=== PATIENT | male | born 1960 | race Hispanic/Latino ===

== ENCOUNTER 2018-02-04 15:59 | Inpatient (IN) | payer OTHER, MEDICARE ==
[2018-02-04] MEDS ORDERED: Etomidate 20 mg/10ml Inj IV ONE (16:11)
[2018-02-04] MEDS ORDERED: Succinylcholine 200 mg/10 ml Inj IV ONE (16:11)
[2018-02-04] MEDS ORDERED: Etomidate 20 mg/10ml Inj IVP STA (16:35)
--- NOTE | 2018-02-04 16:35 | ED PDOC ---
Arrival/HPI - General Chief Complaint: Cardiac Arrest Time Seen by Provider: 02/04/18 16:33 Historian: Family, EMS EM Caveat: Acuity of Condition - History of Present Illness Narrative History of Present Illness (Text): 02/04/18 16:34 A 57 year old male, whose past medical history includes CAD, hyperlipidemia, status post pancreatic and kidney transplant, presents to the emergency department by EMS for cardiac arrest prior to arrival. Family reports patient was breathing erratically and suddenly lost consciousness to which they subsequently called EMS. EMS reports that upon arrival patient was found unconscious, rhythm of ventricular fibrillation with 5 minutes down time and CPR was initiated. Medication and shock were given with CPR. EMS also reports patient was intubated with a definitive airway and cardiac arrest continued with external CPR device. Upon arrival to the emergency department, initial rhythm was ventricular fibrillation and patient was transferred from the [facility] to emergency department stretcher at which point ET tube was suspected to be dislodged. I removed said ET tube and intubated. During intubation, patient was noted breathing spontaneously and biting on ET tube. HPI and ROS is limited due to patient's condition. Time/Duration: Prior to Arrival Context: Home Past Medical History - Provider Review Nursing Documentation Reviewed: Yes - Cardiac Hx Pacemaker: No - Neurological Hx Paralysis: No - Renal Hx Renal Failure: Yes Other/Comment: KIDNEY TRANSPLANT 2005 - Endocrine/Metabolic Hx Diabetes Mellitus Type 2: Yes - Hematological/Oncological Hx Blood Transfusions: Yes (2005) Hx Blood Transfusion Reaction: No - Musculoskeletal/Rheumatological Hx Musculoskeletal Disorders: No - Psychiatric Hx Emotional Abuse: No Hx Physical Abuse: No Hx Substance Use: No - Surgical History Hx Cardiac Catheterization: Yes (X6) Hx Coronary Stent: Yes Hx Gastric Bypass Surgery: Yes (2005) Hx Open Heart Surgery: Yes (2005) - Anesthesia Hx Anesthesia Reactions: No Hx Malignant Hyperthermia: No - Suicidal Assessment Feels Threatened In Home Enviroment: No Family/Social History - Physician Review Nursing Documentation Reviewed: Yes Family/Social History: Unknown Family HX Smoking Status: Never Smoked Hx Alcohol Use: No Hx Substance Use: No Allergies/Home Meds Allergies/Adverse Reactions: Allergies No Known Allergies Allergy (Verified 12/01/11 12:42) Home Medications: Home Meds Medication Instructions Recorded Confirmed Ciprofloxacin [Cipro] 500 mg PO Q12 02/04/18 02/04/18 Docusate Sodium [Wilson' Stool 100 mg PO DAILY 02/04/18 02/04/18 Softener Laxative] Furosemide [Lasix] 40 mg PO DAILY 02/04/18 02/04/18 Gabapentin [Neurontin] 100 mg PO BID 02/04/18 02/04/18 Mycophenolate Mofetil [Cellcept] 1,000 mg PO BID 02/04/18 02/04/18 Naloxegol Oxalate [Movantik] 12.5 mg PO DAILY 02/04/18 02/04/18 Pravastatin Sodium [Pravachol] 40 mg PO HS 02/04/18 02/04/18 Tacrolimus [Prograf] 3 mg PO HS 02/04/18 02/04/18 predniSONE [predniSONE Tab] 5 mg PO DAILY 02/04/18 02/04/18 Review of Systems - Review of Systems Systems not reviewed;Unavailable: Acuity of Condition Physical Exam - Physical Exam Physical Exam Limitations: Clinical Condition Vital Signs Reviewed: Yes Vital Signs Temp Pulse Resp BP Pulse Ox 02/04/18 17:08 72 26 H 130/56 L 95 02/04/18 17:00 89 19 126/73 96 02/04/18 16:40 96.5 F L 87 16 138/70 96 Temperature: Hypothermic Blood Pressure: Normal Pulse: Regular Respiratory Rate: Normal - Systems Exam Head: Present: Atraumatic, Normocephalic Medical Decision Making ED Course and Treatment: 02/04/18 16:40 Impression: A 57 year old male, whose past medical history includes a pancreatic and kidney transplant, presents to the emergency department by EMS for cardiac arrest prior to arrival. Plan: -- Type and Screen Stat -- Arterial blood gas stat -- EKG -- Labs -- CBC -- COAG -- Chest X-ray -- Calcium Gluconate -- Amidate -- Quelicin -- Midazolam -- Urine Culture -- Urinalysis -- Reassess and disposition Prior Visits: Notes and results from previous visits were reviewed. Progress Notes: 02/04/18 16:17 EKG: Ordered, reviewed, and independently interpreted the EKG. Rate : 88 BPM Rhythm : NSR Interpretation : 1 degree AV block, wide QRS complex, suspected hyperkalemia Comparison : No previous EKG for comparison. 02/04/18 17:[address] Yang, who is aware and agrees with emergency department management plan to admit patient for further observation. 02/04/18 17:19 Chest X-ray: Casting Plug Assembler : Alexis Spencer MD FINDINGS: In situ ETT, the tip of which lies approximately 19 mm above nicholas. In situ NGT , the tip of which has not been included on this film though distal aspect does lie well below EG LUNGS: Diffuse bilateral pulmonary infiltrates possibly secondary to pulmonary edema however pneumonia not completely excluded. PLEURA: No significant pleural effusion identified, no pneumothorax apparent. CARDIOVASCULAR: Sternotomy wires. Cardiomegaly. OSSEOUS STRUCTURES: No significant abnormalities. VISUALIZED UPPER ABDOMEN: Normal. OTHER FINDINGS: None. IMPRESSION: ETT and NGT as above. Diffuse bilateral pulmonary infiltrates possibly secondary to pulmonary edema however pneumonia not completely excluded. 02/04/18 17:21 Discussed case with , who is aware of patient and will see patient for admission. - Critical Care Critical Care Minutes: 60 minutes - Lab Interpretations Lab Results: 02/04/18 16:35 02/04/18 16:34 Lab Results 02/04/18 17:00: pCO2 34 L, pO2 53.0 L, HCO3 13.3 L, ABG pH 7.20 L, ABG Total CO2 14.3 L, ABG O2 Saturation 89.3 L, ABG O2 Content 12.8 L, ABG Base Excess - 13.7 L, ABG Hemoglobin 10.7 L, ABG Carboxyhemoglobin 4.3 H, POC ABG HHb ( Measured) 10.2 H, ABG Methemoglobin 0.4, ABG O2 Capacity 14.3 L, Hgb O2 Saturation 85.2 L, FiO2 50.0 02/04/18 16:35: PT 12.8 H, INR 1.12, APTT 39.3 H 02/04/18 16:35: WBC 26.1 H*, RBC 5.35, Hgb 13.1 L, Hct 43.5, MCV 81.3, MCH 24.5 L, MCHC 30.1 L, RDW 15.8 H, Plt Count 394, MPV 10.3, Gran % 68.6 H, Lymph % ( Auto) 27.6, Clark % (Auto) 2.9, Eos % (Auto) 0.7 L, Baso % (Auto) 0.2, Gran # 17.91 H, Lymph # (Auto) 7.2 H, Clark # (Auto) 0.8 H, Eos # (Auto) 0.2, Baso # ( Auto) 0.06 02/04/18 16:34: TSH 3rd Generation 1.92 02/04/18 16:34: Sodium 142, Potassium 4.1, Chloride 109 H, Carbon Dioxide 15 L, Anion Gap 22 H, BUN 25 H, Creatinine 1.2, Est GFR ( Amer) > 60, Est GFR ( Non-Af Amer) > 60, Random Glucose 291 H, Calcium 11.6 H, Phosphorus 5.1 H, Magnesium 2.0, Total Bilirubin 0.5, AST 203 H, ALT 127 H, Alkaline Phosphatase 120, Troponin I 0.33 H*, Total Protein 6.5, Albumin 3.3, Globulin 3.2, Albumin/ Globulin Ratio 1.0 L, Lipase 54 I have reviewed the lab results: Yes - RAD Interpretation Radiology Orders: 02/04/18 16:34 CHEST PORTABLE [RAD] Stat Director Of Special Education: Radiologist - EKG Interpretation Interpreted by ED Physician: Yes Type: 12 lead EKG - Medication Orders Current Medication Orders: Midazolam 100 mg/100ml in NS (Midazolam 100 Mg/100ml In Ns) 100 mg in 100 mls @ 2 mls/hr IV .Q24H PRN; Protocol; 2 MG/HR PRN Reason: Sedation Last Admin: 02/04/18 16:59 Dose: 2 mls/hr eMAR Start Stop Document 02/04/18 16:59 GMI (Rec: 02/04/18 17:00 GMI [id number]) Intravenous Solution Start Date 02/04/18 Start Time 17:00 Sodium Chloride (Sodium Chloride 0.9%) 1,000 mls @ 999 mls/hr IV .Q1H1M STA Stop: 02/04/18 18:17 Last Admin: 02/04/18 18:01 Dose: 999 mls/hr eMAR Start Stop Document 02/04/18 18:01 GMI (Rec: 02/04/18 18:02 GMI [id number]) Intravenous Solution Start Date 02/04/18 Start Time 18:02 End Date 02/04/18 Discontinued Medications Calcium Gluconate (Calcium Gluconate Iv) 1,000 mg IVP ONCE ONE Stop: 02/04/18 16:37 Last Admin: 02/04/18 16:19 Dose: 1,000 mg IVP Administration Document 02/04/18 16:19 GMI (Rec: 02/04/18 17:03 GMI [id number]) Charges for Administration # of IVP Administrations 1 Etomidate (Amidate) 20 mg IVP STAT STA Stop: 02/04/18 16:36 Last Admin: 02/04/18 17:10 Dose: Cefepime HCl (Maxipime 2gm) 2 gm in 100 mls @ 100 mls/hr IVPB STAT STA PRN Reason: Protocol Stop: 02/04/18 17:54 Last Admin: 02/04/18 17:09 Dose: 100 mls/hr eMAR Start Stop Document 02/04/18 17:09 GMI (Rec: 02/04/18 17:09 GMI [id number]) Intravenous Solution Start Date 02/04/18 Start Time 17:09 End Date 02/04/18 End time 18:10 Total Infusion Time 61 Succinylcholine Chloride (Quelicin) 100 mg IV STAT STA Stop: 02/04/18 16:37 Last Admin: 02/04/18 17:10 Dose: - Scribe Statement The provider has reviewed the documentation as recorded by the Shani Beverly All medical record entries made by the Sandyibjoseph were at my direction and personally dictated by me. I have reviewed the chart and agree that the record accurately reflects my personal performance of the history, physical exam, medical decision making, and the department course for this patient. I have also personally directed, reviewed, and agree with the discharge instructions and disposition. Disposition/Present on Arrival - Present on Arrival Any Indicators Present on Arrival: No History of DVT/PE: No History of Uncontrolled Diabetes: No Urinary Catheter: No History of Decub. Ulcer: No History Surgical Site Infection Following: None - Disposition Have Diagnosis and Disposition been Completed?: Yes Diagnosis: Cardiac arrest, Pneumonia Disposition: HOSPITALIZED Disposition Time: 18:07 Patient Plan: Admission Condition: CRITICAL
[2018-02-04] MEDS ORDERED: Succinylcholine 200 mg/10 ml Inj IV STA (16:36)
[2018-02-04] MEDS ORDERED: Midazolam 100 mg/100ml in NS 100 MG/100 ML SOL IV PRN (16:37)
[2018-02-04 16:46] LABS: BASO # 0.06 K/mm3 (0.0-2.0); BASO % 0.2 % (0.0-3.0); EOS # 0.2 (0.0-0.7); EOS % 0.7 % (1.5-5.0); GRAN # 17.91 (1.4-6.5); GRAN % 68.6 % (50.0-68.0); HEMOGLOBIN 13.1 g/dL (14.0-18.0); LYMPH # 7.2 (1.2-3.4); LYMPH % 27.6 % (22.0-35.0); MEAN CELL VOLUME 81.3 fl (80.0-105.0); MEAN CORPUSCULAR HEMOGLOBIN 24.5 pg (25.0-35.0); MEAN CORPUSCULAR HGB CONC 30.1 g/dl (31.0-37.0); MEAN PLATELET VOLUME 10.3 fl (7.0-11.0); MONO # 0.8 (0.1-0.6); MONO % 2.9 % (1.0-6.0); RBC 5.35 10^6/uL (3.5-6.1); RED CELL DISTRIBUTION WIDTH 15.8 % (11.5-14.5)
[2018-02-04 16:47] LABS: INR 1.12; PARTIAL THROMBOPLASTIN TIME 39.3 Seconds (25.1-36.5); PROTHROMBIN TIME 12.8 SECONDS (9.4-12.5)
[2018-02-04 16:50] LABS: WHITE BLOOD COUNT 26.1 10^3/ul (4.5-11.0)
[2018-02-04] MEDS ORDERED: Cefepime IV 2 gm in NS 2 GM/100 ML BAG IVPB STA (16:55)
--- NOTE | 2018-02-04 16:58 | RAD ---
Date of service: 02/04/2018 HISTORY: Tube placement COMPARISON: No prior study available comparison FINDINGS: In situ ETT, the tip of which lies approximately 19 mm above nicholas. In situ NGT, the tip of which has not been included on this film though distal aspect does lie well below EG LUNGS: Diffuse bilateral pulmonary infiltrates possibly secondary to pulmonary edema however pneumonia not completely excluded. PLEURA: No significant pleural effusion identified, no pneumothorax apparent. CARDIOVASCULAR: Sternotomy wires. Cardiomegaly. OSSEOUS STRUCTURES: No significant abnormalities. VISUALIZED UPPER ABDOMEN: Normal. OTHER FINDINGS: None. IMPRESSION: ETT and NGT as above Diffuse bilateral pulmonary infiltrates possibly secondary to pulmonary edema however pneumonia not completely excluded.
[2018-02-04 17:03] LABS: ARTERIAL BLOOD GAS HCO3 13.3 mmol/L (21-28); ARTERIAL BLOOD GAS HEMOGLOBIN 10.7 g/dL (11.7-17.4); ARTERIAL BLOOD GAS O2 CAPACITY 14.3 mL/dl (16-24); ARTERIAL BLOOD GAS O2 CONTENT 12.8 ML/dl (15-23); ARTERIAL BLOOD GAS O2 SAT 89.3 % (95-98); ARTERIAL BLOOD GAS PCO2 34 mm/Hg (35-45); ARTERIAL BLOOD GAS TCO2 14.3 mmol.L (22-28)
[2018-02-04 17:12] LABS: ALBUMIN 3.3 g/dL (3.0-4.8); ALT/SGPT 127 U/L (7-56); AST/SGOT 203 U/L (17-59); BLOOD UREA NITROGEN 25 mg/dL (7-21); CALCIUM 11.6 mg/dL (8.4-10.5); GFR NON-AFRICAN AMERICAN > 60; LIPASE 54 U/L (23-300)
[2018-02-04] MEDS ORDERED: Sodium Chloride 0.9% 1,000 ML IV STA (17:17)
[2018-02-04 17:26] LABS: TROPONIN I 0.33 ng/mL
[2018-02-04 17:52] LABS: VENOUS BLOOD GAS BASE EXCESS -10.9 mmol/L (0.0-2.0); VENOUS BLOOD GAS PO2 54 mm/Hg (30-55)
[2018-02-04 18:00] LABS: VENOUS BLOOD PH 7.19 (7.32-7.43)
[2018-02-04 18:42] LABS: URINE APPEARANCE SL CLOUDY (CLEAR); URINE BILIRUBIN NEGATIVE (NEGATIVE); URINE BLOOD MODERATE (NEGATIVE); URINE COLOR LIGHT YELLOW (YELLOW); URINE GLUCOSE (UA) NEGATIVE (NEGATIVE); URINE LEUKOCYTE ESTERASE NEGATIVE Leu/uL (NEGATIVE); URINE PROTEIN 100 mg/dL (<30 mg/dL); URINE UROBILINOGEN 0.2 E.U./dL (<1 E.U./dL)
[2018-02-04 18:52] LABS: URINE AMORPHOUS SEDIMENT TRACE; URINE BACTERIA TRACE (NEG); URINE WBC 0 - 2 /hpf (0-6)
[2018-02-04] MEDS ORDERED: Propofol 10 mg/ml 1,000 MG/100 ML VIAL ONE (19:24)
[2018-02-04] MEDS ORDERED: Sodium Bicarbonate (8.4%) 50 Meq Syringe IVP ONE (19:48)
--- NOTE | 2018-02-04 20:31 | CP.PCM.PN ---
Subjective - Date & Time of Evaluation Date of Evaluation: 02/04/18 Time of Evaluation: 20:29 - Subjective Subjective: # 20 angiocaths inserted in left hand. Patient started waking up, withdrawing all 4 extremities. Hypothermia protocol was held. Objective - Vital Signs/Intake and Output Vital Signs (last 24 hours): Temp Pulse Resp BP Pulse Ox 96 F L 79 22 123/72 95 02/04/18 19:06 02/04/18 19:06 02/04/18 19:06 02/04/18 19:06 02/04/18 19:06 Intake and Output: 02/04/18 02/05/18 18:59 06:59 Intake Total 4 Balance 4 - Medications Medications: Current Medications Atorvastatin Calcium (Lipitor) 10 mg PO HS [facility] Docusate Sodium (Colace) 100 mg PO DAILY [facility] Furosemide (Lasix) 40 mg IVP DAILY [facility] Gabapentin (Neurontin) 100 mg PO BID [facility] PRN Reason: Protocol Midazolam 100 mg/100ml in NS (Midazolam 100 Mg/100ml In Ns) 100 mg in 100 mls @ 2 mls/hr IV .Q24H PRN; Protocol; 2 MG/HR PRN Reason: Sedation Last Titration: 02/04/18 19:05 Dose: 4 mg/hr, 4 mls/hr Propofol (Diprivan) 1,000 mg in 100 mls @ 1.633 mls/hr IV .Q24H PRN; Protocol; 5 MCG/KG/MIN PRN Reason: TITRATE PER MD ORDER Mycophenolate Mofetil (Cellcept Cap) 1,000 mg PO BID [facility] Non-Formulary Medication (Naloxegol Oxalate [Movantik]) 12.5 mg PO DAILY [facility] Tacrolimus (Prograf Cap) 3 mg PO HS [facility] - Labs Labs: PT 12.8 SECONDS (9.4-12.5) H 02/04/18 16:35 INR 1.12 02/04/18 16:35 APTT 39.3 Seconds (25.1-36.5) H 02/04/18 16:35
[2018-02-04] MEDS ORDERED: TACROLIMUS 1 MG PO SCH (22:00)
[2018-02-04 22:58] LABS: VENOUS BLOOD GAS BASE EXCESS -1.1 mmol/L (0.0-2.0); VENOUS BLOOD GAS PO2 50 mm/Hg (30-55)
[2018-02-04] MEDS: Propofol 10 mg/ml 1,000 MG/100 ML VIAL IV PRN (22:58)
[2018-02-04] MEDS: Insulin Reg-LOW-Coverage SC SCH (23:40)
[2018-02-05 00:08] LABS: ARTERIAL BLOOD GAS HCO3 23.7 mmol/L (21-28); ARTERIAL BLOOD GAS HEMOGLOBIN 11.2 g/dL (11.7-17.4); ARTERIAL BLOOD GAS O2 CAPACITY 15.8 mL/dl (16-24); ARTERIAL BLOOD GAS O2 CONTENT 15.7 ML/dl (15-23); ARTERIAL BLOOD GAS O2 SAT 99.4 % (95-98); ARTERIAL BLOOD GAS PCO2 40 mm/Hg (35-45); ARTERIAL BLOOD GAS PH 7.38 (7.35-7.45); ARTERIAL BLOOD GAS TCO2 24.9 mmol.L (22-28)
[2018-02-05] MEDS ORDERED: Aspirin 325 mg EC Tablets PO STA (01:54)
[2018-02-05] MEDS ORDERED: Metoprolol 1 mg/ml Inj IVP STA (01:56)
[2018-02-05 01:57] VITALS: BMI 21.2
[2018-02-05] MEDS ORDERED: Enoxaparin 60 mg Syringe SC SCH (02:00)
--- NOTE | 2018-02-05 03:19 | CON ---
Copied To: Mohan Monterroso MD Attending MD: Mohan Monterroso MD DATE: 02/04/2018 MANAGER OF TAX CONSULTATION REQUESTING PHYSICIAN: CHIEF COMPLAINT: The patient presented to the emergency room in cardiac arrest with CPR secondary to ventricular fibrillation. HISTORY OF PRESENT ILLNESS: Mr. Guido is a 57-year-old male who as per family was in the bathroom struggling to urinate and during that time became unresponsive and noted to be in cardiac arrest and the family started CPR. The 911 was called and CPR continued, was noticed that the patient was in V fib and shocked and at that time intubated and transported to the emergency room. The patient had several episodes of losing his pulse during the transport to the hospital and required shocking and cardiac arrest during transport as well. At this time, he is intubated on the ventilator with FiO2 of 40%. The patient has been admitted to the Intensive Care Unit. The patient is hemodynamically stable and is getting Versed for sedation. Since being admitted to the Intensive Care Unit, the patient has been started with code freeze. PAST MEDICAL HISTORY: Significant for kidney and pancreas transplant back in 2005. The patient had UTI at home being treated with Levaquin as per his , has a history of diabetes since childhood with bilateral lower extremity amputations, has a history of coronary artery disease status post CABG. It is noted on this admission, he has sepsis with increased white count and metabolic acidosis, also bilateral infiltrates on chest x-ray with that maybe secondary to pulmonary edema or pneumonia, possibly aspiration. ALLERGIES: THE PATIENT HAS NO KNOWN ALLERGIES. SOCIAL HISTORY: No history of smoking, EtOH abuse or drug abuse. FAMILY HISTORY: Noncontributory. REVIEW OF SYSTEMS: Unable to assess because the patient is sedated on the ventilator. PHYSICAL EXAMINATION: VITAL SIGNS: Note that his temperature is 96.5, pulse is 85, respirations of 16 and BP is 138/70, O2 saturation is 96%. HEENT: Head is atraumatic, normocephalic. Eyes reactive to light. Ear, nose and throat seemed to be within normal limits. NECK: Supple. No JVD. No thyroid enlargement or lymph nodes. HEART: Regular rate and rhythm. Normal S1, S2. LUNGS: Reveal bilateral rhonchi. ABDOMEN: Soft. Decreased bowel sounds. GENITALIA AND RECTAL: Deferred. MUSCULOSKELETAL: No joint deformities. EXTREMITIES: Reveal [id number] amputations on both legs. NEUROLOGIC: The patient is sedated on the ventilator. LABORATORY DATA: His white count is 26.1, hemoglobin is 13.1, hematocrit 43.5 with platelets of 394,000. Sodium is 142, potassium 4.1, chloride 109, CO2 of 15 with a BUN of 25, creatinine of 1.2 and a glucose of 291. Chest x-ray reveals bilateral infiltrates. IMPRESSION: This patient has cardiac arrest secondary to ventricular fibrillation arrest, respiratory failure requiring ventilator support. The patient has pulmonary edema or possible bilateral pneumonia secondary to aspiration. He has sepsis and noted to have been treated for urinary tract infection at home. The patient has history of kidney as well as pancreatic transplant. He has coronary artery disease status post coronary artery bypass grafting, lower extremity below the knee amputations bilaterally, diabetes, peripheral neuropathy and metabolic acidosis. PLAN: We will start code freeze because the patient was a witnessed CPR. The patient is on ventilator support with FiO2 of 40%. We will follow his chest x-ray and arterial blood gas closely. The patient has been given cefepime as antibiotic and is on Versed for sedation. We will continue his usual medications and will get consults with Neuro, ID and Cardiology. We will continue with IV fluids and monitor his electrolytes closely and correct as needed. We will continue to treat aggressively along with the other consultants and the primary care doctor. Mohan Monterroso MD
[2018-02-05] MEDS: Sodium Chloride 0.9% 1,000 ML IV SCH ×2 (04:00→22:24)
[2018-02-05 06:19] LABS: CALCIUM 10.2 mg/dL (8.4-10.5)
[2018-02-05 06:20] LABS: ARTERIAL BLOOD GAS HCO3 22.6 mmol/L (21-28); ARTERIAL BLOOD GAS HEMOGLOBIN 10.8 g/dL (11.7-17.4); ARTERIAL BLOOD GAS O2 CAPACITY 14.9 mL/dl (16-24); ARTERIAL BLOOD GAS O2 CONTENT 14.7 ML/dl (15-23); ARTERIAL BLOOD GAS O2 SAT 98.7 % (95-98); ARTERIAL BLOOD GAS PCO2 34 mm/Hg (35-45); ARTERIAL BLOOD GAS PH 7.43 (7.35-7.45); ARTERIAL BLOOD GAS TCO2 23.6 mmol.L (22-28)
[2018-02-05 06:23] LABS: BASO # 0.01 K/mm3 (0.0-2.0); GRAN # 21.24 (1.4-6.5); GRAN % 94.3 % (50.0-68.0); HEMOGLOBIN 10.8 g/dL (14.0-18.0); LYMPH # 0.7 (1.2-3.4); MEAN CELL VOLUME 78.2 fl (80.0-105.0); MEAN CORPUSCULAR HEMOGLOBIN 23.3 pg (25.0-35.0); MEAN CORPUSCULAR HGB CONC 29.8 g/dl (31.0-37.0); MEAN PLATELET VOLUME 9.3 fl (7.0-11.0); MONO # 0.6 (0.1-0.6); MONO % 2.7 % (1.0-6.0); PLATELET COUNT 337 10^3/uL (120.0-450.0); RBC 4.64 10^6/uL (3.5-6.1); RED CELL DISTRIBUTION WIDTH 15.7 % (11.5-14.5); WHITE BLOOD COUNT 22.5 10^3/ul (4.5-11.0)
[2018-02-05 07:06] LABS: TROPONIN I 18.6 ng/mL
[2018-02-05] MEDS: NALOXEGOL OXALATE 12.5 MG PO SCH ×2 (07:26→07:28)
[2018-02-05] MEDS: Insulin Reg-LOW-Coverage SC SCH ×4 (07:26→18:00)
[2018-02-05 08:08] LABS: BAND 4 % (0-2); HYPOCHROMIA 1+; LYMPHOCYTE 2 % (22.0-35.0); MONOCYTE 2 % (1.0-6.0); NEUTROPHIL 90 % (50.0-70.0); PLATELET ESTIMATE NORMAL (NORMAL)
[2018-02-05 08:09] LABS: ANISOCYTOSIS 1+; MICROCYTOSIS 1+; TOXIC GRANULATION 1+
[2018-02-05] MEDS ORDERED: Vancomycin 1gm in NS 250ml 1 GM/250 ML BAG IVPB STA (08:22)
--- NOTE | 2018-02-05 08:52 | CP.PCM.HP ---
<Shiloh Hood - Last Filed: 02/05/18 12:41> History of Present Illness - History of Present Illness History of Present Illness: PGY-[address] Silva Mr Guido, 57M, active smoker, PMHx insulin dependent diabetes since age 5, CVA @ [facility] (2004), CAD s/p CABG (2005) s/p stents, s/p kidney and pancreasa transplant on prednisone/prograf/cellcept, and chronic anemia, presented to ED after V-fib cardiac arrest. Family reports pt was in the bathroom striffling to urinate. Pt had UTI at home treated with Levaquin & occassional urinary retention requiring home straight cath PRN. Pt was breathing erratically and suddenly lost consciousness. Family noted pt to be in cardiac arrest, started CPR. EMS reports that upon arrival patient was found unconscious, rhythm of ventricular fibrillation with 5 minutes down time and CPR was continued by EMS with defibrillation. Pt was intubated in the field. Upon ED arrival, initial rhythm was ventricular fibrillation. ET tube was suspected to be dislodged, so the ET tube was removed and pt re-intubated. During re-intubation, patient was noted breathing spontaneously and biting on ET tube. Pt was transferred to ICU, intubated in FiO2 40% PRVC ventilator on versed for sedation. Code freeze started. Code freeze was terminated within 1 hour because pt was found responsive and code sepsis. He receive 1L IVF bolus and cefepime. Overnight, Pt u/o was 120cc in past 12 hours. asked that no more IV dye to be used. PMHx Active smoker Diabetes, insulin dependent, since age 5, with diabetic retinopathy and nephropathy CVA @ [facility] (2004) CAD s/p CABG (2005) s/p stents, CHF () urinary retention requiring home straight cath PRN, ESRD s/p kidney and pancreasa transplant, on prednisone/prograf/cellcept Chronic anemia Abdominal hernia Sacral decubitus PSH CABG (2005) Hx ESRD on HD (2005 - 2006) then kidney and pancreas transplant 2006 L BKA (2013) Gastric bypass SH with . 1 daughter. wheelchair bound All NKDA Med Prednisone, Tacrolimus, Cellcept Pravastain Movantik Gabapentin Lasix Docusate Present on Admission - Present on Admission Any Indicators Present on Admission: Yes Decubitus Ulcer Present: Yes Review of Systems - Review of Systems Systems not reviewed;Unavailable: Intubated Past Patient History - Past Social History Smoking Status: Current Some Days Smoker - CARDIAC Hx Circulatory Problems: Yes Hx Congestive Heart Failure: Yes Hx Hypercholesterolemia: Yes Hx Pacemaker: No Other/Comment: cabg 2005 - PULMONARY Other/Comment: active smoker - NEUROLOGICAL Hx Neurological Disorder: Yes HX Cerebrovascular Accident: Yes (2004) - RENAL Hx Dialysis: Yes (2005 TILL 2006---14 MOS..) Hx Renal Failure: Yes Other/Comment: KIDNEY AND PANCREAS TRANSPLANT 2006 - ENDOCRINE/METABOLIC Hx Diabetes Mellitus Type 2: Yes Other/Comment: juvenile diabetic - HEMATOLOGICAL/ONCOLOGICAL Hx Anemia: Yes - MUSCULOSKELETAL/RHEUMATOLOGICAL Hx Musculoskeletal Disorders: Yes Hx Arthritis: Yes Hx Falls: No - GENITOURINARY/GYNECOLOGICAL Other/Comment: difficulty voiding at times--- uses urinary catheters prn at home - PSYCHIATRIC Hx Emotional Abuse: No Hx Physical Abuse: No Hx Substance Use: No - SURGICAL HISTORY Hx Cardiac Catheterization: Yes (X6) Hx Coronary Stent: Yes Hx Gastric Bypass Surgery: Yes (2005) Hx Open Heart Surgery: Yes (2005) Other/Comment: LEFT BKA 2013 - ANESTHESIA Hx Anesthesia Reactions: No Hx Malignant Hyperthermia: No Meds Allergies/Adverse Reactions: Allergies Allergy/AdvReac Type Severity Reaction Status Date / Time No Known Allergies Allergy Verified 12/01/11 12:42 Physical Exam - Constitutional Appears: No Acute Distress - Head Exam Head Exam: ATRAUMATIC, NORMAL INSPECTION, NORMOCEPHALIC - Eye Exam Eye Exam: PERRL. absent: Scleral icterus - ENT Exam ENT Exam: Mucous Membranes Moist - Neck Exam Additional comments: supple - Respiratory Exam Respiratory Exam: Rales, Rhonchi - Cardiovascular Exam Cardiovascular Exam: REGULAR RHYTHM, +S1, +S2 - GI/Abdominal Exam GI & Abdominal Exam: Soft Additional comments: Ventral hernia. Scars fron prior surgery - Extremities Exam Additional comments: L BKA, R transmetatarsal amputation - Neurological Exam Additional comments: intubated, reactive to light touch breathing over vent - Psychiatric Exam Psychiatric exam: Flat Affect - Skin Skin Exam: Dry, Warm Results - Vital Signs Recent Vital Signs: Last Vital Signs Temp 97.2 F L 02/05/18 00:00 Pulse 75 02/05/18 07:40 Resp 18 02/05/18 07:23 BP 112/70 08/19/18 07:30 Pulse Ox 100 02/05/18 07:40 - Labs Result Diagrams: 02/05/18 05:50 02/05/18 05:50 Labs: Laboratory Results - last 24 hr 02/04/18 02/04/18 02/04/18 17:25 18:34 22:50 WBC RBC Hgb Hct MCV MCH MCHC RDW Plt Count MPV Gran % Lymph % (Auto) Collin % (Auto) Eos % (Auto) Baso % (Auto) Gran # Lymph # (Auto) Collin # (Auto) Eos # (Auto) Baso # (Auto) Neutrophils % (Manual) Band Neutrophils % Lymphocytes % (Manual) Monocytes % (Manual) Toxic Granulation Platelet Evaluation Hypochromasia Anisocytosis (manual) Microcytosis (manual) pCO2 pO2 54 HCO3 ABG pH ABG Total CO2 ABG O2 Saturation ABG O2 Content ABG Base Excess ABG Hemoglobin ABG Carboxyhemoglobin POC ABG HHb (Measured) ABG Methemoglobin ABG O2 Capacity VBG pH 7.19 L* VBG pCO2 44.0 VBG HCO3 16.8 L VBG Total CO2 18.2 L VBG O2 Sat (Calc) 90.0 H VBG Base Excess -10.9 L VBG Potassium 3.9 Hgb O2 Saturation Sodium 139.0 Chloride 107.0 Glucose 301 H Lactate 5.2 H* FiO2 21.0 Potassium Carbon Dioxide Anion Gap BUN Creatinine Est GFR ( Amer) Est GFR (Non-Af Amer) Random Glucose Lactic Acid 2.8 H Calcium Phosphorus Magnesium Total Bilirubin AST ALT Alkaline Phosphatase Troponin I Total Protein Albumin Globulin Albumin/Globulin Ratio Venous Blood Potassium 3.9 Urine Color Light yellow Urine Appearance Sl cloudy Urine pH 6.0 Ur Specific [place] >= 1.030 Urine Protein 100 H Urine Glucose (UA) Negative Urine Ketones Negative Urine Blood Moderate H Urine Nitrate Negative Urine Bilirubin Negative Urine Urobilinogen 0.2 Ur Leukocyte Esterase Negative Urine RBC 1 - 3 Urine WBC 0 - 2 Ur Epithelial Cells None Amorphous Sediment Trace Urine Bacteria Trace Alcohol, Quantitative 02/04/18 02/04/18 02/04/18 22:50 22:50 22:50 WBC RBC Hgb Hct MCV MCH MCHC RDW Plt Count MPV Gran % Lymph % (Auto) Collin % (Auto) Eos % (Auto) Baso % (Auto) Gran # Lymph # (Auto) Collin # (Auto) Eos # (Auto) Baso # (Auto) Neutrophils % (Manual) Band Neutrophils % Lymphocytes % (Manual) Monocytes % (Manual) Toxic Granulation Platelet Evaluation Hypochromasia Anisocytosis (manual) Microcytosis (manual) pCO2 pO2 50 HCO3 ABG pH ABG Total CO2 ABG O2 Saturation ABG O2 Content ABG Base Excess ABG Hemoglobin ABG Carboxyhemoglobin POC ABG HHb (Measured) ABG Methemoglobin ABG O2 Capacity VBG pH 7.30 L VBG pCO2 53.0 VBG HCO3 26.1 VBG Total CO2 27.7 VBG O2 Sat (Calc) 85.7 H VBG Base Excess -1.1 L VBG Potassium 4.1 Hgb O2 Saturation Sodium 142.0 Chloride 109.0 H Glucose 151 H Lactate 3.2 H FiO2 21.0 Potassium Carbon Dioxide Anion Gap BUN Creatinine Est GFR ( Amer) Est GFR (Non-Af Amer) Random Glucose Lactic Acid Calcium Phosphorus Magnesium Total Bilirubin AST ALT Alkaline Phosphatase Troponin I 13.30 H* D Total Protein Albumin Globulin Albumin/Globulin Ratio Venous Blood Potassium 4.1 Urine Color Urine Appearance Urine pH Ur Specific [place] Urine Protein Urine Glucose (UA) Urine Ketones Urine Blood Urine Nitrate Urine Bilirubin Urine Urobilinogen Ur Leukocyte Esterase Urine RBC Urine WBC Ur Epithelial Cells Amorphous Sediment Urine Bacteria Alcohol, Quantitative < 10 02/05/18 02/05/18 02/05/18 00:00 05:50 05:50 WBC 22.5 H RBC 4.64 Hgb 10.8 L D Hct 36.3 L MCV 78.2 L D MCH 23.3 L MCHC 29.8 L RDW 15.7 H Plt Count 337 MPV 9.3 Gran % 94.3 H Lymph % (Auto) 3.0 L Collin % (Auto) 2.7 Eos % (Auto) 0.0 L Baso % (Auto) 0.0 Gran # 21.24 H Lymph # (Auto) 0.7 L Collin # (Auto) 0.6 Eos # (Auto) 0.0 Baso # (Auto) 0.01 Neutrophils % (Manual) 90 H Band Neutrophils % 4 H Lymphocytes % (Manual) 2 L Monocytes % (Manual) 2 Toxic Granulation 1+ Platelet Evaluation Normal Hypochromasia 1+ Anisocytosis (manual) 1+ Microcytosis (manual) 1+ pCO2 40 pO2 198.0 H HCO3 23.7 ABG pH 7.38 ABG Total CO2 24.9 ABG O2 Saturation 99.4 H ABG O2 Content 15.7 ABG Base Excess -1.3 ABG Hemoglobin 11.2 L ABG Carboxyhemoglobin 1.7 H POC ABG HHb (Measured) 0.6 ABG Methemoglobin 1.1 ABG O2 Capacity 15.8 L VBG pH VBG pCO2 VBG HCO3 VBG Total CO2 VBG O2 Sat (Calc) VBG Base Excess VBG Potassium Hgb O2 Saturation 96.6 Sodium 145 Chloride 110 H Glucose Lactate FiO2 60.0 Potassium 4.7 Carbon Dioxide 25 Anion Gap 14 BUN 37 H Creatinine 1.6 H Est GFR ( Amer) 54 Est GFR (Non-Af Amer) 45 Random Glucose 112 H Lactic Acid Calcium 10.2 Phosphorus 3.8 Magnesium 1.9 Total Bilirubin 0.5 AST 116 H D ALT 95 H Alkaline Phosphatase 105 Troponin I 18.60 H* D Total Protein 5.9 Albumin 3.0 Globulin 2.9 Albumin/Globulin Ratio 1.0 L Venous Blood Potassium Urine Color Urine Appearance Urine pH Ur Specific [place] Urine Protein Urine Glucose (UA) Urine Ketones Urine Blood Urine Nitrate Urine Bilirubin Urine Urobilinogen Ur Leukocyte Esterase Urine RBC Urine WBC Ur Epithelial Cells Amorphous Sediment Urine Bacteria Alcohol, Quantitative 02/05/18 06:00 WBC RBC Hgb Hct MCV MCH MCHC RDW Plt Count MPV Gran % Lymph % (Auto) Collin % (Auto) Eos % (Auto) Baso % (Auto) Gran # Lymph # (Auto) Collin # (Auto) Eos # (Auto) Baso # (Auto) Neutrophils % (Manual) Band Neutrophils % Lymphocytes % (Manual) Monocytes % (Manual) Toxic Granulation Platelet Evaluation Hypochromasia Anisocytosis (manual) Microcytosis (manual) pCO2 34 L pO2 95.0 HCO3 22.6 ABG pH 7.43 ABG Total CO2 23.6 ABG O2 Saturation 98.7 H ABG O2 Content 14.7 L ABG Base Excess -1.3 ABG Hemoglobin 10.8 L ABG Carboxyhemoglobin 1.8 H POC ABG HHb (Measured) 1.3 ABG Methemoglobin 1.1 ABG O2 Capacity 14.9 L VBG pH VBG pCO2 VBG HCO3 VBG Total CO2 VBG O2 Sat (Calc) VBG Base Excess VBG Potassium Hgb O2 Saturation 95.9 Sodium Chloride Glucose Lactate FiO2 40.0 Potassium Carbon Dioxide Anion Gap BUN Creatinine Est GFR ( Amer) Est GFR (Non-Af Amer) Random Glucose Lactic Acid Calcium Phosphorus Magnesium Total Bilirubin AST ALT Alkaline Phosphatase Troponin I Total Protein Albumin Globulin Albumin/Globulin Ratio Venous Blood Potassium Urine Color Urine Appearance Urine pH Ur Specific [place] Urine Protein Urine Glucose (UA) Urine Ketones Urine Blood Urine Nitrate Urine Bilirubin Urine Urobilinogen Ur Leukocyte Esterase Urine RBC Urine WBC Ur Epithelial Cells Amorphous Sediment Urine Bacteria Alcohol, Quantitative Assessment & Plan - Assessment and Plan (Free Text) Plan: Mr Guido, 57M, active smoker, PMHx insulin dependent diabetes since age 5, CVA @ [facility] (2004), CAD s/p CABG (2005) s/p stents, s/p kidney and pancreasa transplant on prednisone/prograf/cellcept, and chronic anemia, presented to ED after V-fib cardiac arrest in the field with 5 minutes down time. S/p V fib arrest with respiratory failure, ROSC, complicated by oliguria, transaminitis (questionable ischemic liver), questionable encephalopathy - Head CT: mild to moderate chronic ischemic white matter periventricular to deep subcortical. Chronic infarct R centrum semiovale and L basal ganglia. Moderate volume loss, marked thinning corpus callosum - follow UDS - Neg FINA - Hold Lipitor, Movintik. - PRVC on propofol/versed. Daily sedation vacation with breathing trial. Intubation day __2__ - NPO on NS@80 - strict i/o, continue monitor kidney function Cardiogenic shock with pleural effusion Elevated trops r/o ACS - EKG - junctional tachycardia with PVC, RBBB - Switch therapeutic lovenox to heparin gtt due to kidney transplant status - Cardio started ASA, plavix, coreg, nitro-bid 2% oint 0.5in top Q6H Septic shock, source of infection: uti vs pna. Doubt skin complicated by Hypothermic, respiratory failure, leukocytosis 26, lactate 5 on admission UTI at home treated with Levaquin prior to admission Pneumona, CAP vs aspiration - CXR (02/05) diffuse bilateral alveolar infiltrate R > L, pulmonary vascular congestion vs pneumonia, small R effusion - Blood culture x 2, urine culture, sputum culture, MRSA screen, procalc, hepatitis panel, HIV, leginella Ag - give one dose of vancomysin. Merem and doxycycline, day __2__ DM with neuropathy - Follow A1C - ISSS with goal of glucose 140-180 - Continue gabapentin Immunosuppresion S/P kidney, pancreas transplant on immunosuppresant - hold immunosuppressant for now until sepsis resolves Anemia likely from immunosuppresion or prior ESRD W/C bound Sacral decubitus, stage 2 - reposition as needed Prophylaxis: heparin gtt. Protonix IV Dr Silva contact family and [facility] where the transplant took place s/r/d/w Dr Silva <Roddy Silva S - Last Filed: 02/06/18 18:28> Results - Vital Signs Recent Vital Signs: Last Vital Signs Temp 100.2 F H 02/06/18 16:00 Pulse 77 02/06/18 13:59 Resp 19 02/06/18 01:20 BP 117/66 02/06/18 14:04 Pulse Ox 100 02/06/18 06:30 - Labs Result Diagrams: 02/06/18 05:20 02/06/18 05:20 Labs: Laboratory Results - last 24 hr 02/04/18 02/05/18 02/05/18 23:42 10:30 17:58 WBC RBC Hgb Hct MCV MCH MCHC RDW Plt Count MPV Gran % Lymph % (Auto) Collin % (Auto) Eos % (Auto) Baso % (Auto) Gran # Lymph # (Auto) Collin # (Auto) Eos # (Auto) Baso # (Auto) APTT Sodium Potassium Chloride Carbon Dioxide Anion Gap BUN Creatinine Est GFR ( Amer) Est GFR (Non-Af Amer) POC Glucose (mg/dL) 140 H 92 Random Glucose Calcium Phosphorus Magnesium Total Bilirubin AST ALT Alkaline Phosphatase Lactate Dehydrogenase Total Creatine Kinase CK-MB (CK-2) CK-MB (CK-2) % Troponin I Total Protein Albumin Globulin Albumin/Globulin Ratio Triglycerides Cholesterol LDL Cholesterol Direct HDL Cholesterol HIV 1&2 Ag/Ab, 4th Gen Nonreactive 02/05/18 02/06/18 02/06/18 23:30 00:38 05:20 WBC 21.3 H RBC 3.97 Hgb 9.4 L Hct 30.6 L MCV 77.1 L MCH 23.7 L MCHC 30.7 L RDW 15.8 H Plt Count 299 MPV 10.4 Gran % 94.1 H Lymph % (Auto) 2.9 L Collin % (Auto) 2.7 Eos % (Auto) 0.3 L Baso % (Auto) 0.0 Gran # 20.01 H Lymph # (Auto) 0.6 L Collin # (Auto) 0.6 Eos # (Auto) 0.1 Baso # (Auto) 0.01 APTT 44.3 H Sodium Potassium Chloride Carbon Dioxide Anion Gap BUN Creatinine Est GFR ( Amer) Est GFR (Non-Af Amer) POC Glucose (mg/dL) 92 Random Glucose Calcium Phosphorus Magnesium Total Bilirubin AST ALT Alkaline Phosphatase Lactate Dehydrogenase Total Creatine Kinase CK-MB (CK-2) CK-MB (CK-2) % Troponin I Total Protein Albumin Globulin Albumin/Globulin Ratio Triglycerides Cholesterol LDL Cholesterol Direct HDL Cholesterol HIV 1&2 Ag/Ab, 4th Gen 02/06/18 02/06/18 02/06/18 05:20 05:20 06:38 WBC RBC Hgb Hct MCV MCH MCHC RDW Plt Count MPV Gran % Lymph % (Auto) Collin % (Auto) Eos % (Auto) Baso % (Auto) Gran # Lymph # (Auto) Collin # (Auto) Eos # (Auto) Baso # (Auto) APTT 90.4 H Sodium 144 Potassium 4.4 Chloride 111 H Carbon Dioxide 22 Anion Gap 15 BUN 43 H Creatinine 2.1 H Est GFR ( Amer) 40 Est GFR (Non-Af Amer) 33 POC Glucose (mg/dL) 83 Random Glucose 77 Calcium 9.6 Phosphorus 4.0 Magnesium 1.7 Total Bilirubin 0.4 AST 59 D ALT 60 H Alkaline Phosphatase 101 Lactate Dehydrogenase 874 H Total Creatine Kinase 326 H CK-MB (CK-2) 5.9 H CK-MB (CK-2) % 1.8 L Troponin I 8.59 H* D Total Protein 5.6 L Albumin 2.7 L Globulin 2.9 Albumin/Globulin Ratio 0.9 L Triglycerides 91 Cholesterol 117 L LDL Cholesterol Direct 53 HDL Cholesterol 31 HIV 1&2 Ag/Ab, 4th Gen 02/06/18 02/06/18 11:47 14:15 WBC RBC Hgb Hct MCV MCH MCHC RDW Plt Count MPV Gran % Lymph % (Auto) Collin % (Auto) Eos % (Auto) Baso % (Auto) Gran # Lymph # (Auto) Collin # (Auto) Eos # (Auto) Baso # (Auto) APTT 85.1 H Sodium Potassium Chloride Carbon Dioxide Anion Gap BUN Creatinine Est GFR ( Amer) Est GFR (Non-Af Amer) POC Glucose (mg/dL) 76 Random Glucose Calcium Phosphorus Magnesium Total Bilirubin AST ALT Alkaline Phosphatase Lactate Dehydrogenase Total Creatine Kinase CK-MB (CK-2) CK-MB (CK-2) % Troponin I Total Protein Albumin Globulin Albumin/Globulin Ratio Triglycerides Cholesterol LDL Cholesterol Direct HDL Cholesterol HIV 1&2 Ag/Ab, 4th Gen Assessment & Plan - Assessment and Plan (Free Text) Plan: Pt seen and examined. I have reviewed the note of the medical accounting clerk and agree with it. I have discussed the assessment and plan with the resident. I have reviewed the patient's labs and medications. Pt with witnessed cardiac arrest. It is difficult to say what the initial event was. He may have sepsis or a V fib arrest. The WCC is elevated. He is on immunosuppressive medications. Will have to hold for now and wait for procalcitonin level and culture results. He has a kidney pancreas transplant. I did call [facility] and left a message for them to call me back. Spoke to twice to give her an update. Daughter was also listening on the phone. Will get cardio and ID evaluation. He is intubated. His transplant was done 11 years ago. He is in the icu critically ill and his prognosis is guarded. Will need to follow his fs. I am concerned about his kindney function. He was probably hypotensive and with sepsis is at high risk for MARI.
--- NOTE | 2018-02-05 08:56 | CON ---
Copied To: Eric Wilhelm MD Attending MD: Eric Wilhelm MD DATE: 02/05/2018 CHIEF COMPLAINT: Cardiac arrest x1 day. HISTORY OF PRESENT ILLNESS: This is a 57-year-old male with past medical history significant for coronary artery disease, hyperlipidemia, pancreatic kidney transplant, on immunosuppressive medications. The kidney transplant was in 2005. The patient with diabetes, who was admitted with a diagnosis of cardiac arrest. The patient is intubated on a ventilator. Unable to give any history. Review of systems, the patient did not have any fevers or chills. The patient's family stated the patient was struggling to urinate, became unresponsive at cardiac arrest, CPR was started, 911 was called by family. The patient was noted to be in V fib and shocked and intubated. The patient had been at home and being treated with Levaquin for a urinary tract infection. REVIEW OF SYSTEMS: A 12-point review of systems is performed. There are no fevers documented. No chills documented. There has been no cough. No abdominal pain. PAST MEDICAL HISTORY: Significant for diabetes mellitus, renal disease. He had been on hemodialysis in the past. He has a history of coronary artery disease; congestive heart failure; peripheral vascular disease; high cholesterol; kidney, pancreatic transplant. Kidney, pancreatic transplant was in 2005. The patient had cardiac catheterization. The patient also had coronary artery bypass graft. The patient also had lower extremity amputation. The patient also had a gastric bypass. ALLERGIES: THE PATIENT HAS NO KNOWN ALLERGIES. MEDICATIONS AT HOME: Include the patient to be on prednisone at 5 mg, Pravachol, tacrolimus, furosemide, stool softener, mycophenolate, gabapentin, naloxegol. The patient was also on quinolone, Levaquin for urinary tract infection. PHYSICAL EXAMINATION: GENERAL: On exam, the patient is in bed, intubated on a ventilator. VITAL SIGNS: Temperature of 91 with blood pressure is 112/70, it was down to 84/44; respiratory rate of 22 on the vent; the heart rate is noted at 75. HEENT: Examination of HEENT reveals ET tube in place. NECK: Supple. LUNGS: The lungs have decreased breath sounds. HEART: Normal S1, S2. ABDOMEN: Soft, nontender. No rebound. No guarding. No masses. EXTREMITIES: The amputation site of the lower extremity is clean. No evidence of skin infection. LABORATORY DATA: Laboratory examination reveals a white count of 26,000, hemoglobin of 13, platelets of 394, 68% granulocytosis, 4% bandemia. Coagulation is noted. Chemistries reveals the patient's creatinine to be at 1.6, it was 1.2 yesterday. The patient has a troponin level of 13 and 18 and the initial one was elevated at 0.33 and urinalysis is unremarkable. Alcohol level is undetectable. Chest x-ray is read by Dr. Alexis Wilson, shows diffuse bilateral pulmonary infiltrates, possibly secondary to pulmonary edema; however, pneumonia not completely excluded. Dr. Mohan Monterroso's consultation is reviewed. This morning's chest x-ray is not available. The EKG interpretation is not available. ASSESSMENT AND PLAN: A 57-year-old male with a history of diabetes, coronary artery disease, congestive heart failure, peripheral vascular disease, hyperlipidemia, history of pancreatic kidney transplant in 2005, coronary artery bypass graft, lower extremity amputation, gastric bypass. Admitted with cardiac arrest and the patient was hypotensive with left axis deviation, right bundle-branch block, septal infarct, unusual axis P axis and short FL, junctional tachycardia, premature ventricular contractions, cardiac arrest with elevated troponins with [id number] myocardial infarction and acute kidney injury on top of chronic kidney disease with cardiogenic shock versus septic shock, pulmonary edema. Must rule out healthcare-associated pneumonia. We will order blood cultures x2, urine culture, sputum culture, methicillin-resistant Staphylococcus aureus screen, procalcitonin. We will give one dose of vancomycin, start the patient on meropenem, doxycycline. We will order urine for Legionella antigen. We will order an human immunodeficiency virus because of his age and start the patient on one dose of vancomycin, meropenem. We will adjust the dose based on his renal failure. We will make further recommendations based on initial workup results, clinical response, culture results, procalcitonin. We will follow closely with you. Eric Wilhelm MD
--- NOTE | 2018-02-05 09:03 | RAD ---
Date of service: 02/05/2018 HISTORY: S/P intubation COMPARISON: Comparison chest dated 2017 FINDINGS: In situ ETT, tip of which lies approximately 3.9 cm above nicholas. In situ NGT, the tip of which is coiled upon itself along the fundus of the stomach. LUNGS: Diffuse bilateral alveolar-type infiltrates right greater than left again noted. Findings may represent pulmonary vascular congestion and or pneumonia. Suspect small right-sided effusion PLEURA: As above. No pneumothorax apparent. CARDIOVASCULAR: Normal. OSSEOUS STRUCTURES: No significant abnormalities. VISUALIZED UPPER ABDOMEN: Normal. OTHER FINDINGS: None. IMPRESSION: Diffuse bilateral alveolar-type infiltrates right greater than left again noted. Findings may represent pulmonary vascular congestion and or pneumonia. Suspect small right-sided effusion
[2018-02-05] MEDS: Heparin25000 units/250ml 1/2NS 25,000 UNITS/250 ML BAG IV SCH (09:34)
[2018-02-05] MEDS: Propofol 10 mg/ml 1,000 MG/100 ML VIAL IV PRN (09:38)
--- NOTE | 2018-02-05 09:42 | CT ---
Date of service: 02/05/2018 PROCEDURE: CT HEAD WITHOUT CONTRAST. HISTORY: S/P cardiac arrest, AMS COMPARISON: None available. TECHNIQUE: Axial computed tomography images were obtained through the head/brain without intravenous contrast. Radiation dose: Total exam DLP = 973.97 mGy-cm. This CT exam was performed using one or more of the following dose reduction techniques: Automated exposure control, adjustment of the mA and/or kV according to patient size, and/or use of iterative reconstruction technique. FINDINGS: HEMORRHAGE: No intracranial hemorrhage. BRAIN: Mild to moderate diffuse confluent chronic white matter ischemic changes seen extending from the periventricular into the deep and subcortical white matter both cerebral hemispheres. More discrete chronic appearing infarct right centrum semiovale and left basal ganglia. There is moderate to significant central volume loss evidenced by disproportionate enlargement of ventricles compared sulci. . In particular, there is more significant periventricular and deep white matter volume loss in periatrial/perioccipital horn regions right greater than left which appears be associated with marked thinning of the posterior margin of corpus callosum. . VENTRICLES: There is dilatation of lateral and to a lesser degree 3rd ventricles particularly the atria and occipital horns right greater than left which appears be associated with deep white matter volume loss right greater than left. CALVARIUM: No acute calvarial fractures. Scalp changes are present suggesting underlying IDDM however clinic correlation recommended. PARANASAL SINUSES: Unremarkable as visualized. No significant inflammatory changes. MASTOID AIR CELLS: Unremarkable as visualized. No inflammatory changes. OTHER FINDINGS: Changes of bilateral cataract surgery. Apparent in situ NGT and ETT IMPRESSION: Mild to moderate diffuse confluent chronic white matter ischemic changes seen extending from the periventricular into the deep and subcortical white matter both cerebral hemispheres. More discrete chronic appearing infarct right centrum semiovale and left basal ganglia. There is moderate to significant central volume loss evidenced by disproportionate enlargement of ventricles compared sulci. . In particular, there is more significant periventricular and deep white matter volume loss in periatrial/perioccipital horn regions right greater than left which appears be associated with marked thinning of the posterior margin of corpus callosum.
[2018-02-05] MEDS: Meropenem 500 MG in Sodium Chloride 0.9% 50 ML IVPB SCH ×3 (09:48→22:00)
[2018-02-05] MEDS ORDERED: TACROLIMUS 1 MG PO SCH (10:00)
[2018-02-05] MEDS ORDERED: MYCOPHENOLATE PO SCH (10:00)
--- NOTE | 2018-02-05 11:20 | CARD ---
APPROVED REPORT Date of service: 02/05/2018 EKG Measurement Heart [id number] <Conclusion> Unusual P axis and short VA, Ectopic atrial rythm with occasional premature ventricular complexes Left axis deviation Right bundle branch block Septal infarct, age undetermined Abnormal ECG
--- NOTE | 2018-02-05 11:23 | CARD ---
APPROVED REPORT Date of service: 02/04/2018 EKG Measurement Heart [id number] <Conclusion> Sinus rhythm with 1st degree AV block with occasional premature ventricular complexes and fusion complexes Right bundle branch block Abnormal ECG
[2018-02-05] MEDS: Nitroglycerin 2% Ointment Foilpak UD TOP SCH ×3 (11:38→22:22)
[2018-02-05 12:20] LABS: HEPATITIS B SURFACE AG Negative (NEGATIVE)
[2018-02-05 12:26] LABS: HEPATITIS A IGM NEGATIVE (NEGATIVE); HEPATITIS B CORE AB NEGATIVE (NEGATIVE)
[2018-02-05 12:38] LABS: HEPATITIS C ANTIBODY NEGATIVE (NEGATIVE)
--- NOTE | 2018-02-05 16:50 | CON ---
Copied To: Fabio Godinez MD Attending MD: Fabio Godinez MD DATE: 02/05/2018 HISTORY OF PRESENT ILLNESS: This is a 57-year-old male with past medical history of insulin-dependent diabetes, stroke, status post CABG and on hemodialysis, end-stage renal disease, chronic anemia. Brought to the hospital because he was found unconscious. EMS was called. Defibrillator and CPR were given and was intubated in the field. Brought to the hospital. The patient went into ventricular fibrillation and was reintubated and called to evaluate the patient. PAST MEDICAL HISTORY: Diabetes; coronary artery disease; end-stage renal disease; sacral decubitus; bilateral amputation, both the legs, one below the knee, the other above the knee. The patient on ventilatory support. Pupils sluggishly reactive. Not following any commands. The patient moves with noxious stimuli. Not following any commands. CAT scan of the head was done, which shows chronic ischemic changes and around the periventricular into the deep subcortical white matter bilaterally and chronic infarct of centrum semiovale and left basal ganglia. Workup in progression. IMPRESSION: Hypoxic encephalopathy secondary to cardiac arrest. We will follow up. Fabio Godinez MD
[2018-02-06] MEDS: Nitroglycerin 2% Ointment Foilpak UD TOP SCH ×4 (05:20→22:06)
[2018-02-06] MEDS: Insulin Reg-LOW-Coverage SC SCH ×4 (06:10→18:16)
[2018-02-06] MEDS: Meropenem 500 MG in Sodium Chloride 0.9% 50 ML IVPB SCH ×3 (06:19→22:06)
[2018-02-06 06:29] LABS: BASO # 0.01 K/mm3 (0.0-2.0); EOS # 0.1 (0.0-0.7); EOS % 0.3 % (1.5-5.0); GRAN # 20.01 (1.4-6.5); GRAN % 94.1 % (50.0-68.0); HEMOGLOBIN 9.4 g/dL (14.0-18.0); LYMPH # 0.6 (1.2-3.4); LYMPH % 2.9 % (22.0-35.0); MEAN CELL VOLUME 77.1 fl (80.0-105.0); MEAN CORPUSCULAR HEMOGLOBIN 23.7 pg (25.0-35.0); MEAN CORPUSCULAR HGB CONC 30.7 g/dl (31.0-37.0); MEAN PLATELET VOLUME 10.4 fl (7.0-11.0); MONO # 0.6 (0.1-0.6); MONO % 2.7 % (1.0-6.0); RBC 3.97 10^6/uL (3.5-6.1); RED CELL DISTRIBUTION WIDTH 15.8 % (11.5-14.5); WHITE BLOOD COUNT 21.3 10^3/ul (4.5-11.0)
[2018-02-06 06:56] LABS: ALB/GLOB RATIO 0.9 (1.1-1.8); ALBUMIN 2.7 g/dL (3.0-4.8); CALCIUM 9.6 mg/dL (8.4-10.5)
[2018-02-06 07:26] LABS: CK MB% 1.8 % (2.5-3.0); CK-MB 5.9 ng/mL (0.0-3.6); TROPONIN I 8.59 ng/mL
[2018-02-06] MEDS: NALOXEGOL OXALATE 12.5 MG PO SCH (08:37)
--- NOTE | 2018-02-06 08:49 | CON ---
Copied To: Jax Garner MD Attending MD: Jax Garner MD DATE: 02/05/2018 REASON FOR CONSULTATION AND FOLLOWUP: Cardiac evaluation status post CPR. REASON FOR DICTATION: Covering Dr. Chu Hillman. BRIEF CLINICAL HISTORY: This is a 57-year-old male with a past medical history significant for coronary artery disease, status post CABG in the past, history of kidney and pancreatic transplant in 2005, UTI being treated with Levaquin, who was at home, went to bathroom and suddenly collapsed. CPR done on the way here , now the patient is currently being intubated and sedated. Hemodynamically relatively stable. PAST MEDICAL HISTORY: Significant for coronary artery disease, status post CABG; last catheterization done on 10/08/2013, right coronary artery showed 90% stenosis; left main 99% stenosis; LAD has occluded circumflex, multiple lesions, borderline lesions noted; LEVI was visualized, not to be used as a graft. Saphenous graft to the RCA was found to be patent and probably good collaterals. Second bypass graft into LAD could not be cannulated. In summary, procedure revealed calcified left main stenosis with triple-vessel coronary artery disease. There is a patent SVG to RCA, LEVI was to the chest wall. No other bypass grafts noted. Given these findings, the patient evaluated for re-do CABG at that time. SOCIAL HISTORY: Active tobacco abuser. Denies any history of alcohol abuse. OTHER MEDICAL PROBLEMS: Diabetes, hypertension and hyperlipidemia. PAST MEDICAL HISTORY: Significant for CAD, CABG in 2005, status post stent after that; history of anemia; history of abdominal hernia; history of , history of CVA, lacunar infarct in 2001, type 2 diabetes. PAST SURGICAL HISTORY: Significant for coronary artery bypass graft in 2005; history of end-stage renal disease in 2005, history of kidney and pancreatic transplant in 2006, history of left BKA in 2013, history of right metatarsal amputation. CURRENT MEDICATIONS: The patient is taking at home prednisone 5 mg daily, Pravachol, ciprofloxacin, Prograf, Lasix, laxative, Cellcept, Naloxone. REVIEW OF SYSTEMS: As per HPI. PHYSICAL EXAMINATION: GENERAL: Temperature afebrile, heart rate 75, blood pressure 112/70. HEENT: PERRLA. Extraocular muscles intact. NECK: Supple. No carotid bruits or thyromegaly. CHEST: Clear to auscultation. HEART: S1 and S2, regular. ABDOMEN: Soft. EXTREMITIES: Clubbing and cyanosis negative. LABORATORY DATA: Blood workup as follows: WBC 22.5, hemoglobin 10.8, hematocrit 36.3, platelet count 337. Chemistry showed sodium 145, potassium 4.7, chloride 110, carbon dioxide 25, anion gap of 14, BUN 37, creatinine 1.5. Troponin 18.6. EKG showed normal sinus, right bundle-branch block. IMPRESSION: Status post cardiac arrest, status post cardiopulmonary resuscitation, non-STEMI, possibly this is ischemic event; history of coronary artery disease, coronary artery bypass graft in 2005, history of last catheterization in 2013, recent surgery was suggested; history of status post renal transplant, history of pancreatic transplant in 2006, severe peripheral artery disease status post left [id number] amputation as well as right transmetatarsal amputation. RECOMMENDATIONS: Start heparin, nitrate, beta-venkat as well as Plavix. Once the patient is extubated, consider cardiac catheterization. We will get echo to assess LV function. We will transfer care tomorrow to Dr. Hillman. Thank you, Dr. Hollins for providing us the opportunity in taking care of the patient, Bright Guido. Jax Garner MD
--- NOTE | 2018-02-06 08:58 | PN ---
Copied To: Mohan Monterroso MD Attending MD: Mohan Monterroso MD DATE: 02/05/2018 SUBJECTIVE The patient is sedated on the ventilator with propofol and Versed. He is hemodynamically stable at this time, FIO2 is 40%. The patient is with code freeze and Dr. Silva has evaluated the patient this morning. I talked with the family. Medications have been reviewed and decisions have been made as far as his anti graft rejection medications. They will be governed by Dr. Silva. PHYSICAL EXAMINATION: VITAL SIGNS: His temperature is 97.2, pulse is 75, respirations 18, BP is 112/70 and O2 saturation is 100%. HEENT: Head is atraumatic, normocephalic. Eyes reactive to light. Ear, nose and throat seemed to be within normal limits. NECK: Supple. No JVD. No thyroid enlargement or lymph nodes. HEART: Has regular rate and rhythm. Normal S1, S2. LUNGS: Reveal bilateral rhonchi. ABDOMEN: Soft. Decreased bowel sounds. GENITALIA AND RECTAL : Deferred. MUSCULOSKELETAL: No joint deformities. EXTREMITIES: Reveal slight lower extremity edema. Note that the patient does have lower extremity amputation. NEUROLOGIC: The patient is sedated on the ventilator. LABORATORY DATA: Chest x-ray reveals that there is bilateral congestion and infiltrative processes. As far as laboratories, white count is 22.5, hemoglobin is 10.8, hematocrit is 36.3 with platelets of 337,000. Arterial blood gas reveals a pH of 7.43, pCO2 of 34, pO2 of 95. The patient's sodium is 145, potassium 4.7, chloride 110, CO2 of 25 with a BUN of 37, creatinine of 1.6 and glucose of 112. The patient's troponin is 18.6. IMPRESSION: This patient is status post cardiac arrest secondary to ventricular fibrillation. He has respiratory failure requiring ventilator support. The patient has pulmonary edema, possible bilateral pneumonia secondary to aspiration. There is a component of sepsis and was noted to have a urinary tract infection being treated at home. He has a history of kidney as well as pancreatic transplant and coronary artery disease status post coronary artery bypass graft. The patient is noted to have longstanding diabetes with lower extremity [id number] amputation and neuropathy as well as metabolic acidosis. PLAN: We will continue aggressive treatment. The patient is requiring ventilator support and we will follow chest x-ray and arterial blood gases closely. The patient is code freeze and note that we will continue with antibiotics. Consults have been called for ID and Cardiology and CAT scan of the head was done and results are pending. We will continue with the Diprivan and Versed for sedation. Mohan Monterroso MD
--- NOTE | 2018-02-06 09:52 | PN ---
Copied To: Chu Hillman MD Attending MD: Chu Hillman MD DATE: 02/06/2018 CARDIOLOGY FOLLOWUP HISTORY: The patient remains on a ventilator. He is minimally responsive to verbal stimuli as well as tactile stimuli. The patient is status post cardiac arrest with CPR. He remains on a ventilator. PHYSICAL EXAMINATION: VITAL SIGNS: Blood pressure is 119/64, heart rate is in the 80s. NECK: Negative JVD. LUNGS: Decreased breath sounds bilaterally. HEART: Reveal S1, S2. EXTREMITIES: Without edema. LABORATORY DATA: White count is 21,000, hemoglobin is 9.4. Chemistries: Troponin is 8.59 today. Creatinine has gone up to 2.1. IMPRESSION: 1. Status post cardiac arrest. 2. Respiratory failure. 3. History of coronary artery bypass surgery. 4. Status post pancreatic transplant. 5. History of kidney transplant. 6. Acute tubular necrosis. 7. Sepsis and currently on antibiotics. Given these findings, we will continue the patient on his aspirin and heparin. We will follow his creatinine. We will obtain an echocardiogram. At some point, the patient will need to have a catheterization done, which we will consider after sepsis and his renal function have stabilized. We will discuss with the family. Chu Hillman MD
--- NOTE | 2018-02-06 11:14 | CP.PCM.PN ---
<Shiloh Hood - Last Filed: 02/06/18 11:26> Subjective - Date & Time of Evaluation Date of Evaluation: 02/06/18 Time of Evaluation: 07:00 - Subjective Subjective: PGY-[address] Silva T100.4. Urine 1000cc/12 hrs, improving. No acute event reported per RN. No need for restraints. No arrthymia reported overnight Objective - Vital Signs/Intake and Output Vital Signs (last 24 hours): Temp Pulse Resp BP Pulse Ox 100.2 F H 85 19 114/68 100 02/06/18 06:30 02/06/18 10:37 02/06/18 01:20 02/06/18 10:37 02/06/18 06:30 Intake and Output: 02/06/18 02/06/18 06:59 18:59 Intake Total 1270 129.2 Output Total 1000 Balance 270 129.2 - Medications Medications: Current Medications Aspirin (Aspirin Chewable) 81 mg PO DAILY [facility] Last Admin: 02/06/18 10:41 Dose: 81 mg Carvedilol (Coreg) 3.125 mg PO BID [facility] Last Admin: 02/06/18 10:37 Dose: 3.125 mg Clopidogrel Bisulfate (Plavix) 75 mg PO DAILY [facility] Last Admin: 02/06/18 10:38 Dose: 75 mg Docusate Sodium (Colace Liquid) 100 mg PO TID [facility] Last Admin: 02/06/18 10:37 Dose: 100 mg Gabapentin (Neurontin) 100 mg PO BID [facility] PRN Reason: Protocol Last Admin: 02/06/18 10:38 Dose: 100 mg Midazolam 100 mg/100ml in NS (Midazolam 100 Mg/100ml In Ns) 100 mg in 100 mls @ 2 mls/hr IV .Q24H PRN; Protocol; 2 MG/HR PRN Reason: Sedation Last Titration: 02/06/18 07:50 Dose: 0 mg/hr, 0 mls/hr Propofol (Diprivan) 1,000 mg in 100 mls @ 1.633 mls/hr IV .Q24H PRN; Protocol; 5 MCG/KG/MIN PRN Reason: TITRATE PER MD ORDER Last Titration: 02/06/18 07:50 Dose: 0 mcg/kg/min, 0 mls/hr Sodium Chloride (Sodium Chloride 0.9%) 1,000 mls @ 80 mls/hr IV .[id number] [facility] Last Admin: 02/05/18 22:24 Dose: 80 mls/hr Doxycycline Hyclate 100 mg/ (Sodium Chloride) 100 mls @ 100 mls/hr IVPB Q12 [facility] PRN Reason: Protocol Stop: 02/12/18 10:01 Last Admin: 02/06/18 10:36 Dose: 100 mls/hr Heparin Sodium/Sodium Chloride (Heparin 22246 Units/250ml 1/2 Normal Saline) 25 ,000 units in 250 mls @ 6.532 mls/hr IV .Q24H [facility]; 12 UNITS/KG/HR PRN Reason: Protocol Last Titration: 02/06/18 07:50 Dose: 15 units/kg/hr, 8.165 mls/hr Meropenem 500 mg/ Sodium (Chloride) 50 mls @ 100 mls/hr IVPB Q12 [facility] PRN Reason: Protocol Stop: 02/13/18 10:01 Insulin Human Regular (Humulin R Low) 0 units SC Q6 [facility] PRN Reason: Protocol Last Admin: 02/06/18 06:10 Dose: Not Given Nitroglycerin (Nitro-Bid 2% Oint) 0.5 ea TOP Q6H [facility] Last Admin: 02/06/18 10:42 Dose: 0.5 ea Nystatin (Nystop Topical Powder) 0 gm TOP BID [facility] Pantoprazole Sodium (Protonix Inj) 40 mg IVP DAILY [facility] Last Admin: 02/06/18 10:37 Dose: 40 mg - Labs Labs: 02/06/18 05:20 02/06/18 05:20 PT 12.8 SECONDS (9.4-12.5) H 02/04/18 16:35 INR 1.12 02/04/18 16:35 APTT 90.4 Seconds (25.1-36.5) H 02/06/18 05:20 - Constitutional Appears: Other (intubated) - Head Exam Head Exam: ATRAUMATIC, NORMAL INSPECTION, NORMOCEPHALIC - Eye Exam Eye Exam: PERRL. absent: Scleral icterus - ENT Exam ENT Exam: Mucous Membranes Moist - Neck Exam Additional comments: supple - Respiratory Exam Respiratory Exam: Rales, Rhonchi Additional comments: intubated. BS improved as compared to yesterday - Cardiovascular Exam Cardiovascular Exam: REGULAR RHYTHM, +S1, +S2 - GI/Abdominal Exam GI & Abdominal Exam: Soft, Normal Bowel Sounds. absent: Firm, Guarding, Rigid, Tenderness Additional comments: scar healed well. Ventral hernia - Extremities Exam Additional comments: L BKA; R trasmetatarsal amputation - Neurological Exam Additional comments: intubated - Psychiatric Exam Psychiatric exam: Flat Affect - Skin Skin Exam: Dry, Warm Assessment and Plan - Assessment and Plan (Free Text) Plan: Mr Guido, 57M, active smoker, PMHx insulin dependent diabetes since age 5, CVA @ [facility] (2004), CAD s/p CABG (2005) s/p stents, s/p kidney and pancreas transplant on prednisone/prograf/cellcept, and chronic anemia, presented to ED after V-fib cardiac arrest in the field with 5 minutes down time on 02/04/18. He was on Cipro for UTI prior to hospitalization. Does the V fib arrest due to cardiac more or due to sepsis more? Culture result can shed more lights. S/p V fib arrest, ROSC, complicated by respiratory failure, anoxic encephalopathy, MARI on CKD, oliguria, questionable ischemic liver - Oliguria resolved; Transaminitis improving - Head CT: mild to moderate chronic ischemic white matter periventricular to deep subcortical. Chronic infarct R centrum semiovale and L basal ganglia. Moderate volume loss, marked thinning corpus callosum - follow UDS - Neg FINA - Hold Lipitor, Movintik. - PRVC on propofol/versed. Daily sedation vacation with breathing trial. Intubation day __3__ - NPO on NS@80 - strict i/o, continue monitor kidney function Cardiogenic shock with pleural effusion Elevated trops r/o ACS - EKG - junctional tachycardia with PVC, RBBB - Switch therapeutic lovenox to heparin gtt due to kidney transplant status - Cardio started ASA, plavix, coreg, nitro-bid 2% oint 0.5in top Q6H - If the V fib arrest is due to cardiac origin more, then may do cardiac cath sooner Persistent fever, infectious vs reactive Septic shock, source of infection: uti vs pna. Doubt skin complicated by Hypothermic, respiratory failure, leukocytosis 26, lactate 5 on admission UTI at home treated with Levaquin prior to admission Pneumona, CAP vs aspiration - CXR (02/05) diffuse bilateral alveolar infiltrate R > L, pulmonary vascular congestion vs pneumonia, small R effusion - Blood culture x 2, urine culture, sputum culture, MRSA screen, procalc, hepatitis panel, HIV, leginella Ag - give one dose of vancomysin. Merem and doxycycline, day __3__ DM with neuropathy Hx pancreas transplant - A1C 6.6 - ISSS only if blood glucose > 200. Do not suppress transplant pancreas functioning - Continue gabapentin MARI on CKD Immunosuppresion S/P kidney, pancreas transplant on immunosuppresant - hold immunosuppressant for now until sepsis resolves Anemia likely from immunosuppresion and prior ESRD W/C bound Sacral decubitus, stage 2 - reposition as needed Prophylaxis: heparin gtt. Protonix IV Care planning: Family wants to initiate transfer to transplant center at [facility]. If extubated, possible floor to floor. If intubated, ICU to ICU transfer Transplant Dr. Guevara. [phone] Dr Silva had called [facility] at left message,where the transplant took place s/r/d/w Dr Silva <Roddy Silva S - Last Filed: 02/06/18 18:57> Objective - Vital Signs/Intake and Output Vital Signs (last 24 hours): Temp Pulse Resp BP Pulse Ox 100.2 F H 79 19 117/65 100 02/06/18 16:00 02/06/18 18:08 02/06/18 01:20 02/06/18 18:08 02/06/18 06:30 Intake and Output: 02/06/18 02/06/18 06:59 18:59 Intake Total 1270 1437.0 Output Total 1000 1200 Balance 270 237.0 - Medications Medications: Current Medications Aspirin (Aspirin Chewable) 81 mg PO DAILY [facility] Last Admin: 02/06/18 10:41 Dose: 81 mg Carvedilol (Coreg) 3.125 mg PO BID [facility] Last Admin: 02/06/18 18:08 Dose: Not Given Clopidogrel Bisulfate (Plavix) 75 mg PO DAILY [facility] Last Admin: 02/06/18 10:38 Dose: 75 mg Docusate Sodium (Colace Liquid) 100 mg PO TID [facility] Last Admin: 02/06/18 18:08 Dose: Not Given Gabapentin (Neurontin) 100 mg PO BID [facility] PRN Reason: Protocol Last Admin: 02/06/18 18:09 Dose: Not Given Midazolam 100 mg/100ml in NS (Midazolam 100 Mg/100ml In Ns) 100 mg in 100 mls @ 2 mls/hr IV .Q24H PRN; Protocol; 2 MG/HR PRN Reason: Sedation Last Titration: 02/06/18 07:50 Dose: 0 mg/hr, 0 mls/hr Propofol (Diprivan) 1,000 mg in 100 mls @ 1.633 mls/hr IV .Q24H PRN; Protocol; 5 MCG/KG/MIN PRN Reason: TITRATE PER MD ORDER Last Titration: 02/06/18 07:50 Dose: 0 mcg/kg/min, 0 mls/hr Sodium Chloride (Sodium Chloride 0.9%) 1,000 mls @ 80 mls/hr IV .[id number] [facility] Last Admin: 02/05/18 22:24 Dose: 80 mls/hr Doxycycline Hyclate 100 mg/ (Sodium Chloride) 100 mls @ 100 mls/hr IVPB Q12 [facility] PRN Reason: Protocol Stop: 02/12/18 10:01 Last Admin: 02/06/18 10:36 Dose: 100 mls/hr Heparin Sodium/Sodium Chloride (Heparin 03953 Units/250ml 1/2 Normal Saline) 25 ,000 units in 250 mls @ 6.532 mls/hr IV .Q24H [facility]; 12 UNITS/KG/HR PRN Reason: Protocol Last Titration: 02/06/18 14:39 Dose: 13 units/kg/hr, 7.076 mls/hr Meropenem 500 mg/ Sodium (Chloride) 50 mls @ 100 mls/hr IVPB Q12 [facility] PRN Reason: Protocol Stop: 02/13/18 10:01 Last Admin: 02/06/18 10:00 Dose: 100 mls/hr Insulin Human Regular (Humulin R Low) 0 units SC Q6 [facility] PRN Reason: Protocol Last Admin: 02/06/18 18:16 Dose: Not Given Methylprednisolone (Solu-Medrol) 40 mg IVP DAILY [facility] Last Admin: 02/06/18 15:21 Dose: 40 mg Nitroglycerin (Nitro-Bid 2% Oint) 0.5 ea TOP Q6H [facility] Last Admin: 02/06/18 18:10 Dose: 0.5 ea Nystatin (Nystop Topical Powder) 0 gm TOP BID [facility] Last Admin: 02/06/18 17:17 Dose: 1 appl Pantoprazole Sodium (Protonix Inj) 40 mg IVP DAILY [facility] Last Admin: 02/06/18 10:37 Dose: 40 mg - Labs Labs: 02/06/18 05:20 02/06/18 05:20 PT 12.8 SECONDS (9.4-12.5) H 02/04/18 16:35 INR 1.12 02/04/18 16:35 APTT 85.1 Seconds (25.1-36.5) H 02/06/18 14:15 Assessment and Plan - Assessment and Plan (Free Text) Plan: Pt seen and examined. I have reviewed the note of the medical claims examiner and agree with it. I have discussed the assessment and plan with the resident. I have reviewed the patient's labs and medications. Pt remains critically ill on ventilator. BCx and UCx are negative. Pt with MARI and elevated cr. Spoke to to Dr Guevara -[phone] cell, at [facility] for possible transfer. He advised me to have the ICU team contact the [facility] ICU team. If pt is extubated then he can go to the floor. Spoke to [facility]plant center to update. Spoke to to keep updated. Pt is on SBx. Will start IV steriods for the KPTx ( kindey-pancreas transplant) and as stress dose stressors. Transplant fur buyer agrees with steriods at [place]. Spoke to Dr Hillman. Pt may need cath to evaluate the heart for CAD. Kidney Tx in danger of failing. Overall prognosis guarded.
--- NOTE | 2018-02-06 11:27 | CP.CCUPN ---
<VipinAngella - Last Filed: 02/06/18 12:26> CCU Subjective - Physician Review Events Since Last Encounter (Free Text): Angella Lew, PGY-1 ICU Progress Note Patient seen and examined at bedside this morning. No acute events overnight. Patient is currently on CPAP. Versed and profol titrated down this morning with trial of extubation planned for today. Discussion in progress for possible transfer to [facility] due to history of kidney and pancreas transplant. 12 point ROS limited due to patient respiratory status. CCU Objective - Vital Signs / Intake & Output Vital Signs (Last 4 hours): Vital Signs Pulse BP 02/06/18 10:37 85 114/68 Intake and Output (Last 8hrs): Intake & Output 02/05/18 02/06/18 02/06/18 22:59 06:59 14:59 Intake Total 1552 1270 129.2 Output Total 475 1000 Balance 1077 270 129.2 Weight 123 lb 11.2 oz Intake: IV 1552 1270 129.2 Left External Jugular 86 250 Left Forearm 1170 Left Hand 46 Right Forearm 150 960 Oral 0 Output: Urine 475 1000 Urethral (Brown) 475 1000 Other: # Bowel Movements 0 0 - Physical Exam Head: Positive for: Atraumatic, Normocephalic Pupils: Positive for: PERRL Extroacular Muscles: Positive for: EOMI Mouth: Positive for: Moist Mucous Membranes Nose (Internal): Positive for: Normal Inspection Respiratory/Chest: Positive for: Clear to Auscultation. Negative for: Respiratory Distress Cardiovascular: Positive for: Regular Rate and Rhythm, Normal S1, S2 Abdomen: Positive for: Normal Bowel Sounds. Negative for: Distention, Rebound Upper Extremity: Positive for: Normal Inspection, NORMAL PULSES Lower Extremity: Positive for: Other (below knee amputation B/L) Neurological: Positive for: Other (weaned off sedation this morning, patient arousable but non verbal) Skin: Positive for: Dry Psychiatric: Positive for: Other (arousable but drowsy) - Medications Active Medications: Active Medications Generic Name Dose Route Start Last Admin Trade Name Freq PRN Reason Stop Dose Admin Aspirin 81 mg 02/06/18 10:45 02/06/18 10:41 Aspirin Chewable PO 81 mg DAILY XAVIER Administration Carvedilol 3.125 mg 02/05/18 18:00 02/06/18 10:37 Coreg PO 3.125 mg BID XAVIER Administration Clopidogrel Bisulfate 75 mg 02/05/18 11:00 02/06/18 10:38 Plavix PO 75 mg DAILY XAVIER Administration Docusate Sodium 100 mg 02/05/18 10:00 02/06/18 10:37 Colace Liquid PO 100 mg TID XAVIER Administration Gabapentin 100 mg 02/05/18 10:00 02/06/18 10:38 Neurontin PO 100 mg BID XAVIER Administration Protocol Midazolam 100 mg/100ml in NS 100 mg in 100 mls @ 2 mls/hr 02/04/18 16:37 07:50 Midazolam 100 Mg/100ml In Ns IV 0 mg/hr .Q24H PRN 0 mls/hr Sedation Titration Protocol 2 MG/HR Propofol 1,000 mg in 100 mls @ 1.633 mls/hr 02/04/18 19:31 02/06/18 07:50 Diprivan IV 0 mcg/kg/min .Q24H PRN 0 mls/hr TITRATE PER MD ORDER Titration Protocol 5 MCG/KG/MIN Sodium Chloride 1,000 mls @ 80 mls/hr 02/05/18 04:00 02/05/18 22:24 Sodium Chloride 0.9% IV 80 mls/hr .[id number] XAVIER Administration Doxycycline Hyclate 100 mg/ 100 mls @ 100 mls/hr 02/05/18 10:00 02/06/18 10: 36 Sodium Chloride IVPB 02/12/18 10:01 100 mls/hr Q12 XAVIER Administration Protocol Heparin Sodium/Sodium Chloride 25,000 units in 250 mls @ 6.532 mls/hr 08:45 02/06/18 07:50 Heparin 59168 Units/250ml 1/2 Normal Saline IV 15 units/kg/hr .Q24H XAVIER 8.165 mls/hr Protocol Titration 12 UNITS/KG/HR Meropenem 500 mg/ Sodium 50 mls @ 100 mls/hr 02/06/18 10:00 Chloride IVPB 02/13/18 10:01 Q12 XAVIER Protocol Insulin Human Regular 0 units 02/05/18 15:06 02/06/18 06:10 Humulin R Low SC Not Given Q6 XAVIER Protocol Nitroglycerin 0.5 ea 02/05/18 11:00 02/06/18 10:42 Nitro-Bid 2% Oint TOP 0.5 ea Q6H XAVIER Administration Nystatin 0 gm 02/06/18 10:00 Nystop Topical Powder TOP BID XAVIER Pantoprazole Sodium 40 mg 02/05/18 10:00 02/06/18 10:37 Protonix Inj IVP 40 mg DAILY XAVIER Administration - Patient Studies Lab Studies: Microbiology Studies 02/05/18 03:30 Gram Stain - Final Trachasp Lab Studies 02/06/18 02/06/18 02/06/18 Range/Units 05:20 05:20 05:20 WBC 21.3 H (4.5-11.0) 10^3/ul RBC 3.97 (3.5-6.1) 10^6/uL Hgb 9.4 L (14.0-18.0) g/dL Hct 30.6 L (42.0-52.0) % MCV 77.1 L (80.0-105.0) fl MCH 23.7 L (25.0-35.0) pg MCHC 30.7 L (31.0-37.0) g/dl RDW 15.8 H (11.5-14.5) % Plt Count 299 (120.0-450.0) 10^3/uL MPV 10.4 (7.0-11.0) fl Gran % 94.1 H (50.0-68.0) % Lymph % (Auto) 2.9 L (22.0-35.0) % [place] % (Auto) 2.7 (1.0-6.0) % Eos % (Auto) 0.3 L (1.5-5.0) % Baso % (Auto) 0.0 (0.0-3.0) % Gran # 20.01 H (1.4-6.5) Lymph # (Auto) 0.6 L (1.2-3.4) [place] # (Auto) 0.6 (0.1-0.6) Eos # (Auto) 0.1 (0.0-0.7) Baso # (Auto) 0.01 (0.0-2.0) K/mm3 APTT 90.4 H (25.1-36.5) Seconds Sodium 144 (132-148) mmol/L Potassium 4.4 (3.6-5.0) mmol/L Chloride 111 H (98-107) mmol/L Carbon Dioxide 22 (21-33) mmol/L Anion Gap 15 (10-20) BUN 43 H (7-21) mg/dL Creatinine 2.1 H (0.8-1.5) mg/dl Est GFR ( Amer) 40 Est GFR (Non-Af Amer) 33 POC Glucose (mg/dL) (65-110) mg/dL Random Glucose 77 (70-110) mg/dL Hemoglobin A1c (4.2-6.5) % Calcium 9.6 (8.4-10.5) mg/dL Phosphorus 4.0 (2.5-4.5) mg/dL Magnesium 1.7 (1.7-2.2) mg/dL Total Bilirubin 0.4 (0.2-1.3) mg/dL AST 59 D (17-59) U/L ALT 60 H (7-56) U/L Alkaline Phosphatase 101 (38-126) U/L Lactate Dehydrogenase 874 H (333-699) U/L Total Creatine Kinase 326 H (35-230) U/L CK-MB (CK-2) 5.9 H (0.0-3.6) ng/mL CK-MB (CK-2) % 1.8 L (2.5-3.0) % Troponin I 8.59 H* D ng/mL Total Protein 5.6 L (5.8-8.3) g/dL Albumin 2.7 L (3.0-4.8) g/dL Globulin 2.9 gm/dL Albumin/Globulin Ratio 0.9 L (1.1-1.8) Triglycerides 91 (35-160) mg/dL Cholesterol 117 L (130-200) mg/dL LDL Cholesterol Direct 53 (0-129) mg/dL HDL Cholesterol 31 (29-60) mg/dL Procalcitonin (0.19-0.49) NG/ML Hepatitis A IgM Ab (NEGATIVE) Hep Bs Antigen (NEGATIVE) Hep B Core IgM Ab (NEGATIVE) Hepatitis C Antibody (NEGATIVE) Ur L.pneumophila Ag (NEGATIVE) Blood Type Antibody Screen 02/05/18 02/05/18 02/05/18 Range/Units 23:30 17:58 12:30 WBC (4.5-11.0) 10^3/ul RBC (3.5-6.1) 10^6/uL Hgb (14.0-18.0) g/dL Hct (42.0-52.0) % MCV (80.0-105.0) fl MCH (25.0-35.0) pg MCHC (31.0-37.0) g/dl RDW (11.5-14.5) % Plt Count (120.0-450.0) 10^3/uL MPV (7.0-11.0) fl Gran % (50.0-68.0) % Lymph % (Auto) (22.0-35.0) % [place] % (Auto) (1.0-6.0) % Eos % (Auto) (1.5-5.0) % Baso % (Auto) (0.0-3.0) % Gran # (1.4-6.5) Lymph # (Auto) (1.2-3.4) [place] # (Auto) (0.1-0.6) Eos # (Auto) (0.0-0.7) Baso # (Auto) (0.0-2.0) K/mm3 APTT 44.3 H (25.1-36.5) Seconds Sodium (132-148) mmol/L Potassium (3.6-5.0) mmol/L Chloride (98-107) mmol/L Carbon Dioxide (21-33) mmol/L Anion Gap (10-20) BUN (7-21) mg/dL Creatinine (0.8-1.5) mg/dl Est GFR ( Amer) Est GFR (Non-Af Amer) POC Glucose (mg/dL) 92 (65-110) mg/dL Random Glucose (70-110) mg/dL Hemoglobin A1c (4.2-6.5) % Calcium (8.4-10.5) mg/dL Phosphorus (2.5-4.5) mg/dL Magnesium (1.7-2.2) mg/dL Total Bilirubin (0.2-1.3) mg/dL AST (17-59) U/L ALT (7-56) U/L Alkaline Phosphatase (38-126) U/L Lactate Dehydrogenase (333-699) U/L Total Creatine Kinase (35-230) U/L CK-MB (CK-2) (0.0-3.6) ng/mL CK-MB (CK-2) % (2.5-3.0) % Troponin I ng/mL Total Protein (5.8-8.3) g/dL Albumin (3.0-4.8) g/dL Globulin gm/dL Albumin/Globulin Ratio (1.1-1.8) Triglycerides (35-160) mg/dL Cholesterol (130-200) mg/dL LDL Cholesterol Direct (0-129) mg/dL HDL Cholesterol (29-60) mg/dL Procalcitonin (0.19-0.49) NG/ML Hepatitis A IgM Ab (NEGATIVE) Hep Bs Antigen (NEGATIVE) Hep B Core IgM Ab (NEGATIVE) Hepatitis C Antibody (NEGATIVE) Ur L.pneumophila Ag Negative (NEGATIVE) Blood Type Antibody Screen 02/05/18 02/05/18 02/05/18 Range/Units 10:30 06:00 06:00 WBC (4.5-11.0) 10^3/ul RBC (3.5-6.1) 10^6/uL Hgb (14.0-18.0) g/dL Hct (42.0-52.0) % MCV (80.0-105.0) fl MCH (25.0-35.0) pg MCHC (31.0-37.0) g/dl RDW (11.5-14.5) % Plt Count (120.0-450.0) 10^3/uL MPV (7.0-11.0) fl Gran % (50.0-68.0) % Lymph % (Auto) (22.0-35.0) % [place] % (Auto) (1.0-6.0) % Eos % (Auto) (1.5-5.0) % Baso % (Auto) (0.0-3.0) % Gran # (1.4-6.5) Lymph # (Auto) (1.2-3.4) [place] # (Auto) (0.1-0.6) Eos # (Auto) (0.0-0.7) Baso # (Auto) (0.0-2.0) K/mm3 APTT (25.1-36.5) Seconds Sodium (132-148) mmol/L Potassium (3.6-5.0) mmol/L Chloride (98-107) mmol/L Carbon Dioxide (21-33) mmol/L Anion Gap (10-20) BUN (7-21) mg/dL Creatinine (0.8-1.5) mg/dl Est GFR ( Amer) Est GFR (Non-Af Amer) POC Glucose (mg/dL) (65-110) mg/dL Random Glucose (70-110) mg/dL Hemoglobin A1c (4.2-6.5) % Calcium (8.4-10.5) mg/dL Phosphorus (2.5-4.5) mg/dL Magnesium (1.7-2.2) mg/dL Total Bilirubin (0.2-1.3) mg/dL AST (17-59) U/L ALT (7-56) U/L Alkaline Phosphatase (38-126) U/L Lactate Dehydrogenase (333-699) U/L Total Creatine Kinase (35-230) U/L CK-MB (CK-2) (0.0-3.6) ng/mL CK-MB (CK-2) % (2.5-3.0) % Troponin I ng/mL Total Protein (5.8-8.3) g/dL Albumin (3.0-4.8) g/dL Globulin gm/dL Albumin/Globulin Ratio (1.1-1.8) Triglycerides (35-160) mg/dL Cholesterol (130-200) mg/dL LDL Cholesterol Direct (0-129) mg/dL HDL Cholesterol (29-60) mg/dL Procalcitonin 7.39 H (0.19-0.49) NG/ML Hepatitis A IgM Ab Negative (NEGATIVE) Hep Bs Antigen Negative (NEGATIVE) Hep B Core IgM Ab Negative (NEGATIVE) Hepatitis C Antibody Negative (NEGATIVE) Ur L.pneumophila Ag (NEGATIVE) Blood Type O POSITIVE Antibody Screen Negative 02/05/18 02/04/18 Range/Units 05:50 23:42 WBC (4.5-11.0) 10^3/ul RBC (3.5-6.1) 10^6/uL Hgb (14.0-18.0) g/dL Hct (42.0-52.0) % MCV (80.0-105.0) fl MCH (25.0-35.0) pg MCHC (31.0-37.0) g/dl RDW (11.5-14.5) % Plt Count (120.0-450.0) 10^3/uL MPV (7.0-11.0) fl Gran % (50.0-68.0) % Lymph % (Auto) (22.0-35.0) % [place] % (Auto) (1.0-6.0) % Eos % (Auto) (1.5-5.0) % Baso % (Auto) (0.0-3.0) % Gran # (1.4-6.5) Lymph # (Auto) (1.2-3.4) [place] # (Auto) (0.1-0.6) Eos # (Auto) (0.0-0.7) Baso # (Auto) (0.0-2.0) K/mm3 APTT (25.1-36.5) Seconds Sodium (132-148) mmol/L Potassium (3.6-5.0) mmol/L Chloride (98-107) mmol/L Carbon Dioxide (21-33) mmol/L Anion Gap (10-20) BUN (7-21) mg/dL Creatinine (0.8-1.5) mg/dl Est GFR ( Amer) Est GFR (Non-Af Amer) POC Glucose (mg/dL) 140 H (65-110) mg/dL Random Glucose (70-110) mg/dL Hemoglobin A1c 6.6 H (4.2-6.5) % Calcium (8.4-10.5) mg/dL Phosphorus (2.5-4.5) mg/dL Magnesium (1.7-2.2) mg/dL Total Bilirubin (0.2-1.3) mg/dL AST (17-59) U/L ALT (7-56) U/L Alkaline Phosphatase (38-126) U/L Lactate Dehydrogenase (333-699) U/L Total Creatine Kinase (35-230) U/L CK-MB (CK-2) (0.0-3.6) ng/mL CK-MB (CK-2) % (2.5-3.0) % Troponin I ng/mL Total Protein (5.8-8.3) g/dL Albumin (3.0-4.8) g/dL Globulin gm/dL Albumin/Globulin Ratio (1.1-1.8) Triglycerides (35-160) mg/dL Cholesterol (130-200) mg/dL LDL Cholesterol Direct (0-129) mg/dL HDL Cholesterol (29-60) mg/dL Procalcitonin (0.19-0.49) NG/ML Hepatitis A IgM Ab (NEGATIVE) Hep Bs Antigen (NEGATIVE) Hep B Core IgM Ab (NEGATIVE) Hepatitis C Antibody (NEGATIVE) Ur L.pneumophila Ag (NEGATIVE) Blood Type Antibody Screen Laboratory Results - last 24 hr 02/04/18 02/05/18 02/05/18 23:42 05:50 06:00 WBC RBC Hgb Hct MCV MCH MCHC RDW Plt Count MPV Gran % Lymph % (Auto) [place] % (Auto) Eos % (Auto) Baso % (Auto) Gran # Lymph # (Auto) [place] # (Auto) Eos # (Auto) Baso # (Auto) APTT Sodium Potassium Chloride Carbon Dioxide Anion Gap BUN Creatinine Est GFR ( Amer) Est GFR (Non-Af Amer) POC Glucose (mg/dL) 140 H Random Glucose Hemoglobin A1c 6.6 H Calcium Phosphorus Magnesium Total Bilirubin AST ALT Alkaline Phosphatase Lactate Dehydrogenase Total Creatine Kinase CK-MB (CK-2) CK-MB (CK-2) % Troponin I Total Protein Albumin Globulin Albumin/Globulin Ratio Triglycerides Cholesterol LDL Cholesterol Direct HDL Cholesterol Procalcitonin 7.39 H Hepatitis A IgM Ab Hep Bs Antigen Hep B Core IgM Ab Hepatitis C Antibody Ur L.pneumophila Ag Blood Type Antibody Screen 02/05/18 02/05/18 02/05/18 06:00 10:30 12:30 WBC RBC Hgb Hct MCV MCH MCHC RDW Plt Count MPV Gran % Lymph % (Auto) [place] % (Auto) Eos % (Auto) Baso % (Auto) Gran # Lymph # (Auto) [place] # (Auto) Eos # (Auto) Baso # (Auto) APTT Sodium Potassium Chloride Carbon Dioxide Anion Gap BUN Creatinine Est GFR ( Amer) Est GFR (Non-Af Amer) POC Glucose (mg/dL) Random Glucose Hemoglobin A1c Calcium Phosphorus Magnesium Total Bilirubin AST ALT Alkaline Phosphatase Lactate Dehydrogenase Total Creatine Kinase CK-MB (CK-2) CK-MB (CK-2) % Troponin I Total Protein Albumin Globulin Albumin/Globulin Ratio Triglycerides Cholesterol LDL Cholesterol Direct HDL Cholesterol Procalcitonin Hepatitis A IgM Ab Negative Hep Bs Antigen Negative Hep B Core IgM Ab Negative Hepatitis C Antibody Negative Ur L.pneumophila Ag Negative Blood Type O POSITIVE Antibody Screen Negative 02/05/18 02/05/18 02/06/18 17:58 23:30 05:20 WBC 21.3 H RBC 3.97 Hgb 9.4 L Hct 30.6 L MCV 77.1 L MCH 23.7 L MCHC 30.7 L RDW 15.8 H Plt Count 299 MPV 10.4 Gran % 94.1 H Lymph % (Auto) 2.9 L [place] % (Auto) 2.7 Eos % (Auto) 0.3 L Baso % (Auto) 0.0 Gran # 20.01 H Lymph # (Auto) 0.6 L [place] # (Auto) 0.6 Eos # (Auto) 0.1 Baso # (Auto) 0.01 APTT 44.3 H Sodium Potassium Chloride Carbon Dioxide Anion Gap BUN Creatinine Est GFR ( Amer) Est GFR (Non-Af Amer) POC Glucose (mg/dL) 92 Random Glucose Hemoglobin A1c Calcium Phosphorus Magnesium Total Bilirubin AST ALT Alkaline Phosphatase Lactate Dehydrogenase Total Creatine Kinase CK-MB (CK-2) CK-MB (CK-2) % Troponin I Total Protein Albumin Globulin Albumin/Globulin Ratio Triglycerides Cholesterol LDL Cholesterol Direct HDL Cholesterol Procalcitonin Hepatitis A IgM Ab Hep Bs Antigen Hep B Core IgM Ab Hepatitis C Antibody Ur L.pneumophila Ag Blood Type Antibody Screen 02/06/18 02/06/18 05:20 05:20 WBC RBC Hgb Hct MCV MCH MCHC RDW Plt Count MPV Gran % Lymph % (Auto) [place] % (Auto) Eos % (Auto) Baso % (Auto) Gran # Lymph # (Auto) [place] # (Auto) Eos # (Auto) Baso # (Auto) APTT 90.4 H Sodium 144 Potassium 4.4 Chloride 111 H Carbon Dioxide 22 Anion Gap 15 BUN 43 H Creatinine 2.1 H Est GFR ( Amer) 40 Est GFR (Non-Af Amer) 33 POC Glucose (mg/dL) Random Glucose 77 Hemoglobin A1c Calcium 9.6 Phosphorus 4.0 Magnesium 1.7 Total Bilirubin 0.4 AST 59 D ALT 60 H Alkaline Phosphatase 101 Lactate Dehydrogenase 874 H Total Creatine Kinase 326 H CK-MB (CK-2) 5.9 H CK-MB (CK-2) % 1.8 L Troponin I 8.59 H* D Total Protein 5.6 L Albumin 2.7 L Globulin 2.9 Albumin/Globulin Ratio 0.9 L Triglycerides 91 Cholesterol 117 L LDL Cholesterol Direct 53 HDL Cholesterol 31 Procalcitonin Hepatitis A IgM Ab Hep Bs Antigen Hep B Core IgM Ab Hepatitis C Antibody Ur L.pneumophila Ag Blood Type Antibody Screen EKG/Cardiology Studies: Cardiology / EKG Studies 02/06/18 07:00 ELECTROCARDIOGRAM Routine Comment: s/p cardiac arrest Reason For Exam: CAD PRE OP:: N Does Patient Have a Pacemaker?: No Fingerstick Blood Sugar Results: 83 Assessment/Plan - Assessment and Plan (Free Text) Assessment: This is a 57 year old male with PMH of stroke, DM, ESRD on HD, CAD and kidney/ pancrease transplant in 2005 presenting to the ICU s/p cardiopulmonary arrest and severe sepsis with multi organ failure including MARI, transaminitis and elevated troponins secondary to pneumonia vs UTI. Discussion in progress for possible transfer to [facility] due to history of kidney and pancreas transplant. Plan: Neuro: -maintain normothermia -AAO x3, moving extremities spontaneously past midline -Head CT: Head CT: mild to moderate chronic ischemic white matter periventricular to deep subcortical, chronic infarct R centrum semiovale and L basal ganglia, moderate volume loss, marked thinning corpus callosum -Versed and profol titrated down this morning with trial of extubation planned for today. -Neurology on consult, Dr. Godinez Cardio: -s/p cardiopulmonary arrest with ROSC -maintain MAP>65 -will monitor vitals including HR and BP closely -echo pending -Cardio on consult, Dr. Hillman Lungs: -SaO2 >90% -supplementary O2 PRN -duonebs PRN -CXR: diffuse bilateral alveolar infiltrate R > L, pulmonary vascular congestion vs pneumonia and small R effusion -Pulm on consult, Dr. Morrison Renal: -maintain euvolemia -avoid nephrotoxic agents, hypochloremia -replace electrolytes as needed -BUN/Cr 43/2.1. History of ESRD and renal transplant. Will monitor -ABG today reads pH/pO2/pCO2/bicarb of 7.43/95/34/22.6 on FiO2 40. Metabolic acidosis improved -kidney/pancreas transplant in 2005 on immunosuppressants. -Will hold immunosuppressants at this time due to MARI -strict I/O protocol Heme: -Hg today is 9.4, will monitor -DVT ppx with heparin 25k Endo: -maintain euglycemia -insulin regular q6 ID: -WBC is 21.3 today from 22.5, low grade fevers overnight -blood culture, urine culture, sputum culture, MRSA screen pending -On doxycycline and merrum day 2 -ID on consult, Dr. Wilhelm GI: -transaminitis, will monitor. Improving <Prince Pugh - Last Filed: 02/06/18 13:05> CCU Objective - Vital Signs / Intake & Output Vital Signs (Last 4 hours): Vital Signs Pulse BP 02/06/18 10:37 85 114/68 Intake and Output (Last 8hrs): Intake & Output 02/05/18 02/06/18 02/06/18 22:59 06:59 14:59 Intake Total 1552 1270 202.0 Output Total 475 1000 Balance 1077 270 202.0 Weight 123 lb 11.2 oz Intake: IV 1552 1270 202.0 Left External Jugular 86 250 Left Forearm 1170 Left Hand 46 Right Forearm 150 960 Oral 0 Output: Urine 475 1000 Urethral (Brown) 475 1000 Other: # Bowel Movements 0 0 - Medications Active Medications: Active Medications Generic Name Dose Route Start Last Admin Trade Name Freq PRN Reason Stop Dose Admin Aspirin 81 mg 02/06/18 10:45 02/06/18 10:41 Aspirin Chewable PO 81 mg DAILY XAVIER Administration Carvedilol 3.125 mg 02/05/18 18:00 02/06/18 10:37 Coreg PO 3.125 mg BID XAVIER Administration Clopidogrel Bisulfate 75 mg 02/05/18 11:00 02/06/18 10:38 Plavix PO 75 mg DAILY XAVIER Administration Docusate Sodium 100 mg 02/05/18 10:00 02/06/18 10:37 Colace Liquid PO 100 mg TID XAVIER Administration Gabapentin 100 mg 02/05/18 10:00 02/06/18 10:38 Neurontin PO 100 mg BID XAVIER Administration Protocol Midazolam 100 mg/100ml in NS 100 mg in 100 mls @ 2 mls/hr 02/04/18 16:37 07:50 Midazolam 100 Mg/100ml In Ns IV 0 mg/hr .Q24H PRN 0 mls/hr Sedation Titration Protocol 2 MG/HR Propofol 1,000 mg in 100 mls @ 1.633 mls/hr 02/04/18 19:31 02/06/18 07:50 Diprivan IV 0 mcg/kg/min .Q24H PRN 0 mls/hr TITRATE PER MD ORDER Titration Protocol 5 MCG/KG/MIN Sodium Chloride 1,000 mls @ 80 mls/hr 02/05/18 04:00 02/05/18 22:24 Sodium Chloride 0.9% IV 80 mls/hr .[id number] XAVIER Administration Doxycycline Hyclate 100 mg/ 100 mls @ 100 mls/hr 02/05/18 10:00 02/06/18 10: 36 Sodium Chloride IVPB 02/12/18 10:01 100 mls/hr Q12 XAVIER Administration Protocol Heparin Sodium/Sodium Chloride 25,000 units in 250 mls @ 6.532 mls/hr 08:45 02/06/18 12:49 Heparin 46824 Units/250ml 1/2 Normal Saline IV 15 units/kg/hr .Q24H XAVIER 8.165 mls/hr Protocol Administration 12 UNITS/KG/HR Meropenem 500 mg/ Sodium 50 mls @ 100 mls/hr 02/06/18 10:00 02/06/18 10:00 Chloride IVPB 02/13/18 10:01 100 mls/hr Q12 XAVIER Administration Protocol Insulin Human Regular 0 units 02/05/18 15:06 02/06/18 06:10 Humulin R Low SC Not Given Q6 XAVIER Protocol Nitroglycerin 0.5 ea 02/05/18 11:00 02/06/18 10:42 Nitro-Bid 2% Oint TOP 0.5 ea Q6H XAVIER Administration Nystatin 0 gm 02/06/18 10:00 02/06/18 11:50 Nystop Topical Powder TOP 1 appl BID XAVIER Administration Pantoprazole Sodium 40 mg 02/05/18 10:00 02/06/18 10:37 Protonix Inj IVP 40 mg DAILY XAVIER Administration - Patient Studies Lab Studies: Microbiology Studies 02/05/18 03:30 Gram Stain - Final Trachasp Lab Studies 0802/06/18 02/06/18 Range/Units 11:47 06:38 05:20 WBC (4.5-11.0) 10^3/ul RBC (3.5-6.1) 10^6/uL Hgb (14.0-18.0) g/dL Hct (42.0-52.0) % MCV (80.0-105.0) fl MCH (25.0-35.0) pg MCHC (31.0-37.0) g/dl RDW (11.5-14.5) % Plt Count (120.0-450.0) 10^3/uL MPV (7.0-11.0) fl Gran % (50.0-68.0) % Lymph % (Auto) (22.0-35.0) % [place] % (Auto) (1.0-6.0) % Eos % (Auto) (1.5-5.0) % Baso % (Auto) (0.0-3.0) % Gran # (1.4-6.5) Lymph # (Auto) (1.2-3.4) [place] # (Auto) (0.1-0.6) Eos # (Auto) (0.0-0.7) Baso # (Auto) (0.0-2.0) K/mm3 APTT 90.4 H (25.1-36.5) Seconds Sodium (132-148) mmol/L Potassium (3.6-5.0) mmol/L Chloride (98-107) mmol/L Carbon Dioxide (21-33) mmol/L Anion Gap (10-20) BUN (7-21) mg/dL Creatinine (0.8-1.5) mg/dl Est GFR ( Amer) Est GFR (Non-Af Amer) POC Glucose (mg/dL) 76 83 (65-110) mg/dL Random Glucose (70-110) mg/dL Calcium (8.4-10.5) mg/dL Phosphorus (2.5-4.5) mg/dL Magnesium (1.7-2.2) mg/dL Total Bilirubin (0.2-1.3) mg/dL AST (17-59) U/L ALT (7-56) U/L Alkaline Phosphatase (38-126) U/L Lactate Dehydrogenase (333-699) U/L Total Creatine Kinase (35-230) U/L CK-MB (CK-2) (0.0-3.6) ng/mL CK-MB (CK-2) % (2.5-3.0) % Troponin I ng/mL Total Protein (5.8-8.3) g/dL Albumin (3.0-4.8) g/dL Globulin gm/dL Albumin/Globulin Ratio (1.1-1.8) Triglycerides (35-160) mg/dL Cholesterol (130-200) mg/dL LDL Cholesterol Direct (0-129) mg/dL HDL Cholesterol (29-60) mg/dL Procalcitonin (0.19-0.49) NG/ML Ur L.pneumophila Ag (NEGATIVE) 02/06/18 02/06/18 02/06/18 Range/Units 05:20 05:20 00:38 WBC 21.3 H (4.5-11.0) 10^3/ul RBC 3.97 (3.5-6.1) 10^6/uL Hgb 9.4 L (14.0-18.0) g/dL Hct 30.6 L (42.0-52.0) % MCV 77.1 L (80.0-105.0) fl MCH 23.7 L (25.0-35.0) pg MCHC 30.7 L (31.0-37.0) g/dl RDW 15.8 H (11.5-14.5) % Plt Count 299 (120.0-450.0) 10^3/uL MPV 10.4 (7.0-11.0) fl Gran % 94.1 H (50.0-68.0) % Lymph % (Auto) 2.9 L (22.0-35.0) % [place] % (Auto) 2.7 (1.0-6.0) % Eos % (Auto) 0.3 L (1.5-5.0) % Baso % (Auto) 0.0 (0.0-3.0) % Gran # 20.01 H (1.4-6.5) Lymph # (Auto) 0.6 L (1.2-3.4) [place] # (Auto) 0.6 (0.1-0.6) Eos # (Auto) 0.1 (0.0-0.7) Baso # (Auto) 0.01 (0.0-2.0) K/mm3 APTT (25.1-36.5) Seconds Sodium 144 (132-148) mmol/L Potassium 4.4 (3.6-5.0) mmol/L Chloride 111 H (98-107) mmol/L Carbon Dioxide 22 (21-33) mmol/L Anion Gap 15 (10-20) BUN 43 H (7-21) mg/dL Creatinine 2.1 H (0.8-1.5) mg/dl Est GFR ( Amer) 40 Est GFR (Non-Af Amer) 33 POC Glucose (mg/dL) 92 (65-110) mg/dL Random Glucose 77 (70-110) mg/dL Calcium 9.6 (8.4-10.5) mg/dL Phosphorus 4.0 (2.5-4.5) mg/dL Magnesium 1.7 (1.7-2.2) mg/dL Total Bilirubin 0.4 (0.2-1.3) mg/dL AST 59 D (17-59) U/L ALT 60 H (7-56) U/L Alkaline Phosphatase 101 (38-126) U/L Lactate Dehydrogenase 874 H (333-699) U/L Total Creatine Kinase 326 H (35-230) U/L CK-MB (CK-2) 5.9 H (0.0-3.6) ng/mL CK-MB (CK-2) % 1.8 L (2.5-3.0) % Troponin I 8.59 H* D ng/mL Total Protein 5.6 L (5.8-8.3) g/dL Albumin 2.7 L (3.0-4.8) g/dL Globulin 2.9 gm/dL Albumin/Globulin Ratio 0.9 L (1.1-1.8) Triglycerides 91 (35-160) mg/dL Cholesterol 117 L (130-200) mg/dL LDL Cholesterol Direct 53 (0-129) mg/dL HDL Cholesterol 31 (29-60) mg/dL Procalcitonin (0.19-0.49) NG/ML Ur L.pneumophila Ag (NEGATIVE) 02/05/18 02/05/18 02/05/18 Range/Units 23:30 17:58 12:30 WBC (4.5-11.0) 10^3/ul RBC (3.5-6.1) 10^6/uL Hgb (14.0-18.0) g/dL Hct (42.0-52.0) % MCV (80.0-105.0) fl MCH (25.0-35.0) pg MCHC (31.0-37.0) g/dl RDW (11.5-14.5) % Plt Count (120.0-450.0) 10^3/uL MPV (7.0-11.0) fl Gran % (50.0-68.0) % Lymph % (Auto) (22.0-35.0) % [place] % (Auto) (1.0-6.0) % Eos % (Auto) (1.5-5.0) % Baso % (Auto) (0.0-3.0) % Gran # (1.4-6.5) Lymph # (Auto) (1.2-3.4) [place] # (Auto) (0.1-0.6) Eos # (Auto) (0.0-0.7) Baso # (Auto) (0.0-2.0) K/mm3 APTT 44.3 H (25.1-36.5) Seconds Sodium (132-148) mmol/L Potassium (3.6-5.0) mmol/L Chloride (98-107) mmol/L Carbon Dioxide (21-33) mmol/L Anion Gap (10-20) BUN (7-21) mg/dL Creatinine (0.8-1.5) mg/dl Est GFR ( Amer) Est GFR (Non-Af Amer) POC Glucose (mg/dL) 92 (65-110) mg/dL Random Glucose (70-110) mg/dL Calcium (8.4-10.5) mg/dL Phosphorus (2.5-4.5) mg/dL Magnesium (1.7-2.2) mg/dL Total Bilirubin (0.2-1.3) mg/dL AST (17-59) U/L ALT (7-56) U/L Alkaline Phosphatase (38-126) U/L Lactate Dehydrogenase (333-699) U/L Total Creatine Kinase (35-230) U/L CK-MB (CK-2) (0.0-3.6) ng/mL CK-MB (CK-2) % (2.5-3.0) % Troponin I ng/mL Total Protein (5.8-8.3) g/dL Albumin (3.0-4.8) g/dL Globulin gm/dL Albumin/Globulin Ratio (1.1-1.8) Triglycerides (35-160) mg/dL Cholesterol (130-200) mg/dL LDL Cholesterol Direct (0-129) mg/dL HDL Cholesterol (29-60) mg/dL Procalcitonin (0.19-0.49) NG/ML Ur L.pneumophila Ag Negative (NEGATIVE) 02/05/18 02/04/18 Range/Units 06:00 23:42 WBC (4.5-11.0) 10^3/ul RBC (3.5-6.1) 10^6/uL Hgb (14.0-18.0) g/dL Hct (42.0-52.0) % MCV (80.0-105.0) fl MCH (25.0-35.0) pg MCHC (31.0-37.0) g/dl RDW (11.5-14.5) % Plt Count (120.0-450.0) 10^3/uL MPV (7.0-11.0) fl Gran % (50.0-68.0) % Lymph % (Auto) (22.0-35.0) % [place] % (Auto) (1.0-6.0) % Eos % (Auto) (1.5-5.0) % Baso % (Auto) (0.0-3.0) % Gran # (1.4-6.5) Lymph # (Auto) (1.2-3.4) [place] # (Auto) (0.1-0.6) Eos # (Auto) (0.0-0.7) Baso # (Auto) (0.0-2.0) K/mm3 APTT (25.1-36.5) Seconds Sodium (132-148) mmol/L Potassium (3.6-5.0) mmol/L Chloride (98-107) mmol/L Carbon Dioxide (21-33) mmol/L Anion Gap (10-20) BUN (7-21) mg/dL Creatinine (0.8-1.5) mg/dl Est GFR ( Amer) Est GFR (Non-Af Amer) POC Glucose (mg/dL) 140 H (65-110) mg/dL Random Glucose (70-110) mg/dL Calcium (8.4-10.5) mg/dL Phosphorus (2.5-4.5) mg/dL Magnesium (1.7-2.2) mg/dL Total Bilirubin (0.2-1.3) mg/dL AST (17-59) U/L ALT (7-56) U/L Alkaline Phosphatase (38-126) U/L Lactate Dehydrogenase (333-699) U/L Total Creatine Kinase (35-230) U/L CK-MB (CK-2) (0.0-3.6) ng/mL CK-MB (CK-2) % (2.5-3.0) % Troponin I ng/mL Total Protein (5.8-8.3) g/dL Albumin (3.0-4.8) g/dL Globulin gm/dL Albumin/Globulin Ratio (1.1-1.8) Triglycerides (35-160) mg/dL Cholesterol (130-200) mg/dL LDL Cholesterol Direct (0-129) mg/dL HDL Cholesterol (29-60) mg/dL Procalcitonin 7.39 H (0.19-0.49) NG/ML Ur L.pneumophila Ag (NEGATIVE) Laboratory Results - last 24 hr 02/04/18 02/05/18 02/05/18 23:42 06:00 12:30 WBC RBC Hgb Hct MCV MCH MCHC RDW Plt Count MPV Gran % Lymph % (Auto) [place] % (Auto) Eos % (Auto) Baso % (Auto) Gran # Lymph # (Auto) [place] # (Auto) Eos # (Auto) Baso # (Auto) APTT Sodium Potassium Chloride Carbon Dioxide Anion Gap BUN Creatinine Est GFR ( Amer) Est GFR (Non-Af Amer) POC Glucose (mg/dL) 140 H Random Glucose Calcium Phosphorus Magnesium Total Bilirubin AST ALT Alkaline Phosphatase Lactate Dehydrogenase Total Creatine Kinase CK-MB (CK-2) CK-MB (CK-2) % Troponin I Total Protein Albumin Globulin Albumin/Globulin Ratio Triglycerides Cholesterol LDL Cholesterol Direct HDL Cholesterol Procalcitonin 7.39 H Ur L.pneumophila Ag Negative 02/05/18 02/05/18 02/06/18 17:58 23:30 00:38 WBC RBC Hgb Hct MCV MCH MCHC RDW Plt Count MPV Gran % Lymph % (Auto) [place] % (Auto) Eos % (Auto) Baso % (Auto) Gran # Lymph # (Auto) [place] # (Auto) Eos # (Auto) Baso # (Auto) APTT 44.3 H Sodium Potassium Chloride Carbon Dioxide Anion Gap BUN Creatinine Est GFR ( Amer) Est GFR (Non-Af Amer) POC Glucose (mg/dL) 92 92 Random Glucose Calcium Phosphorus Magnesium Total Bilirubin AST ALT Alkaline Phosphatase Lactate Dehydrogenase Total Creatine Kinase CK-MB (CK-2) CK-MB (CK-2) % Troponin I Total Protein Albumin Globulin Albumin/Globulin Ratio Triglycerides Cholesterol LDL Cholesterol Direct HDL Cholesterol Procalcitonin Ur L.pneumophila Ag 02/06/18 02/06/18 02/06/18 05:20 05:20 05:20 WBC 21.3 H RBC 3.97 Hgb 9.4 L Hct 30.6 L MCV 77.1 L MCH 23.7 L MCHC 30.7 L RDW 15.8 H Plt Count 299 MPV 10.4 Gran % 94.1 H Lymph % (Auto) 2.9 L [place] % (Auto) 2.7 Eos % (Auto) 0.3 L Baso % (Auto) 0.0 Gran # 20.01 H Lymph # (Auto) 0.6 L [place] # (Auto) 0.6 Eos # (Auto) 0.1 Baso # (Auto) 0.01 APTT 90.4 H Sodium 144 Potassium 4.4 Chloride 111 H Carbon Dioxide 22 Anion Gap 15 BUN 43 H Creatinine 2.1 H Est GFR ( Amer) 40 Est GFR (Non-Af Amer) 33 POC Glucose (mg/dL) Random Glucose 77 Calcium 9.6 Phosphorus 4.0 Magnesium 1.7 Total Bilirubin 0.4 AST 59 D ALT 60 H Alkaline Phosphatase 101 Lactate Dehydrogenase 874 H Total Creatine Kinase 326 H CK-MB (CK-2) 5.9 H CK-MB (CK-2) % 1.8 L Troponin I 8.59 H* D Total Protein 5.6 L Albumin 2.7 L Globulin 2.9 Albumin/Globulin Ratio 0.9 L Triglycerides 91 Cholesterol 117 L LDL Cholesterol Direct 53 HDL Cholesterol 31 Procalcitonin Ur L.pneumophila Ag 02/06/18 02/06/18 06:38 11:47 WBC RBC Hgb Hct MCV MCH MCHC RDW Plt Count MPV Gran % Lymph % (Auto) [place] % (Auto) Eos % (Auto) Baso % (Auto) Gran # Lymph # (Auto) [place] # (Auto) Eos # (Auto) Baso # (Auto) APTT Sodium Potassium Chloride Carbon Dioxide Anion Gap BUN Creatinine Est GFR ( Amer) Est GFR (Non-Af Amer) POC Glucose (mg/dL) 83 76 Random Glucose Calcium Phosphorus Magnesium Total Bilirubin AST ALT Alkaline Phosphatase Lactate Dehydrogenase Total Creatine Kinase CK-MB (CK-2) CK-MB (CK-2) % Troponin I Total Protein Albumin Globulin Albumin/Globulin Ratio Triglycerides Cholesterol LDL Cholesterol Direct HDL Cholesterol Procalcitonin Ur L.pneumophila Ag EKG/Cardiology Studies: Cardiology / EKG Studies 02/06/18 07:00 ELECTROCARDIOGRAM Routine Comment: s/p cardiac arrest Reason For Exam: CAD PRE OP:: N Does Patient Have a Pacemaker?: No Assessment/Plan - Assessment and Plan (Free Text) Assessment: Patient seen and examined on rounds with resident, agree with note with following additions/exceptions: Patient is 57yo male with PMHx PMH of CVA, DM, ESRD not on HD, CAD and kidney/ pancrease transplant in 2005 admitted to the ICU s/p cardiopulmonary arrest and severe sepsis with multi organ failure, VFIB arrest, s/p hypothermic protocol Currently afebrile, HD stable, OFF sedation, slowly wakening up, placed on CPAP trial Labs, imaging, chart reviewed Renal following, ID following Neurology following VFIB arrest Hx renal, pancreatic transplant ESRD DM Hx CVA Recommend: - cont with vent support, low tidal vol ventilaiton, daily sedation vacation, CPAP trials as tolerated, possible extubation today if mental status improves - cont with broad spectrum abx as per ID, Merrem, Doxy - monitor hemodynamics - FS control - follow up neurology - ECHO, follow up cardiology - follow up cultures - monitor HH - GI ppx - DVT ppx - Family requesting transfer to transplant center, [facility], will accommodate Critical care time 40 minutes
[2018-02-06] MEDS: Nystatin 100,000 Units/gm Topical Pow(15 gm) TOP SCH ×2 (11:50→17:17)
--- NOTE | 2018-02-06 12:19 | CP.PCM.PN ---
Subjective - Date & Time of Evaluation Date of Evaluation: 02/06/18 Time of Evaluation: 09:50 - Subjective Subjective: Continues to be intubated and sedated, having low grade fevers overnight. Objective - Vital Signs/Intake and Output Vital Signs (last 24 hours): Temp Pulse Resp BP Pulse Ox 100.2 F H 81 19 119/64 100 02/06/18 06:30 02/06/18 06:30 02/06/18 01:20 02/06/18 06:00 02/06/18 06:30 Intake and Output: 02/06/18 02/06/18 06:59 18:59 Intake Total 1270 129.2 Output Total 1000 Balance 270 129.2 - Medications Medications: Current Medications Aspirin (Ecotrin) 81 mg PO DAILY [facility] Last Admin: 02/05/18 11:36 Dose: 81 mg Carvedilol (Coreg) 3.125 mg PO BID [facility] Last Admin: 02/05/18 17:11 Dose: Not Given Clopidogrel Bisulfate (Plavix) 75 mg PO DAILY [facility] Last Admin: 02/05/18 11:36 Dose: 75 mg Docusate Sodium (Colace Liquid) 100 mg PO TID [facility] Last Admin: 02/05/18 17:12 Dose: 100 mg Gabapentin (Neurontin) 100 mg PO BID [facility] PRN Reason: Protocol Last Admin: 02/05/18 17:12 Dose: 100 mg Midazolam 100 mg/100ml in NS (Midazolam 100 Mg/100ml In Ns) 100 mg in 100 mls @ 2 mls/hr IV .Q24H PRN; Protocol; 2 MG/HR PRN Reason: Sedation Last Titration: 02/06/18 07:50 Dose: 0 mg/hr, 0 mls/hr Propofol (Diprivan) 1,000 mg in 100 mls @ 1.633 mls/hr IV .Q24H PRN; Protocol; 5 MCG/KG/MIN PRN Reason: TITRATE PER MD ORDER Last Titration: 02/06/18 07:50 Dose: 0 mcg/kg/min, 0 mls/hr Sodium Chloride (Sodium Chloride 0.9%) 1,000 mls @ 80 mls/hr IV .[id number] [facility] Last Admin: 02/05/18 22:24 Dose: 80 mls/hr Doxycycline Hyclate 100 mg/ (Sodium Chloride) 100 mls @ 100 mls/hr IVPB Q12 [facility] PRN Reason: Protocol Stop: 02/12/18 10:01 Last Admin: 02/05/18 22:26 Dose: 100 mls/hr Meropenem 500 mg/ Sodium (Chloride) 50 mls @ 100 mls/hr IVPB Q8 [facility] PRN Reason: Protocol Stop: 02/12/18 08:31 Last Admin: 02/06/18 06:19 Dose: 100 mls/hr Heparin Sodium/Sodium Chloride (Heparin 65223 Units/250ml 1/2 Normal Saline) 25 ,000 units in 250 mls @ 6.532 mls/hr IV .Q24H [facility]; 12 UNITS/KG/HR PRN Reason: Protocol Last Titration: 02/06/18 07:50 Dose: 15 units/kg/hr, 8.165 mls/hr Insulin Human Regular (Humulin R Low) 0 units SC Q6 [facility] PRN Reason: Protocol Last Admin: 02/06/18 06:10 Dose: Not Given Nitroglycerin (Nitro-Bid 2% Oint) 0.5 ea TOP Q6H [facility] Last Admin: 02/06/18 05:20 Dose: 0.5 ea Nystatin (Nystop Topical Powder) 0 gm TOP BID [facility] Pantoprazole Sodium (Protonix Inj) 40 mg IVP DAILY [facility] Last Admin: 02/05/18 09:47 Dose: 40 mg - Labs Labs: 02/06/18 05:20 02/06/18 05:20 PT 12.8 SECONDS (9.4-12.5) H 02/04/18 16:35 INR 1.12 02/04/18 16:35 APTT 90.4 Seconds (25.1-36.5) H 02/06/18 05:20 - Constitutional Appears: Chronically Ill, Other (intubated, sedated) - Head Exam Head Exam: NORMAL INSPECTION - ENT Exam Additional comments: ET tube in place - Respiratory Exam Respiratory Exam: Decreased Breath Sounds - Cardiovascular Exam Cardiovascular Exam: +S1, +S2 - GI/Abdominal Exam GI & Abdominal Exam: Soft. absent: Tenderness Assessment and Plan - Assessment and Plan (Free Text) Plan: Assessment Shock, cardiogenic or septic shock from bilateral healthcare-associated pneumonia with possible gram positive cocci and/or gram negative bacilli, and/ or atypical organisms in this patient with possible NSTEMI S/P ventricullar fibrillation significant smoking history insulin dependent diabetes mellitus CVA CAD s/p CABG S/P PCI s/p kidney and pancreas transplant on immunosuppresive therapy chronic anemia Plan Has been given a dose of IV Vancomycin and will continue Doxycycline and Merrem day 2 pending blood, urine cx, urine Legionella Ag; PCT is elevated but patient has renal failure; reviewed CXR which shows pulmonary venous congestion but cannot rule out pneumonia will continue to monitor clinically
[2018-02-06] MEDS: Heparin25000 units/250ml 1/2NS 25,000 UNITS/250 ML BAG IV SCH (12:49)
[2018-02-06] MEDS: MethylPREDNISolone 40 mg Vial IVP SCH (15:21)
--- NOTE | 2018-02-06 21:20 | CARD ---
APPROVED REPORT Date of service: 02/06/2018 EKG Measurement Heart [id number] <Conclusion> Normal sinus rhythm Left axis deviation Right bundle branch block Septal infarct, age undetermined Consider asnterior ischemia Abnormal ECG
--- NOTE | 2018-02-07 03:32 | CON ---
Copied To: Jax Morrison MD Attending MD: Jax Morrison MD DATE: 02/06/2018 PULMONARY CRITICAL CARE CONSULTATION REFERRING PHYSICIAN: Roddy Silva MD REASON FOR CONSULTATION: Status post respiratory failure, history of renal and pancreatic transplant, status post cardiopulmonary arrest. HISTORY OF PRESENT ILLNESS: This is a 57-year-old gentleman with known history of coronary artery disease, hyperlipidemia, history of pancreas and renal transplant, had a cardiopulmonary arrest at home which was witnessed; at the EMS arrival, the patient was in V-fib. He was intubated and resuscitation was started. At arrival in the emergency room, he was in V-fib, subsequently requiring reintubation and successfully resuscitated; subsequently admitted to Intensive Care Unit. Cardiology consult was called. The patient was started on antibiotics, diuretics, found to be in pulmonary edema, presently ET tube is removed and ventilator liberated but requiring noninvasive ventilation, still lethargic but arousable, wants to drink but failed bedside dysphagia evaluation. Does have a cough, unable to clear pulmonary secretion. No hemoptysis or emesis, no hematuria, no diarrhea reported. PAST MEDICAL HISTORY: History of renal failure requiring renal transplant, also pancreatic transplant, diabetes, has coronary artery disease with coronary stents. ALLERGIES: NONE KNOWN. SOCIAL HISTORY: Never smoked. Denies any alcohol use. FAMILY HISTORY: No significant cardiopulmonary disease reported. MEDICATIONS: He is on aspirin 81 mg daily, Colace 100 mg three times a day, Coreg 3.125 mg twice a day; he was on IV Diprivan, we will discontinue; doxycycline 100 mg twice a day; on IV heparin; insulin coverage, meropenem 500 mg every 12 hours, Neurontin 100 mg twice a day, Nystatin to affected area, Plavix 75 mg daily, Protonix 40 mg IV daily, IV fluid normal saline 80 mL per hours, Solu-Medrol 40 mg IV daily. REVIEW OF SYSTEMS: Presently extubated. No headache, no rhinitis, dry mouth, thirsty, wants to drink. Has a cough, unable to clear pulmonary secretion. No chest pain. No nausea, no vomiting, no diarrhea. No leg pain or leg swelling. PHYSICAL EXAMINATION: GENERAL: Noninvasive ventilation. VITAL SIGNS: Temperature is 100, heart rate is 79, respiratory rate is 20, blood pressure 117/65, pulse ox 100% on noninvasive ventilation. HEENT: Moist mucous membrane. Crowded airway. Mallampati score is 4. NECK: Supple. No JVD. LUNGS: Have scattered rhonchi and few crackles. HEART: S1 and S2. ABDOMEN: Soft, nontender. No organomegaly. May have ventral hernia. EXTREMITIES: There is no edema. NEUROLOGICAL: Awake and alert. Does follow simple command, but lethargic. LABORATORY DATA: Shows hemoglobin 9.4, hematocrit 30.6, WBC 21,000, platelet count is 299. PTT is 85. Has ABG done, which shows pH 7.43, pCO2 of 34, O2 is 95, that is on 40% oxygen when he was on ventilator. Sodium 144, potassium 4.4, chloride 111, bicarbonate 22, BUN 43, creatinine 2.1, glucose 76, phosphorus 4, magnesium 1.7, AST , ALT 60, alk phos is 101. Troponin 8.59. Albumin 2.7, globulin 2.9. Cholesterol is 117, triglycerides 91. Alcohol level is less than 10. Hepatitis profile is unremarkable. HIV 1 and 2 nonreactive. Urine for Legionella is negative. Laboratory data shows blood culture; there is no growth. Trach secretion; so far there is no growth. Urine culture is negative. CAT scan of the head done yesterday showing [id number] diffuse confluent chronic white matter ischemic changes seen extended from the periventricle into the deep and subcortical white matter, both cerebral hemispheres. There is some central volume loss. Chest x-ray done yesterday, shows diffuse bilateral alveolar-type infiltrate, right greater than the left, consistent with pulmonary edema. IMPRESSION AND PLAN: Status post cardiopulmonary arrest, successfully resuscitated, presently extubated, still requiring noninvasive ventilation, history of coronary artery disease and bypass surgery, history of pancreatic and kidney transplant, presently with renal insufficiency. Case discussed with him at bedside. All the questions answered. Agree with the present treatment. Continue noninvasive ventilation. Keep head at 45 degrees. Did echocardiogram to assess LV and RV function, does have a non-Q wave ND, being followed by Dr. Hillman. Continue steroids for rejection prevention. Follow up ABG, chest x-ray, CBC, CMP in the morning. Clinically suspect sleep apnea syndrome. Thank you and we will follow with you. Jax Morrison MD [facility] # [id number]
[2018-02-07] MEDS: Sodium Chloride 0.9% 1,000 ML IV SCH ×2 (05:35→06:30)
[2018-02-07] MEDS: Nitroglycerin 2% Ointment Foilpak UD TOP SCH ×4 (05:36→23:22)
[2018-02-07 06:12] LABS: ARTERIAL BLOOD GAS HEMOGLOBIN 8.2 g/dL (11.7-17.4); ARTERIAL BLOOD GAS O2 CAPACITY 11.5 mL/dl (16-24); ARTERIAL BLOOD GAS O2 CONTENT 11.4 ML/dl (15-23); ARTERIAL BLOOD GAS O2 SAT 99.4 % (95-98); ARTERIAL BLOOD GAS PCO2 38 mm/Hg (35-45); ARTERIAL BLOOD GAS PH 7.35 (7.35-7.45); ARTERIAL BLOOD GAS TCO2 22.2 mmol.L (22-28)
[2018-02-07] MEDS: Insulin Reg-LOW-Coverage SC SCH ×3 (06:24→17:37)
[2018-02-07 07:14] LABS: BASO # 0.01 K/mm3 (0.0-2.0); BASO % 0.1 % (0.0-3.0); EOS # 0.1 (0.0-0.7); EOS % 0.4 % (1.5-5.0); GRAN # 18.1 (1.4-6.5); GRAN % 93.3 % (50.0-68.0); HEMOGLOBIN 8.2 g/dL (14.0-18.0); LYMPH # 0.6 (1.2-3.4); LYMPH % 3.3 % (22.0-35.0); MEAN CORPUSCULAR HEMOGLOBIN 23.6 pg (25.0-35.0); MEAN CORPUSCULAR HGB CONC 29.8 g/dl (31.0-37.0); MEAN PLATELET VOLUME 9.8 fl (7.0-11.0); MONO # 0.6 (0.1-0.6); MONO % 2.9 % (1.0-6.0); RBC 3.48 10^6/uL (3.5-6.1); WHITE BLOOD COUNT 19.4 10^3/ul (4.5-11.0)
[2018-02-07 07:28] LABS: CALCIUM 9.6 mg/dL (8.4-10.5)
[2018-02-07] MEDS ORDERED: Magnesium 2 gm/50 ml NS 2 GM/50 ML BAG IVPB ONE (07:46)
[2018-02-07 07:55] LABS: CK-MB 2.5 ng/mL (0.0-3.6); TROPONIN I 3.78 ng/mL
--- NOTE | 2018-02-07 08:35 | RAD ---
Date of service: 02/07/2018 HISTORY: post extubation COMPARISON: 02/05/2018 FINDINGS: LUNGS: There has been interval extubation. There is improved aeration in both lungs with residual moderate pulmonary venous congestion, worse in the right lung. There is also improving right-sided pulmonary edema. PLEURA: No significant pleural effusion identified, no pneumothorax apparent. CARDIOVASCULAR: Mild cardiomegaly. Status post CABG. OSSEOUS STRUCTURES: No significant abnormalities. VISUALIZED UPPER ABDOMEN: Normal. OTHER FINDINGS: None. IMPRESSION: Improving pulmonary venous congestion and pulmonary edema in the right lung.
--- NOTE | 2018-02-07 08:50 | CP.PCM.PN ---
<Shiloh Hood - Last Filed: 02/07/18 14:17> Subjective - Date & Time of Evaluation Date of Evaluation: 02/07/18 Time of Evaluation: 08:45 - Subjective Subjective: PGY-[address] Silva T100.9 U/O 1250 over night Extubated but failed swallow eval Pt able to make needs known, mouth dry Surgar 69 this am, given juice chest pain constant, worse w palpation, likely from CPR Objective - Vital Signs/Intake and Output Vital Signs (last 24 hours): Temp Pulse Resp BP Pulse Ox 98.8 F 74 14 112/55 L 97 02/07/18 05:45 02/07/18 05:45 02/07/18 05:40 02/07/18 05:08 02/07/18 05:45 Intake and Output: 02/07/18 02/07/18 06:59 18:59 Intake Total 1345 Output Total 1250 Balance 95 - Medications Medications: Current Medications Aspirin (Aspirin Chewable) 81 mg PO DAILY [facility] Last Admin: 02/06/18 10:41 Dose: 81 mg Carvedilol (Coreg) 3.125 mg PO BID [facility] Last Admin: 02/06/18 18:08 Dose: Not Given Clopidogrel Bisulfate (Plavix) 75 mg PO DAILY [facility] Last Admin: 02/06/18 10:38 Dose: 75 mg Docusate Sodium (Colace Liquid) 100 mg PO TID [facility] Last Admin: 02/06/18 18:08 Dose: Not Given Gabapentin (Neurontin) 100 mg PO BID [facility] PRN Reason: Protocol Last Admin: 02/06/18 18:09 Dose: Not Given Midazolam 100 mg/100ml in NS (Midazolam 100 Mg/100ml In Ns) 100 mg in 100 mls @ 2 mls/hr IV .Q24H PRN; Protocol; 2 MG/HR PRN Reason: Sedation Last Titration: 02/06/18 07:50 Dose: 0 mg/hr, 0 mls/hr Propofol (Diprivan) 1,000 mg in 100 mls @ 1.633 mls/hr IV .Q24H PRN; Protocol; 5 MCG/KG/MIN PRN Reason: TITRATE PER MD ORDER Last Titration: 02/06/18 07:50 Dose: 0 mcg/kg/min, 0 mls/hr Sodium Chloride (Sodium Chloride 0.9%) 1,000 mls @ 80 mls/hr IV .[id number] [facility] Last Admin: 02/07/18 06:30 Dose: 80 mls/hr Doxycycline Hyclate 100 mg/ (Sodium Chloride) 100 mls @ 100 mls/hr IVPB Q12 [facility] PRN Reason: Protocol Stop: 02/12/18 10:01 Last Admin: 02/06/18 22:07 Dose: 100 mls/hr Heparin Sodium/Sodium Chloride (Heparin 16842 Units/250ml 1/2 Normal Saline) 25 ,000 units in 250 mls @ 6.532 mls/hr IV .Q24H [facility]; 12 UNITS/KG/HR PRN Reason: Protocol Last Titration: 02/06/18 14:39 Dose: 13 units/kg/hr, 7.076 mls/hr Meropenem 500 mg/ Sodium (Chloride) 50 mls @ 100 mls/hr IVPB Q12 [facility] PRN Reason: Protocol Stop: 02/13/18 10:01 Last Admin: 02/06/18 22:06 Dose: 100 mls/hr Acetaminophen (Ofirmev) 1,000 mg in 100 mls @ 400 mls/hr IVPB Q6H PRN PRN Reason: Fever > 100.4 Stop: 02/08/18 23:12 Last Admin: 02/06/18 23:22 Dose: 400 mls/hr Insulin Human Regular (Humulin R Low) 0 units SC Q6 [facility] PRN Reason: Protocol Last Admin: 02/07/18 06:24 Dose: Not Given Methylprednisolone (Solu-Medrol) 40 mg IVP DAILY [facility] Last Admin: 02/06/18 15:21 Dose: 40 mg Nitroglycerin (Nitro-Bid 2% Oint) 0.5 ea TOP Q6H [facility] Last Admin: 02/07/18 05:36 Dose: 0.5 ea Nystatin (Nystop Topical Powder) 0 gm TOP BID [facility] Last Admin: 02/06/18 17:17 Dose: 1 appl Pantoprazole Sodium (Protonix Inj) 40 mg IVP DAILY [facility] Last Admin: 02/06/18 10:37 Dose: 40 mg - Labs Labs: 02/07/18 06:00 02/07/18 06:00 PT 12.8 SECONDS (9.4-12.5) H 02/04/18 16:35 INR 1.12 02/04/18 16:35 APTT 52.6 Seconds (25.1-36.5) H 02/07/18 06:00 - Constitutional Appears: No Acute Distress - Head Exam Head Exam: ATRAUMATIC, NORMAL INSPECTION, NORMOCEPHALIC - Eye Exam Eye Exam: EOMI, Normal appearance, PERRL. absent: Scleral icterus - ENT Exam ENT Exam: Mucous Membranes Dry - Neck Exam Additional comments: supple - Respiratory Exam Respiratory Exam: Decreased Breath Sounds, Clear to Ausculation Bilateral, Rales , Rhonchi. absent: Wheezes - Cardiovascular Exam Cardiovascular Exam: REGULAR RHYTHM, +S1, +S2 - GI/Abdominal Exam GI & Abdominal Exam: Soft, Hypoactive Bowel Sounds - Extremities Exam Extremities Exam: absent: Pedal Edema - Back Exam Back Exam: absent: CVA tenderness (L), CVA tenderness (R) - Neurological Exam Neurological Exam: Alert, Awake, Oriented x3 - Psychiatric Exam Psychiatric exam: Normal Affect, Normal Mood - Skin Skin Exam: Dry, Warm Assessment and Plan - Assessment and Plan (Free Text) Plan: Mr Guido, 57M, active smoker, PMHx insulin dependent diabetes since age 5, CVA @ [facility] (2004), CAD s/p CABG (2005) s/p stents, s/p kidney and pancreas transplant on prednisone/prograf/cellcept, and chronic anemia, presented to ED after V-fib cardiac arrest in the field with 5 minutes down time on 02/04/18. He was on Cipro for UTI prior to hospitalization. Does the V fib arrest due to cardiac more or due to sepsis more? Culture negative so far. S/p V fib arrest, ROSC, complicated by respiratory failure, anoxic encephalopathy, MARI on CKD, oliguria, questionable ischemic liver - Oliguria resolved; Transaminitis improving - Head CT: mild to moderate chronic ischemic white matter periventricular to deep subcortical. Chronic infarct R centrum semiovale and L basal ganglia. Moderate volume loss, marked thinning corpus callosum - Neg FINA - Hold Lipitor, Movintik. - Extubated s/p Intubation x 3 days - strict i/o, continue monitor kidney function Cardiogenic shock with pleural effusion, pulmonary edema, NSTEMI - EKG - junctional tachycardia with PVC, RBBB - Switch therapeutic lovenox to heparin gtt due to kidney transplant status - Cardio started ASA, plavix, coreg, nitro-bid 2% oint 0.5in top Q6H - when to cardiac cath? kidney function worsenin.2 --> 2.3 Persistent fever, infectious vs reactive Septic shock, source of infection: uti vs pna. Doubt skin complicated by Hypothermic, respiratory failure, leukocytosis 26, lactate 5 on admission -- improving UTI at home treated with Levaquin prior to admission Pneumona, CAP vs aspiration - CXR (02/05) diffuse bilateral alveolar infiltrate R > L, pulmonary vascular congestion vs pneumonia, small R effusion - Blood culture x 2, urine culture, sputum culture, MRSA screen, procalc, hepatitis panel, HIV, leginella Ag - give one dose of vancomysin. Merem and doxycycline, day __3__ DM with neuropathy Hx pancreas transplant - A1C 6.6 - ISSS only if blood glucose > 200. Do not suppress transplant pancreas functioning - Continue gabapentin MARI on CKD Immunosuppresion S/P kidney, pancreas transplant on immunosuppresant - hold immunosuppressant for now until sepsis resolves - Continue solumedrol IV Anemia likely from immunosuppresion and prior ESRD W/C bound Sacral decubitus, stage 2 - reposition as needed Prophylaxis: heparin gtt. Protonix IV Care planning: Family wants to initiate transfer to transplant center at [facility] or [facility]. Pt needs to think about the transfer option. Talked to daughter Sofia, , and pt Transplant Dr. Sparksconnor. [phone] Dr Silva had called [facility] at left message,where the transplant took place s/r/d/w Dr Silva <Roddy Silva S - Last Filed: 02/08/18 20:51> Objective - Vital Signs/Intake and Output Vital Signs (last 24 hours): Temp Pulse Resp BP Pulse Ox 98.3 F 70 21 118/75 97 02/08/18 17:58 02/08/18 17:58 02/08/18 17:58 02/08/18 17:58 02/08/18 17:58 Intake and Output: 02/08/18 02/09/18 18:59 06:59 Intake Total 50 300 Output Total 475 Balance 50 -175 - Medications Medications: Current Medications Albuterol/Ipratropium (Duoneb 3 Mg/0.5 Mg (3 Ml) Ud) 3 ml IH [id number] PRN PRN Reason: Wheezing Last Admin: 02/08/18 18:44 Dose: 3 ml Aspirin (Aspirin Chewable) 81 mg PO DAILY [facility] Last Admin: 02/08/18 09:34 Dose: 81 mg Atorvastatin Calcium (Lipitor) 20 mg PO DIN [facility] Last Admin: 02/08/18 17:21 Dose: 20 mg Carvedilol (Coreg) 3.125 mg PO BID [facility] Last Admin: 02/08/18 17:27 Dose: 3.125 mg Clopidogrel Bisulfate (Plavix) 75 mg PO DAILY [facility] Last Admin: 02/08/18 09:33 Dose: 75 mg Docusate Sodium (Colace Liquid) 100 mg PO TID [facility] Last Admin: 02/08/18 17:21 Dose: Not Given Gabapentin (Neurontin) 100 mg PO BID [facility] PRN Reason: Protocol Last Admin: 02/08/18 17:30 Dose: 100 mg Home Med (Home Med) 1 unit PO 0730 [facility] Home Med (Home Med) 1 unit PO 1930 [facility] Sodium Chloride (Sodium Chloride 0.9%) 1,000 mls @ 80 mls/hr IV .[id number] [facility] Last Admin: 02/08/18 09:37 Dose: 80 mls/hr Heparin Sodium/Sodium Chloride (Heparin 50368 Units/250ml 1/2 Normal Saline) 25 ,000 units in 250 mls @ 6.532 mls/hr IV .Q24H [facility]; 12 UNITS/KG/HR PRN Reason: Protocol Last Titration: 02/08/18 09:12 Dose: 15 units/kg/hr, 8.165 mls/hr Insulin Human Regular (Humulin R Low) 0 units SC ACBD [facility] PRN Reason: Protocol Last Admin: 02/08/18 16:38 Dose: Not Given Methylprednisolone (Solu-Medrol) 40 mg IVP DAILY [facility] Last Admin: 02/08/18 09:35 Dose: 40 mg Nitroglycerin (Nitro-Bid 2% Oint) 0.5 ea TOP Q6H [facility] Last Admin: 02/08/18 17:22 Dose: 0.5 ea Non-Formulary Medication (Oxymorphone Hcl [Opana Er]) 10 mg PO BID [facility] Last Admin: 02/08/18 17:22 Dose: Not Given Nystatin (Nystop Topical Powder) 0 gm TOP BID [facility] Last Admin: 02/08/18 17:22 Dose: 1 appl Oxycodone HCl (Oxycodone Immediate Release Tab) 15 mg PO TID PRN PRN Reason: Pain, severe (8-10) Pantoprazole Sodium (Protonix Ec Tab) 40 mg PO ACB [facility] Tacrolimus (Prograf Cap) 2.5 mg PO Q12 [facility] Last Admin: 02/08/18 17:23 Dose: Not Given - Labs Labs: 02/08/18 06:30 02/08/18 06:30 PT 12.8 SECONDS (9.4-12.5) H 02/04/18 16:35 INR 1.12 02/04/18 16:35 APTT 83.4 Seconds (25.1-36.5) H 02/08/18 19:07 Assessment and Plan - Assessment and Plan (Free Text) Plan: Pt seen and examined. I have reviewed the note of the medical receptionist and agree with it. I have discussed the assessment and plan with the resident. I have reviewed the patient's labs and medications. The pt is improving. Cr is stable with good urine output. He has improving WCC. BCx and UCx has been negative. He was started on Steriods, will need to re-evaluate starting Prograf and MMF. Waiting to be transferred to [facility] for transplant care. Spoke to family to update.
[2018-02-07] MEDS: MethylPREDNISolone 40 mg Vial IVP SCH (09:54)
[2018-02-07] MEDS: Meropenem 500 MG in Sodium Chloride 0.9% 50 ML IVPB SCH (09:56)
--- NOTE | 2018-02-07 10:58 | CP.CCUPN ---
<Angella Lew - Last Filed: 02/07/18 10:41> CCU Subjective - Physician Review Events Since Last Encounter (Free Text): Angella Lew, PGY-1 ICU Progress Note Patient seen and examined at bedside this morning. Patient is AOx3 today and reports good appetite. Plan to transfer to [facility] today with eventual transfer to [facility]. Patient reports chest pain and SOB. Denies headaches, abdominal pain, urinary complaints, back pain and fevers. ROS noted here, otherwise unremarkable. CCU Objective - Vital Signs / Intake & Output Vital Signs (Last 4 hours): Vital Signs Pulse BP 02/07/18 09:52 75 100/42 L Intake and Output (Last 8hrs): Intake & Output 02/06/18 02/07/18 02/07/18 22:59 06:59 14:59 Intake Total 1279 1345 Output Total 1200 1250 Balance 79 95 Weight 123 lb Intake: IV 1219 1345 Left Hand 960 Propofol 5 Right Forearm 1060 Versed 2 antibiotics 150 200 heparin 102 85 Oral 0 Other 60 Output: Urine 1200 1250 Urethral (Brown) 1200 1250 Stool 0 Emesis 0 Other: # Bowel Movements 0 - Physical Exam Head: Positive for: Atraumatic, Normocephalic Pupils: Positive for: PERRL Extroacular Muscles: Positive for: EOMI Mouth: Positive for: Moist Mucous Membranes Nose (Internal): Positive for: Normal Inspection Respiratory/Chest: Positive for: Clear to Auscultation. Negative for: Respiratory Distress, Accessory Muscle Use, Wheezes Cardiovascular: Positive for: Regular Rate and Rhythm, Normal S1, S2 Abdomen: Positive for: Normal Bowel Sounds. Negative for: Distention, Rebound Upper Extremity: Positive for: Normal Inspection, NORMAL PULSES Lower Extremity: Positive for: Other (below knee amputation B/L) Neurological: Positive for: GCS=15 Skin: Positive for: Dry Psychiatric: Positive for: Alert, Oriented x 3 - Medications Active Medications: Active Medications Generic Name Dose Route Start Last Admin Trade Name Freq PRN Reason Stop Dose Admin Aspirin 81 mg 02/06/18 10:45 02/07/18 09:52 Aspirin Chewable PO 81 mg DAILY XAVIER Administration Carvedilol 3.125 mg 02/05/18 18:00 02/07/18 09:52 Coreg PO 3.125 mg BID XAVIER Administration Clopidogrel Bisulfate 75 mg 02/05/18 11:00 02/07/18 09:52 Plavix PO 75 mg DAILY XAVIER Administration Docusate Sodium 100 mg 02/05/18 10:00 02/07/18 09:52 Colace Liquid PO 100 mg TID XAVIER Administration Gabapentin 100 mg 02/05/18 10:00 02/07/18 09:52 Neurontin PO 100 mg BID XAVIER Administration Protocol Midazolam 100 mg/100ml in NS 100 mg in 100 mls @ 2 mls/hr 02/04/18 16:37 07:50 Midazolam 100 Mg/100ml In Ns IV 0 mg/hr .Q24H PRN 0 mls/hr Sedation Titration Protocol 2 MG/HR Propofol 1,000 mg in 100 mls @ 1.633 mls/hr 02/04/18 19:31 02/06/18 07:50 Diprivan IV 0 mcg/kg/min .Q24H PRN 0 mls/hr TITRATE PER MD ORDER Titration Protocol 5 MCG/KG/MIN Sodium Chloride 1,000 mls @ 80 mls/hr 02/05/18 04:00 02/07/18 06:30 Sodium Chloride 0.9% IV 80 mls/hr .[id number] XAVIER Administration Doxycycline Hyclate 100 mg/ 100 mls @ 100 mls/hr 02/05/18 10:00 02/07/18 09: 55 Sodium Chloride IVPB 02/12/18 10:01 100 mls/hr Q12 XAVIER Administration Protocol Heparin Sodium/Sodium Chloride 25,000 units in 250 mls @ 6.532 mls/hr 08:45 02/06/18 14:39 Heparin 38172 Units/250ml 1/2 Normal Saline IV 13 units/kg/hr .Q24H XAVIER 7.076 mls/hr Protocol Titration 12 UNITS/KG/HR Meropenem 500 mg/ Sodium 50 mls @ 100 mls/hr 02/06/18 10:00 02/07/18 09:56 Chloride IVPB 02/13/18 10:01 100 mls/hr Q12 XAVIER Administration Protocol Acetaminophen 1,000 mg in 100 mls @ 400 mls/hr 02/06/18 23:10 02/06/18 23:22 Ofirmev IVPB 02/08/18 23:12 400 mls/hr Q6H PRN Administration Fever > 100.4 Insulin Human Regular 0 units 02/05/18 15:06 02/07/18 06:24 Humulin R Low SC Not Given Q6 [facility] Protocol Methylprednisolone 40 mg 02/06/18 14:30 02/07/18 09:54 Solu-Medrol IVP 40 mg DAILY XAVIER Administration Nitroglycerin 0.5 ea 02/05/18 11:00 02/07/18 05:36 Nitro-Bid 2% Oint TOP 0.5 ea Q6H XAVIER Administration Nystatin 0 gm 02/06/18 10:00 02/06/18 17:17 Nystop Topical Powder TOP 1 appl BID XAVIER Administration Pantoprazole Sodium 40 mg 02/05/18 10:00 02/07/18 09:53 Protonix Inj IVP 40 mg DAILY XAVIER Administration - Patient Studies Lab Studies: Microbiology Studies 02/04/18 20:01 MRSA Culture (Admit) - Final Nose MRSA NOT DETECTED 02/04/18 18:34 Urine Culture - Final Urine,Brown No Growth (<1,000 CFU/ML) 02/05/18 14:20 Blood Culture - Preliminary Blood NO GROWTH AFTER 24 HOURS 02/05/18 14:05 Blood Culture - Preliminary Blood NO GROWTH AFTER 24 HOURS Lab Studies 02/07/18 02/07/18 02/07/18 Range/Units 07:42 06:01 06:00 WBC (4.5-11.0) 10^3/ul RBC (3.5-6.1) 10^6/uL Hgb (14.0-18.0) g/dL Hct (42.0-52.0) % MCV (80.0-105.0) fl MCH (25.0-35.0) pg MCHC (31.0-37.0) g/dl RDW (11.5-14.5) % Plt Count (120.0-450.0) 10^3/uL MPV (7.0-11.0) fl Gran % (50.0-68.0) % Lymph % (Auto) (22.0-35.0) % [place] % (Auto) (1.0-6.0) % Eos % (Auto) (1.5-5.0) % Baso % (Auto) (0.0-3.0) % Gran # (1.4-6.5) Lymph # (Auto) (1.2-3.4) [place] # (Auto) (0.1-0.6) Eos # (Auto) (0.0-0.7) Baso # (Auto) (0.0-2.0) K/mm3 APTT 52.6 H (25.1-36.5) Seconds pCO2 (35-45) mm/Hg pO2 (80-100) mm/Hg HCO3 (21-28) mmol/L ABG pH (7.35-7.45) ABG Total CO2 (22-28) mmol.L ABG O2 Saturation (95-98) % ABG O2 Content (15-23) ML/dl ABG Base Excess (-2.0-3.0) mmol/L ABG Hemoglobin (11.7-17.4) g/dL ABG Carboxyhemoglobin (0.5-1.5) % POC ABG HHb (Measured) (0-5) % ABG Methemoglobin (0.0-3.0) % ABG O2 Capacity (16-24) mL/dl Hgb O2 Saturation (95.0-98.0) % FiO2 % Sodium (132-148) mmol/L Potassium (3.6-5.0) mmol/L Chloride (98-107) mmol/L Carbon Dioxide (21-33) mmol/L Anion Gap (10-20) BUN (7-21) mg/dL Creatinine (0.8-1.5) mg/dl Est GFR ( Amer) Est GFR (Non-Af Amer) POC Glucose (mg/dL) 86 69 (65-110) mg/dL Random Glucose (70-110) mg/dL Calcium (8.4-10.5) mg/dL Magnesium (1.7-2.2) mg/dL Lactate Dehydrogenase (333-699) U/L Total Creatine Kinase (35-230) U/L CK-MB (CK-2) (0.0-3.6) ng/mL CK-MB (CK-2) % Troponin I ng/mL HIV 1&2 Ag/Ab, 4th Gen (Nonreactive) 02/07/18 02/07/18 02/07/18 Range/Units 06:00 06:00 06:00 WBC 19.4 H (4.5-11.0) 10^3/ul RBC 3.48 L (3.5-6.1) 10^6/uL Hgb 8.2 L (14.0-18.0) g/dL Hct 27.5 L (42.0-52.0) % MCV 79.0 L (80.0-105.0) fl MCH 23.6 L (25.0-35.0) pg MCHC 29.8 L (31.0-37.0) g/dl RDW 16.0 H (11.5-14.5) % Plt Count 284 (120.0-450.0) 10^3/uL MPV 9.8 (7.0-11.0) fl Gran % 93.3 H (50.0-68.0) % Lymph % (Auto) 3.3 L (22.0-35.0) % [place] % (Auto) 2.9 (1.0-6.0) % Eos % (Auto) 0.4 L (1.5-5.0) % Baso % (Auto) 0.1 (0.0-3.0) % Gran # 18.10 H (1.4-6.5) Lymph # (Auto) 0.6 L (1.2-3.4) [place] # (Auto) 0.6 (0.1-0.6) Eos # (Auto) 0.1 (0.0-0.7) Baso # (Auto) 0.01 (0.0-2.0) K/mm3 APTT (25.1-36.5) Seconds pCO2 38 (35-45) mm/Hg pO2 103.0 H (80-100) mm/Hg HCO3 21.0 (21-28) mmol/L ABG pH 7.35 (7.35-7.45) ABG Total CO2 22.2 (22-28) mmol.L ABG O2 Saturation 99.4 H (95-98) % ABG O2 Content 11.4 L (15-23) ML/dl ABG Base Excess -4.2 L (-2.0-3.0) mmol/L ABG Hemoglobin 8.2 L (11.7-17.4) g/dL ABG Carboxyhemoglobin 1.8 H (0.5-1.5) % POC ABG HHb (Measured) 0.6 (0-5) % ABG Methemoglobin 0.3 (0.0-3.0) % ABG O2 Capacity 11.5 L (16-24) mL/dl Hgb O2 Saturation 97.3 (95.0-98.0) % FiO2 40.0 % Sodium 144 (132-148) mmol/L Potassium 4.2 (3.6-5.0) mmol/L Chloride 110 H (98-107) mmol/L Carbon Dioxide 23 (21-33) mmol/L Anion Gap 15 (10-20) BUN 51 H (7-21) mg/dL Creatinine 2.3 H (0.8-1.5) mg/dl Est GFR ( Amer) 36 Est GFR (Non-Af Amer) 29 POC Glucose (mg/dL) (65-110) mg/dL Random Glucose 55 L (70-110) mg/dL Calcium 9.6 (8.4-10.5) mg/dL Magnesium 1.6 L (1.7-2.2) mg/dL Lactate Dehydrogenase 805 H (333-699) U/L Total Creatine Kinase 280 H (35-230) U/L CK-MB (CK-2) 2.5 (0.0-3.6) ng/mL CK-MB (CK-2) % Cancelled Troponin I 3.78 H* D ng/mL HIV 1&2 Ag/Ab, 4th Gen (Nonreactive) 02/06/18 02/06/18 02/06/18 Range/Units 23:55 21:08 21:08 WBC (4.5-11.0) 10^3/ul RBC (3.5-6.1) 10^6/uL Hgb (14.0-18.0) g/dL Hct (42.0-52.0) % MCV (80.0-105.0) fl MCH (25.0-35.0) pg MCHC (31.0-37.0) g/dl RDW (11.5-14.5) % Plt Count (120.0-450.0) 10^3/uL MPV (7.0-11.0) fl Gran % (50.0-68.0) % Lymph % (Auto) (22.0-35.0) % [place] % (Auto) (1.0-6.0) % Eos % (Auto) (1.5-5.0) % Baso % (Auto) (0.0-3.0) % Gran # (1.4-6.5) Lymph # (Auto) (1.2-3.4) [place] # (Auto) (0.1-0.6) Eos # (Auto) (0.0-0.7) Baso # (Auto) (0.0-2.0) K/mm3 APTT 54.4 H (25.1-36.5) Seconds pCO2 (35-45) mm/Hg pO2 (80-100) mm/Hg HCO3 (21-28) mmol/L ABG pH (7.35-7.45) ABG Total CO2 (22-28) mmol.L ABG O2 Saturation (95-98) % ABG O2 Content (15-23) ML/dl ABG Base Excess (-2.0-3.0) mmol/L ABG Hemoglobin (11.7-17.4) g/dL ABG Carboxyhemoglobin (0.5-1.5) % POC ABG HHb (Measured) (0-5) % ABG Methemoglobin (0.0-3.0) % ABG O2 Capacity (16-24) mL/dl Hgb O2 Saturation (95.0-98.0) % FiO2 % Sodium (132-148) mmol/L Potassium (3.6-5.0) mmol/L Chloride (98-107) mmol/L Carbon Dioxide (21-33) mmol/L Anion Gap (10-20) BUN (7-21) mg/dL Creatinine (0.8-1.5) mg/dl Est GFR ( Amer) Est GFR (Non-Af Amer) POC Glucose (mg/dL) 80 (65-110) mg/dL Random Glucose (70-110) mg/dL Calcium (8.4-10.5) mg/dL Magnesium 1.7 (1.7-2.2) mg/dL Lactate Dehydrogenase (333-699) U/L Total Creatine Kinase (35-230) U/L CK-MB (CK-2) (0.0-3.6) ng/mL CK-MB (CK-2) % Troponin I ng/mL HIV 1&2 Ag/Ab, 4th Gen (Nonreactive) 02/06/18 02/06/18 02/06/18 Range/Units 18:11 14:15 11:47 WBC (4.5-11.0) 10^3/ul RBC (3.5-6.1) 10^6/uL Hgb (14.0-18.0) g/dL Hct (42.0-52.0) % MCV (80.0-105.0) fl MCH (25.0-35.0) pg MCHC (31.0-37.0) g/dl RDW (11.5-14.5) % Plt Count (120.0-450.0) 10^3/uL MPV (7.0-11.0) fl Gran % (50.0-68.0) % Lymph % (Auto) (22.0-35.0) % [place] % (Auto) (1.0-6.0) % Eos % (Auto) (1.5-5.0) % Baso % (Auto) (0.0-3.0) % Gran # (1.4-6.5) Lymph # (Auto) (1.2-3.4) [place] # (Auto) (0.1-0.6) Eos # (Auto) (0.0-0.7) Baso # (Auto) (0.0-2.0) K/mm3 APTT 85.1 H (25.1-36.5) Seconds pCO2 (35-45) mm/Hg pO2 (80-100) mm/Hg HCO3 (21-28) mmol/L ABG pH (7.35-7.45) ABG Total CO2 (22-28) mmol.L ABG O2 Saturation (95-98) % ABG O2 Content (15-23) ML/dl ABG Base Excess (-2.0-3.0) mmol/L ABG Hemoglobin (11.7-17.4) g/dL ABG Carboxyhemoglobin (0.5-1.5) % POC ABG HHb (Measured) (0-5) % ABG Methemoglobin (0.0-3.0) % ABG O2 Capacity (16-24) mL/dl Hgb O2 Saturation (95.0-98.0) % FiO2 % Sodium (132-148) mmol/L Potassium (3.6-5.0) mmol/L Chloride (98-107) mmol/L Carbon Dioxide (21-33) mmol/L Anion Gap (10-20) BUN (7-21) mg/dL Creatinine (0.8-1.5) mg/dl Est GFR ( Amer) Est GFR (Non-Af Amer) POC Glucose (mg/dL) 83 76 (65-110) mg/dL Random Glucose (70-110) mg/dL Calcium (8.4-10.5) mg/dL Magnesium (1.7-2.2) mg/dL Lactate Dehydrogenase (333-699) U/L Total Creatine Kinase (35-230) U/L CK-MB (CK-2) (0.0-3.6) ng/mL CK-MB (CK-2) % Troponin I ng/mL HIV 1&2 Ag/Ab, 4th Gen (Nonreactive) 02/06/18 02/06/18 02/05/18 Range/Units 06:38 00:38 17:58 WBC (4.5-11.0) 10^3/ul RBC (3.5-6.1) 10^6/uL Hgb (14.0-18.0) g/dL Hct (42.0-52.0) % MCV (80.0-105.0) fl MCH (25.0-35.0) pg MCHC (31.0-37.0) g/dl RDW (11.5-14.5) % Plt Count (120.0-450.0) 10^3/uL MPV (7.0-11.0) fl Gran % (50.0-68.0) % Lymph % (Auto) (22.0-35.0) % [place] % (Auto) (1.0-6.0) % Eos % (Auto) (1.5-5.0) % Baso % (Auto) (0.0-3.0) % Gran # (1.4-6.5) Lymph # (Auto) (1.2-3.4) [place] # (Auto) (0.1-0.6) Eos # (Auto) (0.0-0.7) Baso # (Auto) (0.0-2.0) K/mm3 APTT (25.1-36.5) Seconds pCO2 (35-45) mm/Hg pO2 (80-100) mm/Hg HCO3 (21-28) mmol/L ABG pH (7.35-7.45) ABG Total CO2 (22-28) mmol.L ABG O2 Saturation (95-98) % ABG O2 Content (15-23) ML/dl ABG Base Excess (-2.0-3.0) mmol/L ABG Hemoglobin (11.7-17.4) g/dL ABG Carboxyhemoglobin (0.5-1.5) % POC ABG HHb (Measured) (0-5) % ABG Methemoglobin (0.0-3.0) % ABG O2 Capacity (16-24) mL/dl Hgb O2 Saturation (95.0-98.0) % FiO2 % Sodium (132-148) mmol/L Potassium (3.6-5.0) mmol/L Chloride (98-107) mmol/L Carbon Dioxide (21-33) mmol/L Anion Gap (10-20) BUN (7-21) mg/dL Creatinine (0.8-1.5) mg/dl Est GFR ( Amer) Est GFR (Non-Af Amer) POC Glucose (mg/dL) 83 92 92 (65-110) mg/dL Random Glucose (70-110) mg/dL Calcium (8.4-10.5) mg/dL Magnesium (1.7-2.2) mg/dL Lactate Dehydrogenase (333-699) U/L Total Creatine Kinase (35-230) U/L CK-MB (CK-2) (0.0-3.6) ng/mL CK-MB (CK-2) % Troponin I ng/mL HIV 1&2 Ag/Ab, 4th Gen (Nonreactive) 02/05/18 Range/Units 10:30 WBC (4.5-11.0) 10^3/ul RBC (3.5-6.1) 10^6/uL Hgb (14.0-18.0) g/dL Hct (42.0-52.0) % MCV (80.0-105.0) fl MCH (25.0-35.0) pg MCHC (31.0-37.0) g/dl RDW (11.5-14.5) % Plt Count (120.0-450.0) 10^3/uL MPV (7.0-11.0) fl Gran % (50.0-68.0) % Lymph % (Auto) (22.0-35.0) % [place] % (Auto) (1.0-6.0) % Eos % (Auto) (1.5-5.0) % Baso % (Auto) (0.0-3.0) % Gran # (1.4-6.5) Lymph # (Auto) (1.2-3.4) [place] # (Auto) (0.1-0.6) Eos # (Auto) (0.0-0.7) Baso # (Auto) (0.0-2.0) K/mm3 APTT (25.1-36.5) Seconds pCO2 (35-45) mm/Hg pO2 (80-100) mm/Hg HCO3 (21-28) mmol/L ABG pH (7.35-7.45) ABG Total CO2 (22-28) mmol.L ABG O2 Saturation (95-98) % ABG O2 Content (15-23) ML/dl ABG Base Excess (-2.0-3.0) mmol/L ABG Hemoglobin (11.7-17.4) g/dL ABG Carboxyhemoglobin (0.5-1.5) % POC ABG HHb (Measured) (0-5) % ABG Methemoglobin (0.0-3.0) % ABG O2 Capacity (16-24) mL/dl Hgb O2 Saturation (95.0-98.0) % FiO2 % Sodium (132-148) mmol/L Potassium (3.6-5.0) mmol/L Chloride (98-107) mmol/L Carbon Dioxide (21-33) mmol/L Anion Gap (10-20) BUN (7-21) mg/dL Creatinine (0.8-1.5) mg/dl Est GFR ( Amer) Est GFR (Non-Af Amer) POC Glucose (mg/dL) (65-110) mg/dL Random Glucose (70-110) mg/dL Calcium (8.4-10.5) mg/dL Magnesium (1.7-2.2) mg/dL Lactate Dehydrogenase (333-699) U/L Total Creatine Kinase (35-230) U/L CK-MB (CK-2) (0.0-3.6) ng/mL CK-MB (CK-2) % Troponin I ng/mL HIV 1&2 Ag/Ab, 4th Gen Nonreactive (Nonreactive) Laboratory Results - last 24 hr 02/05/18 02/05/18 02/06/18 10:30 17:58 00:38 WBC RBC Hgb Hct MCV MCH MCHC RDW Plt Count MPV Gran % Lymph % (Auto) [place] % (Auto) Eos % (Auto) Baso % (Auto) Gran # Lymph # (Auto) [place] # (Auto) Eos # (Auto) Baso # (Auto) APTT pCO2 pO2 HCO3 ABG pH ABG Total CO2 ABG O2 Saturation ABG O2 Content ABG Base Excess ABG Hemoglobin ABG Carboxyhemoglobin POC ABG HHb (Measured) ABG Methemoglobin ABG O2 Capacity Hgb O2 Saturation FiO2 Sodium Potassium Chloride Carbon Dioxide Anion Gap BUN Creatinine Est GFR ( Amer) Est GFR (Non-Af Amer) POC Glucose (mg/dL) 92 92 Random Glucose Calcium Magnesium Lactate Dehydrogenase Total Creatine Kinase CK-MB (CK-2) CK-MB (CK-2) % Troponin I HIV 1&2 Ag/Ab, 4th Gen Nonreactive 02/06/18 02/06/18 02/06/18 06:38 11:47 14:15 WBC RBC Hgb Hct MCV MCH MCHC RDW Plt Count MPV Gran % Lymph % (Auto) [place] % (Auto) Eos % (Auto) Baso % (Auto) Gran # Lymph # (Auto) [place] # (Auto) Eos # (Auto) Baso # (Auto) APTT 85.1 H pCO2 pO2 HCO3 ABG pH ABG Total CO2 ABG O2 Saturation ABG O2 Content ABG Base Excess ABG Hemoglobin ABG Carboxyhemoglobin POC ABG HHb (Measured) ABG Methemoglobin ABG O2 Capacity Hgb O2 Saturation FiO2 Sodium Potassium Chloride Carbon Dioxide Anion Gap BUN Creatinine Est GFR ( Amer) Est GFR (Non-Af Amer) POC Glucose (mg/dL) 83 76 Random Glucose Calcium Magnesium Lactate Dehydrogenase Total Creatine Kinase CK-MB (CK-2) CK-MB (CK-2) % Troponin I HIV 1&2 Ag/Ab, 4th Gen 02/06/18 02/06/18 02/06/18 18:11 21:08 21:08 WBC RBC Hgb Hct MCV MCH MCHC RDW Plt Count MPV Gran % Lymph % (Auto) [place] % (Auto) Eos % (Auto) Baso % (Auto) Gran # Lymph # (Auto) [place] # (Auto) Eos # (Auto) Baso # (Auto) APTT 54.4 H pCO2 pO2 HCO3 ABG pH ABG Total CO2 ABG O2 Saturation ABG O2 Content ABG Base Excess ABG Hemoglobin ABG Carboxyhemoglobin POC ABG HHb (Measured) ABG Methemoglobin ABG O2 Capacity Hgb O2 Saturation FiO2 Sodium Potassium Chloride Carbon Dioxide Anion Gap BUN Creatinine Est GFR ( Amer) Est GFR (Non-Af Amer) POC Glucose (mg/dL) 83 Random Glucose Calcium Magnesium 1.7 Lactate Dehydrogenase Total Creatine Kinase CK-MB (CK-2) CK-MB (CK-2) % Troponin I HIV 1&2 Ag/Ab, 4th Gen 02/06/18 02/07/18 02/07/18 23:55 06:00 06:00 WBC RBC Hgb Hct MCV MCH MCHC RDW Plt Count MPV Gran % Lymph % (Auto) [place] % (Auto) Eos % (Auto) Baso % (Auto) Gran # Lymph # (Auto) [place] # (Auto) Eos # (Auto) Baso # (Auto) APTT pCO2 38 pO2 103.0 H HCO3 21.0 ABG pH 7.35 ABG Total CO2 22.2 ABG O2 Saturation 99.4 H ABG O2 Content 11.4 L ABG Base Excess -4.2 L ABG Hemoglobin 8.2 L ABG Carboxyhemoglobin 1.8 H POC ABG HHb (Measured) 0.6 ABG Methemoglobin 0.3 ABG O2 Capacity 11.5 L Hgb O2 Saturation 97.3 FiO2 40.0 Sodium 144 Potassium 4.2 Chloride 110 H Carbon Dioxide 23 Anion Gap 15 BUN 51 H Creatinine 2.3 H Est GFR ( Amer) 36 Est GFR (Non-Af Amer) 29 POC Glucose (mg/dL) 80 Random Glucose 55 L Calcium 9.6 Magnesium 1.6 L Lactate Dehydrogenase 805 H Total Creatine Kinase 280 H CK-MB (CK-2) 2.5 CK-MB (CK-2) % Cancelled Troponin I 3.78 H* D HIV 1&2 Ag/Ab, 4th Gen 02/07/18 02/07/18 02/07/18 06:00 06:00 06:01 WBC 19.4 H RBC 3.48 L Hgb 8.2 L Hct 27.5 L MCV 79.0 L MCH 23.6 L MCHC 29.8 L RDW 16.0 H Plt Count 284 MPV 9.8 Gran % 93.3 H Lymph % (Auto) 3.3 L [place] % (Auto) 2.9 Eos % (Auto) 0.4 L Baso % (Auto) 0.1 Gran # 18.10 H Lymph # (Auto) 0.6 L [place] # (Auto) 0.6 Eos # (Auto) 0.1 Baso # (Auto) 0.01 APTT 52.6 H pCO2 pO2 HCO3 ABG pH ABG Total CO2 ABG O2 Saturation ABG O2 Content ABG Base Excess ABG Hemoglobin ABG Carboxyhemoglobin POC ABG HHb (Measured) ABG Methemoglobin ABG O2 Capacity Hgb O2 Saturation FiO2 Sodium Potassium Chloride Carbon Dioxide Anion Gap BUN Creatinine Est GFR ( Amer) Est GFR (Non-Af Amer) POC Glucose (mg/dL) 69 Random Glucose Calcium Magnesium Lactate Dehydrogenase Total Creatine Kinase CK-MB (CK-2) CK-MB (CK-2) % Troponin I HIV 1&2 Ag/Ab, 4th Gen 02/07/18 07:42 WBC RBC Hgb Hct MCV MCH MCHC RDW Plt Count MPV Gran % Lymph % (Auto) [place] % (Auto) Eos % (Auto) Baso % (Auto) Gran # Lymph # (Auto) [place] # (Auto) Eos # (Auto) Baso # (Auto) APTT pCO2 pO2 HCO3 ABG pH ABG Total CO2 ABG O2 Saturation ABG O2 Content ABG Base Excess ABG Hemoglobin ABG Carboxyhemoglobin POC ABG HHb (Measured) ABG Methemoglobin ABG O2 Capacity Hgb O2 Saturation FiO2 Sodium Potassium Chloride Carbon Dioxide Anion Gap BUN Creatinine Est GFR ( Amer) Est GFR (Non-Af Amer) POC Glucose (mg/dL) 86 Random Glucose Calcium Magnesium Lactate Dehydrogenase Total Creatine Kinase CK-MB (CK-2) CK-MB (CK-2) % Troponin I HIV 1&2 Ag/Ab, 4th Gen Fingerstick Blood Sugar Results: 69 Assessment/Plan - Assessment and Plan (Free Text) Assessment: This is a 57 year old male with PMH of stroke, DM, ESRD on HD, CAD and kidney/ pancrease transplant in 2005 presenting to the ICU s/p cardiopulmonary arrest with vfib and severe sepsis with multi organ failure including MARI, transaminitis and elevated troponins secondary to pneumonia vs UTI. Plan for transfer to [facility] today. Plan: Neuro: -maintain normothermia -moving extremities spontaneously past midline -Head CT: Head CT: mild to moderate chronic ischemic changes -extubated yesterday, AOx3 today -Neurology on consult, Dr. Godinez Cardio: -maintain MAP>65 -echo final read pending -coreg 2.125mg BID -Cardio on consult, Dr. Hillman Lungs: -SaO2 >90% -supplementary O2 PRN -duonebs PRN -continue non invasive ventilation -Pulm on consult, Dr. Morrison Renal: -maintain euvolemia -avoid nephrotoxic agents, hypochloremia -replace electrolytes as needed -BUN/Cr 51/2.3. History of ESRD and renal transplant. Will monitor -ABG today reads pH/pO2/pCO2/bicarb of 7.35/103/38/21 on FiO2 40 showing metabolic acidosis, improved from ABG yesterday of 7.43/95/34/22.6. -kidney/pancreas transplant in 2005 on immunosuppressants. -Will hold immunosuppressants at this time due to MARI -Mg low today, given replacement -strict I/O protocol Heme: -Hg today is 8.2 today from previous 9.4, will monitor -On heparin 25k, plavix 75. History of CAD with stents Endo: -maintain euglycemia -insulin regular q6 ID: -WBC is 19.4 today from previous 21.3, concern for pneumonia -blood culture is negative after 24 hours -On doxycycline and merrum day 3 -ID on consult, Dr. Wilhelm GI: -GI ppx with protonix <Prince Pugh - Last Filed: 02/07/18 12:24> CCU Objective - Vital Signs / Intake & Output Vital Signs (Last 4 hours): Vital Signs Temp Pulse Resp BP Pulse Ox 02/07/18 11:30 99.3 F 77 27 H 95 02/07/18 11:20 99.3 F 78 30 H 94 L 02/07/18 11:10 99.3 F 77 29 H 95 02/07/18 11:03 99.1 F 74 94 L 02/07/18 11:00 99.1 F 74 25 H 96/58 L 94 L 02/07/18 10:50 99.1 F 76 27 H 95 02/07/18 10:40 99.1 F 77 23 97 02/07/18 10:30 99.1 F 76 20 97 02/07/18 10:20 99.0 F 74 26 H 98 02/07/18 10:10 99.0 F 76 26 H 97 02/07/18 10:00 99.0 F 78 26 H 113/62 98 02/07/18 09:52 75 100/42 L 02/07/18 09:50 99.0 F 76 28 H 97 02/07/18 09:40 99.0 F 76 26 H 99 02/07/18 09:30 99.0 F 72 29 H 94 L 02/07/18 09:20 99.0 F 75 27 H 99 02/07/18 09:11 99.0 F 78 99 02/07/18 09:10 99.0 F 78 22 99 02/07/18 09:00 99.0 F 75 23 100/42 L 100 02/07/18 08:58 99.0 F 76 99 02/07/18 08:57 99.0 F 76 98 02/07/18 08:55 99.0 F 75 98 02/07/18 08:50 99.0 F 74 27 H 99 02/07/18 08:43 99.0 F 73 100 02/07/18 08:40 99.0 F 74 26 H 100 02/07/18 08:30 99.0 F 74 26 H 99 Intake and Output (Last 8hrs): Intake & Output 02/06/18 02/07/18 02/07/18 22:59 06:59 14:59 Intake Total 1279 1345 Output Total 1200 1250 Balance 79 95 Weight 123 lb Intake: IV 1219 1345 Left Hand 960 Propofol 5 Right Forearm 1060 Versed 2 antibiotics 150 200 heparin 102 85 Oral 0 Other 60 Output: Urine 1200 1250 Urethral (Brown) 1200 1250 Stool 0 Emesis 0 Other: # Bowel Movements 0 - Medications Active Medications: Active Medications Generic Name Dose Route Start Last Admin Trade Name Freq PRN Reason Stop Dose Admin Aspirin 81 mg 02/06/18 10:45 02/07/18 09:52 Aspirin Chewable PO 81 mg DAILY XAVIER Administration Carvedilol 3.125 mg 02/05/18 18:00 02/07/18 09:52 Coreg PO 3.125 mg BID XAVIER Administration Clopidogrel Bisulfate 75 mg 02/05/18 11:00 02/07/18 09:52 Plavix PO 75 mg DAILY XAVIER Administration Docusate Sodium 100 mg 02/05/18 10:00 02/07/18 09:52 Colace Liquid PO 100 mg TID XAVIER Administration Gabapentin 100 mg 02/05/18 10:00 02/07/18 09:52 Neurontin PO 100 mg BID XAVIER Administration Protocol Midazolam 100 mg/100ml in NS 100 mg in 100 mls @ 2 mls/hr 02/04/18 16:37 07:50 Midazolam 100 Mg/100ml In Ns IV 0 mg/hr .Q24H PRN 0 mls/hr Sedation Titration Protocol 2 MG/HR Propofol 1,000 mg in 100 mls @ 1.633 mls/hr 02/04/18 19:31 02/06/18 07:50 Diprivan IV 0 mcg/kg/min .Q24H PRN 0 mls/hr TITRATE PER MD ORDER Titration Protocol 5 MCG/KG/MIN Sodium Chloride 1,000 mls @ 80 mls/hr 02/05/18 04:00 02/07/18 06:30 Sodium Chloride 0.9% IV 80 mls/hr .[id number] XAVIER Administration Heparin Sodium/Sodium Chloride 25,000 units in 250 mls @ 6.532 mls/hr 08:45 02/06/18 14:39 Heparin 76718 Units/250ml 1/2 Normal Saline IV 13 units/kg/hr .Q24H XAVIER 7.076 mls/hr Protocol Titration 12 UNITS/KG/HR Acetaminophen 1,000 mg in 100 mls @ 400 mls/hr 02/06/18 23:10 02/06/18 23:22 Ofirmev IVPB 02/08/18 23:12 400 mls/hr Q6H PRN Administration Fever > 100.4 Insulin Human Regular 0 units 02/05/18 15:06 02/07/18 06:24 Humulin R Low SC Not Given Q6 XAVIER Protocol Methylprednisolone 40 mg 02/06/18 14:30 02/07/18 09:54 Solu-Medrol IVP 40 mg DAILY XAVIER Administration Nitroglycerin 0.5 ea 02/05/18 11:00 02/07/18 05:36 Nitro-Bid 2% Oint TOP 0.5 ea Q6H XAVIER Administration Nystatin 0 gm 02/06/18 10:00 02/06/18 17:17 Nystop Topical Powder TOP 1 appl BID XAVIER Administration Pantoprazole Sodium 40 mg 02/05/18 10:00 02/07/18 09:53 Protonix Inj IVP 40 mg DAILY XAVIER Administration - Patient Studies Lab Studies: Microbiology Studies 02/05/18 03:30 Gram Stain - Final Trachasp Sputum Culture - Final Yeast Species 02/04/18 20:01 MRSA Culture (Admit) - Final Nose MRSA NOT DETECTED 02/04/18 18:34 Urine Culture - Final Urine,Brown No Growth (<1,000 CFU/ML) 02/05/18 14:20 Blood Culture - Preliminary Blood NO GROWTH AFTER 24 HOURS 02/05/18 14:05 Blood Culture - Preliminary Blood NO GROWTH AFTER 24 HOURS Lab Studies 02/07/18 02/07/18 02/07/18 Range/Units 11:16 07:42 06:01 WBC (4.5-11.0) 10^3/ul RBC (3.5-6.1) 10^6/uL Hgb (14.0-18.0) g/dL Hct (42.0-52.0) % MCV (80.0-105.0) fl MCH (25.0-35.0) pg MCHC (31.0-37.0) g/dl RDW (11.5-14.5) % Plt Count (120.0-450.0) 10^3/uL MPV (7.0-11.0) fl Gran % (50.0-68.0) % Lymph % (Auto) (22.0-35.0) % [place] % (Auto) (1.0-6.0) % Eos % (Auto) (1.5-5.0) % Baso % (Auto) (0.0-3.0) % Gran # (1.4-6.5) Lymph # (Auto) (1.2-3.4) [place] # (Auto) (0.1-0.6) Eos # (Auto) (0.0-0.7) Baso # (Auto) (0.0-2.0) K/mm3 APTT (25.1-36.5) Seconds pCO2 (35-45) mm/Hg pO2 (80-100) mm/Hg HCO3 (21-28) mmol/L ABG pH (7.35-7.45) ABG Total CO2 (22-28) mmol.L ABG O2 Saturation (95-98) % ABG O2 Content (15-23) ML/dl ABG Base Excess (-2.0-3.0) mmol/L ABG Hemoglobin (11.7-17.4) g/dL ABG Carboxyhemoglobin (0.5-1.5) % POC ABG HHb (Measured) (0-5) % ABG Methemoglobin (0.0-3.0) % ABG O2 Capacity (16-24) mL/dl Hgb O2 Saturation (95.0-98.0) % FiO2 % Sodium (132-148) mmol/L Potassium (3.6-5.0) mmol/L Chloride (98-107) mmol/L Carbon Dioxide (21-33) mmol/L Anion Gap (10-20) BUN (7-21) mg/dL Creatinine (0.8-1.5) mg/dl Est GFR ( Amer) Est GFR (Non-Af Amer) POC Glucose (mg/dL) 88 86 69 (65-110) mg/dL Random Glucose (70-110) mg/dL Calcium (8.4-10.5) mg/dL Magnesium (1.7-2.2) mg/dL Lactate Dehydrogenase (333-699) U/L Total Creatine Kinase (35-230) U/L CK-MB (CK-2) (0.0-3.6) ng/mL CK-MB (CK-2) % Troponin I ng/mL HIV 1&2 Ag/Ab, 4th Gen (Nonreactive) 02/07/18 02/07/18 02/07/18 Range/Units 06:00 06:00 06:00 WBC 19.4 H (4.5-11.0) 10^3/ul RBC 3.48 L (3.5-6.1) 10^6/uL Hgb 8.2 L (14.0-18.0) g/dL Hct 27.5 L (42.0-52.0) % MCV 79.0 L (80.0-105.0) fl MCH 23.6 L (25.0-35.0) pg MCHC 29.8 L (31.0-37.0) g/dl RDW 16.0 H (11.5-14.5) % Plt Count 284 (120.0-450.0) 10^3/uL MPV 9.8 (7.0-11.0) fl Gran % 93.3 H (50.0-68.0) % Lymph % (Auto) 3.3 L (22.0-35.0) % [place] % (Auto) 2.9 (1.0-6.0) % Eos % (Auto) 0.4 L (1.5-5.0) % Baso % (Auto) 0.1 (0.0-3.0) % Gran # 18.10 H (1.4-6.5) Lymph # (Auto) 0.6 L (1.2-3.4) [place] # (Auto) 0.6 (0.1-0.6) Eos # (Auto) 0.1 (0.0-0.7) Baso # (Auto) 0.01 (0.0-2.0) K/mm3 APTT 52.6 H (25.1-36.5) Seconds pCO2 38 (35-45) mm/Hg pO2 103.0 H (80-100) mm/Hg HCO3 21.0 (21-28) mmol/L ABG pH 7.35 (7.35-7.45) ABG Total CO2 22.2 (22-28) mmol.L ABG O2 Saturation 99.4 H (95-98) % ABG O2 Content 11.4 L (15-23) ML/dl ABG Base Excess -4.2 L (-2.0-3.0) mmol/L ABG Hemoglobin 8.2 L (11.7-17.4) g/dL ABG Carboxyhemoglobin 1.8 H (0.5-1.5) % POC ABG HHb (Measured) 0.6 (0-5) % ABG Methemoglobin 0.3 (0.0-3.0) % ABG O2 Capacity 11.5 L (16-24) mL/dl Hgb O2 Saturation 97.3 (95.0-98.0) % FiO2 40.0 % Sodium (132-148) mmol/L Potassium (3.6-5.0) mmol/L Chloride (98-107) mmol/L Carbon Dioxide (21-33) mmol/L Anion Gap (10-20) BUN (7-21) mg/dL Creatinine (0.8-1.5) mg/dl Est GFR ( Amer) Est GFR (Non-Af Amer) POC Glucose (mg/dL) (65-110) mg/dL Random Glucose (70-110) mg/dL Calcium (8.4-10.5) mg/dL Magnesium (1.7-2.2) mg/dL Lactate Dehydrogenase (333-699) U/L Total Creatine Kinase (35-230) U/L CK-MB (CK-2) (0.0-3.6) ng/mL CK-MB (CK-2) % Troponin I ng/mL HIV 1&2 Ag/Ab, 4th Gen (Nonreactive) 02/07/18 02/06/18 02/06/18 Range/Units 06:00 23:55 21:08 WBC (4.5-11.0) 10^3/ul RBC (3.5-6.1) 10^6/uL Hgb (14.0-18.0) g/dL Hct (42.0-52.0) % MCV (80.0-105.0) fl MCH (25.0-35.0) pg MCHC (31.0-37.0) g/dl RDW (11.5-14.5) % Plt Count (120.0-450.0) 10^3/uL MPV (7.0-11.0) fl Gran % (50.0-68.0) % Lymph % (Auto) (22.0-35.0) % [place] % (Auto) (1.0-6.0) % Eos % (Auto) (1.5-5.0) % Baso % (Auto) (0.0-3.0) % Gran # (1.4-6.5) Lymph # (Auto) (1.2-3.4) [place] # (Auto) (0.1-0.6) Eos # (Auto) (0.0-0.7) Baso # (Auto) (0.0-2.0) K/mm3 APTT (25.1-36.5) Seconds pCO2 (35-45) mm/Hg pO2 (80-100) mm/Hg HCO3 (21-28) mmol/L ABG pH (7.35-7.45) ABG Total CO2 (22-28) mmol.L ABG O2 Saturation (95-98) % ABG O2 Content (15-23) ML/dl ABG Base Excess (-2.0-3.0) mmol/L ABG Hemoglobin (11.7-17.4) g/dL ABG Carboxyhemoglobin (0.5-1.5) % POC ABG HHb (Measured) (0-5) % ABG Methemoglobin (0.0-3.0) % ABG O2 Capacity (16-24) mL/dl Hgb O2 Saturation (95.0-98.0) % FiO2 % Sodium 144 (132-148) mmol/L Potassium 4.2 (3.6-5.0) mmol/L Chloride 110 H (98-107) mmol/L Carbon Dioxide 23 (21-33) mmol/L Anion Gap 15 (10-20) BUN 51 H (7-21) mg/dL Creatinine 2.3 H (0.8-1.5) mg/dl Est GFR ( Amer) 36 Est GFR (Non-Af Amer) 29 POC Glucose (mg/dL) 80 (65-110) mg/dL Random Glucose 55 L (70-110) mg/dL Calcium 9.6 (8.4-10.5) mg/dL Magnesium 1.6 L 1.7 (1.7-2.2) mg/dL Lactate Dehydrogenase 805 H (333-699) U/L Total Creatine Kinase 280 H (35-230) U/L CK-MB (CK-2) 2.5 (0.0-3.6) ng/mL CK-MB (CK-2) % Cancelled Troponin I 3.78 H* D ng/mL HIV 1&2 Ag/Ab, 4th Gen (Nonreactive) 02/06/18 02/06/18 02/06/18 Range/Units 21:08 18:11 14:15 WBC (4.5-11.0) 10^3/ul RBC (3.5-6.1) 10^6/uL Hgb (14.0-18.0) g/dL Hct (42.0-52.0) % MCV (80.0-105.0) fl MCH (25.0-35.0) pg MCHC (31.0-37.0) g/dl RDW (11.5-14.5) % Plt Count (120.0-450.0) 10^3/uL MPV (7.0-11.0) fl Gran % (50.0-68.0) % Lymph % (Auto) (22.0-35.0) % [place] % (Auto) (1.0-6.0) % Eos % (Auto) (1.5-5.0) % Baso % (Auto) (0.0-3.0) % Gran # (1.4-6.5) Lymph # (Auto) (1.2-3.4) [place] # (Auto) (0.1-0.6) Eos # (Auto) (0.0-0.7) Baso # (Auto) (0.0-2.0) K/mm3 APTT 54.4 H 85.1 H (25.1-36.5) Seconds pCO2 (35-45) mm/Hg pO2 (80-100) mm/Hg HCO3 (21-28) mmol/L ABG pH (7.35-7.45) ABG Total CO2 (22-28) mmol.L ABG O2 Saturation (95-98) % ABG O2 Content (15-23) ML/dl ABG Base Excess (-2.0-3.0) mmol/L ABG Hemoglobin (11.7-17.4) g/dL ABG Carboxyhemoglobin (0.5-1.5) % POC ABG HHb (Measured) (0-5) % ABG Methemoglobin (0.0-3.0) % ABG O2 Capacity (16-24) mL/dl Hgb O2 Saturation (95.0-98.0) % FiO2 % Sodium (132-148) mmol/L Potassium (3.6-5.0) mmol/L Chloride (98-107) mmol/L Carbon Dioxide (21-33) mmol/L Anion Gap (10-20) BUN (7-21) mg/dL Creatinine (0.8-1.5) mg/dl Est GFR ( Amer) Est GFR (Non-Af Amer) POC Glucose (mg/dL) 83 (65-110) mg/dL Random Glucose (70-110) mg/dL Calcium (8.4-10.5) mg/dL Magnesium (1.7-2.2) mg/dL Lactate Dehydrogenase (333-699) U/L Total Creatine Kinase (35-230) U/L CK-MB (CK-2) (0.0-3.6) ng/mL CK-MB (CK-2) % Troponin I ng/mL HIV 1&2 Ag/Ab, 4th Gen (Nonreactive) 02/05/18 Range/Units 10:30 WBC (4.5-11.0) 10^3/ul RBC (3.5-6.1) 10^6/uL Hgb (14.0-18.0) g/dL Hct (42.0-52.0) % MCV (80.0-105.0) fl MCH (25.0-35.0) pg MCHC (31.0-37.0) g/dl RDW (11.5-14.5) % Plt Count (120.0-450.0) 10^3/uL MPV (7.0-11.0) fl Gran % (50.0-68.0) % Lymph % (Auto) (22.0-35.0) % [place] % (Auto) (1.0-6.0) % Eos % (Auto) (1.5-5.0) % Baso % (Auto) (0.0-3.0) % Gran # (1.4-6.5) Lymph # (Auto) (1.2-3.4) [place] # (Auto) (0.1-0.6) Eos # (Auto) (0.0-0.7) Baso # (Auto) (0.0-2.0) K/mm3 APTT (25.1-36.5) Seconds pCO2 (35-45) mm/Hg pO2 (80-100) mm/Hg HCO3 (21-28) mmol/L ABG pH (7.35-7.45) ABG Total CO2 (22-28) mmol.L ABG O2 Saturation (95-98) % ABG O2 Content (15-23) ML/dl ABG Base Excess (-2.0-3.0) mmol/L ABG Hemoglobin (11.7-17.4) g/dL ABG Carboxyhemoglobin (0.5-1.5) % POC ABG HHb (Measured) (0-5) % ABG Methemoglobin (0.0-3.0) % ABG O2 Capacity (16-24) mL/dl Hgb O2 Saturation (95.0-98.0) % FiO2 % Sodium (132-148) mmol/L Potassium (3.6-5.0) mmol/L Chloride (98-107) mmol/L Carbon Dioxide (21-33) mmol/L Anion Gap (10-20) BUN (7-21) mg/dL Creatinine (0.8-1.5) mg/dl Est GFR ( Amer) Est GFR (Non-Af Amer) POC Glucose (mg/dL) (65-110) mg/dL Random Glucose (70-110) mg/dL Calcium (8.4-10.5) mg/dL Magnesium (1.7-2.2) mg/dL Lactate Dehydrogenase (333-699) U/L Total Creatine Kinase (35-230) U/L CK-MB (CK-2) (0.0-3.6) ng/mL CK-MB (CK-2) % Troponin I ng/mL HIV 1&2 Ag/Ab, 4th Gen Nonreactive (Nonreactive) Laboratory Results - last 24 hr 02/05/18 02/06/1802/06/18 10:30 14:15 18:11 WBC RBC Hgb Hct MCV MCH MCHC RDW Plt Count MPV Gran % Lymph % (Auto) [place] % (Auto) Eos % (Auto) Baso % (Auto) Gran # Lymph # (Auto) [place] # (Auto) Eos # (Auto) Baso # (Auto) APTT 85.1 H pCO2 pO2 HCO3 ABG pH ABG Total CO2 ABG O2 Saturation ABG O2 Content ABG Base Excess ABG Hemoglobin ABG Carboxyhemoglobin POC ABG HHb (Measured) ABG Methemoglobin ABG O2 Capacity Hgb O2 Saturation FiO2 Sodium Potassium Chloride Carbon Dioxide Anion Gap BUN Creatinine Est GFR ( Amer) Est GFR (Non-Af Amer) POC Glucose (mg/dL) 83 Random Glucose Calcium Magnesium Lactate Dehydrogenase Total Creatine Kinase CK-MB (CK-2) CK-MB (CK-2) % Troponin I HIV 1&2 Ag/Ab, 4th Gen Nonreactive 02/06/18 02/06/18 02/06/18 21:08 21:08 23:55 WBC RBC Hgb Hct MCV MCH MCHC RDW Plt Count MPV Gran % Lymph % (Auto) [place] % (Auto) Eos % (Auto) Baso % (Auto) Gran # Lymph # (Auto) [place] # (Auto) Eos # (Auto) Baso # (Auto) APTT 54.4 H pCO2 pO2 HCO3 ABG pH ABG Total CO2 ABG O2 Saturation ABG O2 Content ABG Base Excess ABG Hemoglobin ABG Carboxyhemoglobin POC ABG HHb (Measured) ABG Methemoglobin ABG O2 Capacity Hgb O2 Saturation FiO2 Sodium Potassium Chloride Carbon Dioxide Anion Gap BUN Creatinine Est GFR ( Amer) Est GFR (Non-Af Amer) POC Glucose (mg/dL) 80 Random Glucose Calcium Magnesium 1.7 Lactate Dehydrogenase Total Creatine Kinase CK-MB (CK-2) CK-MB (CK-2) % Troponin I HIV 1&2 Ag/Ab, 4th Gen 02/07/18 02/07/18 02/07/18 06:00 06:00 06:00 WBC 19.4 H RBC 3.48 L Hgb 8.2 L Hct 27.5 L MCV 79.0 L MCH 23.6 L MCHC 29.8 L RDW 16.0 H Plt Count 284 MPV 9.8 Gran % 93.3 H Lymph % (Auto) 3.3 L [place] % (Auto) 2.9 Eos % (Auto) 0.4 L Baso % (Auto) 0.1 Gran # 18.10 H Lymph # (Auto) 0.6 L [place] # (Auto) 0.6 Eos # (Auto) 0.1 Baso # (Auto) 0.01 APTT pCO2 38 pO2 103.0 H HCO3 21.0 ABG pH 7.35 ABG Total CO2 22.2 ABG O2 Saturation 99.4 H ABG O2 Content 11.4 L ABG Base Excess -4.2 L ABG Hemoglobin 8.2 L ABG Carboxyhemoglobin 1.8 H POC ABG HHb (Measured) 0.6 ABG Methemoglobin 0.3 ABG O2 Capacity 11.5 L Hgb O2 Saturation 97.3 FiO2 40.0 Sodium 144 Potassium 4.2 Chloride 110 H Carbon Dioxide 23 Anion Gap 15 BUN 51 H Creatinine 2.3 H Est GFR ( Amer) 36 Est GFR (Non-Af Amer) 29 POC Glucose (mg/dL) Random Glucose 55 L Calcium 9.6 Magnesium 1.6 L Lactate Dehydrogenase 805 H Total Creatine Kinase 280 H CK-MB (CK-2) 2.5 CK-MB (CK-2) % Cancelled Troponin I 3.78 H* D HIV 1&2 Ag/Ab, 4th Gen 02/07/18 02/07/18 02/07/18 06:00 06:01 07:42 WBC RBC Hgb Hct MCV MCH MCHC RDW Plt Count MPV Gran % Lymph % (Auto) [place] % (Auto) Eos % (Auto) Baso % (Auto) Gran # Lymph # (Auto) [place] # (Auto) Eos # (Auto) Baso # (Auto) APTT 52.6 H pCO2 pO2 HCO3 ABG pH ABG Total CO2 ABG O2 Saturation ABG O2 Content ABG Base Excess ABG Hemoglobin ABG Carboxyhemoglobin POC ABG HHb (Measured) ABG Methemoglobin ABG O2 Capacity Hgb O2 Saturation FiO2 Sodium Potassium Chloride Carbon Dioxide Anion Gap BUN Creatinine Est GFR ( Amer) Est GFR (Non-Af Amer) POC Glucose (mg/dL) 69 86 Random Glucose Calcium Magnesium Lactate Dehydrogenase Total Creatine Kinase CK-MB (CK-2) CK-MB (CK-2) % Troponin I HIV 1&2 Ag/Ab, 4th Gen 02/07/18 11:16 WBC RBC Hgb Hct MCV MCH MCHC RDW Plt Count MPV Gran % Lymph % (Auto) [place] % (Auto) Eos % (Auto) Baso % (Auto) Gran # Lymph # (Auto) [place] # (Auto) Eos # (Auto) Baso # (Auto) APTT pCO2 pO2 HCO3 ABG pH ABG Total CO2 ABG O2 Saturation ABG O2 Content ABG Base Excess ABG Hemoglobin ABG Carboxyhemoglobin POC ABG HHb (Measured) ABG Methemoglobin ABG O2 Capacity Hgb O2 Saturation FiO2 Sodium Potassium Chloride Carbon Dioxide Anion Gap BUN Creatinine Est GFR ( Amer) Est GFR (Non-Af Amer) POC Glucose (mg/dL) 88 Random Glucose Calcium Magnesium Lactate Dehydrogenase Total Creatine Kinase CK-MB (CK-2) CK-MB (CK-2) % Troponin I HIV 1&2 Ag/Ab, 4th Gen Assessment/Plan - Assessment and Plan (Free Text) Assessment: Patient seen and examined on rounds with resident, agree with note with following additions/exceptions: Patient is 57yo male with PMHx PMH of CVA, DM, ESRD not on HD, CAD and kidney/ pancreatic transplant in 2005 admitted to the ICU s/p cardiopulmonary arrest and severe sepsis with multi organ failure, VFIB arrest, s/p hypothermic protocol Currently afebrile, HD stable, extubated yesterday afternoon to BIPAP, currently OFF BIPAP on 2LNC, AAOx3, sat 95% Labs, imaging, chart reviewed Renal following, ID following Neurology following EHCO done, with severely reduced EF VFIB arrest Hx renal, pancreatic transplant ESRD DM Hx CVA Recommend: - cont with supp o2, BIPAP as needed, duonebs PRN - cont with broad spectrum abx as per ID, Merrem, Doxy - monitor hemodynamics - FS control - follow up neurology - follow up cardiology, may need PCI - follow up cultures - monitor HH - GI ppx - DVT ppx - transfer to telemetry
--- NOTE | 2018-02-07 11:47 | CP.PCM.PN ---
Subjective - Date & Time of Evaluation Date of Evaluation: 02/07/18 Time of Evaluation: 10:05 - Subjective Subjective: Patient is now extubated, no fevers, not in distress in bed, no nausea or diarrhea. Concerned about his transplanted kidney and pancreas. Objective - Vital Signs/Intake and Output Vital Signs (last 24 hours): Temp Pulse Resp BP Pulse Ox 98.8 F 74 14 112/55 L 97 02/07/18 05:45 02/07/18 05:45 02/07/18 05:40 02/07/18 05:08 02/07/18 05:45 Intake and Output: 02/06/18 02/07/18 18:59 06:59 Intake Total 1497.0 Output Total 1200 Balance 297.0 - Medications Medications: Current Medications Aspirin (Aspirin Chewable) 81 mg PO DAILY [facility] Last Admin: 02/06/18 10:41 Dose: 81 mg Carvedilol (Coreg) 3.125 mg PO BID [facility] Last Admin: 02/06/18 18:08 Dose: Not Given Clopidogrel Bisulfate (Plavix) 75 mg PO DAILY [facility] Last Admin: 02/06/18 10:38 Dose: 75 mg Docusate Sodium (Colace Liquid) 100 mg PO TID [facility] Last Admin: 02/06/18 18:08 Dose: Not Given Gabapentin (Neurontin) 100 mg PO BID [facility] PRN Reason: Protocol Last Admin: 02/06/18 18:09 Dose: Not Given Midazolam 100 mg/100ml in NS (Midazolam 100 Mg/100ml In Ns) 100 mg in 100 mls @ 2 mls/hr IV .Q24H PRN; Protocol; 2 MG/HR PRN Reason: Sedation Last Titration: 02/06/18 07:50 Dose: 0 mg/hr, 0 mls/hr Propofol (Diprivan) 1,000 mg in 100 mls @ 1.633 mls/hr IV .Q24H PRN; Protocol; 5 MCG/KG/MIN PRN Reason: TITRATE PER MD ORDER Last Titration: 02/06/18 07:50 Dose: 0 mcg/kg/min, 0 mls/hr Sodium Chloride (Sodium Chloride 0.9%) 1,000 mls @ 80 mls/hr IV .[id number] [facility] Last Admin: 02/07/18 06:30 Dose: 80 mls/hr Doxycycline Hyclate 100 mg/ (Sodium Chloride) 100 mls @ 100 mls/hr IVPB Q12 [facility] PRN Reason: Protocol Stop: 02/12/18 10:01 Last Admin: 02/06/18 22:07 Dose: 100 mls/hr Heparin Sodium/Sodium Chloride (Heparin 79459 Units/250ml 1/2 Normal Saline) 25 ,000 units in 250 mls @ 6.532 mls/hr IV .Q24H [facility]; 12 UNITS/KG/HR PRN Reason: Protocol Last Titration: 02/06/18 14:39 Dose: 13 units/kg/hr, 7.076 mls/hr Meropenem 500 mg/ Sodium (Chloride) 50 mls @ 100 mls/hr IVPB Q12 [facility] PRN Reason: Protocol Stop: 02/13/18 10:01 Last Admin: 02/06/18 22:06 Dose: 100 mls/hr Acetaminophen (Ofirmev) 1,000 mg in 100 mls @ 400 mls/hr IVPB Q6H PRN PRN Reason: Fever > 100.4 Stop: 02/08/18 23:12 Last Admin: 02/06/18 23:22 Dose: 400 mls/hr Insulin Human Regular (Humulin R Low) 0 units SC Q6 [facility] PRN Reason: Protocol Last Admin: 02/07/18 06:24 Dose: Not Given Methylprednisolone (Solu-Medrol) 40 mg IVP DAILY [facility] Last Admin: 02/06/18 15:21 Dose: 40 mg Nitroglycerin (Nitro-Bid 2% Oint) 0.5 ea TOP Q6H [facility] Last Admin: 02/07/18 05:36 Dose: 0.5 ea Nystatin (Nystop Topical Powder) 0 gm TOP BID [facility] Last Admin: 02/06/18 17:17 Dose: 1 appl Pantoprazole Sodium (Protonix Inj) 40 mg IVP DAILY [facility] Last Admin: 02/06/18 10:37 Dose: 40 mg - Labs Labs: 02/06/18 05:20 02/06/18 05:20 PT 12.8 SECONDS (9.4-12.5) H 02/04/18 16:35 INR 1.12 02/04/18 16:35 APTT 54.4 Seconds (25.1-36.5) H 02/06/18 21:08 - Constitutional Appears: No Acute Distress, Chronically Ill - Head Exam Head Exam: NORMAL INSPECTION - ENT Exam ENT Exam: Mucous Membranes Moist - Neck Exam Neck Exam: absent: Meningismus - Respiratory Exam Respiratory Exam: Decreased Breath Sounds - Cardiovascular Exam Cardiovascular Exam: +S1, +S2 - GI/Abdominal Exam GI & Abdominal Exam: Soft. absent: Tenderness Assessment and Plan - Assessment and Plan (Free Text) Plan: Assessment S/P Shock, probably cardiogenic, less likely from sepsis from HCAP in this patient with possible NSTEMI S/P ventricular fibrillation significant smoking history insulin dependent diabetes mellitus CVA CAD s/p CABG S/P PCI s/p kidney and pancreas transplant on immunosuppresive therapy chronic anemia Plan has been on 2 days of Doxycycline and Merrem; blood, urine cx are negative; PCT is elevated but patient has acute renal failure; reviewed CXR which shows pulmonary venous congestion - will d/c antibiotics and observe follow up further plans of Cardiology, Renal will continue to monitor clinically
[2018-02-07] MEDS: Nystatin 100,000 Units/gm Topical Pow(15 gm) TOP SCH ×2 (13:05→17:32)
[2018-02-07] MEDS ORDERED: HYDROmorphone 0.5 mg/0.5 ml ISec IVP STA (14:10)
--- NOTE | 2018-02-07 16:05 | PN ---
Copied To: Chu Hillman MD Attending MD: Chu Hillman MD DATE: 02/07/2018 CARDIOLOGY FOLLOWUP SUBJECTIVE: The patient is extubated, awake and alert, sitting in bed, taking p.o. PHYSICAL EXAMINATION: VITAL SIGNS: Blood pressure is 102/50, the heart rate is in the 70s. NECK: Negative JVD. LUNGS: Decreased breath sounds bilaterally. HEART: Reveals S1, S2. EXTREMITIES: Without edema. LABORATORY DATA: Hemoglobin is 8.2, white count is down to 19.4. Troponin remains at 3.78. BUN and creatinine ARE 51 and 2.3 from a baseline of 1.21 when he presented. IMPRESSION: 1. Status post cardiac arrest. 2. Acute tubular necrosis with renal insufficiency. 3. History of coronary artery bypass surgery. 4. History of pancreatic and kidney transplant. 5. Sepsis. PLAN: Given these findings, the patient hemodynamically is doing much improved. I have discussed with the family when his kidneys are stabilized about the need for cardiac catheterization. The risk of catheterization for continued damage to his kidneys will be too high at this time. I have discussed with the ICU team about restarting his antirejection medications. The patient is scheduled for transfer to [facility] (Former[facility] for continued care. Chu Hillman MD
[2018-02-07] MEDS: Heparin25000 units/250ml 1/2NS 25,000 UNITS/250 ML BAG IV SCH (21:20)
[2018-02-08] MEDS: Albuterol-Ipratrop 3 mg / 0.5 (3 ml) UD IH PRN ×3 (01:49→18:44)
[2018-02-08] MEDS: Morphine 2 mg/ml ISec IVP PRN ×2 (01:55→09:36)
--- NOTE | 2018-02-08 04:25 | PN ---
Copied To: Jax Morrison MD Attending MD: Jax Morrison MD DATE: 02/07/2018 PULMONARY PROGRESS NOTE REFERRING PHYSICIAN: Roddy Silva MD SUBJECTIVE: He is lying in the bed, head at 45 degrees, off noninvasive ventilation, on nasal cannula oxygen. Feels much better. On modified p.o. diet. Mild cough. No shortness breath or chest pain. No nausea, no vomiting, no diarrhea. No leg swelling. OBJECTIVE: GENERAL: In no acute distress. VITAL SIGNS: Temperature is 98, heart rate 76, respiratory rate is 20, blood pressure 94/47. HEENT: Moist mucous membrane. Crowded airway. Mallampati score is 4. NECK: Supple. No JVD. LUNGS: Have a few scattered rhonchi and crackles. HEART: S1 and S2. ABDOMEN: Soft, nontender, no organomegaly; has a ventral hernia. EXTREMITIES: Has a left BKA, has a right foot amputation. NEUROLOGICAL: Awake and alert; follows simple command. MEDICATIONS: He is on aspirin 81 mg daily, Colace 100 mg three times a day, Coreg 3.25 mg twice a day. He is on weight-based heparin protocol, gabapentin 100 mg twice a day, Plavix 75 mg daily, Protonix 40 mg daily, IV fluid normal saline 80 mL per hour, Solu-Medrol 40 mg daily. LABORATORY DATA: Shows hemoglobin 8.2, hematocrit 27.5, WBC 19.4, platelet is 284. PTT is 53. ABG show pH 7.35, PCO2 of 38, O2 of 103; this is on supplemental oxygen. Sodium 144, potassium 4.2, chloride 110, bicarbonate 23, BUN 51, creatinine 2.3, glucose 119, calcium is 9.6, magnesium 1.6. LDH is 805. Total creatinine is 280. Troponin 3.78. HIV 1 and 2 antibodies are nonreactive. Blood culture, there is no growth. Trach secretion has some yeast. Chest x-ray done today shows improvement in pulmonary venous congestion and pulmonary edema in the right lung. IMPRESSION AND PLAN: Status post cardiopulmonary arrest, successfully resuscitated, presently extubated, on nasal cannula, coronary artery disease, history of coronary bypass surgery, history of pancreatic and kidney transplant, has renal insufficiency. There may be component of sleep apnea syndrome. Case discussed with the patient and family at bedside. All the questions answered. Continue bronchodilator. Keep head at 45 degrees. Continue immunosuppressives as per Nephrology. Echocardiogram is still pending. We will recommend attended sleep study upon discharge as outpatient and pulmonary function tests as outpatient. Thank you and we will follow with you. Jax Morrison MD
[2018-02-08] MEDS: Nitroglycerin 2% Ointment Foilpak UD TOP SCH ×4 (05:38→22:20)
[2018-02-08 07:12] LABS: GRAN # 13.71 (1.4-6.5); GRAN % 94.4 % (50.0-68.0); HEMOGLOBIN 7.9 g/dL (14.0-18.0); LYMPH # 0.4 (1.2-3.4); LYMPH % 2.8 % (22.0-35.0); MEAN CELL VOLUME 77.6 fl (80.0-105.0); MEAN CORPUSCULAR HEMOGLOBIN 23.3 pg (25.0-35.0); MEAN PLATELET VOLUME 9.9 fl (7.0-11.0); MONO # 0.4 (0.1-0.6); MONO % 2.8 % (1.0-6.0); PLATELET COUNT 258 10^3/uL (120.0-450.0); RBC 3.39 10^6/uL (3.5-6.1); RED CELL DISTRIBUTION WIDTH 15.9 % (11.5-14.5); WHITE BLOOD COUNT 14.5 10^3/ul (4.5-11.0)
[2018-02-08 07:44] LABS: ALB/GLOB RATIO 0.9 (1.1-1.8); ALBUMIN 2.8 g/dL (3.0-4.8); CALCIUM 9.9 mg/dL (8.4-10.5)
--- NOTE | 2018-02-08 07:48 | RAD ---
Date of service: 02/08/2018 PROCEDURE: CHEST RADIOGRAPH, 1 VIEW HISTORY: shortness of breath COMPARISON: Portal chest 02/07/2018. FINDINGS: LUNGS: Patient rotated toward the left. History hilar vascular markings are appreciated suggestive of likely improved pulmonary vascular congestion. Left basilar obliterates left hemidiaphragm silhouette may reflect atelectasis, which is favored over infiltrate. Left pleural effusion is evident mildly. No definite right pleural effusion or pneumothorax bilaterally. Patchy right infrahilar airspace disease identified. PLEURA: As above. CARDIOVASCULAR: No megaly post CABG changes reiterated. Diminishing pulmonary vascular congestion. OSSEOUS STRUCTURES: No significant abnormalities. VISUALIZED UPPER ABDOMEN: Normal. OTHER FINDINGS: None. IMPRESSION: Diminishing pulmonary vascular congestion though increased left basilar opacity suggests likely combination of atelectasis and mild left pleural effusion. Nonspecific patchy right infrahilar airspace disease apparent.
[2018-02-08] MEDS: Insulin Reg-LOW-Coverage SC SCH ×2 (07:59→16:38)
[2018-02-08 08:09] LABS: EOSINOPHIL 1 % (0.0-3.0); LYMPHOCYTE 6 % (22.0-35.0); MICROCYTOSIS 2+; NEUTROPHIL 93 % (50.0-70.0)
[2018-02-08 08:10] LABS: HYPOCHROMIA SLIGHT; PLATELET ESTIMATE NORMAL (NORMAL)
[2018-02-08] MEDS: MethylPREDNISolone 40 mg Vial IVP SCH (09:35)
[2018-02-08] MEDS: Nystatin 100,000 Units/gm Topical Pow(15 gm) TOP SCH ×2 (09:37→17:22)
[2018-02-08] MEDS: Sodium Chloride 0.9% 1,000 ML IV SCH (09:37)
[2018-02-08] MEDS ORDERED: oxyCODONE 15 mg Immediate Release Tab PO PRN (11:00)
[2018-02-08] MEDS ORDERED: oxyCODONE 10 mg ER Tab (oxyCONTIN) PO PRN (11:03)
--- NOTE | 2018-02-08 11:12 | CP.PCM.PN ---
Subjective - Date & Time of Evaluation Date of Evaluation: 02/08/18 Time of Evaluation: 07:00 - Subjective Subjective: PGY-[address] Kahn Pt complained of back pain. Chest pain sharp around chest worse by movement. Denies SOB, N/V/D/C, dysuria Objective - Vital Signs/Intake and Output Vital Signs (last 24 hours): Temp Pulse Resp BP Pulse Ox 98.2 F 68 20 110/68 98 02/08/18 06:00 02/08/18 09:33 02/08/18 06:00 02/08/18 09:33 02/08/18 06:00 Intake and Output: 02/08/18 02/08/18 06:59 18:59 Intake Total 1968 50 Output Total 1400 Balance 568 50 - Medications Medications: Current Medications Acetaminophen (Tylenol 325mg Tab) 650 mg PO Q6H PRN PRN Reason: Pain, Mild (1-3) Stop: 02/08/18 12:00 Albuterol/Ipratropium (Duoneb 3 Mg/0.5 Mg (3 Ml) Ud) 3 ml IH Q2H PRN PRN Reason: Shortness of Breath Stop: 02/08/18 12:00 Last Admin: 02/08/18 05:39 Dose: 3 ml Aspirin (Aspirin Chewable) 81 mg PO DAILY [facility] Last Admin: 02/08/18 09:34 Dose: 81 mg Carvedilol (Coreg) 3.125 mg PO BID [facility] Last Admin: 02/08/18 09:33 Dose: 3.125 mg Clopidogrel Bisulfate (Plavix) 75 mg PO DAILY [facility] Last Admin: 02/08/18 09:33 Dose: 75 mg Docusate Sodium (Colace Liquid) 100 mg PO TID [facility] Last Admin: 02/08/18 09:35 Dose: 100 mg Gabapentin (Neurontin) 100 mg PO BID [facility] PRN Reason: Protocol Last Admin: 02/08/18 09:33 Dose: 100 mg Sodium Chloride (Sodium Chloride 0.9%) 1,000 mls @ 80 mls/hr IV .[id number] [facility] Last Admin: 02/08/18 09:37 Dose: 80 mls/hr Heparin Sodium/Sodium Chloride (Heparin 19522 Units/250ml 1/2 Normal Saline) 25 ,000 units in 250 mls @ 6.532 mls/hr IV .Q24H [facility]; 12 UNITS/KG/HR PRN Reason: Protocol Last Titration: 02/08/18 09:12 Dose: 15 units/kg/hr, 8.165 mls/hr Insulin Human Regular (Humulin R Low) 0 units SC ACBD [facility] PRN Reason: Protocol Last Admin: 02/08/18 07:59 Dose: Not Given Methylprednisolone (Solu-Medrol) 40 mg IVP DAILY [facility] Last Admin: 02/08/18 09:35 Dose: 40 mg Morphine Sulfate (Morphine) 1 mg IVP Q6 PRN PRN Reason: Pain, severe (8-10) Stop: 02/08/18 12:00 Last Admin: 02/08/18 09:36 Dose: 1 mg Nitroglycerin (Nitro-Bid 2% Oint) 0.5 ea TOP Q6H [facility] Last Admin: 02/08/18 05:38 Dose: 0.5 ea Nystatin (Nystop Topical Powder) 0 gm TOP BID [facility] Last Admin: 02/08/18 09:37 Dose: 1 appl Oxycodone HCl (Oxycontin Extended Release Tab) 15 mg PO Q12 PRN PRN Reason: Pain, severe (8-10) Stop: 02/11/18 11:16 Oxycodone HCl (Oxycontin Extended Release Tab) 15 mg PO ONCE ONE Stop: 02/08/18 11:21 Pantoprazole Sodium (Protonix Ec Tab) 40 mg PO ACB [facility] Tramadol HCl (Ultram) 50 mg PO TID PRN PRN Reason: Pain, moderate (4-7) Stop: 02/08/18 12:00 - Labs Labs: 02/08/18 06:30 02/08/18 06:30 PT 12.8 SECONDS (9.4-12.5) H 02/04/18 16:35 INR 1.12 02/04/18 16:35 APTT 43.5 Seconds (25.1-36.5) H 02/08/18 06:30 - Constitutional Appears: No Acute Distress - Head Exam Head Exam: ATRAUMATIC, NORMAL INSPECTION, NORMOCEPHALIC - Eye Exam Eye Exam: EOMI, Normal appearance, PERRL. absent: Scleral icterus - ENT Exam ENT Exam: Mucous Membranes Dry - Neck Exam Additional comments: supple - Respiratory Exam Respiratory Exam: Clear to Ausculation Bilateral, Rales, Rhonchi - Cardiovascular Exam Cardiovascular Exam: REGULAR RHYTHM, +S1, +S2, Murmur - GI/Abdominal Exam GI & Abdominal Exam: Soft, Normal Bowel Sounds. absent: Guarding, Rigid, Tenderness - Extremities Exam Extremities Exam: absent: Calf Tenderness, Pedal Edema Additional comments: L BKA, R transmetatarsal amputation - Back Exam Back Exam: absent: CVA tenderness (L), CVA tenderness (R) - Neurological Exam Neurological Exam: Alert, Awake, Oriented x3 - Psychiatric Exam Psychiatric exam: Normal Affect, Normal Mood - Skin Skin Exam: Dry, Warm Assessment and Plan - Assessment and Plan (Free Text) Plan: Mr Guido, 57M, active smoker, PMHx insulin dependent diabetes since age 5, CVA @ [facility] (2004), CAD s/p CABG (2005) s/p stents, s/p kidney and pancreas transplant on prednisone/prograf/cellcept, and chronic anemia, presented to ED after V-fib cardiac arrest in the field with 5 minutes down time on 02/04/18. He was on Cipro for UTI prior to hospitalization. Does the V fib arrest due to cardiac more or due to sepsis more? Culture negative so far. S/p V fib arrest, ROSC, complicated by respiratory failure, anoxic encephalopathy, MARI on CKD, oliguria , questionable ischemic liver - all resolved except renal - Head CT: mild to moderate chronic ischemic white matter periventricular to deep subcortical. Chronic infarct R centrum semiovale and L basal ganglia. Moderate volume loss - Neg FINA - Extubated s/p Intubation x 3 days - strict i/o, continue monitor kidney function Cardiogenic shock with pleural effusion, pulmonary edema, NSTEMI - EKG - junctional tachycardia with PVC, RBBB - Switch therapeutic lovenox to heparin gtt due to kidney transplant status - Cardio started ASA, plavix, coreg, lipitor nitro-bid 2% oint 0.5in top Q6H - when to cardiac cath? kidney function worsenin.2 --> 2.3 - Add lasix for fluid overload in lung Persistent mild fever, infectious vs reactive Severe sepsis with MODS, source of infection: uti vs pna. Doubt skin complicated by Hypothermic, respiratory failure, leukocytosis 26, lactate 5 on admission -- improving UTI at home treated with Levaquin prior to admission Pneumona, CAP vs aspiration pneumonitis - CXR (02/05) diffuse bilateral alveolar infiltrate R > L, pulmonary vascular congestion vs pneumonia, small R effusion - Blood culture neg x 2d - urine culture neg - sputum culture - yeast, likely colonization - MRSA screen - neg - procalc 7.39 in the setting of CKD - hepatitis panel, HIV, leginella Ag - negative - give one dose of vancomysin. Merem and doxycycline, day __4__ MARI on CKD Immunosuppresion S/P kidney, pancreas transplant on immunosuppresant - Continue solumedrol IV - Per pulm, restart Tacrolimus DM with neuropathy Hx pancreas transplant - A1C 6.6 - ISSS only if blood glucose > 200. Do not suppress transplant pancreas functioning - Continue gabapentin Anemia likely from immunosuppresion and prior ESRD - Hb 7.9 today - Anticipate may need blood transfusion W/C bound Chronic back pain - oxycontin PRN Sacral decubitus, stage 2 - reposition as needed Prophylaxis: heparin gtt. Protonix IV Care planning: Patient initiated transfer to transplant center at [facility]. real estate leasing manager signed [facility] transfer form EMTALA form is done Transplant Dr. Guevara. [phone] Now pending primary care doctor acceptance and bed available Dr Silva had called [facility] at left message,where the transplant took place s/r/d/w Dr Kahn
[2018-02-08] MEDS ORDERED: oxyCODONE 10 mg ER Tab (oxyCONTIN) PO ONE (11:20)
--- NOTE | 2018-02-08 11:42 | CP.PCM.PN ---
Subjective - Date & Time of Evaluation Date of Evaluation: 02/08/18 Time of Evaluation: 10:20 - Subjective Subjective: No fevers, not in distress, no nausea, no diarrhea. Objective - Vital Signs/Intake and Output Vital Signs (last 24 hours): Temp Pulse Resp BP Pulse Ox 98.2 F 70 20 107/61 98 02/08/18 06:00 02/08/18 06:00 02/08/18 06:00 02/08/18 06:00 02/08/18 06:00 Intake and Output: 02/07/18 02/08/18 18:59 06:59 Intake Total 1968 Output Total 1400 Balance 568 - Medications Medications: Current Medications Acetaminophen (Tylenol 325mg Tab) 650 mg PO Q6H PRN PRN Reason: Pain, Mild (1-3) Stop: 02/08/18 12:00 Albuterol/Ipratropium (Duoneb 3 Mg/0.5 Mg (3 Ml) Ud) 3 ml IH Q2H PRN PRN Reason: Shortness of Breath Stop: 02/08/18 12:00 Last Admin: 02/08/18 05:39 Dose: 3 ml Aspirin (Aspirin Chewable) 81 mg PO DAILY [facility] Last Admin: 02/07/18 09:52 Dose: 81 mg Carvedilol (Coreg) 3.125 mg PO BID [facility] Last Admin: 02/07/18 17:20 Dose: 3.125 mg Clopidogrel Bisulfate (Plavix) 75 mg PO DAILY [facility] Last Admin: 02/07/18 09:52 Dose: 75 mg Docusate Sodium (Colace Liquid) 100 mg PO TID [facility] Last Admin: 02/07/18 18:01 Dose: Not Given Gabapentin (Neurontin) 100 mg PO BID [facility] PRN Reason: Protocol Last Admin: 02/07/18 17:57 Dose: 100 mg Sodium Chloride (Sodium Chloride 0.9%) 1,000 mls @ 80 mls/hr IV .[id number] [facility] Last Admin: 02/07/18 06:30 Dose: 80 mls/hr Heparin Sodium/Sodium Chloride (Heparin 46012 Units/250ml 1/2 Normal Saline) 25 ,000 units in 250 mls @ 6.532 mls/hr IV .Q24H [facility]; 12 UNITS/KG/HR PRN Reason: Protocol Last Admin: 02/07/18 21:20 Dose: 13 units/kg/hr, 7.076 mls/hr Insulin Human Regular (Humulin R Low) 0 units SC ACBD [facility] PRN Reason: Protocol Methylprednisolone (Solu-Medrol) 40 mg IVP DAILY [facility] Last Admin: 02/07/18 09:54 Dose: 40 mg Morphine Sulfate (Morphine) 1 mg IVP Q6 PRN PRN Reason: Pain, severe (8-10) Stop: 02/08/18 12:00 Last Admin: 02/08/18 01:55 Dose: 1 mg Nitroglycerin (Nitro-Bid 2% Oint) 0.5 ea TOP Q6H [facility] Last Admin: 02/08/18 05:38 Dose: 0.5 ea Nystatin (Nystop Topical Powder) 0 gm TOP BID [facility] Last Admin: 02/07/18 17:32 Dose: Not Given Pantoprazole Sodium (Protonix Inj) 40 mg IVP DAILY [facility] Last Admin: 02/07/18 09:53 Dose: 40 mg Tramadol HCl (Ultram) 50 mg PO TID PRN PRN Reason: Pain, moderate (4-7) Stop: 02/08/18 12:00 - Labs Labs: 02/07/18 06:00 02/07/18 06:00 PT 12.8 SECONDS (9.4-12.5) H 02/04/18 16:35 INR 1.12 02/04/18 16:35 APTT 52.6 Seconds (25.1-36.5) H 02/07/18 06:00 - Constitutional Appears: No Acute Distress, Chronically Ill - Head Exam Head Exam: NORMAL INSPECTION - ENT Exam ENT Exam: Mucous Membranes Moist - Neck Exam Neck Exam: absent: Meningismus - Respiratory Exam Respiratory Exam: Decreased Breath Sounds - Cardiovascular Exam Cardiovascular Exam: +S1, +S2 - GI/Abdominal Exam GI & Abdominal Exam: Soft. absent: Tenderness Assessment and Plan - Assessment and Plan (Free Text) Plan: Assessment S/P Shock, probably cardiogenic, unlikely from sepsis from HCAP in this patient with possible NSTEMI S/P ventricular fibrillation significant smoking history insulin dependent diabetes mellitus CVA CAD s/p CABG S/P PCI s/p kidney and pancreas transplant on immunosuppresive therapy chronic anemia Plan had been on 2 days of Doxycycline and Merrem; blood, urine cx are negative; PCT was elevated but patient has acute renal failure; reviewed CXR which shows pulmonary venous congestion - will continue to monitor off antibiotics since he is at risk for nosocomial infections follow up further plans of Cardiology, Renal will continue to monitor clinically
--- NOTE | 2018-02-08 12:27 | PN ---
Copied To: Chu Hillman MD Attending MD: Chu Hillman MD DATE: 02/08/2018 CARDIOLOGY FOLLOWUP SUBJECTIVE: The patient is comfortable in bed without shortness of breath, without chest pain. PHYSICAL EXAMINATION: VITAL SIGNS: Blood pressure 110/68, heart rate in the 60s. NECK: Negative JVD. LUNGS: With no rales noted. HEART: Reveal S1, S2. EXTREMITIES: Unchanged from his previous amputations. LABORATORY DATA: His hemoglobin is 8.9. Chemistries, BUN and creatinine are 57 and 2.3. IMPRESSION: 1. Status post cardiopulmonary arrest. 2. Acute tubular necrosis with renal insufficiency. 3. History of coronary artery bypass surgery. 4. History of pancreatic and kidney transplants. PLAN: Given these findings, the patient is awaiting transfer to [facility]. Chu Hillman MD
--- NOTE | 2018-02-08 13:33 | PN ---
Copied To: Mathieu Kahn MD Attending MD: Mathieu Kahn MD DATE: 02/08/2018 SUBJECTIVE: Patient is a 57-year-old white male with a history of kidney and liver transplant that was done at [facility] several years ago. Patient has not had any history of rejection in the past. He was admitted to the hospital with sepsis and cardiac arrest. He has a history of CAD, insulin-dependent diabetes mellitus, peripheral vascular disease status post left BKA, also history of right arterial stent in the right leg and associated paralysis of the right leg. Patient does have a history of congestive heart failure and CAD, status post open heart surgery with CABG. Patient was admitted after a cardiac arrest and congestive heart failure and increase in his BUN and creatinine, different from previous. Patient was septic and has an elevated white count of 26,000 and down to 14,000 today. Patient has been afebrile for the last 24 to 48 hours. His temperature today is 98.2. His blood pressure is 110/68, his pulse is 68. LABORATORY DATA: Hemoglobin 7.9, white count 14,500 with left shift. His last BUN and creatinine are 57 and 2.3. He initially had a BUN and creatinine of 51 and 2.3. His phosphorus is 4.9, his blood sugar is 119. He did have elevated troponins when he was admitted with sepsis and cardiac arrest, possibly secondary to resuscitation. The last two blood cultures were negative. MRSA was not detected. Patient is being evaluated for possible transfer to [facility] for evaluation of his renal transplant due to the increase in BUN and creatinine. Patient has been off CellCept and Prograf since he was septic, these will be restarted and as long as patient remains afebrile and his white count is definitely improving and that the cultures are negative. Patient does have some audible congestion on examination. He is awake and alert. His speech is somewhat dysarthric. His heart examination has regular sinus rhythm with ectopy. His chest shows some rhonchi and rales at all lung hernández. His abdomen is slightly distended and there is a fluid wave. There is a left BKA. Right lower extremity has had some transmetatarsal amputation. There is no swelling. There is no erythema. There is no evidence of cellulitis today. IMPRESSION: Multiple medical problems including coronary artery disease, congestive heart failure, recent sepsis, recent cardiac arrest, sepsis syndrome, renal insufficiency, poorly controlled diabetes mellitus and history of renal and pancreatic transplant. Mathieu Kahn MD
--- NOTE | 2018-02-08 16:17 | PN ---
Copied To: Jax Morrison MD Attending MD: Jax Morrison MD DATE: 02/08/2018 PULMONARY PROGRESS NOTE REFERRING PHYSICIAN: Roddy Silva MD SUBJECTIVE: He is sitting up in a bed. Night was unremarkable. Could not sleep well because of the hip and phantom limb pain, had some cough and shortness of breath. No nausea, no vomiting, no diarrhea. OBJECTIVE: GENERAL: In no acute distress. VITAL SIGNS: Temperature is 99, heart rate 70, respiratory rate is 20, blood pressure 109/66, pulse ox is 99% on nasal cannula. HEENT: Moist mucous membrane. Crowded airway. NECK: Supple. No JVD. LUNGS: A few scattered rhonchi. HEART: S1 and S2. ABDOMEN: Soft, nontender. No organomegaly. EXTREMITIES: Amputation of the right foot, left BKA. NEUROLOGICAL: Awake, alert, and follows simple command. MEDICATIONS: He is on aspirin 81 mg daily, Colace 100 mg three times a day, Coreg 3.125 mg twice a day, heparin IV drip, insulin coverage, Neurontin 100 mg twice a day, also on OxyContin extended release 50 mg every 12 hours p.r.n., Plavix 75 mg daily, Protonix 40 mg daily, sodium chloride IV fluid 80 mL per hour, Solu-Medrol 40 mg daily. LABORATORY DATA: Shows hemoglobin 7.9, hematocrit 26.3, WBC 14.5, and platelet count is 258. PTT is 80. Sodium 142, potassium 4.6, chloride 112, bicarbonate 20. BUN 57, creatinine 2.3. Glucose 99. Calcium is 9.9, phosphorus 4.9, magnesium 2.1. AST 27, ALT 34, and alkaline phosphatase is 86. Albumin is 2.8. Tracheal secretion has some yeast. Blood culture, there is no growth. Chest x-ray done today, shows diminishing pulmonary vascular congestion, though increased left basilar opacity suggestive of likely combination of atelectasis and pleural effusion, no specific patchy right infrahilar infiltrate. IMPRESSION AND PLAN: Status post cardiopulmonary arrest, successfully resuscitated, presently liberated from the ventilator, on nasal cannula oxygen. There may be a component of sleep apnea syndrome. History of coronary artery disease, coronary artery bypass surgery, history of pancreatic and kidney transplant, renal failure, and sleep apnea syndrome. Case discussed with the patient in detail. We will need to go back on his anti-rejection medication. He is encouraged CPAP use. Keep head at 45 degrees. Bronchodilator. Antibiotics as per Infectious Disease. We will follow up labs in the morning. Thank you and we will follow with you. Jax Morrison MD
[2018-02-08] MEDS ORDERED: oxyCODONE 5 mg Immediate Release Tab PO ONE (16:40)
[2018-02-08] MEDS: OXYMORPHONE HCL 10 MG PO SCH (17:22)
[2018-02-08] MEDS: PROGRAF 2 MG PO SCH (20:50)
[2018-02-08] MEDS: oxyCODONE 15 mg Immediate Release Tab PO PRN (22:20)
[2018-02-09] MEDS: oxyCODONE 15 mg Immediate Release Tab PO PRN ×2 (02:07→16:50)
[2018-02-09] MEDS: Sodium Chloride 0.9% 1,000 ML IV SCH (04:14)
[2018-02-09] MEDS: Nitroglycerin 2% Ointment Foilpak UD TOP SCH ×4 (05:02→23:32)
[2018-02-09 06:28] LABS: GRAN # 13.23 (1.4-6.5); GRAN % 93.1 % (50.0-68.0); HEMOGLOBIN 8.8 g/dL (14.0-18.0); LYMPH # 0.5 (1.2-3.4); LYMPH % 3.5 % (22.0-35.0); MEAN CELL VOLUME 78.9 fl (80.0-105.0); MEAN CORPUSCULAR HEMOGLOBIN 23.8 pg (25.0-35.0); MEAN CORPUSCULAR HGB CONC 30.2 g/dl (31.0-37.0); MEAN PLATELET VOLUME 9.9 fl (7.0-11.0); MONO # 0.5 (0.1-0.6); MONO % 3.4 % (1.0-6.0); RBC 3.69 10^6/uL (3.5-6.1); RED CELL DISTRIBUTION WIDTH 15.9 % (11.5-14.5); WHITE BLOOD COUNT 14.2 10^3/ul (4.5-11.0)
[2018-02-09 06:44] LABS: INR 1.12; PARTIAL THROMBOPLASTIN TIME 51.5 Seconds (25.1-36.5); PROTHROMBIN TIME 12.9 SECONDS (9.4-12.5)
[2018-02-09 07:05] LABS: ALBUMIN 2.9 g/dL (3.0-4.8); CALCIUM 9.7 mg/dL (8.4-10.5)
--- NOTE | 2018-02-09 08:11 | CP.PCM.PN ---
Subjective - Date & Time of Evaluation Date of Evaluation: 02/09/18 Time of Evaluation: 08:08 - Subjective Subjective: PGY-[address] Silva Pt complained of dry mouth but worsening of baseline SOB, LE edema. Denies BAHENA, CP, N/V/D/C, dysuria Objective - Vital Signs/Intake and Output Vital Signs (last 24 hours): Temp Pulse Resp BP Pulse Ox 97.8 F 53 L 20 111/73 96 02/09/18 06:07 02/09/18 06:07 02/09/18 06:07 02/09/18 06:07 02/09/18 06:07 Intake and Output: 02/09/18 02/09/18 06:59 18:59 Intake Total 1597 Output Total 975 Balance 622 - Medications Medications: Current Medications Albuterol/Ipratropium (Duoneb 3 Mg/0.5 Mg (3 Ml) Ud) 3 ml IH [id number] PRN PRN Reason: Wheezing Last Admin: 02/08/18 18:44 Dose: 3 ml Albuterol/Ipratropium (Duoneb 3 Mg/0.5 Mg (3 Ml) Ud) 3 ml IH ONCE ONE Stop: 02/09/18 08:16 Aspirin (Aspirin Chewable) 81 mg PO DAILY [facility] Last Admin: 02/08/18 09:34 Dose: 81 mg Atorvastatin Calcium (Lipitor) 20 mg PO DIN [facility] Last Admin: 02/08/18 17:21 Dose: 20 mg Carvedilol (Coreg) 3.125 mg PO BID [facility] Last Admin: 02/08/18 17:27 Dose: 3.125 mg Clopidogrel Bisulfate (Plavix) 75 mg PO DAILY [facility] Last Admin: 02/08/18 09:33 Dose: 75 mg Docusate Sodium (Colace Liquid) 100 mg PO TID [facility] Last Admin: 02/08/18 17:21 Dose: Not Given Furosemide (Lasix) 40 mg IVP ONCE ONE Stop: 02/09/18 08:08 Gabapentin (Neurontin) 100 mg PO BID [facility] PRN Reason: Protocol Last Admin: 02/08/18 17:30 Dose: 100 mg Home Med (Home Med) 1 unit PO 0730 [facility] Home Med (Home Med) 1 unit PO 1930 [facility] Last Admin: 02/08/18 20:50 Dose: 1 unit Heparin Sodium/Sodium Chloride (Heparin 28242 Units/250ml 1/2 Normal Saline) 25 ,000 units in 250 mls @ 6.532 mls/hr IV .Q24H [facility]; 12 UNITS/KG/HR PRN Reason: Protocol Last Titration: 02/08/18 09:12 Dose: 15 units/kg/hr, 8.165 mls/hr Insulin Human Regular (Humulin R Low) 0 units SC ACBD [facility] PRN Reason: Protocol Last Admin: 02/08/18 16:38 Dose: Not Given Methylprednisolone (Solu-Medrol) 40 mg IVP DAILY [facility] Last Admin: 02/08/18 09:35 Dose: 40 mg Mycophenolate Mofetil (Cellcept Cap) 1,000 mg PO BID [facility] Nitroglycerin (Nitro-Bid 2% Oint) 0.5 ea TOP Q6H [facility] Last Admin: 02/09/18 05:02 Dose: Not Given Non-Formulary Medication (Oxymorphone Hcl [Opana Er]) 10 mg PO BID [facility] Last Admin: 02/08/18 17:22 Dose: Not Given Nystatin (Nystop Topical Powder) 0 gm TOP BID [facility] Last Admin: 02/08/18 17:22 Dose: 1 appl Oxycodone HCl (Oxycodone Immediate Release Tab) 15 mg PO TID PRN PRN Reason: Pain, severe (8-10) Last Admin: 02/09/18 02:07 Dose: 15 mg Pantoprazole Sodium (Protonix Ec Tab) 40 mg PO ACB [facility] - Labs Labs: 02/09/18 05:40 02/09/18 05:40 PT 12.9 SECONDS (9.4-12.5) H 02/09/18 05:40 INR 1.12 02/09/18 05:40 APTT 51.5 Seconds (25.1-36.5) H 02/09/18 05:40 - Constitutional Appears: No Acute Distress - Head Exam Head Exam: ATRAUMATIC, NORMAL INSPECTION, NORMOCEPHALIC - Eye Exam Eye Exam: EOMI, Normal appearance, PERRL. absent: Scleral icterus Pupil Exam: NORMAL ACCOMODATION - ENT Exam ENT Exam: Mucous Membranes Dry - Neck Exam Additional comments: supple - Respiratory Exam Respiratory Exam: Clear to Ausculation Bilateral, Rales, Rhonchi, Wheezes, NORMAL BREATHING PATTERN. absent: Stridor - Cardiovascular Exam Cardiovascular Exam: REGULAR RHYTHM, +S1, +S2, Murmur - GI/Abdominal Exam GI & Abdominal Exam: Soft, Normal Bowel Sounds. absent: Rigid, Tenderness Additional comments: ventral hernia. scar healed well - Extremities Exam Extremities Exam: absent: Pedal Edema Additional comments: L BKA, R transmetatarsal - Back Exam Back Exam: absent: CVA tenderness (L), CVA tenderness (R) - Neurological Exam Neurological Exam: Alert, Awake, Oriented x3 - Psychiatric Exam Psychiatric exam: Normal Affect, Normal Mood - Skin Skin Exam: Dry, Warm Assessment and Plan - Assessment and Plan (Free Text) Plan: Mr Guido, 57M, active smoker, PMHx insulin dependent diabetes since age 5, CVA @ [facility] (2004), CAD s/p CABG (2005) s/p stents, s/p kidney and pancreas transplant on prednisone/prograf/cellcept, and chronic anemia, presented to ED after V-fib cardiac arrest in the field with 5 minutes down time on 02/04/18. He was on Cipro for UTI prior to hospitalization. V fib arrest due to cardiac, is not due to sepsis. He had an NSTEMI and pending renal function for cath, but pt requested transfer. We will accomodate S/p V fib arrest, ROSC, complicated by respiratory failure, anoxic encephalopathy, MARI on CKD, oliguria , questionable ischemic liver - all resolved except renal - Head CT: mild to moderate chronic ischemic white matter periventricular to deep subcortical. Chronic infarct R centrum semiovale and L basal ganglia. Moderate volume loss - Neg FINA - Extubated s/p Intubation x 3 days - strict i/o, continue monitor kidney function Cardiogenic shock with pleural effusion, pulmonary edema, NSTEMI Vascular congestion in lung - EKG - junctional tachycardia with PVC, RBBB - Switch therapeutic lovenox to heparin gtt due to kidney transplant status - Cardio started ASA, plavix, coreg, lipitor nitro-bid 2% oint 0.5in top Q6H - when to cardiac cath? kidney function worsenin.2 --> 2.4. Pt wants to transfer - lasix 40x1 IV. Stop IVF - Duroneb PRN - 3L NC Persistent mild fever, infectious vs reactive - resolved Had ruled out Severe sepsis with MODS, uti vs pna. Doubt skin complicated by Hypothermic, respiratory failure, leukocytosis 26, lactate 5 on admission -- improving, due to cardiac arrest UTI at home treated with cipro prior to admission - CXR (02/05) diffuse bilateral alveolar infiltrate R > L, pulmonary vascular congestion vs pneumonia, small R effusion - Blood culture neg x 2d - urine culture neg - sputum culture - yeast, likely colonization - MRSA screen - neg - procalc 7.39 in the setting of CKD - hepatitis panel, HIV, leginella Ag - negative - give one dose of vancomysin. Merem and doxycycline x 2 days. No observe off antibiotics MARI on CKD Immunosuppresion S/P kidney, pancreas transplant on immunosuppresant - Continue solumedrol IV - Restart Tacrolimus and cellcept DM with neuropathy Hx pancreas transplant - A1C 6.6 - ISSS only if blood glucose > 200. Do not suppress transplant pancreas functioning - Continue gabapentin - Continue home opioids Anemia likely from immunosuppresion and prior ESRD - Continue to trend - blood transfusion consent in chart W/C bound Chronic back pain - oxycontin PRN Sacral decubitus, stage 2 - reposition as needed Prophylaxis: heparin gtt. Protonix IV Care planning: Patient initiated transfer to transplant center at [facility]. global commodity manager signed [facility] transfer form EMTALA form is done Transplant Dr. Guevara. [phone] Now pending primary care doctor acceptance and bed available Dr Silva had called [facility] at left message,where the transplant took place Qiana Khan, Coordinator kidney transplant, [facility], s/r/d/w Dr Silva
[2018-02-09] MEDS ORDERED: Albuterol-Ipratrop 3 mg / 0.5 (3 ml) UD IH ONE (08:15)
[2018-02-09] MEDS: Pantoprazole 40 mg EC Tab PO SCH (09:21)
[2018-02-09] MEDS: Nystatin 100,000 Units/gm Topical Pow(15 gm) TOP SCH ×2 (09:25→17:05)
[2018-02-09] MEDS: MethylPREDNISolone 40 mg Vial IVP SCH (09:25)
[2018-02-09] MEDS: PROGRAF PO SCH (09:26)
--- NOTE | 2018-02-09 09:26 | CARD ---
APPROVED REPORT Date of service: 02/06/2018 EXAM: Two-dimensional and M-mode echocardiogram with Doppler and color Doppler. INDICATION S/P CARDIAC ARREST/LVFX 2D DIMENSIONS Left Atrium (2D)5.6 (1.6-4.0cm)IVSd0.9 (0.7-1.1cm) LVDd6.7 (3.9-5.9cm)PWd1.0 (0.7-1.1cm) LVDs6.0 (2.5-4.0cm)FS (%) 10.9 % LVEF (%)22.9 (>50%) M-Mode DIMENSIONS Aortic Root3.40 (2.2-3.7cm)Aortic Cusp Exc.1.40 (1.5-2.0cm) Aortic Valve AoV Peak Mqgiykdt348.0cm/Jesi Peak GR.9mmHg Mitral Valve MV E Bzzjgpwo21.9cm/sMV A Kkiyuimy97.8cm/sE/A ratio1.8 TDI E/Lateral E'0.0E/Medial E'0.0 Pulmonary Valve PV Peak Guvbndkd807.0cm/sPV Peak Grad.5mmHg Tricuspid Valve TR Peak Gjzntfpb447go/sRAP [id number] Peak Gr.15mmHg [id number] LEFT VENTRICLE The Left Ventricle is mildly dilated. The systolic function is severely impaired. Regional wall motion abnormalities noted. RIGHT VENTRICLE The right ventricle is normal size. ATRIA The left atrium is mildly dilated. The right atrium size is normal. AORTIC VALVE The aortic valve is calcified but opens well. MITRAL VALVE The mitral valve is thickened but opens well. Mitral regurgitation is moderate. TRICUSPID VALVE The tricuspid valve leaflets are thickened , but open well. There is mild tricuspid regurgitation. There is no pulmonary hypertension. PERICARDIAL EFFUSION There is no pericardial effusion. <Conclusion> Dilated and severely depressed LV function Segmental wall motion abnormality noted Dilated LA AoV sclerosis without stenosis Moderate MR Mild TR No pulmonary hypertension
--- NOTE | 2018-02-09 10:23 | PN ---
Copied To: Chu Hillman MD Attending MD: Chu Hillman MD DATE: 02/09/2018 CARDIOLOGY FOLLOWUP SUBJECTIVE: The patient is in bed. Mildly short of breath. No distress. OBJECTIVE: Blood pressure is 111/73, the heart rate in the 70s. NECK: Negative JVD. LUNGS: Decreased breath sounds bilaterally. HEART: Reveal S1, S2. EXTREMITIES: Status post amputation. DATA: BUN and creatinine is up to 65 and 2.4. Echocardiogram reveals an ejection fraction of 22%. IMPRESSION: 1. Status post cardiopulmonary arrest. 2. History of non-ST elevation myocardial infarction. 3. History of coronary artery bypass surgery. 4. Severe ischemic dilated cardiomyopathy. 5. History of renal insufficiency. 6. Status post kidney transplant. Given these findings, I have discussed cardiac catheterization with the patient and family. They are not willing to have it done given his renal insufficiency and the risk of contrast nephrotoxicity. The patient is scheduled for transfer to [facility]. At the patient and family's request, we will accommodate their request. We will transfer once the bed is available. Chu Hillman MD
--- NOTE | 2018-02-09 12:12 | US ---
Date of service: 02/09/2018 PROCEDURE: Ultrasound of the Kidneys HISTORY: MARI COMPARISON: None available. TECHNIQUE: Sonogram of the kidneys. FINDINGS: RIGHT KIDNEY: Measures: 11.4 x 5.3 x 6.1 cm. The right kidney is markedly echogenic diffusely but is normal in size with no hydronephrosis or defined cyst or solid parenchymal mass. No perinephric fluid collection is evident or obstructive uropathy. No urolithiasis identified. The echogenic pattern suggests intrinsic medical renal disease. LEFT KIDNEY: Measures: 7.2 x 4.7 x 5.5 cm. The left kidney is atrophic but also appears markedly echogenic diffusely throughout the parenchyma suggest intrinsic medical renal disease. No obstructive uropathy, urolithiasis or definitive cystic or solid parenchymal mass identified. OTHER FINDINGS: In the left lower quadrant/ upper left hemipelvis is a 30 kidney, transplant kidney measuring 11.4 x 4.8 x 7.8 cm with poor corticomedullary differentiation but no hydronephrosis, cyst or solid renal parenchymal mass. Intrinsic medical renal disease is suggested. No perinephric fluid collection identified. IMPRESSION: 1. Echogenic renal parenchyma seen in all 3 kidneys including the transplant kidney at the left lower quadrant abdomen/upper left hemipelvis though no hydronephrosis is identified. No perinephric fluid collection appreciated associate with any kidney. 2. Atrophic [place] left kidney.
--- NOTE | 2018-02-09 12:13 | CP.PCM.PN ---
Subjective - Date & Time of Evaluation Date of Evaluation: 02/09/18 Time of Evaluation: 10:25 - Subjective Subjective: No fevers, not in distress. Objective - Vital Signs/Intake and Output Vital Signs (last 24 hours): Temp Pulse Resp BP Pulse Ox 97.8 F 53 L 20 111/73 96 02/09/18 06:07 02/09/18 06:07 02/09/18 06:07 02/09/18 06:07 02/09/18 06:07 Intake and Output: 02/09/18 02/09/18 06:59 18:59 Intake Total 1597 Output Total 975 Balance 622 - Medications Medications: Current Medications Albuterol/Ipratropium (Duoneb 3 Mg/0.5 Mg (3 Ml) Ud) 3 ml IH [id number] PRN PRN Reason: Wheezing Last Admin: 02/08/18 18:44 Dose: 3 ml Aspirin (Aspirin Chewable) 81 mg PO DAILY [facility] Last Admin: 02/08/18 09:34 Dose: 81 mg Atorvastatin Calcium (Lipitor) 20 mg PO DIN [facility] Last Admin: 02/08/18 17:21 Dose: 20 mg Carvedilol (Coreg) 3.125 mg PO BID [facility] Last Admin: 02/08/18 17:27 Dose: 3.125 mg Clopidogrel Bisulfate (Plavix) 75 mg PO DAILY [facility] Last Admin: 02/08/18 09:33 Dose: 75 mg Docusate Sodium (Colace Liquid) 100 mg PO TID [facility] Last Admin: 02/08/18 17:21 Dose: Not Given Gabapentin (Neurontin) 100 mg PO BID [facility] PRN Reason: Protocol Last Admin: 02/08/18 17:30 Dose: 100 mg Heparin Sodium (Porcine) (Heparin) 5,000 units SC Q12 [facility] PRN Reason: Protocol Home Med (Home Med) 1 unit PO 0730 [facility] Home Med (Home Med) 1 unit PO 1930 [facility] Last Admin: 02/08/18 20:50 Dose: 1 unit Insulin Human Regular (Humulin R Low) 0 units SC ACBD [facility] PRN Reason: Protocol Last Admin: 02/08/18 16:38 Dose: Not Given Methylprednisolone (Solu-Medrol) 40 mg IVP DAILY [facility] Last Admin: 02/08/18 09:35 Dose: 40 mg Mycophenolate Mofetil (Cellcept Cap) 1,000 mg PO BID [facility] Nitroglycerin (Nitro-Bid 2% Oint) 0.5 ea TOP Q6H [facility] Last Admin: 02/09/18 05:02 Dose: Not Given Non-Formulary Medication (Oxymorphone Hcl [Opana Er]) 10 mg PO BID [facility] Last Admin: 02/08/18 17:22 Dose: Not Given Nystatin (Nystop Topical Powder) 0 gm TOP BID [facility] Last Admin: 02/08/18 17:22 Dose: 1 appl Oxycodone HCl (Oxycodone Immediate Release Tab) 15 mg PO TID PRN PRN Reason: Pain, severe (8-10) Last Admin: 02/09/18 02:07 Dose: 15 mg Pantoprazole Sodium (Protonix Ec Tab) 40 mg PO ACB [facility] - Labs Labs: 02/09/18 05:40 02/09/18 05:40 PT 12.9 SECONDS (9.4-12.5) H 02/09/18 05:40 INR 1.12 02/09/18 05:40 APTT 51.5 Seconds (25.1-36.5) H 02/09/18 05:40 - Constitutional Appears: Chronically Ill - Head Exam Head Exam: NORMAL INSPECTION - Respiratory Exam Respiratory Exam: Decreased Breath Sounds - Cardiovascular Exam Cardiovascular Exam: +S1, +S2 - GI/Abdominal Exam GI & Abdominal Exam: Soft. absent: Tenderness Assessment and Plan - Assessment and Plan (Free Text) Plan: Assessment S/P Shock, probably cardiogenic, unlikely from sepsis from HCAP in this patient with possible NSTEMI S/P ventricular fibrillation significant smoking history insulin dependent diabetes mellitus CVA CAD s/p CABG S/P PCI s/p kidney and pancreas transplant on immunosuppresive therapy chronic anemia Plan had been on 2 days of Doxycycline and Merrem; blood, urine cx are negative; PCT was elevated but patient has acute renal failure; reviewed CXR which shows pulmonary venous congestion - will continue to monitor off antibiotics since he is at risk for hospital-acquired infections follow up further plans of Cardiology, Renal will continue to monitor clinically
[2018-02-09] MEDS: Insulin Reg-LOW-Coverage SC SCH ×2 (13:23→17:17)
[2018-02-09] MEDS: OXYMORPHONE HCL 10 MG PO SCH ×2 (13:24→17:33)
[2018-02-09] MEDS: PROGRAF 2 MG PO SCH (20:03)
[2018-02-09] MEDS: MYCOPHENOLATE 500 MG PO SCH (21:42)
--- NOTE | 2018-02-09 22:45 | PN ---
Copied To: Jax Morrison MD Attending MD: Jax Morrison MD DATE: 02/09/2018 PULMONARY PROGRESS NOTE REFERRING PHYSICIAN: Dr. Roddy Silva SUBJECTIVE: He is lying in the bed having dinner. Daughter and are bedside. Night was unremarkable. Still has some cough and shortness of breath, not very compliant with the CPAP. No nausea, no vomiting, no diarrhea. No leg pain or leg swelling. OBJECTIVE: GENERAL: In no acute distress. VITAL SIGNS: Temp is 98, heart rate 66, respiratory rate is 18, blood pressure 120/70, pulse ox 98% on nasal cannula. HEENT: Moist mucous membrane. Crowded airway. Mallampati score is 4. NECK: Supple. No JVD. LUNGS: Have a fair airflow with rhonchi. HEART: S1 and S2. ABDOMEN: Soft, nontender, no organomegaly. EXTREMITIES: Has a BKA on the left and right foot amputation. NEUROLOGIC: Awake and alert, follows simple command. MEDICATIONS: He is on aspirin 81 mg daily, Colace 100 mg three times a day, Coreg 3.125 mg twice a day, DuoNeb every 6 hours p.r.n., heparin 5000 Units subcu every 12 hours, Lipitor 20 mg daily, gabapentin 100 mg twice a day, Nitro-Bid 2% ointment to affected area every 6 hours, OxyContin immediate release 50 mg three times a day p.r.n. and also on oxymorphone 10 mg twice a day, Plavix 75 mg daily, Protonix 40 mg daily, Solu-Medrol 40 mg IV daily. LABORATORY DATA: Shows hemoglobin 8.8, hematocrit 29.1, WBC 14.2, platelet count is 281. INR is 1.15. PTT is 52. Sodium 143, potassium 4.9, chloride 112, bicarbonate 18, BUN 65, creatinine 2.4, glucose 171, calcium is 9.7, phosphorus 5, AST 20, ALT 32, alk phos is 83. Albumin is 2.9. Microbiology, blood culture has been negative. IMPRESSION AND PLAN: Status post cardiopulmonary arrest, successfully resuscitated, liberated from the ventilator, on nasal cannula, may have sleep apnea syndrome, coronary artery disease, history of coronary artery bypass surgery, history of pancreatic and kidney transplant, renal failure status post transplant. Has a renal insufficiency. May have sleep apnea syndrome. Spoke to the patient's daughter, and patient himself. We will restart him on Prograf 3 mg in the morning and 2 mg at night. Also CellCept 1200 mg twice a day started which is home medication. We will discontinue Solu-Medrol, start prednisone 20 mg daily and taper off. Pulmonary toilet, bronchodilator, sleep apnea precaution. Antibiotics as per Infectious Diseases. Thank you and we will follow with you. Jax Morrison MD
[2018-02-10] MEDS: Albuterol-Ipratrop 3 mg / 0.5 (3 ml) UD IH PRN ×3 (02:34→20:27)
[2018-02-10] MEDS: Nitroglycerin 2% Ointment Foilpak UD TOP SCH ×3 (06:27→17:29)
[2018-02-10 06:46] LABS: GRAN # 10.74 (1.4-6.5); GRAN % 90.1 % (50.0-68.0); HEMOGLOBIN 8.3 g/dL (14.0-18.0); LYMPH # 0.5 (1.2-3.4); LYMPH % 4.5 % (22.0-35.0); MEAN CELL VOLUME 77.4 fl (80.0-105.0); MEAN CORPUSCULAR HEMOGLOBIN 23.8 pg (25.0-35.0); MEAN CORPUSCULAR HGB CONC 30.7 g/dl (31.0-37.0); MONO # 0.6 (0.1-0.6); MONO % 5.4 % (1.0-6.0); RBC 3.49 10^6/uL (3.5-6.1); RED CELL DISTRIBUTION WIDTH 15.8 % (11.5-14.5); WHITE BLOOD COUNT 11.9 10^3/ul (4.5-11.0)
[2018-02-10] MEDS: oxyCODONE 15 mg Immediate Release Tab PO PRN (06:57)
[2018-02-10 07:19] LABS: ALB/GLOB RATIO 0.9 (1.1-1.8); ALBUMIN 2.5 g/dL (3.0-4.8); CALCIUM 9.6 mg/dL (8.4-10.5)
[2018-02-10] MEDS: Pantoprazole 40 mg EC Tab PO SCH (08:13)
[2018-02-10] MEDS: PROGRAF PO SCH (08:15)
[2018-02-10] MEDS: Insulin Reg-LOW-Coverage SC SCH ×2 (08:21→17:00)
[2018-02-10] MEDS: MYCOPHENOLATE 500 MG PO SCH ×2 (09:13→17:30)
--- NOTE | 2018-02-10 09:56 | PN ---
Copied To: Chu Hillman MD Attending MD: Chu Hillman MD DATE: 02/10/2018 CARDIOLOGY FOLLOWUP SUBJECTIVE: The patient is unchanged and remains in bed. PHYSICAL EXAMINATION: VITAL SIGNS: Blood pressure 121/69, heart rate is in the 60s. NECK: Negative JVD. LUNGS: Decreased breath wounds. HEART: Reveals S1, S2. EXTREMITIES: Status post amputations. LABORATORY DATA: BUN and creatinine 76 and 2.4, hemoglobin is 8.3. IMPRESSION: 1. Status post cardiopulmonary arrest. 2. Status post [id number] myocardial infarction. 3. Status post kidney transplant with renal insufficiency. 4. Severe dilated cardiomyopathy. 5. History of coronary artery bypass surgery. PLAN: Given these findings, the patient's family has refused any procedures to be done here. They are making arrangements for transfer to [facility]. Awaiting the patient for transfer to [facility]. We will continue his heparin at this time. Chu Hillman MD
[2018-02-10] MEDS: Nystatin 100,000 Units/gm Topical Pow(15 gm) TOP SCH ×2 (10:00→19:02)
--- NOTE | 2018-02-10 11:07 | PN ---
Copied To: Roddy Silva MD Attending MD: Roddy Silva MD DATE: 02/10/2018 SUBJECTIVE: The patient has no complaints of any chest pain. No shortness of breath. No headache. No dizziness. PHYSICAL EXAMINATION VITAL SIGNS: Temperature is 98.1, pulse is 71, blood pressure is 111/69, respirations 19. GENERAL: The patient is lying in bed, flat, comfortable. HEENT: No oral lesion. Anicteric sclerae. Moist mucosa. NECK: No JVD, adenopathy, or thyromegaly. CARDIOVASCULAR: S1 and S2, regular. No murmurs, rubs, or gallops. LUNGS: Clear to auscultation bilaterally. No wheeze, rales, or rhonchi. ABDOMEN: Bowel sounds are positive, soft, nontender and nondistended. EXTREMITIES: No cyanosis, clubbing or edema. LABORATORY DATA: Labs have been reviewed. Renal ultrasound shows echogenic renal parenchyma seen in all three kidneys including the transplanted kidney at the left lower quadrant. No perinephric fluid collection appreciated. Atrophy of the [place] kidneys. ASSESSMENT: 1. Status post cardiac arrest, improved. 2. Coronary artery disease status post coronary artery bypass graft. 3. Kidney and pancreas transplant. 4. Non-ST elevation myocardial infarction. 5. Peripheral arterial disease. 6. Acute kidney injury. 7. Chronic back pain. 8. Diabetic neuropathy. PLAN: The patient is currently comfortable. He has blood cultures that have been negative. The patient is not on any antibiotics. He is on his immunosuppressive medications with prednisone, Solu-Medrol and Prograf. His Solu-Medrol is being tapered. The patient is on Colace for constipation. He is on heparin for deep venous thrombosis prophylaxis. He is going to continue his mycophenolate, Prograf and prednisone. He is on Plavix. The patient is waiting for transfer to [facility]. The patient requested, I did speak to Dr. Joey Romeo at [facility] who is the hospitalist that is going to be accepting the patient. The patient has been done. The patient has bene on a heart-healthy diet. Roddy Silva MD
--- NOTE | 2018-02-10 13:40 | PN ---
Copied To: Jax Morrison MD Attending MD: Jax Morrison MD DATE: 02/10/2018 PULMONARY PROGRESS NOTE REFERRING PHYSICIAN: Roddy Silva MD SUBJECTIVE: He is sitting up in bed. Night was unremarkable. Refused to use CPAP/BiPAP. Has some cough, rhinitis. No hemoptysis or emesis. No hematuria. No diarrhea reported. OBJECTIVE: GENERAL: In no acute distress. VITAL SIGNS: Temperature is 98, heart rate 61, respiratory rate is 20, blood pressure 121/69, pulse ox 96% on nasal cannula. HEENT: Moist mucous membrane. Crowded airway. Mallampati score is 4. NECK: Supple. No JVD. Nasal mucosa mildly erythematous. LUNGS: Have a scattered rhonchi. HEART: S1 and S2. ABDOMEN: Soft, nontender. No organomegaly. Has a ventral hernia. EXTREMITIES: Has a right foot amputation. Also has BKA on the left side. NEUROLOGICAL: Awake and alert. Follows simple command. MEDICATIONS: He is on aspirin 81 mg daily, Colace 100 mg three times a day, Coreg 3.125 mg twice a day, DuoNeb every 6 hours p.r.n., heparin 5000 units subcu every 12 hours, also on insulin coverage, Lasix 40 mg twice a day, Lipitor 20 mg daily, Neurontin 100 mg twice a day, also on nystatin at affected area twice a day, oxycodone immediate release 15 mg three times a day p.r.n., also on Tylenol p.r.n., Plavix 75 mg daily, prednisone 20 mg daily, Protonix 40 mg daily. He is on CellCept as well as Prograf from home. LABORATORY DATA: Shows hemoglobin 8.3, hematocrit 27, WBC 11.9, platelet is 266. Sodium 141, potassium 4.9, chloride 111, bicarbonate 20, BUN 876, creatinine 2.4, glucose 112, magnesium 1.9, AST 12, ALT is 28, alkaline phosphatase is 76. Albumin is 2.5. ET tube secretion has some yeast. Blood culture has been negative. Has a renal ultrasound done yesterday, which shows echogenic renal parenchymal seen in all three kidneys including the transplanted kidney. IMPRESSION AND PLAN: Status post cardiopulmonary arrest, respiratory failure, extubated on nasal cannula. May have sleep apnea syndrome, but refusing to use CPAP/BiPAP. History of coronary artery disease, history of coronary bypass surgery, status post renal and pancreas transplant, status post myocardial infarction, peripheral artery disease, history of right foot amputation and left below-knee amputation, diabetic neuropathy and nephropathy. We will add Flonase once to each nostril twice a day. May add Singulair 10 mg at bedtime, Zyrtec 10 mg at bedtime. Continue bronchodilators. Follow kidney function closely. Out of bed to chair, if possible. Incentive spirometer. Thank you and we will follow with you. Jax Morrison MD
[2018-02-10 13:46] VITALS: PULSE 72
--- NOTE | 2018-02-10 16:37 | PN ---
Copied To: Felipe Godinez MD Attending MD: Felipe Godinez MD DATE: 02/10/2018 NEUROLOGY FOLLOWUP CHIEF COMPLAINT: Followup for status post altered mental status, status post cardiac arrest. SUBJECTIVE: The patient is seen and examined at bedside. No complaints of headaches. His mentation is much better. He had a transient hypoxic encephalopathy and acute kidney injury on chronic kidney disease. He is doing much better, following commands, moving all extremities. He has diabetic neuropathy as well as nephropathy. PAST MEDICAL HISTORY: History of insulin-dependent diabetes mellitus; coronary artery disease, status post CABG; end-stage renal disease, on hemolysis; bilateral leg amputations; chronic kidney disease. REVIEW OF SYSTEMS: Fourteen-point review of systems Is negative except as per the HPI. FAMILY HISTORY: Noncontributory. ALLERGIES: NO KNOWN DRUG ALLERGIES. MEDICATIONS: Reviewed by nurses' reconciliation sheet. PHYSICAL EXAMINATION: VITAL SIGNS: Temperature of 98, pulse rate of 72, blood pressure , oxygen saturation 96% by nasal cannula. GENERAL: The patient is lying in bed, in no acute distress. HEENT: Atraumatic, normocephalic. PERRLA. Extraocular muscles intact. NECK: Supple. No JVD, no adenopathy noted. LUNGS: Clear to auscultation. No adventitious sounds. HEART: S1, S2. Normal rate and rhythm. No murmurs, rubs or gallops. ABDOMEN: Soft, nontender and nondistended. Bowel sounds are present. EXTREMITIES: No clubbing. No cyanosis. He has nccin-rcq-isrr amputations. NEUROLOGIC: The patient is alert and oriented to person and place. Speech is fluent without any errors. Recall after 5 minutes is 0/3. Poor attention span. Slow thought process. Cranial nerves II through XII intact. Motor exam: Moves all the extremities equally. There are below-knee amputations. Sensory exam: Decreased vibration of upper extremities. DTRs are 1+ throughout in the upper extremities. Coordination: [id number] intact. No dysmetria noted. Gait is deferred for now. ASSESSMENT AND PLAN: This is a 57-year-old man with past medical history of insulin-dependent diabetes mellitus; coronary artery disease, status post coronary artery bypass graft; end-stage disease, on hemodialysis; bilateral leg amputations; chronic kidney disease. I was called initially for altered mental status secondary to cardiac arrest and transient hepatic encephalopathy superimposed on chronic kidney injuries and metabolic derangements. Currently, he is stable. He has history of pancreatic transplant. He is currently comfortable. His blood cultures have been negative. He is on immunosuppressive medication with prednisone, Solu-Medrol and Prograf given his history of transplant. The patient is waiting for transfer to [facility]. His altered mental status is secondary to hypoxic encephalopathy, which is currently resolved. At this time, to monitor electrolytes for any metabolic derangements and correct. 1. Frequent orientation throughout the day. 2. Keep systolic blood pressure between 120s-130s and diastolics 70-80s and continue current present medical management. Thank you for this followup. Felipe Godinez MD
[2018-02-10 17:43] VITALS: BP 115/67
[2018-02-10] MEDS ORDERED: OXYMORPHONE HCL 10 MG PO SCH (18:00)
[2018-02-10 19:24] VITALS: RESP 20; TEMP 97.6; O2SAT 95
--- NOTE | 2018-02-10 20:10 | CP.PCM.PN ---
Subjective - Date & Time of Evaluation Date of Evaluation: 02/10/18 Time of Evaluation: 10:40 - Subjective Subjective: No fevers, not in distress, no nausea, no abdominal pain. Objective - Vital Signs/Intake and Output Vital Signs (last 24 hours): Temp Pulse Resp BP Pulse Ox 97.8 F 69 20 111/73 96 02/09/18 06:07 02/09/18 09:22 02/09/18 06:07 02/09/18 09:22 02/09/18 06:07 Intake and Output: 02/09/18 02/09/18 06:59 18:59 Intake Total 1597 Output Total 975 Balance 622 - Medications Medications: Current Medications Albuterol/Ipratropium (Duoneb 3 Mg/0.5 Mg (3 Ml) Ud) 3 ml IH [id number] PRN PRN Reason: Wheezing Last Admin: 02/08/18 18:44 Dose: 3 ml Aspirin (Aspirin Chewable) 81 mg PO DAILY [facility] Last Admin: 02/09/18 09:24 Dose: 81 mg Atorvastatin Calcium (Lipitor) 20 mg PO DIN [facility] Last Admin: 02/08/18 17:21 Dose: 20 mg Carvedilol (Coreg) 3.125 mg PO BID [facility] Last Admin: 02/09/18 09:22 Dose: 3.125 mg Clopidogrel Bisulfate (Plavix) 75 mg PO DAILY [facility] Last Admin: 02/09/18 09:24 Dose: 75 mg Docusate Sodium (Colace Liquid) 100 mg PO TID [facility] Last Admin: 02/09/18 09:24 Dose: 100 mg Gabapentin (Neurontin) 100 mg PO BID [facility] PRN Reason: Protocol Last Admin: 02/09/18 09:24 Dose: 100 mg Heparin Sodium (Porcine) (Heparin) 5,000 units SC Q12 [facility] PRN Reason: Protocol Last Admin: 02/09/18 09:21 Dose: 5,000 units Home Med (Home Med) 1 unit PO 0730 [facility] Last Admin: 02/09/18 09:26 Dose: 1 unit Home Med (Home Med) 1 unit PO 1930 [facility] Last Admin: 02/08/18 20:50 Dose: 1 unit Insulin Human Regular (Humulin R Low) 0 units SC ACBD [facility] PRN Reason: Protocol Last Admin: 02/08/18 16:38 Dose: Not Given Methylprednisolone (Solu-Medrol) 40 mg IVP DAILY [facility] Last Admin: 02/09/18 09:25 Dose: 40 mg Mycophenolate Mofetil (Cellcept Cap) 1,000 mg PO BID [facility] Last Admin: 02/09/18 09:24 Dose: 1,000 mg Nitroglycerin (Nitro-Bid 2% Oint) 0.5 ea TOP Q6H [facility] Last Admin: 02/09/18 05:02 Dose: Not Given Non-Formulary Medication (Oxymorphone Hcl [Opana Er]) 10 mg PO BID [facility] Last Admin: 02/08/18 17:22 Dose: Not Given Nystatin (Nystop Topical Powder) 0 gm TOP BID [facility] Last Admin: 02/09/18 09:25 Dose: 1 appl Oxycodone HCl (Oxycodone Immediate Release Tab) 15 mg PO TID PRN PRN Reason: Pain, severe (8-10) Last Admin: 02/09/18 02:07 Dose: 15 mg Pantoprazole Sodium (Protonix Ec Tab) 40 mg PO ACB [facility] Last Admin: 02/09/18 09:21 Dose: 40 mg - Labs Labs: 02/09/18 05:40 02/09/18 05:40 PT 12.9 SECONDS (9.4-12.5) H 02/09/18 05:40 INR 1.12 02/09/18 05:40 APTT 51.5 Seconds (25.1-36.5) H 02/09/18 05:40 - Constitutional Appears: Chronically Ill - Head Exam Head Exam: NORMAL INSPECTION - ENT Exam ENT Exam: Mucous Membranes Moist - Neck Exam Neck Exam: absent: Meningismus - Respiratory Exam Respiratory Exam: Decreased Breath Sounds - Cardiovascular Exam Cardiovascular Exam: +S1, +S2 - GI/Abdominal Exam GI & Abdominal Exam: Soft. absent: Tenderness Assessment and Plan - Assessment and Plan (Free Text) Plan: Assessment S/P Shock, probably cardiogenic, unlikely from sepsis from HCAP in this patient with possible NSTEMI S/P ventricular fibrillation significant smoking history insulin dependent diabetes mellitus CVA CAD s/p CABG S/P PCI s/p kidney and pancreas transplant on immunosuppresive therapy chronic anemia Plan had been on 2 days of Doxycycline and Merrem; blood, urine cx are negative; PCT was elevated but patient has acute renal failure; reviewed CXR which showed pulmonary venous congestion - will continue to monitor off antibiotics since he is at risk for healthcare-associated infections follow up further plans of Cardiology, Renal will continue to monitor clinically
[2018-02-10] MEDS: PROGRAF 2 MG PO SCH (20:15)
[2018-02-11] MEDS: Nitroglycerin 2% Ointment Foilpak UD TOP SCH (00:36)
== END 2018-02-10 23:40 | disposition short-term general hospital (02) | DRG 280 ==
LOC: ED 15:59 → ERH 17:15 → INTOOBSV 17:15 → OBSVTOIN 17:15 → ICU 18:57 → 2RNO 02-07 18:31
PROVIDERS: ADMIT Internal Medicine Nephrology; ATTEND Internal Medicine Nephrology
PROC: 5A1945Z Respiratory Ventilation, 24-96 Consecutive Hours (ICD-10-PCS; principal; 2018-02-04)
PROC: 5A09357 Assistance with Respiratory Ventilation, Less than 24 Consecutive Hours, Continuous Positive Airway Pressure (ICD-10-PCS; 2018-02-06)
DX: I21.4 Non-ST elevation (NSTEMI) myocardial infarction (principal); I49.01 Ventricular fibrillation; A41.9 Sepsis, unspecified organism; J18.9 Pneumonia, unspecified organism; R57.0 Cardiogenic shock; J96.90 Respiratory failure, unspecified, unspecified whether with hypoxia or hypercapnia; N17.0 Acute kidney failure with tubular necrosis; R65.20 Severe sepsis without septic shock; G93.1 Anoxic brain damage, not elsewhere classified; I13.2 Hypertensive heart and chronic kidney disease with heart failure and with stage 5 chronic kidney disease, or end stage renal disease; N39.0 Urinary tract infection, site not specified; E87.2 Acidosis; Z94.0 Kidney transplant status; Z94.83 Pancreas transplant status; I42.0 Dilated cardiomyopathy; I50.9 Heart failure, unspecified; G54.6 Phantom limb syndrome with pain; I25.5 Ischemic cardiomyopathy; L89.152 Pressure ulcer of sacral region, stage 2; E78.5 Hyperlipidemia, unspecified; I25.10 Atherosclerotic heart disease of native coronary artery without angina pectoris; E11.42 Type 2 diabetes mellitus with diabetic polyneuropathy; E78.00 Pure hypercholesterolemia, unspecified; E11.22 Type 2 diabetes mellitus with diabetic chronic kidney disease; F17.200 Nicotine dependence, unspecified, uncomplicated; I45.10 Unspecified right bundle-branch block; E11.51 Type 2 diabetes mellitus with diabetic peripheral angiopathy without gangrene; G47.30 Sleep apnea, unspecified; K72.90 Hepatic failure, unspecified without coma; I49.3 Ventricular premature depolarization; E11.65 Type 2 diabetes mellitus with hyperglycemia; E11.21 Type 2 diabetes mellitus with diabetic nephropathy; D63.1 Anemia in chronic kidney disease; G89.29 Other chronic pain; M54.9 Dorsalgia, unspecified; K59.00 Constipation, unspecified; Z79.4 Long term (current) use of insulin; Z89.431 Acquired absence of right foot; Z98.84 Bariatric surgery status; Z95.1 Presence of aortocoronary bypass graft; Z95.5 Presence of coronary angioplasty implant and graft; Z86.73 Personal history of transient ischemic attack (TIA), and cerebral infarction without residual deficits; Z89.512 Acquired absence of left leg below knee; Z79.899 Other long term (current) drug therapy

== ENCOUNTER 2018-08-04 18:13 | Inpatient (IN) | payer OTHER, MEDICARE ==
[2018-08-04 19:08] VITALS: BMI 22.6
--- NOTE | 2018-08-04 19:46 | ED PDOC ---
Arrival/HPI - General Chief Complaint: Back Pain Time Seen by Provider: 08/04/18 19:02 Historian: Patient - History of Present Illness Narrative History of Present Illness (Text): 08/04/18 19:41 A 57 year old male, whose past medical history includes paraplegic, left sided BKA, s/p cardiac arrest in January, diabetes, and chronic back pain, presents to the emergency department complaining of chronic back pain. Patient is a poor historian. Review of previous records show long hospital course in January when patient had cardiac arrest. Patient reports s/p pancreas transplant and states he is on immunosuppressants. Patient states his cannot take care of him at home and is requesting to speak with a social psychologist. Patient denies any fever, shortness of breath, or any other complaints. No PMD 08/04/18 21:31 Time/Duration: Other (earlier today) Symptom Onset: Gradual Symptom Course: Unchanged Activities at Onset: Light Context: Home Past Medical History - Provider Review Nursing Documentation Reviewed: Yes - Cardiac Hx Circulatory Problems: Yes Hx Congestive Heart Failure: Yes Other/Comment: cabg 2005 - Pulmonary Hx Respiratory Disorders: No Other/Comment: active smoker - Neurological Hx Neurological Disorder: Yes HX Cerebrovascular Accident: Yes (2004) - HEENT Hx HEENT Disorder: No - Renal Hx Dialysis: Yes (2005 TILL 2006---14 MOS..) Hx Renal Failure: Yes Other/Comment: KIDNEY AND PANCREAS TRANSPLANT 2006 - Endocrine/Metabolic Hx Diabetes Mellitus Type 2: Yes Other/Comment: juvenile diabetic - Hematological/Oncological Hx Anemia: Yes - Integumentary Hx Dermatological Disorder: No - Musculoskeletal/Rheumatological Hx Musculoskeletal Disorders: Yes Hx Arthritis: Yes - Gastrointestinal Hx Gastrointestinal Disorders: No - Genitourinary/Gynecological Hx Genitourinary Disorders: Yes Other/Comment: difficulty voiding at times--- uses urinary catheters prn at home - Psychiatric Hx Psychophysiologic Disorder: No Hx Substance Use: No - Surgical History Hx Cardiac Catheterization: Yes (X6) Hx Coronary Stent: Yes Hx Gastric Bypass Surgery: Yes (2005) Hx Open Heart Surgery: Yes (2005) Other/Comment: LEFT BKA 2013 - Anesthesia Hx Anesthesia: Yes Hx Anesthesia Reactions: No Hx Malignant Hyperthermia: No - Suicidal Assessment Feels Threatened In Home Enviroment: No Family/Social History - Physician Review Nursing Documentation Reviewed: Yes Family/Social History: No Known Family HX Smoking Status: Current Some Days Smoker Hx Alcohol Use: No Hx Substance Use: No Allergies/Home Meds Allergies/Adverse Reactions: Allergies No Known Allergies Allergy (Verified 12/01/11 12:42) Home Medications: Home Meds Medication Instructions Recorded Confirmed RX: Oxymorphone HCl [Opana ER] 10 mg PO BID PRN 02/08/18 08/04/18 RX: oxyCODONE [oxyCODONE Immediate 15 mg PO TID PRN 02/08/18 08/04/18 Release Tab] Mycophenolate Mofetil [Cellcept] 2 tab PO BID 08/04/18 08/04/18 RX: Furosemide [Lasix] 20 mg PO DAILY 08/04/18 08/04/18 Tacrolimus [Prograf] 1 mg PO BID 08/04/18 08/04/18 predniSONE [predniSONE Tab] 5 mg PO DAILY 08/04/18 08/04/18 Review of Systems - Physician Review All systems were reviewed & negative as marked: Yes - Review of Systems Constitutional: absent: Fevers Respiratory: absent: SOB Musculoskeletal: Back Pain Physical Exam Vital Signs Reviewed: Yes Vital Signs Pulse Resp BP Pulse Ox 08/04/18 18:47 73 18 108/59 L 95 Temperature: Afebrile Blood Pressure: Hypotensive Pulse: Regular Respiratory Rate: Normal Appearance: Positive for: Well-Appearing, Non-Toxic, Comfortable Pain Distress: None Mental Status: Positive for: Alert and Oriented X 3 - Systems Exam Head: Present: Atraumatic, Normocephalic Pupils: Present: PERRL Extroacular Muscles: Present: EOMI Conjunctiva: Present: Normal Respiratory/Chest: Present: Clear to Auscultation, Good Air Exchange. No: Respiratory Distress, Accessory Muscle Use Cardiovascular: Present: Regular Rate and Rhythm, Normal S1, S2. No: Murmurs Abdomen: Present: Other (stage one ulcer to sacral region) Back: Present: Normal Inspection Upper Extremity: Present: Normal Inspection. No: Cyanosis, Edema Lower Extremity: Present: Other (left leg DKA) Neurological: Present: GCS=15, CN II-XII Intact, Speech Normal Skin: Present: Warm, Dry, Normal Color. No: Rashes Psychiatric: Present: Alert, Oriented x 3, Normal Insight, Normal Concentration Medical Decision Making ED Course and Treatment: 08/04/18 19:48 Impression:A 57 year old male presents to the emergency department complaining of chronic back pain. pt requested social psychologist brian as poor care at home. Plan: -- CMP -- CBC -- COAGs -- Reassess and disposition Prior Visits: Notes and results from previous visits were reviewed. Progress Notes: 08/04/18 20:00 Case discussed with medial resident and Dr. Eva Goddard who is aware and agrees with the plan. Accepts patient into hospitalist service. 08/04/18 23:55 - Scribe Statement The provider has reviewed the documentation as recorded by the Shani Beverly All medical record entries made by the Scribe were at my direction and personally dictated by me. I have reviewed the chart and agree that the record accurately reflects my personal performance of the history, physical exam, medical decision making, and the department course for this patient. I have also personally directed, reviewed, and agree with the discharge instructions and disposition. Disposition/Present on Arrival - Present on Arrival Any Indicators Present on Arrival: No History of DVT/PE: No History of Uncontrolled Diabetes: Yes Urinary Catheter: Yes History of Decub. Ulcer: No History Surgical Site Infection Following: None - Disposition Have Diagnosis and Disposition been Completed?: Yes Diagnosis: Failure to thrive, Sacral ulcer Disposition: HOSPITALIZED Disposition Time: 22:50 Condition: STABLE
[2018-08-04 20:01] LABS: BASO # 0.02 K/mm3 (0.0-2.0); BASO % 0.2 % (0.0-3.0); EOS # 0.2 (0.0-0.7); EOS % 1.6 % (1.5-5.0); HEMOGLOBIN 9.8 g/dL (14.0-18.0); LYMPH # 0.7 (1.2-3.4); LYMPH % 6.8 % (22.0-35.0); MEAN CELL VOLUME 77.2 fl (80.0-105.0); MEAN CORPUSCULAR HGB CONC 29.8 g/dl (31.0-37.0); MEAN PLATELET VOLUME 10.2 fl (7.0-11.0); MONO # 0.4 (0.1-0.6); MONO % 4.2 % (1.0-6.0); RBC 4.26 10^6/uL (3.5-6.1); RED CELL DISTRIBUTION WIDTH 16.3 % (11.5-14.5); WHITE BLOOD COUNT 10.1 10^3/uL (4.5-11.0)
[2018-08-04 20:04] LABS: INR 1.27; PARTIAL THROMBOPLASTIN TIME 45.1 Seconds (26.9-38.3); PROTHROMBIN TIME 14.1 SECONDS (9.4-12.5)
[2018-08-04 20:05] LABS: ALBUMIN 3.6 g/dL (3.0-4.8); AST/SGOT 10 U/L (17-59); BLOOD UREA NITROGEN 33 mg/dL (7-21); CALCIUM 10.3 mg/dL (8.4-10.5); GFR NON-AFRICAN AMERICAN 57
[2018-08-04 20:08] LABS: ALT/SGPT < 6 U/L (7-56)
--- NOTE | 2018-08-04 21:35 | CP.PCM.HP ---
History of Present Illness - History of Present Illness History of Present Illness: Resident History & Physical for Hospitalist Service Patient is a 57 year old male with past medical history of T1DM, CVA, CAD s/p CABG, ESRD s/p kidney and pancreas transplant, CHF presenting with chief compla int of pain in his sacral region. Patient is bedridden at home due to left BKA and paraplegia. Of note, patient was recently admitted to [facility] ICU s/p cardiopulmonary arrest and was treated for severe sepsis with multi organ failure. Patient also admits to chronic urinary retention for which he straight catheterizes himself as needed and inability to perform his ADLs as his cannot take care of him at home. Denies headache, dizziness, fevers, chills, nausea, vomiting, chest pain, shortness of breath, abdominal pain. PMH: T1DM, CVA, CAD, ESRD s/p kidney and pancreas transplant, CHF PSH: CABG (2005), kidney and pancreas transplant (2006), BKA (2013), gastric bypass SHx: former smoker, denies alcohol or illicit drug use, wheelchair bound Allergies: NKDA Present on Admission - Present on Admission Any Indicators Present on Admission: Yes Urinary Catheter: Yes Review of Systems - Review of Systems All systems: reviewed and no additional remarkable complaints except (as stated in HPI) Past Patient History - Past Social History Smoking Status: Current Some Days Smoker - CARDIAC Hx Circulatory Problems: Yes Hx Congestive Heart Failure: Yes Other/Comment: cabg 2005 - PULMONARY Hx Respiratory Disorders: No Other/Comment: active smoker - NEUROLOGICAL Hx Neurological Disorder: Yes HX Cerebrovascular Accident: Yes (2004) - HEENT Hx HEENT Problems: No - RENAL Hx Dialysis: Yes (2005 TILL 2006---14 MOS..) Hx Renal Failure: Yes Other/Comment: KIDNEY AND PANCREAS TRANSPLANT 2006 - ENDOCRINE/METABOLIC Hx Diabetes Mellitus Type 2: Yes Other/Comment: juvenile diabetic - HEMATOLOGICAL/ONCOLOGICAL Hx Anemia: Yes - INTEGUMENTARY Hx Dermatological Problems: No - MUSCULOSKELETAL/RHEUMATOLOGICAL Hx Musculoskeletal Disorders: Yes Hx Arthritis: Yes - GASTROINTESTINAL Hx Gastrointestinal Disorders: No - GENITOURINARY/GYNECOLOGICAL Hx Genitourinary Disorders: Yes Other/Comment: difficulty voiding at times--- uses urinary catheters prn at home - PSYCHIATRIC Hx Psychophysiologic Disorder: No Hx Substance Use: No - SURGICAL HISTORY Hx Cardiac Catheterization: Yes (X6) Hx Coronary Stent: Yes Hx Gastric Bypass Surgery: Yes (2005) Hx Open Heart Surgery: Yes (2005) Other/Comment: LEFT KLAUS 2013 - ANESTHESIA Hx Anesthesia: Yes Hx Anesthesia Reactions: No Hx Malignant Hyperthermia: No Meds Allergies/Adverse Reactions: Allergies Allergy/AdvReac Type Severity Reaction Status Date / Time No Known Allergies Allergy Verified 12/01/11 12:42 Physical Exam - Constitutional Appears: Non-toxic, No Acute Distress, Chronically Ill - Head Exam Head Exam: ATRAUMATIC, NORMOCEPHALIC - Eye Exam Eye Exam: EOMI, Normal appearance, PERRL - ENT Exam ENT Exam: Mucous Membranes Moist - Neck Exam Neck exam: Positive for: Normal Inspection - Respiratory Exam Respiratory Exam: Rales, NORMAL BREATHING PATTERN. absent: Accessory Muscle Use, Rhonchi, Wheezes, Respiratory Distress - Cardiovascular Exam Cardiovascular Exam: REGULAR RHYTHM, +S1, +S2. absent: Systolic Murmur - GI/Abdominal Exam GI & Abdominal Exam: Soft. absent: Firm, Guarding, Rebound, Rigid, Tenderness Additional comments: surgical scar - Extremities Exam Additional comments: LLE BKA Right transmetatarsal amputation - Back Exam Additional comments: stage 2 sacral decubitus ulcer - Neurological Exam Neurological exam: Alert, CN II-XII Intact, Oriented x3 - Psychiatric Exam Psychiatric exam: Normal Affect, Normal Mood - Skin Skin Exam: Dry, Normal Color, Warm Results - Vital Signs Recent Vital Signs: Last Vital Signs Temp Pulse 74 08/04/18 21:23 Resp 18 08/04/18 21:23 BP 113/72 08/04/18 21:23 Pulse Ox 93 L 08/04/18 21:23 - Labs Result Diagrams: 08/04/18 19:47 08/04/18 19:47 Labs: Laboratory Results - last 24 hr 08/04/18 08/04/18 08/04/18 19:47 19:47 19:47 WBC 10.1 RBC 4.26 Hgb 9.8 L Hct 32.9 L MCV 77.2 L MCH 23.0 L MCHC 29.8 L RDW 16.3 H Plt Count 413 MPV 10.2 Neut % (Auto) 87.2 H Lymph % (Auto) 6.8 L Owsley % (Auto) 4.2 Eos % (Auto) 1.6 Baso % (Auto) 0.2 Lymph # (Auto) 0.7 L Owsley # (Auto) 0.4 Eos # (Auto) 0.2 Baso # (Auto) 0.02 Absolute Neuts (auto) 8.81 H PT 14.1 H INR 1.27 APTT 45.1 H Sodium 141 Potassium 4.8 Chloride 110 H Carbon Dioxide 23 Anion Gap 13 BUN 33 H Creatinine 1.3 Est GFR ( Amer) > 60 Est GFR (Non-Af Amer) 57 Random Glucose 103 Calcium 10.3 Total Bilirubin 0.4 AST 10 L ALT < 6 L Alkaline Phosphatase 89 Total Protein 7.2 Albumin 3.6 Globulin 3.6 Albumin/Globulin Ratio 1.0 L Assessment & Plan - Assessment and Plan (Free Text) Assessment: Patient is a 57 year old male with past medical history of T1DM, CVA, CAD s/p CABG, ESRD s/p kidney and pancreas transplant, CHF presenting with sacral decu bitus ulcer. Plan: Sacral decubitus ulcer - local wound care - frequent repositioning CHF - ECHO from 01/2018 shows EF of 22% - continue home Lasix T1DM - Hgba1c 6.6 - Accuchecks, ISS s/p kidney and and pancreas transplant - continue home Tacrolimus, Cellcept DVT - Lovenox Case discussed with Dr. Rupesh Cárdenas PGY-1 - Date & Time Date: 08/04/18 Time: 21:34
[2018-08-04] MEDS ORDERED: oxyCODONE 5 mg Immediate Release Tab PO ONE (22:06)
[2018-08-04] MEDS ORDERED: OXYMORPHONE HCL 10 MG PO PRN (22:24)
[2018-08-05] MEDS ORDERED: Pneumococcal 23-Valent Vaccine IM ONE (01:10)
[2018-08-05] MEDS ORDERED: Influenza Vaccine 60 mcg/0.5 mL SYR (4YR UP) IM ONE (01:10)
[2018-08-05 07:46] LABS: BASO # 0.02 K/mm3 (0.0-2.0); BASO % 0.2 % (0.0-3.0); EOS # 0.3 (0.0-0.7); HEMOGLOBIN 9.3 g/dL (14.0-18.0); LYMPH # 0.7 (1.2-3.4); LYMPH % 6.3 % (22.0-35.0); MEAN CELL VOLUME 78.3 fl (80.0-105.0); MEAN CORPUSCULAR HEMOGLOBIN 22.6 pg (25.0-35.0); MEAN CORPUSCULAR HGB CONC 28.9 g/dl (31.0-37.0); MEAN PLATELET VOLUME 9.5 fl (7.0-11.0); MONO # 0.5 (0.1-0.6); MONO % 5.1 % (1.0-6.0); RBC 4.11 10^6/uL (3.5-6.1); RED CELL DISTRIBUTION WIDTH 16.2 % (11.5-14.5); WHITE BLOOD COUNT 10.4 10^3/uL (4.5-11.0)
[2018-08-05 08:14] LABS: BLOOD UREA NITROGEN 33 mg/dL (7-21); CALCIUM 10.1 mg/dL (8.4-10.5); GFR NON-AFRICAN AMERICAN 52
[2018-08-05] MEDS: CELLCEPT 500 MG PO SCH ×2 (09:56→17:41)
[2018-08-05] MEDS: Enoxaparin 40 mg Syringe SC SCH (09:56)
[2018-08-05] MEDS ORDERED: PROGRAF 1 MG PO SCH ×2 (10:00→18:00)
[2018-08-05] MEDS ORDERED: Home Med 1 UNIT PO SCH (10:00)
[2018-08-05] MEDS ORDERED: OXYMORPHONE HCL 10 MG PO PRN (10:04)
[2018-08-05] MEDS: oxyCODONE 15 mg Immediate Release Tab PO PRN ×2 (10:09→17:47)
[2018-08-05] MEDS: PROGRAF 1 MG PO SCH ×2 (10:15→17:41)
--- NOTE | 2018-08-05 11:55 | CP.PCM.PN ---
<Gloria Gill - Last Filed: 08/05/18 15:53> Subjective - Date & Time of Evaluation Date of Evaluation: 08/05/18 Time of Evaluation: 09:00 - Subjective Subjective: Progress note for Hospitalist service Patient seen and examined at bedside. No acute distress. Nurse reports no events overnight. Patient complains of back pain at ulcer locations. He also reports difficulty transferring from his wheelchair. 12 point ROS is negative except as stated Objective - Vital Signs/Intake and Output Vital Signs (last 24 hours): Temp Pulse Resp BP Pulse Ox 98.1 F 71 20 118/72 94 L 08/05/18 06:00 08/05/18 06:00 08/05/18 06:00 08/05/18 09:55 08/05/18 06:00 Intake and Output: 08/05/18 08/05/18 06:59 18:59 Intake Total 120 Output Total 200 Balance -80 - Medications Medications: Current Medications Aspirin (Aspirin Chewable) 81 mg PO DAILY [facility] Last Admin: 08/05/18 09:55 Dose: 81 mg Enoxaparin Sodium (Lovenox) 40 mg SC DAILY [facility]; Protocol Last Admin: 08/05/18 09:56 Dose: 40 mg Furosemide (Lasix) 20 mg PO DAILY [facility] Last Admin: 08/05/18 09:55 Dose: 20 mg Home Med (Home Med) 2 unit PO BID [facility] Last Admin: 08/05/18 09:56 Dose: 2 unit Home Med (Home Med) 2 unit PO BID [facility] Last Admin: 08/05/18 10:15 Dose: 2 unit Non-Formulary Medication (Oxymorphone Hcl [Opana Er]) 10 mg PO BID PRN PRN Reason: Pain, severe (8-10) Oxycodone HCl (Oxycodone Immediate Release Tab) 15 mg PO TID PRN PRN Reason: Pain, severe (8-10) Last Admin: 08/05/18 10:09 Dose: 15 mg Prednisone (Prednisone Tab) 5 mg PO DAILY [facility] Last Admin: 08/05/18 09:55 Dose: 5 mg - Labs Labs: 08/05/18 06:35 08/05/18 06:35 PT 14.1 SECONDS (9.4-12.5) H 08/04/18 19:47 INR 1.27 08/04/18 19:47 APTT 45.1 Seconds (26.9-38.3) H 08/04/18 19:47 - Additional Findings Additional findings: - Constitutional Appears: Non-toxic, No Acute Distress, Chronically Ill - Head Exam Head Exam: ATRAUMATIC, NORMOCEPHALIC - Eye Exam Eye Exam: EOMI, Normal appearance, PERRL - ENT Exam ENT Exam: Mucous Membranes Moist - Neck Exam Neck exam: Positive for: Normal Inspection - Respiratory Exam Respiratory Exam: Rales, NORMAL BREATHING PATTERN. absent: Accessory Muscle Use, Rhonchi, Wheezes, Respiratory Distress - Cardiovascular Exam Cardiovascular Exam: REGULAR RHYTHM, +S1, +S2. absent: Systolic Murmur - GI/Abdominal Exam GI & Abdominal Exam: Soft. absent: Firm, Guarding, Rebound, Rigid, Tenderness Additional comments: surgical scar - Extremities Exam Additional comments: LLAlexandra BKA Right transmetatarsal amputation - Neurological Exam Neurological exam: Alert, CN II-XII Intact, Oriented x3 - Psychiatric Exam Psychiatric exam: Normal Affect, Normal Mood - Skin Skin Exam: Dry, Normal Color, Warm Assessment and Plan - Assessment and Plan (Free Text) Assessment: 57 yo male with past medical history of Type 1 diabetes, CVA, CAD s/p CABG, ESRD s/p kidney and pancreas transplant, CHF presenting with sacral decubitus ulcer and difficulty transferring from wheel chair. Plan: Sacral decubitus ulcer - local wound care - wound care nurse consulted - frequent repositioning every 2 hours - OOB to chair as tolerated with assistance - continue home pain medication oxycodone 15mg TID as needed h/o CHF - ECHO from 01/2018 shows EF of 22% - continue home Lasix - continue asa Type 1 diabetes - Hgba1c 6.6 - Accuchecks achs - insulin sliding scale - avoid hypoglycemia H/O kidney and and pancreas transplant - continue home medication Tacrolimus, Cellcept - continue home prednisone dose 5mg DVT - Lovenox dispo: PT evaluation for possible CAMELIA placement, case management associate consulted Case discussed with Dr. Reis <Emily Reis - Last Filed: 08/06/18 07:39> Objective - Vital Signs/Intake and Output Vital Signs (last 24 hours): Temp Pulse Resp BP Pulse Ox 97.4 F L 70 20 111/61 100 08/05/18 18:00 08/05/18 18:00 08/05/18 18:00 08/05/18 18:00 08/05/18 18:00 Intake and Output: 08/06/18 08/06/18 06:59 18:59 Intake Total 720 Output Total 1100 Balance -380 - Medications Medications: Current Medications Aspirin (Aspirin Chewable) 81 mg PO DAILY [facility] Last Admin: 08/05/18 09:55 Dose: 81 mg Enoxaparin Sodium (Lovenox) 40 mg SC DAILY [facility]; Protocol Last Admin: 08/05/18 09:56 Dose: 40 mg Furosemide (Lasix) 20 mg PO DAILY [facility] Last Admin: 08/05/18 09:55 Dose: 20 mg Home Med (Home Med) 2 unit PO BID [facility] Last Admin: 08/05/18 17:41 Dose: 2 unit Home Med (Home Med) 2 unit PO BID [facility] Last Admin: 08/05/18 17:41 Dose: 2 unit Non-Formulary Medication (Oxymorphone Hcl [Opana Er]) 10 mg PO BID PRN PRN Reason: Pain, severe (8-10) Oxycodone HCl (Oxycodone Immediate Release Tab) 15 mg PO TID PRN PRN Reason: Pain, severe (8-10) Last Admin: 08/06/18 01:36 Dose: 15 mg Prednisone (Prednisone Tab) 5 mg PO DAILY [facility] Last Admin: 08/05/18 09:55 Dose: 5 mg - Labs Labs: 08/05/18 06:35 08/05/18 06:35 PT 14.1 SECONDS (9.4-12.5) H 08/04/18 19:47 INR 1.27 08/04/18 19:47 APTT 45.1 Seconds (26.9-38.3) H 08/04/18 19:47 Attending/Attestation - Attestation I have personally seen and examined this patient.: Yes I have fully participated in the care of the patient.: Yes I have reviewed all pertinent clinical information, including history, physical exam and plan: Yes Notes (Text): Patient seen and examined by me with resident at 9:20 AM on 08/05/18. Case including HPI, physical exam, and assessment and plan discussed with resident. Agree with above with following additions/corrections. Patient is a 57-year-old male with past medical history significant for type 1 diabetes, CVA, coronary artery disease status post CABG, end-stage renal disease status post renal transplant, pancreas transplant, CHF, bedridden, and peripheral vascular disease status post left BKA that presented to the emergency room with pain in the sacral region. Patient states that he isnt feeling too great. Complains of pain in his sacral region. States its a burning, sharp pain. It is worsened with pressure on it. Patient states he uses a wheelchair at home to get around. Patient denies any chest pain or shortness of breath. No fevers or chills. No nausea, vomiting, abdominal pain. No headaches or dizziness. No dysuria. Physical exam: General: Awake and alert sitting up in bed in no acute distress. HEENT: Normocephalic, atraumatic. Extraocular muscles intact, pupils equal and reactive, no scleral icterus. Oropharynx is pink and moist. No pharyngeal erythema or exudate appreciated. Neck is supple. Cardiovascular: Regular rhythm. Normal S1 and S2. No murmurs, rubs, or gallops appreciated Pulmonary: Normal respiratory effort. No rhonchi, rales, or wheezing appreciated. Gastrointestinal: Soft, nondistended. Nontender. Positive bowel sounds all 4 quadrants. No guarding. Musculoskeletal: S/P left BKA. Right lower extremity with edema and mild erythema (chronic per patient) Central nervous system: AAOx3. Dermatologic: Skin warm and dry. positive stage 2 sacral decubitus ulcer Assessment and plan: Patient is a 57-year-old male with past medical history significant for type 1 diabetes, CVA, coronary artery disease status post CABG, end-stage renal disease status post renal transplant, pancreas transplant, CHF, bedridden, and peripheral vascular disease status post left BKA that presented to the emergency room with pain in the sacral region. 1. Sacral pain, likely secondary to stage 2 sacral decubitus ulcer present on admission. Continue with local wound care. Wound care nurse consulted. Turn patient q2hrs. OOB to chair. Continue chronic home pain medications. [employer] reviewed. 2. Chronic systolic CHF. Not in acute exacerbation. Continue home lasix 3. CAD s/p CABG. Continue home ASA. 4. History of CVA. Continue home ASA 5. DM type 1. Continue insulin sliding scale. Monitor accuchecks. 6. S/P renal and pancreas transplant. Continue home cellcept and prograf. Continue home prednisone. 7. PVD s/p left BKA. Continue ASA. Continue home pain medications. Pending PT eval and treat. 8. DVT prophylaxis. Lovenox 9. Patient is a full code. Patient is high risk for falls. Unable to perform daily ADLS. Unsafe discharge. PT eval pending. Case discussed in detail with patient regarding current diagnosis and treatment plan. All questions answered.
[2018-08-06] MEDS: oxyCODONE 15 mg Immediate Release Tab PO PRN ×3 (01:36→17:31)
[2018-08-06] MEDS: Enoxaparin 40 mg Syringe SC SCH (11:57)
[2018-08-06] MEDS: CELLCEPT 500 MG PO SCH ×2 (11:58→17:31)
[2018-08-06] MEDS: PROGRAF 1 MG PO SCH ×2 (11:58→17:31)
[2018-08-06] MEDS: Lidocaine 5% Patch TD SCH (12:09)
--- NOTE | 2018-08-06 15:35 | CP.PCM.PN ---
<Eriberto Dunham - Last Filed: 08/06/18 15:39> Subjective - Date & Time of Evaluation Date of Evaluation: 08/06/18 Time of Evaluation: 08:00 - Subjective Subjective: Eriberto Dunham PGY1 Medicine Progress Note for Dr. Reis Patient was seen and examined at bedside this morning. No overnight events. Continues to complain of back pain. He requests to speak to his PMD, Dr. Silva. Otherwise, denies cp, sob, abdominal pain, n/v/d. A full 12 point ROS was conducted and unremarkable except as stated above. Objective - Vital Signs/Intake and Output Vital Signs (last 24 hours): Temp Pulse Resp BP Pulse Ox 97.4 F L 70 20 111/61 100 08/05/18 18:00 08/05/18 18:00 08/05/18 18:00 08/05/18 18:00 08/05/18 18:00 Intake and Output: 08/06/18 08/06/18 06:59 18:59 Intake Total 720 Output Total 1100 Balance -380 - Medications Medications: Current Medications Aspirin (Aspirin Chewable) 81 mg PO DAILY [facility] Last Admin: 08/06/18 11:58 Dose: 81 mg Enoxaparin Sodium (Lovenox) 40 mg SC DAILY [facility]; Protocol Last Admin: 08/06/18 11:57 Dose: 40 mg Home Med (Home Med) 2 unit PO BID [facility] Last Admin: 08/06/18 11:58 Dose: 2 unit Home Med (Home Med) 2 unit PO BID [facility] Last Admin: 08/06/18 11:58 Dose: 2 unit Lidocaine (Lidoderm) 1 ea TD DAILY [facility] Last Admin: 08/06/18 12:09 Dose: 1 ea Non-Formulary Medication (Oxymorphone Hcl [Opana Er]) 10 mg PO BID PRN PRN Reason: Pain, severe (8-10) Oxycodone HCl (Oxycodone Immediate Release Tab) 15 mg PO TID PRN PRN Reason: Pain, severe (8-10) Last Admin: 08/06/18 11:58 Dose: 15 mg Prednisone (Prednisone Tab) 5 mg PO DAILY [facility] Last Admin: 08/06/18 11:58 Dose: 5 mg - Labs Labs: 08/05/18 06:35 08/05/18 06:35 PT 14.1 SECONDS (9.4-12.5) H 08/04/18 19:47 INR 1.27 08/04/18 19:47 APTT 45.1 Seconds (26.9-38.3) H 08/04/18 19:47 - Constitutional Appears: Non-toxic, No Acute Distress, Chronically Ill - Head Exam Head Exam: ATRAUMATIC, NORMOCEPHALIC - Eye Exam Eye Exam: EOMI, Normal appearance, PERRL - ENT Exam ENT Exam: Mucous Membranes Moist - Neck Exam Neck exam: Positive for: Normal Inspection - Respiratory Exam Respiratory Exam: Rales, NORMAL BREATHING PATTERN. absent: Accessory Muscle Use, Rhonchi, Wheezes, Respiratory Distress - Cardiovascular Exam Cardiovascular Exam: REGULAR RHYTHM, +S1, +S2. absent: Systolic Murmur - GI/Abdominal Exam GI & Abdominal Exam: Soft. absent: Firm, Guarding, Rebound, Rigid, Tenderness Additional comments: surgical scar - Extremities Exam Additional comments: LLE BKA Right transmetatarsal amputation, increased swelling - Neurological Exam Neurological exam: Alert, CN II-XII Intact, Oriented x3 - Psychiatric Exam Psychiatric exam: Normal Affect, Normal Mood - Skin Skin Exam: Dry, Normal Color, Warm Assessment and Plan - Assessment and Plan (Free Text) Assessment: 57 yo male with past medical history of Type 1 diabetes, CVA, CAD s/p CABG, ESRD s/p kidney and pancreas transplant, CHF presenting with sacral decubitus ulcer and difficulty transferring from wheel chair. Plan: Sacral decubitus ulcer - PT recommends CAMELIA - Lidoderm patch for low back pain near sacral decubitus ulcer - c/w local wound care - c/w frequent repositioning every 2 hours - OOB to chair as tolerated with assistance - c/w home pain medication oxycodone and oxymorphone as needed Increased swelling of the right lower extremity - will obtain venous doppler to r/o DVT - Hx of LLE BKA and Right Transmetatarsal Amputation CHF-rEF - ECHO from 01/2018 shows EF of 22% - continue home Lasix - continue asa DM Type I - Accuchecks achs - insulin sliding scale - avoid hypoglycemia Kidney and and pancreas transplant - continue home medication Tacrolimus, Cellcept - continue home prednisone dose 5mg DVT ppx - Lovenox Diet: HHD Dispo: Continue with PT. Pending placement. Case was discussed and reviewed with Attending Physician, Dr. Reis <Emily Reis R - Last Filed: 08/06/18 17:57> Objective - Vital Signs/Intake and Output Vital Signs (last 24 hours): Temp Pulse Resp BP Pulse Ox 97.4 F L 70 20 111/61 100 08/05/18 18:00 08/05/18 18:00 08/05/18 18:00 08/05/18 18:00 08/05/18 18:00 Intake and Output: 08/06/18 08/06/18 06:59 18:59 Intake Total 720 Output Total 1100 Balance -380 - Medications Medications: Current Medications Aspirin (Aspirin Chewable) 81 mg PO DAILY [facility] Last Admin: 08/06/18 11:58 Dose: 81 mg Enoxaparin Sodium (Lovenox) 40 mg SC DAILY [facility]; Protocol Last Admin: 08/06/18 11:57 Dose: 40 mg Home Med (Home Med) 2 unit PO BID [facility] Last Admin: 08/06/18 17:31 Dose: 2 unit Home Med (Home Med) 2 unit PO BID [facility] Last Admin: 08/06/18 17:31 Dose: 2 unit Lidocaine (Lidoderm) 1 ea TD DAILY [facility] Last Admin: 08/06/18 12:09 Dose: 1 ea Non-Formulary Medication (Oxymorphone Hcl [Opana Er]) 10 mg PO BID PRN PRN Reason: Pain, severe (8-10) Oxycodone HCl (Oxycodone Immediate Release Tab) 15 mg PO TID PRN PRN Reason: Pain, severe (8-10) Last Admin: 08/06/18 17:31 Dose: 15 mg Prednisone (Prednisone Tab) 5 mg PO DAILY [facility] Last Admin: 08/06/18 11:58 Dose: 5 mg - Labs Labs: 08/05/18 06:35 08/05/18 06:35 PT 14.1 SECONDS (9.4-12.5) H 08/04/18 19:47 INR 1.27 08/04/18 19:47 APTT 45.1 Seconds (26.9-38.3) H 08/04/18 19:47 Attending/Attestation - Attestation I have personally seen and examined this patient.: Yes I have fully participated in the care of the patient.: Yes I have reviewed all pertinent clinical information, including history, physical exam and plan: Yes Notes (Text): Patient seen and examined by me with resident at approximately 9:30 AM on 08/06/18. Case including HPI, physical exam, and assessment and plan discussed with resident. Agree with above with following additions/corrections. Patient is a 57-year-old male with past medical history significant for type 1 diabetes, CVA, coronary artery disease status post CABG, end-stage renal disease status post renal transplant, pancreas transplant, CHF, bedridden, and peripheral vascular disease status post left BKA that presented to the emergency room with pain in the sacral region. Patient states that he is feeling ok. Still with pain in his sacral region. He states its a burning and sharp pain. Laying on the area makes it worse. Patient denies any chest pain or shortness of breath. No fevers or chills. No nausea, vomiting, abdominal pain. No headaches or dizziness. No dysuria. Physical exam: General: Awake and alert sitting up in bed in no acute distress. HEENT: Normocephalic, atraumatic. Extraocular muscles intact, pupils equal and reactive, no scleral icterus. Oropharynx is pink and moist. No pharyngeal erythema or exudate appreciated. Neck is supple. Cardiovascular: Regular rhythm. Normal S1 and S2. No murmurs, rubs, or gallops appreciated Pulmonary: Normal respiratory effort. No rhonchi, rales, or wheezing appreciated. Gastrointestinal: Soft, nondistended. Nontender. Positive bowel sounds all 4 quadrants. No guarding. Musculoskeletal: S/P left BKA. Right lower extremity with edema and mild erythema (chronic per patient) Central nervous system: AAOx3. Dermatologic: Skin warm and dry. positive stage 2 sacral decubitus ulcer Assessment and plan: Patient is a 57-year-old male with past medical history significant for type 1 diabetes, CVA, coronary artery disease status post CABG, end-stage renal disease status post renal transplant, pancreas transplant, CHF, bedridden, and peripheral vascular disease status post left BKA that presented to the emergency room with pain in the sacral region. 1. Sacral pain, likely secondary to stage 2 sacral decubitus ulcer present on admission. Continue with local wound care. Wound care nurse consulted. Continue to turn patient q2hrs. OOB to chair. Continue chronic home pain medications. [employer]LE[employer] W[employer] reviewed. 2. Chronic systolic CHF. Not in acute exacerbation. Continue home lasix 3. CAD s/p CABG. Continue home ASA. No current issues. 4. History of CVA. Continue home ASA. No current issues. 5. DM type 1. Continue insulin sliding scale. Monitor accuchecks. 6. S/P renal and pancreas transplant. Continue home cellcept and prograf. Continue home prednisone. 7. PVD s/p left BKA. Continue ASA. Continue home pain medications. Pending PT eval and treat. Will get venous doppler of lower right extremity. 8. DVT prophylaxis. Lovenox 9. Patient is a full code. Case discussed in detail with patient regarding current diagnosis and treatment plan. All questions answered.
[2018-08-07] MEDS: oxyCODONE 15 mg Immediate Release Tab PO PRN ×3 (00:07→15:50)
[2018-08-07 07:06] LABS: HEMOGLOBIN 9.1 g/dL (14.0-18.0); MEAN CELL VOLUME 77.9 fl (80.0-105.0); MEAN CORPUSCULAR HEMOGLOBIN 22.6 pg (25.0-35.0); MEAN PLATELET VOLUME 9.8 fl (7.0-11.0); RBC 4.03 10^6/uL (3.5-6.1); RED CELL DISTRIBUTION WIDTH 16.5 % (11.5-14.5); WHITE BLOOD COUNT 6.2 10^3/uL (4.5-11.0)
[2018-08-07 08:31] LABS: ALBUMIN 3.4 g/dL (3.0-4.8); ALT/SGPT 9 U/L (7-56); AST/SGOT 14 U/L (17-59); BLOOD UREA NITROGEN 39 mg/dL (7-21); CALCIUM 10.2 mg/dL (8.4-10.5); GFR NON-AFRICAN AMERICAN 52
--- NOTE | 2018-08-07 08:33 | US ---
PROCEDURE: Right lower extremity venous US HISTORY: Leg pain and swelling. Evaluate for DVT. PHYSICIAN(S): Chu Rivera M.D. TECHNIQUE: Duplex sonography and color-flow Doppler with graded compression were used to evaluate the deep venous system of the right lower extremity. The exam is somewhat limited by edema FINDINGS: The visualized deep venous system of the right lower extremity is sonographically normal and compressible. Normal waveforms and augmentation are seen. There is no sonographic evidence for deep venous thrombosis in the visualized segments of the right lower extremity. IMPRESSION: 1. No sonographic evidence for deep venous thrombosis in the visualized segments of the right lower extremity.
[2018-08-07] MEDS: PROGRAF 1 MG PO SCH ×2 (09:13→17:00)
[2018-08-07] MEDS: CELLCEPT 500 MG PO SCH ×2 (09:13→16:59)
[2018-08-07] MEDS: Lidocaine 5% Patch TD SCH (09:14)
[2018-08-07] MEDS: Enoxaparin 40 mg Syringe SC SCH (09:17)
[2018-08-07 17:10] VITALS: TEMP 98.2
--- NOTE | 2018-08-07 17:53 | CP.PCM.PN ---
<Eriberto Dunham - Last Filed: 08/07/18 17:49> Subjective - Date & Time of Evaluation Date of Evaluation: 08/07/18 Time of Evaluation: 08:00 - Subjective Subjective: Eriberto Dunham PGY1 Medicine Progress Note for Dr. Lei Patient was seen and examined at bedside this morning. No overnight events. Back pain improving. Denies cp, sob, abdominal pain, n/v/d. A full 12 point ROS was conducted and unremarkable except as stated above. Objective - Vital Signs/Intake and Output Vital Signs (last 24 hours): Temp Pulse Resp BP Pulse Ox 98.2 F 65 18 120/69 98 08/07/18 17:10 08/07/18 17:10 08/07/18 17:10 08/07/18 17:10 08/07/18 17:10 Intake and Output: 08/07/18 08/07/18 06:59 18:59 Intake Total 840 Output Total 800 Balance 40 - Medications Medications: Current Medications Aspirin (Aspirin Chewable) 81 mg PO DAILY [facility] Last Admin: 08/07/18 09:12 Dose: 81 mg Enoxaparin Sodium (Lovenox) 40 mg SC DAILY [facility]; Protocol Last Admin: 08/07/18 09:17 Dose: 40 mg Home Med (Home Med) 2 unit PO BID [facility] Last Admin: 08/07/18 16:59 Dose: 2 unit Home Med (Home Med) 2 unit PO BID [facility] Last Admin: 08/07/18 17:00 Dose: 2 unit Lidocaine (Lidoderm) 1 ea TD DAILY [facility] Last Admin: 08/07/18 09:14 Dose: 1 ea Non-Formulary Medication (Oxymorphone Hcl [Opana Er]) 10 mg PO BID PRN PRN Reason: Pain, severe (8-10) Oxycodone HCl (Oxycodone Immediate Release Tab) 15 mg PO TID PRN PRN Reason: Pain, severe (8-10) Last Admin: 08/07/18 15:50 Dose: 15 mg Prednisone (Prednisone Tab) 5 mg PO DAILY [facility] Last Admin: 08/07/18 09:19 Dose: 5 mg - Labs Labs: 08/07/18 06:45 08/07/18 06:45 PT 14.1 SECONDS (9.4-12.5) H 08/04/18 19:47 INR 1.27 08/04/18 19:47 APTT 45.1 Seconds (26.9-38.3) H 08/04/18 19:47 - Constitutional Appears: Non-toxic, No Acute Distress, Chronically Ill - Head Exam Head Exam: ATRAUMATIC, NORMOCEPHALIC - Eye Exam Eye Exam: EOMI, Normal appearance, PERRL - ENT Exam ENT Exam: Mucous Membranes Moist - Neck Exam Neck exam: Positive for: Normal Inspection - Respiratory Exam Respiratory Exam: Rales, NORMAL BREATHING PATTERN. absent: Accessory Muscle Use, Rhonchi, Wheezes, Respiratory Distress - Cardiovascular Exam Cardiovascular Exam: REGULAR RHYTHM, +S1, +S2. absent: Systolic Murmur - GI/Abdominal Exam GI & Abdominal Exam: Soft. absent: Firm, Guarding, Rebound, Rigid, Tenderness Additional comments: surgical scar - Extremities Exam Additional comments: LLE BKA Right transmetatarsal amputation, increased swelling - Neurological Exam Neurological exam: Alert, CN II-XII Intact, Oriented x3 - Psychiatric Exam Psychiatric exam: Normal Affect, Normal Mood - Skin Skin Exam: Dry, Normal Color, Warm Assessment and Plan - Assessment and Plan (Free Text) Assessment: 57 yo male with past medical history of Type 1 diabetes, CVA, CAD s/p CABG, ESRD s/p kidney and pancreas transplant, CHF presenting with stage II sacral decubitu s ulcer and difficulty transferring from wheel chair. Plan: Stage II Sacral decubitus ulcer - PT recommends [facility]. Pending insurance authorization. - c/w Lidoderm patch for low back pain near sacral decubitus ulcer - c/w local wound care - c/w frequent repositioning every 2 hours - OOB to chair as tolerated with assistance - c/w home pain medication oxycodone and oxymorphone as needed Increased swelling of the right lower extremity - improved - R-LE venous doppler: no DVT - Hx of LLE BKA and Right Transmetatarsal Amputation CHF-rEF - ECHO from 01/2018 shows EF of 22% - continue home Lasix - continue asa DM Type I - Accuchecks achs - insulin sliding scale - avoid hypoglycemia Kidney and and pancreas transplant - continue home medication Tacrolimus, Cellcept - continue home prednisone dose 5mg DVT ppx - Lovenox Diet: HHD Dispo: PT recommends [facility]. Pending authorization from insurance. Case was discussed and reviewed with Attending Physician, Dr. Lei <Mima Lei - Last Filed: 08/07/18 18:52> Objective - Vital Signs/Intake and Output Vital Signs (last 24 hours): Temp Pulse Resp BP Pulse Ox 98.2 F 65 18 120/69 98 08/07/18 17:10 08/07/18 17:10 08/07/18 17:10 08/07/18 17:10 08/07/18 17:10 Intake and Output: 08/07/18 08/07/18 06:59 18:59 Intake Total 840 Output Total 800 Balance 40 - Medications Medications: Current Medications Aspirin (Aspirin Chewable) 81 mg PO DAILY [facility] Last Admin: 08/07/18 09:12 Dose: 81 mg Enoxaparin Sodium (Lovenox) 40 mg SC DAILY [facility]; Protocol Last Admin: 08/07/18 09:17 Dose: 40 mg Home Med (Home Med) 2 unit PO BID [facility] Last Admin: 08/07/18 16:59 Dose: 2 unit Home Med (Home Med) 2 unit PO BID [facility] Last Admin: 08/07/18 17:00 Dose: 2 unit Lidocaine (Lidoderm) 1 ea TD DAILY [facility] Last Admin: 08/07/18 09:14 Dose: 1 ea Non-Formulary Medication (Oxymorphone Hcl [Opana Er]) 10 mg PO BID PRN PRN Reason: Pain, severe (8-10) Oxycodone HCl (Oxycodone Immediate Release Tab) 15 mg PO TID PRN PRN Reason: Pain, severe (8-10) Last Admin: 08/07/18 15:50 Dose: 15 mg Prednisone (Prednisone Tab) 5 mg PO DAILY [facility] Last Admin: 08/07/18 09:19 Dose: 5 mg - Labs Labs: 08/07/18 06:45 08/07/18 06:45 PT 14.1 SECONDS (9.4-12.5) H 08/04/18 19:47 INR 1.27 08/04/18 19:47 APTT 45.1 Seconds (26.9-38.3) H 08/04/18 19:47 Attending/Attestation - Attestation I have personally seen and examined this patient.: Yes I have fully participated in the care of the patient.: Yes I have reviewed all pertinent clinical information, including history, physical exam and plan: Yes Notes (Text): 08/07/18 18:48 Attending note; patient seen and examined with resident. complaining of back discomfort. denies any fevers and chills. Patient is a 57-year-old male with past medical history significant for type 1 diabetes, CVA, coronary artery disease status post CABG, end-stage renal disease status post renal transplant, pancreas transplant, CHF, bedridden, and peripheral vascular disease status post left BKA that presented to the emergency room with pain in the sacral region. 1. Sacral pain/stage 2 sacral decubitus ulcer. Continue with local wound care. Wound care nurse evaluation appreciated. Continue to turn patient q2hrs. OOB to chair. Continue chronic home pain medications. 2. Chronic systolic CHF. Not in acute exacerbation. Continue home lasix 3. CAD s/p CABG. Continue ASA. 4. History of CVA. Continue ASA. 5. DM type 1. Continue insulin sliding scale. Monitor accuchecks. 6. S/P renal and pancreas transplant. Continue home cellcept and prograf. Continue prednisone. 7. PVD s/p left BKA. Continue ASA. Continue home pain medications. DVT is negative. 8. DVT prophylaxis. Lovenox PT evaluation appreciated. CAMELIA recommended. Follow up with manager of case management for CAMELIA placement. upon discharge the patient will follow up with PMD Dr. Silva.
[2018-08-08 07:16] LABS: HEMOGLOBIN 8.8 g/dL (14.0-18.0); MEAN CELL VOLUME 77.7 fl (80.0-105.0); MEAN CORPUSCULAR HEMOGLOBIN 22.5 pg (25.0-35.0); MEAN CORPUSCULAR HGB CONC 28.9 g/dl (31.0-37.0); MEAN PLATELET VOLUME 9.7 fl (7.0-11.0); RBC 3.91 10^6/uL (3.5-6.1); RED CELL DISTRIBUTION WIDTH 16.3 % (11.5-14.5); WHITE BLOOD COUNT 6.2 10^3/uL (4.5-11.0)
[2018-08-08 07:46] LABS: ALBUMIN 3.2 g/dL (3.0-4.8); ALT/SGPT 8 U/L (7-56); AST/SGOT 9 U/L (17-59); BLOOD UREA NITROGEN 38 mg/dL (7-21); GFR NON-AFRICAN AMERICAN 57
[2018-08-08 08:36] VITALS: BP 114/66; PULSE 62; RESP 20; O2SAT 93
[2018-08-08] MEDS: CELLCEPT 500 MG PO SCH (09:28)
[2018-08-08] MEDS: PROGRAF 1 MG PO SCH (09:28)
[2018-08-08] MEDS: Lidocaine 5% Patch TD SCH (09:29)
[2018-08-08] MEDS: Enoxaparin 40 mg Syringe SC SCH (09:29)
[2018-08-08] MEDS: oxyCODONE 15 mg Immediate Release Tab PO PRN (09:29)
--- NOTE | 2018-08-08 13:38 | CP.PCM.CON ---
History of Present Illness - History of Present Illness History of Present Illness: Palliative consult requested by Dr Casimiro Orozco Reason: Advance care planning 57 year old male with history of DM, CVA CAD who presented to ED with sacral pain, sacral decubiti and deconditioning. He denied fever,chills, nausea, vomiting,chest/abdominal pain, shortness of breath, headache, dizziness. 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 Lives with spouse. Wheelchair bound Family History:Non contributory Advance Care Planning: The patient does not have an Advanced Directive Review of Systems: As per HPI, 12 point review negative Past Patient History - Past Social History Smoking Status: Current Some Days Smoker - CARDIAC Hx Cardiac Disorders: Yes (s/p CABG) - PULMONARY Hx Respiratory Disorders: No Other/Comment: active smoker - NEUROLOGICAL HX Cerebrovascular Accident: Yes - HEENT Hx HEENT Problems: No - RENAL Hx Renal Failure: Yes (ESRD s/p kidney and pacreas transplant) - ENDOCRINE/METABOLIC Hx Diabetes Mellitus Type 1: Yes - HEMATOLOGICAL/ONCOLOGICAL Hx Anemia: Yes - INTEGUMENTARY Hx Dermatological Problems: No - MUSCULOSKELETAL/RHEUMATOLOGICAL Hx Musculoskeletal Disorders: Yes Hx Arthritis: Yes - GASTROINTESTINAL Hx Gastrointestinal Disorders: No - GENITOURINARY/GYNECOLOGICAL Hx Genitourinary Disorders: Yes Other/Comment: difficulty voiding at times--- uses urinary catheters prn at home - PSYCHIATRIC Hx Psychophysiologic Disorder: No Hx Substance Use: No - SURGICAL HISTORY Hx Cardiac Catheterization: Yes (X6) Hx Coronary Stent: Yes Hx Gastric Bypass Surgery: Yes (2005) Hx Open Heart Surgery: Yes (2005) Other/Comment: LEFT BKA 2013 - ANESTHESIA Hx Anesthesia: Yes Hx Anesthesia Reactions: No Hx Malignant Hyperthermia: No Meds Allergies/Adverse Reactions: Allergies Allergy/AdvReac Type Severity Reaction Status Date / Time No Known Allergies Allergy Verified 12/01/11 12:42 - Medications Medications: Current Medications Aspirin (Aspirin Chewable) 81 mg PO DAILY [facility] Last Admin: 08/08/18 09:29 Dose: 81 mg Enoxaparin Sodium (Lovenox) 40 mg SC DAILY [facility]; Protocol Last Admin: 08/08/18 09:29 Dose: 40 mg Home Med (Home Med) 2 unit PO BID [facility] Last Admin: 08/08/18 09:28 Dose: 2 unit Home Med (Home Med) 2 unit PO BID [facility] Last Admin: 08/08/18 09:28 Dose: 2 unit Lidocaine (Lidoderm) 1 ea TD DAILY [facility] Last Admin: 08/08/18 09:29 Dose: 1 ea Non-Formulary Medication (Oxymorphone Hcl [Opana Er]) 10 mg PO BID PRN PRN Reason: Pain, severe (8-10) Oxycodone HCl (Oxycodone Immediate Release Tab) 15 mg PO TID PRN PRN Reason: Pain, severe (8-10) Last Admin: 08/08/18 09:29 Dose: 15 mg Prednisone (Prednisone Tab) 5 mg PO DAILY [facility] Last Admin: 08/08/18 09:29 Dose: 5 mg Physical Exam - Constitutional Appears: Chronically Ill - Head Exam Head Exam: NORMOCEPHALIC - Eye Exam Eye Exam: Normal appearance, PERRL - ENT Exam ENT Exam: Mucous Membranes Moist - Neck Exam Neck exam: Positive for: Normal Inspection - Respiratory Exam Respiratory Exam: Decreased Breath Sounds, NORMAL BREATHING PATTERN - Cardiovascular Exam Cardiovascular Exam: REGULAR RHYTHM, +S1, +S2 - GI/Abdominal Exam GI & Abdominal Exam: Normal Bowel Sounds, Soft - Extremities Exam Additional comments: left BKA - Back Exam Additional comments: stage 2 sacral ulcer - Neurological Exam Neurological exam: Alert, Oriented x3 - Skin Skin Exam: Dry, Pallor - Additional Findings Additional findings: Palliative performance scale rating 40 % Results - Vital Signs Recent Vital Signs: Last Vital Signs Temp 98.2 F 08/08/18 08:36 Pulse 62 08/08/18 08:36 Resp 20 08/08/18 08:36 BP 114/66 08/08/18 08:36 Pulse Ox 93 L 08/08/18 08:36 - Labs Result Diagrams: 08/08/18 07:00 08/08/18 07:00 Labs: Laboratory Results - last 24 hr 08/07/18 08/07/18 08/08/18 16:24 21:15 07:00 WBC 6.2 RBC 3.91 Hgb 8.8 L Hct 30.4 L MCV 77.7 L MCH 22.5 L MCHC 28.9 L RDW 16.3 H Plt Count 373 MPV 9.7 Sodium Potassium Chloride Carbon Dioxide Anion Gap BUN Creatinine Est GFR ( Amer) Est GFR (Non-Af Amer) POC Glucose (mg/dL) 116 H 129 H Random Glucose Calcium Total Bilirubin AST ALT Alkaline Phosphatase Total Protein Albumin Globulin Albumin/Globulin Ratio 08/08/18 08/08/18 08/08/18 07:00 07:10 11:08 WBC RBC Hgb Hct MCV MCH MCHC RDW Plt Count MPV Sodium 140 Potassium 4.8 Chloride 110 H Carbon Dioxide 24 Anion Gap 11 BUN 38 H Creatinine 1.3 Est GFR ( Amer) > 60 Est GFR (Non-Af Amer) 57 POC Glucose (mg/dL) 99 125 H Random Glucose 112 H Calcium 10.0 Total Bilirubin 0.3 AST 9 L D ALT 8 Alkaline Phosphatase 88 Total Protein 6.3 Albumin 3.2 Globulin 3.1 Albumin/Globulin Ratio 1.0 L Assessment & Plan - Assessment and Plan (Free Text) Assessment: 57 year old male with history of DM,CAD, s/p cardiopulmonary arrest, CKD s/p kidney/pancreas trnasplant who is admitted with sacral decubiti and deconditioning The patient is alert and oriented. He does not have an advanced directive. Resuscitation wishes discussed. Patient has had cardiopulmonary arrest and was resuscitated in the past been resuscitated in the past. He states that he is willing to have aggressive resuscitation with CPR/intubation again. He does not want to be kept alive on " machines in his condition is terminal or irreversible. He does not have a health care proxy. He indicated that he would likely pick his daughter but not sure at this time. Encouraged him to consider appointing a health care proxy. He is not ready to do an advanced directive at this time. Goals of care and advance care planning, 20 minutes Plan: Advance care planning Wound care Pain: Oxymorphone ER 10 mg twice daily, oxycodone 15 IR as needed> Docusate 10 mg dialy DM: Finger sticks ACHS, insulin as ordered Continue anti rejection drug regimen PT/OT for deconditioning
--- NOTE | 2018-08-08 15:48 | CP.PCM.DIS ---
<RolyEriberto - Last Filed: 08/08/18 15:45> Provider - Provider Date of Admission: 08/05/18 11:34 Attending physician: Mima Lei MD Consults: 08/04/18 21:35 Social Work Referral Routine Comment: PT needs placement Physician Instructions: Reason For Exam: PT needs placement 08/05/18 01:10 Case Management Referral Routine Comment: Physician Instructions: pt and requesting for LTC/NH Reason For Exam: lives with ; unable to take care of pt anymore Reason for Referral: [employer] Nursing Referral for Wound Care Routine Comment: Physician Instructions: to lt buttocks by the anus. Reason For Exam: 1 decubitus ulcer to sacrum by anus and 1 08/06/18 07:35 Palliative Care Consult Routine Comment: Consulting Provider: Anika Blanco Physician Instructions: Reason For Exam: wheelchair bound, sacral decubitus ulcer 08/06/18 23:15 Nursing Referral for Wound Care Routine Comment: Physician Instructions: Reason For Exam: SACRAL DECUBITI 08/07/18 20:33 Nursing Referral for Wound Care Routine Comment: Physician Instructions: Reason For Exam: SACRAL DECUBITI Time Spent in preparation of Discharge (in minutes): 35 Hospital Course - Lab Results Lab Results: Most Recent Lab Values WBC 6.2 10^3/uL (4.5-11.0) 08/08/18 07:00 RBC 3.91 10^6/uL (3.5-6.1) 08/08/18 07:00 Hgb 8.8 g/dL (14.0-18.0) L 08/08/18 07:00 Hct 30.4 % (42.0-52.0) L 08/08/18 07:00 MCV 77.7 fl (80.0-105.0) L 08/08/18 07:00 MCH 22.5 pg (25.0-35.0) L 08/08/18 07:00 MCHC 28.9 g/dl (31.0-37.0) L 08/08/18 07:00 RDW 16.3 % (11.5-14.5) H 08/08/18 07:00 Plt Count 373 10^3/uL (120.0-450.0) 08/08/18 07:00 MPV 9.7 fl (7.0-11.0) 08/08/18 07:00 Neut % (Auto) 85.4 % (50.0-68.0) H 08/05/18 06:35 Lymph % (Auto) 6.3 % (22.0-35.0) L 08/05/18 06:35 [place] % (Auto) 5.1 % (1.0-6.0) 08/05/18 06:35 Eos % (Auto) 3.0 % (1.5-5.0) 08/05/18 06:35 Baso % (Auto) 0.2 % (0.0-3.0) 08/05/18 06:35 Lymph # (Auto) 0.7 (1.2-3.4) L 08/05/18 06:35 [place] # (Auto) 0.5 (0.1-0.6) 08/05/18 06:35 Eos # (Auto) 0.3 (0.0-0.7) 08/05/18 06:35 Baso # (Auto) 0.02 K/mm3 (0.0-2.0) 08/05/18 06:35 Absolute Neuts (auto) 8.87 (1.4-6.5) H 08/05/18 06:35 PT 14.1 SECONDS (9.4-12.5) H 08/04/18 19:47 INR 1.27 08/04/18 19:47 APTT 45.1 Seconds (26.9-38.3) H 08/04/18 19:47 Sodium 140 mmol/L (132-148) 08/08/18 07:00 Potassium 4.8 mmol/L (3.6-5.0) 08/08/18 07:00 Chloride 110 mmol/L (98-107) H 08/08/18 07:00 Carbon Dioxide 24 mmol/L (21-33) 08/08/18 07:00 Anion Gap 11 (10-20) 08/08/18 07:00 BUN 38 mg/dL (7-21) H 08/08/18 07:00 Creatinine 1.3 mg/dl (0.8-1.5) 08/08/18 07:00 Est GFR ( Amer) > 60 08/08/18 07:00 Est GFR (Non-Af Amer) 57 08/08/18 07:00 POC Glucose (mg/dL) 125 mg/dL (65-110) H 08/08/18 11:08 Random Glucose 112 mg/dL (70-110) H 08/08/18 07:00 Calcium 10.0 mg/dL (8.4-10.5) 08/08/18 07:00 Total Bilirubin 0.3 mg/dL (0.2-1.3) 08/08/18 07:00 AST 9 U/L (17-59) L D 08/08/18 07:00 ALT 8 U/L (7-56) 08/08/18 07:00 Alkaline Phosphatase 88 U/L (38-126) 08/08/18 07:00 Total Protein 6.3 g/dL (5.8-8.3) 08/08/18 07:00 Albumin 3.2 g/dL (3.0-4.8) 08/08/18 07:00 Globulin 3.1 gm/dL 08/08/18 07:00 Albumin/Globulin Ratio 1.0 (1.1-1.8) L 08/08/18 07:00 - Hospital Course Hospital Course: Eriberto Dunham, PGY1 Discharge Summary for Dr. Lei Patient is a 57 year old male with past medical history of T1DM, CVA, CAD s/p CABG, ESRD s/p kidney and pancreas transplant, CHF, PVD s/p left BKA and Right lower extremity transmetatarsal amputation (wheelchair bound) who presented to the ED for intractable pain in his sacral region. Medical team evaluated patient. He was found to have sacral pain due to a stage II sacral decubitus ulcer. Wound care was placed on board. Conservative management was done in regards to sacral ulcer. Patient has a PMD (Dr. Silva) but has been non-compliant in terms of office visits to his PMD. Otherwise, patient was restarted on his home medications. He has been stable in the hospital. His right lower extremity was mildly swollen so a LE doppler was done but there was no DVT. PT was on board for the patient due to his PVD s/p left BKA, sacral ulcer, and immobility. Recommendation was for [facility]. Patient was accepted to a facility. Upon reviewing all labs, imaging, and vitals, patient is stable discharge to [facility]. Patient will also follow up with a new primary (Dr. Pablo) upon discharge. Discharge Exam - Head Exam Head Exam: ATRAUMATIC, NORMAL INSPECTION, NORMOCEPHALIC - Eye Exam Eye Exam: EOMI, Normal appearance, PERRL - ENT Exam ENT Exam: Mucous Membranes Moist - Respiratory Exam Respiratory Exam: Clear to PA & Lateral. absent: Accessory Muscle Use, Chest Wall Tenderness, Rhonchi, Wheezes, Respiratory Distress - Cardiovascular Exam Cardiovascular Exam: RRR, +S1, +S2 - GI/Abdominal Exam GI & Abdominal Exam: Normal Bowel Sounds - Extremities Exam Additional comments: LLE BKA Right transmetatarsal amputation - Neurological Exam Neurological exam: Alert, Oriented x3, Reflexes Normal - Psychiatric Exam Psychiatric exam: Normal Affect, Normal Mood - Skin Skin Exam: Dry, Intact, Normal Color, Warm Discharge Plan - Follow Up Plan Condition: STABLE Disposition: TRANSF TO SNF Patient education suggested?: Yes Instructions: Low Back Pain (DC), Failure to Thrive, Adult (DC) Additional Instructions: 1. You are to continue taking your home medications as prescribed. 2. You will be going to Subacute Rehab ([facility] in [place]) for rehabilitation and strengthening. 3. You will be referred to Dr. Sheldon Pablo as your primary. Dr. Pablo ) will be taking house calls. Referrals: Sheldon Pablo, DO [Staff Provider] - <Mima Lei - Last Filed: 08/09/18 14:32> Provider - Provider Date of Admission: 08/05/18 11:34 Attending physician: Mima Lei MD Consults: 08/04/18 21:35 Social Work Referral Routine Comment: PT needs placement Physician Instructions: Reason For Exam: PT needs placement 08/05/18 01:10 Case Management Referral Routine Comment: Physician Instructions: pt and requesting for LTC/NH Reason For Exam: lives with ; unable to take care of pt anymore Reason for Referral: [employer] Nursing Referral for Wound Care Routine Comment: Physician Instructions: to lt buttocks by the anus. Reason For Exam: 1 decubitus ulcer to sacrum by anus and 1 08/06/18 07:35 Palliative Care Consult Routine Comment: Consulting Provider: Anika Blanco Physician Instructions: Reason For Exam: wheelchair bound, sacral decubitus ulcer 08/06/18 23:15 Nursing Referral for Wound Care Routine Comment: Physician Instructions: Reason For Exam: SACRAL DECUBITI 08/07/18 20:33 Nursing Referral for Wound Care Routine Comment: Physician Instructions: Reason For Exam: SACRAL DECUBITI Hospital Course - Lab Results Lab Results: Most Recent Lab Values WBC 6.2 10^3/uL (4.5-11.0) 08/08/18 07:00 RBC 3.91 10^6/uL (3.5-6.1) 08/08/18 07:00 Hgb 8.8 g/dL (14.0-18.0) L 08/08/18 07:00 Hct 30.4 % (42.0-52.0) L 08/08/18 07:00 MCV 77.7 fl (80.0-105.0) L 08/08/18 07:00 MCH 22.5 pg (25.0-35.0) L 08/08/18 07:00 MCHC 28.9 g/dl (31.0-37.0) L 08/08/18 07:00 RDW 16.3 % (11.5-14.5) H 08/08/18 07:00 Plt Count 373 10^3/uL (120.0-450.0) 08/08/18 07:00 MPV 9.7 fl (7.0-11.0) 08/08/18 07:00 Neut % (Auto) 85.4 % (50.0-68.0) H 08/05/18 06:35 Lymph % (Auto) 6.3 % (22.0-35.0) L 08/05/18 06:35 [place] % (Auto) 5.1 % (1.0-6.0) 08/05/18 06:35 Eos % (Auto) 3.0 % (1.5-5.0) 08/05/18 06:35 Baso % (Auto) 0.2 % (0.0-3.0) 08/05/18 06:35 Lymph # (Auto) 0.7 (1.2-3.4) L 08/05/18 06:35 [place] # (Auto) 0.5 (0.1-0.6) 08/05/18 06:35 Eos # (Auto) 0.3 (0.0-0.7) 08/05/18 06:35 Baso # (Auto) 0.02 K/mm3 (0.0-2.0) 08/05/18 06:35 Absolute Neuts (auto) 8.87 (1.4-6.5) H 08/05/18 06:35 PT 14.1 SECONDS (9.4-12.5) H 08/04/18 19:47 INR 1.27 08/04/18 19:47 APTT 45.1 Seconds (26.9-38.3) H 08/04/18 19:47 Sodium 140 mmol/L (132-148) 08/08/18 07:00 Potassium 4.8 mmol/L (3.6-5.0) 08/08/18 07:00 Chloride 110 mmol/L (98-107) H 08/08/18 07:00 Carbon Dioxide 24 mmol/L (21-33) 08/08/18 07:00 Anion Gap 11 (10-20) 08/08/18 07:00 BUN 38 mg/dL (7-21) H 08/08/18 07:00 Creatinine 1.3 mg/dl (0.8-1.5) 08/08/18 07:00 Est GFR ( Amer) > 60 08/08/18 07:00 Est GFR (Non-Af Amer) 57 08/08/18 07:00 POC Glucose (mg/dL) 125 mg/dL (65-110) H 08/08/18 11:08 Random Glucose 112 mg/dL (70-110) H 08/08/18 07:00 Calcium 10.0 mg/dL (8.4-10.5) 08/08/18 07:00 Total Bilirubin 0.3 mg/dL (0.2-1.3) 08/08/18 07:00 AST 9 U/L (17-59) L D 08/08/18 07:00 ALT 8 U/L (7-56) 08/08/18 07:00 Alkaline Phosphatase 88 U/L (38-126) 08/08/18 07:00 Total Protein 6.3 g/dL (5.8-8.3) 08/08/18 07:00 Albumin 3.2 g/dL (3.0-4.8) 08/08/18 07:00 Globulin 3.1 gm/dL 08/08/18 07:00 Albumin/Globulin Ratio 1.0 (1.1-1.8) L 08/08/18 07:00 Attending/Attestation - Attestation I have personally seen and examined this patient.: Yes I have fully participated in the care of the patient.: Yes I have reviewed all pertinent clinical information, including history, physical exam and plan: Yes Notes (Text): 08/09/18 14:28 Attending note; patient seen and examined with resident. complaining of back discomfort. denies any fevers and chills. Patient is a 57-year-old male with past medical history significant for type 1 diabetes, CVA, coronary artery disease status post CABG, end-stage renal disease status post renal transplant, pancreas transplant, CHF, bedridden, and peripheral vascular disease status post left BKA that presented to the emergency room with pain in the sacral region. 1. Sacral pain/stage 2 sacral decubitus ulcer. Continue with local wound care. Wound care evaluation appreciated. Continue to turn patient q2hrs. OOB to chair. Continue chronic home pain medications. 2. Chronic systolic CHF. Not in acute exacerbation. Continue home lasix 3. CAD s/p CABG. Continue ASA. 4. History of CVA. Continue ASA. 5. DM type 1. Continue insulin sliding scale. Monitor accuchecks. 6. S/P renal and pancreas transplant. Continue home cellcept and prograf. Continue prednisone. 7. PVD s/p left BKA. Continue ASA. Continue home pain medications. DVT is negative. 8. DVT prophylaxis. Lovenox PT evaluation appreciated. [facility]. Transfer [facility] post acute rehab today. upon discharge the patient will follow up with PMD Dr. Silva. Patient was also given contact number for Dr. Pablo if he wants home visits from PMD. Advised to call after discharge from [facility]. Patient will decide about PMD soon.
== END 2018-08-08 14:29 | DRG 593 ==
LOC: ED 18:13 → ERH 20:17 → 3RSO 23:09 → OBSVTOIN 08-05 11:34
PROVIDERS: ADMIT Internal Medicine; ATTEND Internal Medicine
DX: L89.152 Pressure ulcer of sacral region, stage 2 (principal); G82.20 Paraplegia, unspecified; I50.22 Chronic systolic (congestive) heart failure; Z94.83 Pancreas transplant status; Z94.0 Kidney transplant status; R62.7 Adult failure to thrive; E10.22 Type 1 diabetes mellitus with diabetic chronic kidney disease; E10.51 Type 1 diabetes mellitus with diabetic peripheral angiopathy without gangrene; F17.200 Nicotine dependence, unspecified, uncomplicated; I25.10 Atherosclerotic heart disease of native coronary artery without angina pectoris; M54.9 Dorsalgia, unspecified; G89.29 Other chronic pain; R33.9 Retention of urine, unspecified; Z91.19 Patient's noncompliance with other medical treatment and regimen; Z99.3 Dependence on wheelchair; Z79.82 Long term (current) use of aspirin; Z86.74 Personal history of sudden cardiac arrest; Z89.512 Acquired absence of left leg below knee; Z95.1 Presence of aortocoronary bypass graft; Z95.5 Presence of coronary angioplasty implant and graft; Z98.84 Bariatric surgery status; Z74.01 Bed confinement status; Z79.899 Other long term (current) drug therapy; Z86.73 Personal history of transient ischemic attack (TIA), and cerebral infarction without residual deficits

== ENCOUNTER 2018-10-25 15:40 | Emergency (ER) | payer OTHER, MEDICARE ==
[2018-10-25 15:44] VITALS: BMI 22.1
[2018-10-25] MEDS ORDERED: Morphine 4 mg/ml ISec IVP STA (16:02)
[2018-10-25 16:10] VITALS: RESP 18; TEMP 98.1
[2018-10-25 16:30] LABS: BASO # 0.01 K/mm3 (0.0-2.0); BASO % 0.1 % (0.0-3.0); EOS % 0.1 % (1.5-5.0); HEMOGLOBIN 8.3 g/dL (14.0-18.0); LYMPH # 0.8 (1.2-3.4); LYMPH % 7.9 % (22.0-35.0); MEAN CELL VOLUME 79.2 fl (80.0-105.0); MEAN CORPUSCULAR HEMOGLOBIN 23.4 pg (25.0-35.0); MEAN CORPUSCULAR HGB CONC 29.5 g/dl (31.0-37.0); MEAN PLATELET VOLUME 9.7 fl (7.0-11.0); MONO # 0.6 (0.1-0.6); MONO % 5.7 % (1.0-6.0); RBC 3.55 10^6/uL (3.5-6.1); RED CELL DISTRIBUTION WIDTH 16.7 % (11.5-14.5); WHITE BLOOD COUNT 9.7 10^3/uL (4.5-11.0)
--- NOTE | 2018-10-25 16:37 | ED PDOC ---
Arrival/HPI - General Chief Complaint: Trauma Time Seen by Provider: 10/25/18 15:41 - History of Present Illness Narrative History of Present Illness (Text): 10/25/18 16:33 58 m with hx extensive pmhx presents to the ED with chief complaint of persistent right posterior hip pain after fall from wheelchair height to the ground. Patient slipped and "slid" to the ground yesterday, states he heard/felt a bone snap. Patient states he was able to get back up into the bed. Patient states he called ambulance to come the hospital due to continue pain. Patient denies any other injury. Past Medical History - Infectious Disease Hx of Infectious Diseases: None - Cardiac Hx Cardiac Disorders: Yes (s/p CABG) - Pulmonary Hx Respiratory Disorders: No Other/Comment: active smoker - Neurological HX Cerebrovascular Accident: Yes - HEENT Hx HEENT Disorder: No - Renal Hx Renal Failure: Yes (ESRD s/p kidney and pacreas transplant) - Endocrine/Metabolic Hx Diabetes Mellitus Type 1: Yes - Hematological/Oncological Hx Anemia: Yes - Integumentary Hx Dermatological Disorder: No - Musculoskeletal/Rheumatological Hx Musculoskeletal Disorders: Yes Hx Arthritis: Yes - Gastrointestinal Hx Gastrointestinal Disorders: No - Genitourinary/Gynecological Hx Genitourinary Disorders: Yes Other/Comment: difficulty voiding at times--- uses urinary catheters prn at home - Psychiatric Hx Psychophysiologic Disorder: No Hx Substance Use: No - Surgical History Hx Cardiac Catheterization: Yes (X6) Hx Coronary Stent: Yes Hx Gastric Bypass Surgery: Yes (2005) Hx Open Heart Surgery: Yes (2005) Other/Comment: LEFT BKA 2013 - Anesthesia Hx Anesthesia: Yes Hx Anesthesia Reactions: No Hx Malignant Hyperthermia: No - Suicidal Assessment Feels Threatened In Home Enviroment: No Family/Social History Family/Social History: Unknown Family HX Smoking Status: Current Some Days Smoker Hx Alcohol Use: No Hx Substance Use: No Allergies/Home Meds Allergies/Adverse Reactions: Allergies vancomycin Allergy (Verified 10/25/18 18:33) ANAPHYLAXIS Home Medications: Home Meds Medication Instructions Recorded Confirmed Mycophenolate Mofetil [Cellcept] 2 tab PO BID 08/04/18 10/25/18 Tacrolimus [Prograf Cap] 5 mg PO BID 08/06/18 10/25/18 Review of Systems - Physician Review All systems were reviewed & negative as marked: Yes Physical Exam - Physical Exam Narrative Physical Exam (Text): 10/25/18 16:35 Gen: VS reviewed, alert, well developed, well nourished, nontoxic, mild distress Eye: EOMI, PERRL Mouth: no abnormal oral lesion, dry mucous membranes Neck: no JVD, supple, no adenopathy CV: regular rate, regular rhythm, no rubs,no murmur, S1, S2 Pulm: no distress, clear to auscultation, no wheeze, no rhonchi, breath sounds equal, no rales Abd: soft Ext: no edema, left bka, right foot amputation Skin: pale color, no rash, no cyanosis Psych: responds appropriately to questions, normal affect Neuro: oriented x3, CN2-12 intact grossly, motor intact, sensation intact Vital Signs Temp Pulse Resp BP Pulse Ox 10/25/18 15:40 98.1 F 82 18 121/61 97 Medical Decision Making ED Course and Treatment: 10/25/18 16:37 patient presents with mechanical fall and right hip pain. susppected hip fracture, if xrays negative will follow up with CT imaging. 10/25/18 19:[address] garcia - RAD Interpretation Radiology Orders: 10/25/18 16:01 CXR [CHEST ONE VIEW] [RAD] Stat 10/25/18 16:02 HUMERUS RIGHT [RAD] Stat Hip right [HIP MIN 4V W/ PELVIS RT] [RAD] Stat - Medication Orders Current Medication Orders: Discontinued Medications Morphine Sulfate (Morphine) 4 mg IVP STAT STA Stop: 10/25/18 16:03 Last Admin: 10/25/18 16:18 Dose: 4 mg MAR Pain Assessment Document 10/25/18 16:18 BB (Rec: 10/25/18 16:20 BB [id number] Pain Reassessment Is this a pain reassessment? No Sleep Is patient sleeping during reassessment? No Presence of Pain Presence of Pain Yes Pain Scale Used Protocol: PSCALES Pain Scale Used Numeric Location Left, Right or Bilateral Right Pain Location Body Site Hip Description Description Throbbing Intensity of Pain at present 9 Pain Behavior Moaning Grasping Site Rubbing Site Restlessness IVP Administration Document 10/25/18 16:18 BB (Rec: 10/25/18 16:20 BB [id number] Charges for Administration # of IVP Administrations 1 Disposition/Present on Arrival - Present on Arrival Any Indicators Present on Arrival: No History of DVT/PE: No History of Uncontrolled Diabetes: Yes Urinary Catheter: Yes History of Decub. Ulcer: No History Surgical Site Infection Following: None - Disposition Have Diagnosis and Disposition been Completed?: Yes Diagnosis: Contusion, hip Disposition: HOME/ ROUTINE Disposition Time: 19:00 Condition: STABLE Discharge Instructions (ExitCare): Hip Pointer (DC) Additional Instructions: TESFAYE HOLT, thank you for letting us take care of you today. Your provider was Haley Garcia MD and you were treated for FALL. The emergency medical care you received today was directed at your acute symptoms. If you were prescribed any medication, please fill it and take as directed. It may take several days for your symptoms to resolve. Return to the Emergency Department if your symptoms worsen, do not improve, or if you have any other problems. Please contact your doctor or call one of the physicians/clinics you have been referred to that are listed on the Patient Visit Information form that is included in your discharge packet. Bring any paperwork you were given at discharge with you along with any medications you are taking to your follow up visit. Our treatment cannot replace ongoing medical care by a primary care provider outside of the emergency department. Thank you for allowing the [facility] team to be part of your care today. If you had an X-Ray or CT scan: A Radiologist will review the ED reading if any change in treatment is needed we will contact you. If you had a blood, urine, or wound culture: It will take several days for the results, if any change in treatment is needed we will contact you. If you had an STI test: It will take 48 hours for the results. Please call after 1 week if you have not heard back. Forms: [employer] (Bermudian)
[2018-10-25 16:39] LABS: ALB/GLOB RATIO 0.9 (1.1-1.8); ALBUMIN 3.2 g/dL (3.0-4.8); ALT/SGPT 13 U/L (7-56); AST/SGOT 22 U/L (17-59); BLOOD UREA NITROGEN 23 mg/dL (7-21); CALCIUM 9.6 mg/dL (8.4-10.5); GFR NON-AFRICAN AMERICAN > 60
--- NOTE | 2018-10-25 17:47 | RAD ---
HISTORY: aspiration COMPARISON: Chest x-ray performed 02/08/18 TECHNIQUE: Chest, one view. FINDINGS: LUNGS: Right hilar prominence. Central vascular/mild pulmonary congestion. No focal consolidation. Please note that chest x-ray has limited sensitivity for the detection of pulmonary masses. PLEURA: No significant pleural effusion identified. No definite pneumothorax . CARDIOVASCULAR: Median sternotomy wires. Left-sided single lead AICD. Cardiomegaly. Dense atherosclerotic calcifications of the aorta. OSSEOUS STRUCTURES: Osseous demineralization. Degenerative changes. 7 mm sclerotic focus within the proximal right humerus, possibly bone island. VISUALIZED UPPER ABDOMEN: Unremarkable. OTHER FINDINGS: None. IMPRESSION: Right hilar prominence. Central vascular/mild pulmonary congestion. Cardiomegaly. Left-sided single lead AICD. Additional findings as above.
--- NOTE | 2018-10-25 17:56 | RAD ---
Indication: fall, pain Right hip with pelvis radiographs, three views Comparison: None available Findings: Diffuse osseous demineralization limits evaluate for for acute fracture lines. Degenerative changes including joint space narrowing. No acute displaced fracture or dislocation identified. Dense vascular calcifications. Evidence of radiopaque foreign body projecting over the pelvis presumed external to patient; correlate clinically. Impression: Diffuse osseous demineralization limits evaluation for acute fracture lines. Degenerative changes as above. No acute displaced fracture identified. Examination markedly limited due to patient condition. If high clinical index of suspicion, suggest cross-sectional imaging for further evaluation. Otherwise, if symptoms persist or if there is continued clinical concern, x-ray follow-up in 7-10 days should be considered. Evidence of radiopaque foreign body projecting over the pelvis presumed external to patient; correlate clinically.
--- NOTE | 2018-10-25 19:21 | ED PDOC ---
Physical Exam Vital Signs Temp Pulse Resp BP Pulse Ox 10/25/18 18:32 80 18 115/59 L 97 10/25/18 15:40 98.1 F 82 18 121/61 97 Medical Decision Making ED Course and Treatment: 10/25/18 19:20 Case was endorsed to me by Dr. Leon, pending imaging. CT pelvis and R hip completed. patient refused humerus xray. 10/25/2018 21:[address] IMPRESSION: 1. Limited study due quantum mottle artifacts. 2. There is diffuse haziness adjacent to the rectum all in etiology, and may represent proctitis. Consider follow-up with CT abdomen and pelvis with IV and oral contrast. 3. A Brown catheter is seen within the bladder. Some air in the bladder is noted likely to have been introduced during catheterization. Thickening of the bladder melendez may indicate chronic cystitis. Dictator: Jameel Richard MD 10/25/2018 21:[address] IMPRESSION: No acute osseous abnormality. Moderate-advanced arthritic narrowing of the right hip joint. Extensive atherosclerotic vascular plaquing is present. Dictator: Jameel Richard MD Patient re-evaluated, in no acute distress. Results discussed. Stable for discharge home. 10/26/18 03:58 - Lab Interpretations Lab Results: Total Bilirubin 0.6 mg/dL (0.2-1.3) 10/25/18 15:55 AST 22 U/L (17-59) 10/25/18 15:55 ALT 13 U/L (7-56) 10/25/18 15:55 Alkaline Phosphatase 112 U/L (38-126) 10/25/18 15:55 Total Protein 6.6 g/dL (5.8-8.3) 10/25/18 15:55 Albumin 3.2 g/dL (3.0-4.8) 10/25/18 15:55 Globulin 3.4 gm/dL 10/25/18 15:55 Albumin/Globulin Ratio 0.9 (1.1-1.8) L 10/25/18 15:55 - RAD Interpretation Radiology Orders: 10/25/18 16:01 CXR [CHEST ONE VIEW] [RAD] Stat 10/25/18 16:02 HIP MIN 2V W/ PELVIS RT [RAD] Stat HUMERUS RIGHT [RAD] Stat 10/25/18 18:51 PELVIS W/O PO OR IV CONTRAST [CT] Stat 10/25/18 18:52 EXT LOWER W/O CONTRAST RIGHT [CT] Stat - Medication Orders Current Medication Orders: Discontinued Medications Morphine Sulfate (Morphine) 4 mg IVP STAT STA Stop: 10/25/18 16:03 Last Admin: 10/25/18 16:18 Dose: 4 mg MAR Pain Assessment Document 10/25/18 16:18 BB (Rec: 10/25/18 16:20 BB [facility] [id number] Pain Reassessment Is this a pain reassessment? No Sleep Is patient sleeping during reassessment? No Presence of Pain Presence of Pain Yes Pain Scale Used Protocol: PSCALES Pain Scale Used Numeric Location Left, Right or Bilateral Right Pain Location Body Site Hip Description Description Throbbing Intensity of Pain at present 9 Pain Behavior Moaning Grasping Site Rubbing Site Restlessness IVP Administration Document 10/25/18 16:18 BB (Rec: 10/25/18 16:20 BB [facility] [id number] Charges for Administration # of IVP Administrations 1 - Scribe Statement The provider has reviewed the documentation as recorded by the Shani Foote All medical record entries made by the Scribe were at my direction and personally dictated by me. I have reviewed the chart and agree that the record accurately reflects my personal performance of the history, physical exam, medical decision making, and the department course for this patient. I have also personally directed, reviewed, and agree with the discharge instructions and disposition. Disposition/Present on Arrival - Present on Arrival Any Indicators Present on Arrival: Yes History of DVT/PE: No History of Uncontrolled Diabetes: Yes Urinary Catheter: Yes History of Decub. Ulcer: No History Surgical Site Infection Following: None - Disposition Have Diagnosis and Disposition been Completed?: Yes Diagnosis: Contusion, hip Disposition: HOME/ ROUTINE Disposition Time: 23:00 Condition: STABLE Discharge Instructions (ExitCare): Hip Pointer (DC) Additional Instructions: TESFAYE HOLT, thank you for letting us take care of you today. Your provider was Haley Garcia MD and you were treated for FALL. The emergency medical care you received today was directed at your acute symptoms. If you were prescribed any medication, please fill it and take as directed. It may take several days for your symptoms to resolve. Return to the Emergency Department if your symptoms worsen, do not improve, or if you have any other problems. Please contact your doctor or call one of the physicians/clinics you have been referred to that are listed on the Patient Visit Information form that is included in your discharge packet. Bring any paperwork you were given at discharge with you along with any medications you are taking to your follow up visit. Our treatment cannot replace ongoing medical care by a primary care provider outside of the emergency department. Thank you for allowing the [facility] team to be part of your care today. If you had an X-Ray or CT scan: A Radiologist will review the ED reading if any change in treatment is needed we will contact you. If you had a blood, urine, or wound culture: It will take several days for the results, if any change in treatment is needed we will contact you. If you had an STI test: It will take 48 hours for the results. Please call after 1 week if you have not heard back. Forms: [employer] (Faroese)
[2018-10-26 01:27] VITALS: BP 106/50; PULSE 80; O2SAT 97
--- NOTE | 2018-10-26 10:37 | CARD ---
APPROVED REPORT Date of service: 10/25/2018 EKG Measurement Heart [id number] <Conclusion> Normal sinus rhythm Nonspecific intraventricular block Cannot rule out Septal infarct, age undetermined Abnormal ECG
--- NOTE | 2018-10-26 12:40 | CT ---
Date of service: 10/25/2018 PROCEDURE: CT Pelvis without contrast HISTORY: fall, pain,?fracture COMPARISON: October 25, 2018. Plain film radiographs right hip October 25, 2018. CT right lower extremity TECHNIQUE: Contiguous axial images of the pelvis . No intravenous or oral contrast given. Coronal and sagittal reformats generated. Radiation dose: Total exam DLP = 201.72 mGy-cm. This CT exam was performed using one or more of the following dose reduction techniques: Automated exposure control, adjustment of the mA and/or kV according to patient size, and/or use of iterative reconstruction technique. FINDINGS: BLADDER: Brown catheter noted in the urinary bladder which is moderately filled and contains air-fluid level. REPRODUCTIVE ORGANS: Unremarkable. VISUALIZED BOWEL: Unremarkable. PERITONEUM: Unremarkable, as visualized. No free fluid. No free air. LYMPH NODES: Unremarkable. No enlarged lymph nodes. BONES: No fracture or focal lesion. Severe degenerative changes, osteopenia. VASCULATURE: Diffuse atherosclerotic calcified plaque throughout all visualized arterial structures. OTHER FINDINGS: None. IMPRESSION: No acute findings related to/ accounting for the clinical presentation. Additional benign and/or incidental findings described above. Concordant findings (preliminary report) provided by [facility].
--- NOTE | 2018-10-26 12:44 | CT ---
Date of service: 10/25/2018 PROCEDURE: CT right lower extremity. HISTORY: fall, injury COMPARISON: October 25, 2018. TECHNIQUE: 2.5 mm axial acquisition and display. Coronal and sagittal reconstructions. Dose report (mGy-cm): 230.47 FINDINGS: Advanced osteoarthritic changes right hip. No evidence of fracture or dislocation. Diffuse vascular calcifications. IMPRESSION: No acute findings related to/ accounting for the clinical presentation. Additional benign and/or incidental findings described above. Concordant findings (preliminary report) provided by [facility].
== END 2018-10-26 01:27 | disposition home or self-care (01) ==
LOC: ED 15:40
DX: S70.00XA Contusion of unspecified hip, initial encounter (principal); W05.0XXA Fall from non-moving wheelchair, initial encounter; E10.22 Type 1 diabetes mellitus with diabetic chronic kidney disease; N18.6 End stage renal disease; Z86.73 Personal history of transient ischemic attack (TIA), and cerebral infarction without residual deficits; Z95.1 Presence of aortocoronary bypass graft; Z95.5 Presence of coronary angioplasty implant and graft; Z94.0 Kidney transplant status; Z94.83 Pancreas transplant status; Z89.512 Acquired absence of left leg below knee; Z99.3 Dependence on wheelchair; Z98.84 Bariatric surgery status; F17.210 Nicotine dependence, cigarettes, uncomplicated
CPT/HCPCS: 71045; 72192; 73502; 73700; 80053; 82550; 82948; 85025; 86850; 86900; 93005; 96374; 99285; J2270

== ENCOUNTER 2018-10-29 08:27 | Inpatient (IN) | payer OTHER, MEDICARE ==
--- NOTE | 2018-10-29 09:13 | ED PDOC ---
Arrival/HPI <Ricky Leon - Last Filed: 10/29/18 14:38> - General Historian: Patient - History of Present Illness Narrative History of Present Illness (Text): 10/29/18 09:16 Pt is a 58 yo male with a PMH of DM, CVA, CAD, ESRD s/p kidney and pancreas transplant, CHF who presented to the ED complaining of leg pain which started when he was trying to pull himself into bed. Pt states he heard a loud snap and has been experiencing pain every since. Pt also reports multiple social issues involving interactions with his family. Time/Duration: < week Symptom Onset: Sudden Symptom Course: Unchanged Quality: Unable to Describe Severity Level: 7 <Julien Manzano - Last Filed: 10/29/18 14:42> - General Chief Complaint: Weakness/Neurological Deficit Past Medical History - Provider Review Nursing Documentation Reviewed: Yes - Infectious Disease Hx of Infectious Diseases: None - Cardiac Hx Cardiac Disorders: Yes (s/p CABG) - Pulmonary Hx Respiratory Disorders: No Other/Comment: active smoker - Neurological HX Cerebrovascular Accident: Yes - HEENT Hx HEENT Disorder: No - Renal Hx Renal Failure: Yes (ESRD s/p kidney and pacreas transplant) - Endocrine/Metabolic Hx Diabetes Mellitus Type 1: Yes - Hematological/Oncological Hx Anemia: Yes - Integumentary Hx Dermatological Disorder: No - Musculoskeletal/Rheumatological Hx Musculoskeletal Disorders: Yes Hx Arthritis: Yes - Gastrointestinal Hx Gastrointestinal Disorders: No - Genitourinary/Gynecological Hx Genitourinary Disorders: Yes Other/Comment: difficulty voiding at times--- uses urinary catheters prn at home - Psychiatric Hx Psychophysiologic Disorder: No Hx Substance Use: No - Surgical History Hx Cardiac Catheterization: Yes (X6) Hx Coronary Stent: Yes Hx Gastric Bypass Surgery: Yes (2005) Hx Open Heart Surgery: Yes (2005) Other/Comment: LEFT BKA 2013 - Anesthesia Hx Anesthesia: Yes Hx Anesthesia Reactions: No Hx Malignant Hyperthermia: No - Suicidal Assessment Feels Threatened In Home Enviroment: No <Julien Manzano - Last Filed: 10/29/18 14:42> Family/Social History Family/Social History: No Known Family HX Smoking Status: Current Some Days Smoker Hx Alcohol Use: No Hx Substance Use: No <Julien Manzano - Last Filed: 10/29/18 14:42> Allergies/Home Meds <Ricky Leon - Last Filed: 10/29/18 14:38> <Julien Manzano - Last Filed: 10/29/18 14:42> Allergies/Adverse Reactions: Allergies vancomycin Allergy (Verified 10/25/18 18:33) ANAPHYLAXIS Home Medications: Home Meds Medication Instructions Recorded Confirmed Mycophenolate Mofetil [Cellcept] 2 tab PO BID 08/04/18 10/29/18 Tacrolimus [Prograf Cap] 5 mg PO BID 08/06/18 10/29/18 Review of Systems - Review of Systems Constitutional: Normal Eyes: Normal ENT: Normal Respiratory: Normal Cardiovascular: Normal Gastrointestinal: Normal Genitourinary Male: Normal Musculoskeletal: Other (LLE pain) Skin: Normal Neurological: Other (residual left sided weakness) Endocrine: Normal Hemo/Lymphatic: Normal Psychiatric: Normal <Julien Manzano - Last Filed: 10/29/18 14:42> Physical Exam Vital Signs Reviewed: Yes Temperature: Afebrile Blood Pressure: Normal Pulse: Regular Respiratory Rate: Normal Appearance: Positive for: Comfortable Mental Status: Positive for: Alert and Oriented X 3 - Systems Exam Head: Present: Atraumatic, Normocephalic Pupils: Present: PERRL Extroacular Muscles: Present: EOMI Mouth: Present: Moist Mucous Membranes Respiratory/Chest: Present: Clear to Auscultation. No: Good Air Exchange, Respiratory Distress, Accessory Muscle Use Cardiovascular: Present: Regular Rate and Rhythm, Normal S1, S2 Abdomen: Present: Normal Bowel Sounds. No: Tenderness, Distention Upper Extremity: Present: Normal Inspection Lower Extremity: Present: Tenderness, Other (right BKA). No: Swelling Neurological: Present: GCS=15, CN II-XII Intact, Speech Normal Skin: Present: Warm, Dry, Normal Color. No: Rashes Psychiatric: Present: Alert, Oriented x 3 <Julien Manzano - Last Filed: 10/29/18 14:42> Medical Decision Making ED Course and Treatment: 10/29/18 10:32 Patient Seen with Resident: In agreement with resident note which contains more details about the patient. Patient seen and evaluated with resident. Came up with plan and treatment together. - RAD Interpretation Radiology Orders: 10/29/18 09:25 Femur Right [FEMUR MIN 2 VIEWS RT] [RAD] Stat - Medication Orders Current Medication Orders: Discontinued Medications Morphine Sulfate (Morphine) 2 mg IVP STAT STA Stop: 10/29/18 09:28 <Ricky Leon - Last Filed: 10/29/18 14:38> ED Course and Treatment: 10/29/18 09:37 xray of femur 2mg morphine IV for pain control 10/29/18 09:43 EKG shows possible lateral ischemia, RRR, no axis deviation Troponin negative Ordered C. dif pt admitted to the hospitalist service Pt seen, examined, assessment and plan discussed with Dr Edward Manzano PGY1 <Julien Manzano - Last Filed: 10/29/18 14:42> Disposition/Present on Arrival <Ricky Leon - Last Filed: 10/29/18 14:38> - Present on Arrival Any Indicators Present on Arrival: Yes History of DVT/PE: No History of Uncontrolled Diabetes: Yes Urinary Catheter: Yes History of Decub. Ulcer: No History Surgical Site Infection Following: None - Disposition Have Diagnosis and Disposition been Completed?: Yes Disposition Time: 09:00 <Julien Manzano - Last Filed: 10/29/18 14:42> - Disposition Diagnosis: Failure to thrive Disposition: HOSPITALIZED Patient Problems: Current Active Problems Problem Status Onset Failure to thrive Acute Condition: FAIR Forms: [employer]gr[employer] (Croatian)
[2018-10-29] MEDS ORDERED: Morphine 2 mg/ml ISec IVP STA ×3 (09:27→17:01)
[2018-10-29 12:02] LABS: HEMOGLOBIN 8.2 g/dL (14.0-18.0); MEAN CORPUSCULAR HEMOGLOBIN 22.6 pg (25.0-35.0); RBC 3.63 10^6/uL (3.5-6.1); RED CELL DISTRIBUTION WIDTH 16.3 % (11.5-14.5); WHITE BLOOD COUNT 7.8 10^3/uL (4.5-11.0)
[2018-10-29 12:04] LABS: ALB/GLOB RATIO 0.9 (1.1-1.8); ALBUMIN 3.1 g/dL (3.0-4.8); ALT/SGPT 13 U/L (7-56); AST/SGOT 21 U/L (17-59); BLOOD UREA NITROGEN 35 mg/dL (7-21); CALCIUM 9.4 mg/dL (8.4-10.5); GFR NON-AFRICAN AMERICAN > 60
[2018-10-29 12:08] LABS: TROPONIN I 0.05 ng/mL
[2018-10-29] MEDS ORDERED: Morphine 2 mg/ml ISec IVP PRN (15:35)
--- NOTE | 2018-10-29 15:35 | CP.PCM.HP ---
<Candace Cano - Last Filed: 10/29/18 16:00> History of Present Illness - History of Present Illness History of Present Illness: Candace Cano DO, PGY-2: HPI for Dr. Emily Reis 58 year old male with a past medical history of CAD, CABG, left BKA, kidney and pancreas transplant, wheel-chair bound who presents with right leg pain s/p fall a few days ago onto a hard wood floor. He complains of pain from the the right hip to the right knee. The pain is unrelenting and persistent. He denies any fever, chills, nausea, vomiting, or diarrhea. Per ED team, he passed a BM that smelled of C. Difficile. Physical exam and radiographs confirm distal femur fracture. Patient reports at home he could no longer take care of himself since this fall. Otherwise, a complete 12 point ROS is negative except as mentioned above. PMH: As above PSH: LEFT BKA and right transmetatarsal resection; CABG (2005), kidney and pancreas transplant (2006), BKA (2013), gastric bypass Allergies: Vancomycin Social: former smoker, denies alcohol or illicit drug use, wheelchair bound PMD: None Present on Admission - Present on Admission Any Indicators Present on Admission: Yes Urinary Catheter: Yes Review of Systems - Review of Systems All systems: reviewed and no additional remarkable complaints except (as per HPI) Past Patient History - Infectious Disease Hx of Infectious Diseases: None - Past Social History Smoking Status: Current Some Days Smoker - CARDIAC Hx Cardiac Disorders: Yes (s/p CABG) - PULMONARY Hx Respiratory Disorders: No Other/Comment: active smoker - NEUROLOGICAL HX Cerebrovascular Accident: Yes - HEENT Hx HEENT Problems: No - RENAL Hx Renal Failure: Yes (ESRD s/p kidney and pacreas transplant) - ENDOCRINE/METABOLIC Hx Diabetes Mellitus Type 1: Yes - HEMATOLOGICAL/ONCOLOGICAL Hx Anemia: Yes - INTEGUMENTARY Hx Dermatological Problems: No - MUSCULOSKELETAL/RHEUMATOLOGICAL Hx Musculoskeletal Disorders: Yes Hx Arthritis: Yes - GASTROINTESTINAL Hx Gastrointestinal Disorders: No - GENITOURINARY/GYNECOLOGICAL Hx Genitourinary Disorders: Yes Other/Comment: difficulty voiding at times--- uses urinary catheters prn at home - PSYCHIATRIC Hx Psychophysiologic Disorder: No Hx Substance Use: No - SURGICAL HISTORY Hx Cardiac Catheterization: Yes (X6) Hx Coronary Stent: Yes Hx Gastric Bypass Surgery: Yes (2005) Hx Open Heart Surgery: Yes (2005) Other/Comment: LEFT BKA 2014 - ANESTHESIA Hx Anesthesia: Yes Hx Anesthesia Reactions: No Hx Malignant Hyperthermia: No Meds Allergies/Adverse Reactions: Allergies Allergy/AdvReac Type Severity Reaction Status Date / Time vancomycin Allergy ANAPHYLAXIS Verified 10/25/18 18:33 Physical Exam - Constitutional Appears: In Acute Distress, Unkempt, Chronically Ill - Head Exam Head Exam: ATRAUMATIC, NORMOCEPHALIC - Eye Exam Eye Exam: EOMI, Normal appearance - ENT Exam ENT Exam: Mucous Membranes Moist - Neck Exam Neck exam: Positive for: Normal Inspection - Respiratory Exam Respiratory Exam: Clear to Auscultation Bilateral, NORMAL BREATHING PATTERN. absent: Accessory Muscle Use - Cardiovascular Exam Cardiovascular Exam: RRR, +S1, +S2 - GI/Abdominal Exam GI & Abdominal Exam: Normal Bowel Sounds, Soft - Extremities Exam Additional comments: right femur bone protruding out of skin, not open fracture; left BKA, right transmetatarsal resection - Neurological Exam Neurological exam: Alert, CN II-XII Intact, Oriented x3 - Psychiatric Exam Psychiatric exam: Normal Affect, Normal Mood - Skin Skin Exam: Dry, Intact, Normal Color, Warm Results - Vital Signs Recent Vital Signs: Last Vital Signs Temp 98.7 F 10/29/18 10:32 Pulse 77 10/29/18 15:08 Resp 16 10/29/18 15:08 BP 127/73 10/29/18 15:08 Pulse Ox 12 L 10/29/18 15:08 - Labs Result Diagrams: 10/29/18 11:15 10/29/18 11:15 Labs: Laboratory Results - last 24 hr 10/29/18 10/29/18 11:15 11:15 WBC 7.8 RBC 3.63 Hgb 8.2 L Hct 28.3 L MCV 78.0 L MCH 22.6 L MCHC 29.0 L RDW 16.3 H Plt Count 370 MPV 9.0 Sodium 140 Potassium 4.5 Chloride 110 H Carbon Dioxide 20 L Anion Gap 14 BUN 35 H Creatinine 1.0 Est GFR ( Amer) > 60 Est GFR (Non-Af Amer) > 60 Random Glucose 85 Calcium 9.4 Total Bilirubin 0.6 AST 21 ALT 13 Alkaline Phosphatase 82 Troponin I 0.05 D Total Protein 6.6 Albumin 3.1 Globulin 3.5 Albumin/Globulin Ratio 0.9 L Assessment & Plan - Assessment and Plan (Free Text) Assessment: 58 year old male with a past medical history of CHf with EF 22%, left BKA, right metatarsal resection, renal and pancreas transplant on cellcept and prograf who presents with a few days of right leg pain s/p fall and was found to have a distal femur fracture. Plan: 1) Distal femur fracture - Acute oblique displaced fracture in the distal diaphysis femur with 1 shaft with lateral displacement, overlapping of fracture fragments and medial angul ation. - [facility] orthopedic consulted - Morphine 1 mg q4h PRN for severe pain (hold for SBP of 100 mmHg) - Cardiology clearance, Dr. Romo - 1 L of NS at rate of 40 mls/h, one bag only at this time - ED ordered for CT with contrast of right lower extremity - Type and screen ordered, consent needed - CPK ordered 2) CHF with EF of 22% - Cardiology consulted, Dr. Romo - patient reports not taking any medications for it - Aspirin 81 mg (once surgery has taken place or at the discretion of the derrick boat captain) - Strict Input and Output - Chest X ray performed, interpretation pending 3) Urinary retention - Barriga care - Monitor strict I/O 4) Anemia, microcytic - Monitor CBCs daily and transfuse for Hgb less than 8 - Type and screen ordered, consent needed 5) Renal transplant - Continue Cellcept and Prograf 6) DVT/GI - Protonix 40 mg PO daily - NO DVT prophylaxis per Ortho (at this time) Case was reviewed and discussed with attending physician, Dr. Emily Reis <Emily Reis R - Last Filed: 10/29/18 17:19> Results - Vital Signs Recent Vital Signs: Last Vital Signs Temp 98 F 10/29/18 15:44 Pulse 69 10/29/18 16:57 Resp 18 10/29/18 16:57 BP 100/51 L 10/29/18 16:57 Pulse Ox 97 10/29/18 16:57 - Labs Result Diagrams: 10/29/18 11:15 10/29/18 11:15 Labs: Laboratory Results - last 24 hr 10/29/18 10/29/18 10/29/18 11:15 11:15 11:42 WBC 7.8 RBC 3.63 Hgb 8.2 L Hct 28.3 L MCV 78.0 L MCH 22.6 L MCHC 29.0 L RDW 16.3 H Plt Count 370 MPV 9.0 Sodium 140 Potassium 4.5 Chloride 110 H Carbon Dioxide 20 L Anion Gap 14 BUN 35 H Creatinine 1.0 Est GFR ( Amer) > 60 Est GFR (Non-Af Amer) > 60 Random Glucose 85 Calcium 9.4 Total Bilirubin 0.6 AST 21 ALT 13 Alkaline Phosphatase 82 Total Creatine Kinase 314 H CK-MB (CK-2) 6.7 H CK-MB (CK-2) % 2.1 L Troponin I 0.05 D Total Protein 6.6 Albumin 3.1 Globulin 3.5 Albumin/Globulin Ratio 0.9 L Blood Type Antibody Screen Crossmatch BBK History Checked 10/29/18 16:10 WBC RBC Hgb Hct MCV MCH MCHC RDW Plt Count MPV Sodium Potassium Chloride Carbon Dioxide Anion Gap BUN Creatinine Est GFR ( Amer) Est GFR (Non-Af Amer) Random Glucose Calcium Total Bilirubin AST ALT Alkaline Phosphatase Total Creatine Kinase CK-MB (CK-2) CK-MB (CK-2) % Troponin I Total Protein Albumin Globulin Albumin/Globulin Ratio Blood Type O POSITIVE Antibody Screen Negative Crossmatch See Detail BBK History Checked Patient has bt Attending/Attestation - Attestation I have personally seen and examined this patient.: Yes I have fully participated in the care of the patient.: Yes I have reviewed all pertinent clinical information: Yes Notes (Text): Patient seen and examined by me with resident at approximately 10:20AM on 10/29/18. Case including HPI, physical exam, and assessment and plan discussed with resident. Agree with above with following additions/corrections. Patient is a 58-year-old male with past medical history significant for type 1 diabetes, CVA, coronary artery disease status post CABG, end-stage renal disease status post renal transplant, pancreas transplant, CHF, bedridden, and peripheral vascular disease status post left BKA that presented to the emergency room with right leg pain. Patient states that "slid" off of his bed on 10/25/18. He states when he tried to get back in bed he head a "snap" in his right leg. He came to the emergency room, had imaging, and was discharged home. Patient states he has had continued pain, worse with movement, from right hip to his right knee. Pain is sharp and throbbing in nature. Patient states that he did not take any medications at home. States he has pain medications but his would not give them to him. Patient states that he only takes CellCept and Prograf at home. Denies taking Lasix or aspirin. Patient states he has also been having diarrhea for approximately one week. Per emergency room staff, stool was very foul-smelling and sample was sent for c-diff. Patient denies chest pain or shortness of breath. No fevers or chills. No headaches or dizziness. Patient is chronic Barriga catheter which was changed in the emergency room. No nausea, vomiting, or abdominal pain. 12 point review of systems reviewed by me. Please see above HPI. All other systems negative Home medications: CellCept and Prograf Family history: Reviewed and noncontributory Physical exam: General: Awake and alert lying in bed in no acute distress. Cachectic appearing. HEENT: Normocephalic, atraumatic. Extraocular muscles intact. Pupils equal and reactive, no scleral icterus. Oropharynx is pink and moist. No pharyngeal erythema or exudate appreciated. Neck is supple. Cardiovascular: Normal rhythm. Normal S1 and S2. No murmurs, rubs, or gallops appreciated Pulmonary: Normal respiratory effort. No rhonchi, rales, or wheezing appreciated. Gastrointestinal: Soft, nondistended. Nontender. Positive bowel sounds all 4 quadrants. No guarding. Musculoskeletal: Status post left BKA. Edema noted in right knee. Positive crepitus and pain noted at right knee and above with slight movement of right lower extremity. Positive deformity noted right femur area. Central nervous system: AAO x3. Dermatologic: Skin warm and dry. Assessment and plan: Patient is a 58-year-old male with past medical history significant for type 1 diabetes, CVA, coronary artery disease status post CABG, end-stage renal disease status post renal transplant, pancreas transplant, CHF, bedridden, and peripheral vascular disease status post left BKA that presented to the emergency room with right leg pain 1. Right distal diaphysis femur fracture. Right femur x-ray per radiologist shows acute oblique displaced fracture in the distal diaphysis femur with 1 shaft with lateral displacement, overlapping of fracture fragments and medial angulation. Ortho consulted, no anticoagulation/Pharmacologic DVT prophylaxis per Dr. Uribe for possible OR. Placed on Morphine for pain. Will need cardiac clearance. CT of lower extremity pending. 2. CAD s/p CABG. Chronic systolic CHF. No acute issues. Per patient, he does not take any medications at home for this. No ASA given for possible OR. Cardiology consulted for cardiac clearance. 2D echo ordered. 3. Diarrhea. Follow up C-diff. No leukocytosis. Patient is afebrile. 4. S/P renal and pancreatic transplant. Patient states he can only take brand named CellCept and Prograf. Not available in pharmacy here. Patient advised to have someone bring his home medications to hospital. 5. History of PVD and left BKA. Per patient, he is not taking any medications. 6. Type 1 diabetes. Per patient, he is not taking any medications at home. Placed on insulin sliding scale here. Monitor Accu-Cheks. 7. Chronic anemia. H&H appears to be at baseline. Continue to monitor for now. 8. Urinary retention. Patient with chronic barriga. Changed in the ED. 9. DVT prophylaxis. SCDs. Case was discussed in detail with the patient regarding current diagnosis, study results, and treatment plan. All questions answered
[2018-10-29] MEDS ORDERED: Sodium Chloride 0.9% 1,000 ML IV SCH (15:45)
[2018-10-29] MEDS ORDERED: Iohexol 350 MG/100 ML VIAL ONE (15:52)
--- NOTE | 2018-10-29 15:53 | RAD ---
Date of service: 10/29/2018 PROCEDURE: Right Femur Radiographs. HISTORY: Right leg pain COMPARISON: None. TECHNIQUE: AP and Lateral Radiographs of the right femur. 4 views obtained. FINDINGS: FEMUR: There is an acute oblique displaced fracture in the distal diaphysis of remote with 1 shaft with lateral displacement, overlapping of fracture fragments and medial angulation. There is diffuse bone demineralization. Bone alignment is normal. SOFT TISSUES: Normal. OTHER FINDINGS: There are atherosclerotic vascular calcifications. IMPRESSION: Acute oblique displaced fracture in the distal diaphysis femur with 1 shaft with lateral displacement, overlapping of fracture fragments and medial angulation.
--- NOTE | 2018-10-29 16:03 | RAD ---
Date of service: 10/29/2018 HISTORY: CHF with EF of 22% COMPARISON: 10/25/2018 FINDINGS: LUNGS: The lungs are hyperinflated and there is peribronchial thickening with chronic changes in both lungs. There is mild pulmonary venous congestion. No focal consolidation. PLEURA: No pleural effusions or pneumothorax. CARDIOVASCULAR: Persistent mild cardiomegaly. Status post CABG. Coronary artery stent graft is identified. There is stable position of left-sided AICD. There are aortic atherosclerotic calcifications present. OSSEOUS STRUCTURES: Within normal limits for the patient's age. VISUALIZED UPPER ABDOMEN: Normal. OTHER FINDINGS: None. IMPRESSION: No active pulmonary disease. COPD. Mild cardiomegaly and pulmonary venous congestion
[2018-10-29 16:31] LABS: CK MB% 2.1 % (2.5-3.0); CK-MB 6.7 ng/mL (0.0-3.6)
[2018-10-29] MEDS ORDERED: Dextrose 50% SYRINGE Inj (50 ml) IV PRN (17:08)
[2018-10-29] MEDS ORDERED: Home Med 1 UNIT PO SCH ×2 (18:00)
[2018-10-29 18:02] VITALS: BMI 15.9
[2018-10-29] MEDS ORDERED: Iodixanol 320 MG/ML 100 ML BOTTLE IV ONE (20:55)
[2018-10-29] MEDS ORDERED: CELLCEPT 500 MG PO SCH (22:00)
[2018-10-29] MEDS: Insulin Regular 1 UNITS/0.01 ML ML SC SCH (22:57)
[2018-10-29] MEDS: metroNIDAZOLE IV 500 mg/100 ml 500 MG/100 ML BAG IVPB SCH (22:58)
[2018-10-29] MEDS: PROGRAF 1 MG PO SCH (23:21)
[2018-10-29] MEDS: CELLCEPT 500 MG PO SCH (23:27)
[2018-10-29] MEDS: Morphine 2 mg/ml ISec IVP PRN (23:48)
[2018-10-30] MEDS: Morphine 2 mg/ml ISec IVP PRN ×5 (03:28→21:09)
[2018-10-30] MEDS: Pantoprazole 40 mg EC Tab PO SCH (05:36)
--- NOTE | 2018-10-30 07:24 | CARD ---
APPROVED REPORT Date of service: 10/29/2018 EKG Measurement Heart [id number] <Conclusion> Normal sinus rhythm Right bundle branch block Possibe lateral infarct, age undetermined Abnormal ECG
[2018-10-30] MEDS: Insulin Regular 1 UNITS/0.01 ML ML SC SCH ×4 (07:30→23:03)
[2018-10-30 07:38] LABS: BASO # 0.01 K/mm3 (0.0-2.0); BASO % 0.2 % (0.0-3.0); EOS # 0.2 (0.0-0.7); EOS % 2.8 % (1.5-5.0); LYMPH # 0.7 (1.2-3.4); LYMPH % 10.4 % (22.0-35.0); MEAN CORPUSCULAR HEMOGLOBIN 22.7 pg (25.0-35.0); MEAN PLATELET VOLUME 8.3 fl (7.0-11.0); MONO # 0.5 (0.1-0.6); RBC 3.09 10^6/uL (3.5-6.1); RED CELL DISTRIBUTION WIDTH 16.5 % (11.5-14.5); WHITE BLOOD COUNT 6.4 10^3/uL (4.5-11.0)
[2018-10-30] MEDS: metroNIDAZOLE IV 500 mg/100 ml 500 MG/100 ML BAG IVPB SCH ×2 (07:40→15:32)
[2018-10-30 08:05] LABS: ALB/GLOB RATIO 0.9 (1.1-1.8); ALBUMIN 2.7 g/dL (3.0-4.8); ALT/SGPT 9 U/L (7-56); AST/SGOT 21 U/L (17-59); BLOOD UREA NITROGEN 29 mg/dL (7-21); GFR NON-AFRICAN AMERICAN > 60
[2018-10-30 09:31] LABS: INR 1.34; PARTIAL THROMBOPLASTIN TIME 34.3 Seconds (26.9-38.3); PROTHROMBIN TIME 15.1 SECONDS (9.4-12.5)
[2018-10-30] MEDS: PROGRAF 1 MG PO SCH ×2 (11:03→21:09)
[2018-10-30] MEDS: CELLCEPT 500 MG PO SCH ×2 (11:05→21:10)
[2018-10-30] MEDS ORDERED: Darbepoetin Alfa 60 mcg/ml Inj SC ONE (12:13)
--- NOTE | 2018-10-30 13:06 | CP.PCM.CON ---
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 Patient states that he initially fell a few days ago out of bed. He came to the emergency room however he was sent home as the x-rays did not show any fracture. Subsequently fell another time hearing a snap this time showing a R distal femur fracture. Patient also admits to having 2-3 episodes of diarrhea prior to coming to the ED. He denies any nausea, or vomiting. Infectious disease was consulted for C. difficile antigen positive. 12 point ROS performed and negative other than stated above PMH: As above PSH: LEFT BKA and R transmetatarsal resection; CABG (2005), kidney and pancreas transplant (2006), gastric bypass Allergies: Vanc Social: former smoker, denies alcohol or illicit drug use FH: denies Review of Systems - Review of Systems All systems: reviewed and no additional remarkable complaints except Past Patient History - Infectious Disease Hx of Infectious Diseases: None - Past Social History Smoking Status: Former Smoker - CARDIAC Hx Cardiac Disorders: Yes (s/p CABG) - PULMONARY Hx Respiratory Disorders: No Other/Comment: active smoker - NEUROLOGICAL HX Cerebrovascular Accident: Yes - HEENT Hx HEENT Problems: No - RENAL Hx Renal Failure: Yes (ESRD s/p kidney and pacreas transplant) - ENDOCRINE/METABOLIC Hx Diabetes Mellitus Type 1: Yes - HEMATOLOGICAL/ONCOLOGICAL Hx Blood Transfusions: Yes Hx Blood Transfusion Reaction: No - INTEGUMENTARY Hx Dermatological Problems: No - MUSCULOSKELETAL/RHEUMATOLOGICAL Hx Falls: No - GASTROINTESTINAL Hx Gastrointestinal Disorders: No - GENITOURINARY/GYNECOLOGICAL Hx Genitourinary Disorders: Yes Other/Comment: difficulty voiding at times--- uses urinary catheters prn at home - PSYCHIATRIC Hx Psychophysiologic Disorder: No - SURGICAL HISTORY Hx Surgeries: Yes - ANESTHESIA Hx Anesthesia Reactions: No Hx Malignant Hyperthermia: No Meds Allergies/Adverse Reactions: Allergies Allergy/AdvReac Type Severity Reaction Status Date / Time vancomycin Allergy ANAPHYLAXIS Verified 10/25/18 18:33 - Medications Medications: Current Medications Calcium/Vitamin D (Oscal-D 250 Mg-125 Units Tab) 2 tab PO BID XAVIER Dextrose (Dextrose 50% Inj) 0 ml IV STAT PRN; Protocol PRN Reason: Hypoglycemia Protocol Ferrous Gluconate (Fergon) 324 mg PO TID [facility] Home Med (Home Med) 2 unit PO Q12 [facility] Last Admin: 10/30/18 11:03 Dose: 2 unit Home Med (Home Med) 2 unit PO Q12 [facility] Last Admin: 10/30/18 11:05 Dose: 2 unit Sodium Chloride (Sodium Chloride 0.9%) 1,000 mls @ 40 mls/hr IV .Q24H [facility] Stop: 10/30/18 15:44 Last Admin: 10/29/18 16:33 Dose: 40 mls/hr Dextrose (Dextrose 5% In Water 1000 Ml) 1,000 mls @ 0 mls/hr IV .Q0M PRN; P rotocol PRN Reason: Hypoglycemia Protocol Metronidazole (Flagyl) 500 mg in 100 mls @ 100 mls/hr IVPB Q8 [facility]; Protocol Last Admin: 10/30/18 07:40 Dose: 100 mls/hr Iron Sucrose 200 mg/ Sodium (Chloride) 110 mls @ 110 mls/hr IVPB DAILY [facility] Stop: 11/04/18 10:01 Insulin Human Regular (Humulin R) 0 units SC ACHS [facility]; Protocol Last Admin: 10/30/18 07:30 Dose: Not Given Morphine Sulfate (Morphine) 2 mg IVP Q4H PRN PRN Reason: Pain, severe (8-10) Last Admin: 10/30/18 11:08 Dose: 2 mg Pantoprazole Sodium (Protonix Ec Tab) 40 mg PO 0600 [facility] Last Admin: 10/30/18 05:36 Dose: 40 mg Prednisone (Prednisone Tab) 5 mg PO DAILY [facility] Vitamin B Complex/Vit C/Folic Acid (Nephro-Pascual) 1 tab PO 0800 [facility] Physical Exam - Constitutional Appears: No Acute Distress - Head Exam Head Exam: ATRAUMATIC, NORMOCEPHALIC - Eye Exam Eye Exam: EOMI - ENT Exam ENT Exam: Mucous Membranes Moist - Respiratory Exam Respiratory Exam: Clear to Auscultation Bilateral. absent: Wheezes - Cardiovascular Exam Cardiovascular Exam: REGULAR RHYTHM, RRR, +S1, +S2 - GI/Abdominal Exam GI & Abdominal Exam: Normal Bowel Sounds, Soft. absent: Tenderness - Extremities Exam Extremities exam: Negative for: calf tenderness, pedal edema Additional comments: LEFT BKA and R transmetatarsal resection - Neurological Exam Neurological exam: Alert, CN II-XII Intact, Oriented x3 - Psychiatric Exam Psychiatric exam: Normal Affect, Normal Mood - Skin Skin Exam: Dry, Warm Results - Vital Signs Recent Vital Signs: Last Vital Signs Temp 98.5 F 10/29/18 22:30 Pulse 89 10/29/18 23:40 Resp 17 10/29/18 22:30 BP 106/65 10/29/18 23:40 Pulse Ox 97 10/29/18 22:30 - Labs Result Diagrams: 10/30/18 07:20 10/30/18 07:20 Labs: Laboratory Results - last 24 hr 10/29/18 10/29/18 10/29/18 11:42 16:10 17:51 WBC RBC Hgb Hct MCV MCH MCHC RDW Plt Count MPV Neut % (Auto) Lymph % (Auto) Howell % (Auto) Eos % (Auto) Baso % (Auto) Lymph # (Auto) Howell # (Auto) Eos # (Auto) Baso # (Auto) Absolute Neuts (auto) PT INR APTT Sodium Potassium Chloride Carbon Dioxide Anion Gap BUN Creatinine Est GFR ( Amer) Est GFR (Non-Af Amer) POC Glucose (mg/dL) 109 Random Glucose Calcium Phosphorus Magnesium Iron TIBC % Saturation Total Bilirubin AST ALT Alkaline Phosphatase Total Creatine Kinase 314 H CK-MB (CK-2) 6.7 H CK-MB (CK-2) % 2.1 L Total Protein Albumin Globulin Albumin/Globulin Ratio Blood Type O POSITIVE Antibody Screen Negative Crossmatch See Detail BBK History Checked Patient has bt 10/30/18 10/30/18 10/30/18 07:20 07:20 09:00 WBC 6.4 RBC 3.09 L Hgb 7.0 L Hct 24.1 L MCV 78.0 L MCH 22.7 L MCHC 29.0 L RDW 16.5 H Plt Count 356 MPV 8.3 Neut % (Auto) 79.6 H Lymph % (Auto) 10.4 L Howell % (Auto) 7.0 H Eos % (Auto) 2.8 Baso % (Auto) 0.2 Lymph # (Auto) 0.7 L Howell # (Auto) 0.5 Eos # (Auto) 0.2 Baso # (Auto) 0.01 Absolute Neuts (auto) 5.12 PT 15.1 H INR 1.34 APTT 34.3 Sodium 137 Potassium 4.4 Chloride 112 H Carbon Dioxide 21 Anion Gap 8 L BUN 29 H Creatinine 0.9 Est GFR ( Amer) > 60 Est GFR (Non-Af Amer) > 60 POC Glucose (mg/dL) Random Glucose 99 Calcium 9.0 Phosphorus 2.9 Magnesium 1.9 Iron TIBC % Saturation Total Bilirubin 0.4 AST 21 ALT 9 Alkaline Phosphatase 71 Total Creatine Kinase CK-MB (CK-2) CK-MB (CK-2) % Total Protein 5.8 Albumin 2.7 L Globulin 3.1 Albumin/Globulin Ratio 0.9 L Blood Type Antibody Screen Crossmatch BBK History Checked 10/30/18 12:13 WBC RBC Hgb Hct MCV MCH MCHC RDW Plt Count MPV Neut % (Auto) Lymph % (Auto) Howell % (Auto) Eos % (Auto) Baso % (Auto) Lymph # (Auto) Howell # (Auto) Eos # (Auto) Baso # (Auto) Absolute Neuts (auto) PT INR APTT Sodium Potassium Chloride Carbon Dioxide Anion Gap BUN Creatinine Est GFR ( Amer) Est GFR (Non-Af Amer) POC Glucose (mg/dL) Random Glucose Calcium Phosphorus Magnesium Iron 30 L TIBC 177 L % Saturation 17 L Total Bilirubin AST ALT Alkaline Phosphatase Total Creatine Kinase CK-MB (CK-2) CK-MB (CK-2) % Total Protein Albumin Globulin Albumin/Globulin Ratio Blood Type Antibody Screen Crossmatch BBK History Checked Assessment & Plan - Assessment and Plan (Free Text) Assessment: C. difficile pseudomembranous colitis antigen positive Right distal femur fracture Renal and pancreas transplant CAD with CABG CVA Diabetes mellitus type 1 D/c IV Flagyl, and will start PO Flagyl Follow-up further septic work-up including urine and blood culture Follow-up orthopedic recommendations Follow-up duplex of lower extremity, and echocardiography Continue to monitor for any changes Case and plan to be reviewed and discussed with Dr. Wilhelm <Eric Wilhelm - Last Filed: 10/30/18 17:24> Meds - Medications Medications: Current Medications Calcium/Vitamin D (Oscal-D 250 Mg-125 Units Tab) 2 tab PO BID [facility] Last Admin: 10/30/18 15:32 Dose: 2 tab Dextrose (Dextrose 50% Inj) 0 ml IV STAT PRN; Protocol PRN Reason: Hypoglycemia Protocol Ferrous Gluconate (Fergon) 324 mg PO TID [facility] Home Med (Home Med) 2 unit PO Q12 [facility] Last Admin: 10/30/18 11:03 Dose: 2 unit Home Med (Home Med) 2 unit PO Q12 [facility] Last Admin: 10/30/18 11:05 Dose: 2 unit Dextrose (Dextrose 5% In Water 1000 Ml) 1,000 mls @ 0 mls/hr IV .Q0M PRN; Protocol PRN Reason: Hypoglycemia Protocol Iron Sucrose 200 mg/ Sodium (Chloride) 110 mls @ 110 mls/hr IVPB DAILY [facility] Stop: 11/04/18 10:01 Insulin Human Regular (Humulin R) 0 units SC ACHS [facility]; Protocol Last Admin: 10/30/18 11:28 Dose: Not Given Metronidazole (Flagyl) 500 mg PO Q8 [facility]; Protocol Morphine Sulfate (Morphine) 2 mg IVP Q4H PRN PRN Reason: Pain, severe (8-10) Last Admin: 10/30/18 15:28 Dose: 2 mg Nystatin (Nystop Topical Powder) 0 gm TOP BID [facility] Pantoprazole Sodium (Protonix Ec Tab) 40 mg PO 0600 [facility] Last Admin: 10/30/18 05:36 Dose: 40 mg Prednisone (Prednisone Tab) 5 mg PO DAILY [facility] Last Admin: 10/30/18 15:29 Dose: 5 mg Vitamin B Complex/Vit C/Folic Acid (Nephro-Pascual) 1 tab PO 0800 [facility] Results - Vital Signs Recent Vital Signs: Last Vital Signs Temp 98.5 F 10/29/18 22:30 Pulse 89 10/29/18 23:40 Resp 17 10/29/18 22:30 BP 106/65 10/29/18 23:40 Pulse Ox 97 10/29/18 22:30 - Labs Result Diagrams: 10/30/18 07:20 10/30/18 07:20 Labs: Laboratory Results - last 24 hr 10/29/18 10/29/18 10/30/18 16:10 17:51 07:20 WBC 6.4 RBC 3.09 L Hgb 7.0 L Hct 24.1 L MCV 78.0 L MCH 22.7 L MCHC 29.0 L RDW 16.5 H Plt Count 356 MPV 8.3 Neut % (Auto) 79.6 H Lymph % (Auto) 10.4 L Howell % (Auto) 7.0 H Eos % (Auto) 2.8 Baso % (Auto) 0.2 Lymph # (Auto) 0.7 L Howell # (Auto) 0.5 Eos # (Auto) 0.2 Baso # (Auto) 0.01 Absolute Neuts (auto) 5.12 PT INR APTT Sodium Potassium Chloride Carbon Dioxide Anion Gap BUN Creatinine Est GFR ( Amer) Est GFR (Non-Af Amer) POC Glucose (mg/dL) 109 Random Glucose Calcium Phosphorus Magnesium Iron TIBC % Saturation Total Bilirubin AST ALT Alkaline Phosphatase Total Protein Albumin Globulin Albumin/Globulin Ratio Blood Type O POSITIVE Antibody Screen Negative Crossmatch See Detail BBK History Checked Patient has bt 10/30/18 10/30/18 10/30/18 07:20 09:00 12:13 WBC RBC Hgb Hct MCV MCH MCHC RDW Plt Count MPV Neut % (Auto) Lymph % (Auto) Howell % (Auto) Eos % (Auto) Baso % (Auto) Lymph # (Auto) Howell # (Auto) Eos # (Auto) Baso # (Auto) Absolute Neuts (auto) PT 15.1 H INR 1.34 APTT 34.3 Sodium 137 Potassium 4.4 Chloride 112 H Carbon Dioxide 21 Anion Gap 8 L BUN 29 H Creatinine 0.9 Est GFR ( Amer) > 60 Est GFR (Non-Af Amer) > 60 POC Glucose (mg/dL) Random Glucose 99 Calcium 9.0 Phosphorus 2.9 Magnesium 1.9 Iron 30 L TIBC 177 L % Saturation 17 L Total Bilirubin 0.4 AST 21 ALT 9 Alkaline Phosphatase 71 Total Protein 5.8 Albumin 2.7 L Globulin 3.1 Albumin/Globulin Ratio 0.9 L Blood Type Antibody Screen Crossmatch BBK History Checked Attending/Attestation - Attestation I have personally seen and examined this patient.: Yes I have fully participated in the care of the patient.: Yes I have reviewed all pertinent clinical information: Yes
--- NOTE | 2018-10-30 14:02 | US ---
PROCEDURE: Lower extremity ROLANDO exam HISTORY: Vascular disease. Right leg pain. Previous smoker. Left BKA 5 years ago PHYSICIAN(S): Chu Rivera MD. FINDINGS: The right resting ROLANDO is not obtainable. The low thigh PVR waveforms are symmetric. The right calf PVR waveform is mildly blunted and does not augment. This is consistent with right SFA occlusive disease. The right ankle PVR waveform is pulsatile and moderately blunted. The right metatarsal waveform is severely blunted. The findings are consistent with right tibial and/or pedal occlusive disease IMPRESSION: 1. Limited study. 2. Right SFA occlusive disease. 3. Right tibial and/or pedal disease. 4. If clinically indicated, further evaluation can be obtained with an MRA with gadolinium runoff, CTA runoff, or conventional arteriogram.
--- NOTE | 2018-10-30 14:02 | US ---
PROCEDURE: Right lower extremity venous US HISTORY: Leg pain and swelling. Evaluate for DVT. PHYSICIAN(S): Chu Rivera M.D. TECHNIQUE: Duplex sonography and color-flow Doppler with graded compression were used to evaluate the deep venous system of the right lower extremity. FINDINGS: The exam is limited by edema and the patient's inability to cooperate The visualized deep venous system of the right lower extremity is sonographically normal and compressible. Normal waveforms and augmentation are seen. There is no sonographic evidence for deep venous thrombosis in the visualized segments of the right lower extremity. IMPRESSION: 1. No sonographic evidence for deep venous thrombosis in the visualized segments of the right lower extremity. 2. Limited study.
--- NOTE | 2018-10-30 14:13 | CP.PCM.CON ---
History of Present Illness - History of Present Illness History of Present Illness: Nephrology Consultation Note: Assessment: Stable Fall and Rt femur fracture ? anemia of acute blood loss CAD s/p CABG (2005) DDRT and pancreas transplant (2006) @ [facility] chronic sys CHF Plan renal function stable Hypertension control with meds as ordered. Maintain hemodynamics stable. Avoid hypotension. Patient not on ACEI/ARB due to low BP. may consider if BP allows Monitor Input/Output, daily weights and renal function with basic metabolic panel started IV iron, nephrovite and DIANE dose. pt refused for blood transfusion started Ca/Vit D supplements. check Vit D level. may consider bisphosphonates CHF optimization Re: kidney transplant---his home regimen as prednisone 5 mg/d, cellcept 1000 mg q 12 hr and prograf 2 mg q 12 hrs to be continued exactly same. Anemia work up with TSAT/Ferritin/Vitamin B12/folate Dose meds/antibiotics for GFR >60 Glycemic control Further work up/management as per primary team ortho following Thanks for allowing me to participate in care of your patient. Will follow patient with you. Please call if any Qs. had d/w team Dr Ede Carlos Office: [phone] Chief Complaint; fall Reason for consult: transplant management HPI: Pt is a 58 M with hx of LEFT AKA and right transmetatarsal resection (wheel chair bound); CAD s/p CABG (2005), DDRT and pancreas transplant (2006) @ [facility], gastric bypass, chronic sys CHF presented with complaints of fall and found to have Rt femur fracture. renal consult for transplant management. pt says he follow up at [facility] and doing well in term of transplant. though has many other medical issues listed as above. he denies CP/SOB or urine complaints Denies OTC/herbal meds or NSAIDs No recent iodinated contrast exposure. Noted obvious episodes of low BP. ROS: Cardiovascular: No chest pain. Pulmonary: No shortness of breath Gastrointestinal: denies abdominal pain No nausea. No vomiting. Genitourinary: No pain while urinating. Denies blood in urine. All other negative except as mentioned in HPI Physical Examination: General Appearance: Comfortable, in no acute respiratory distress, co-operative . unkempt overall. appears chronically debilitated Vitals reviewed and noted as below Head; Atraumatic, normocephalic ENT: no ulcers no thrush. Tongue is midline. Oropharynx: no rash or ulcers. EYES: Pupils are equal, round and reactive to light accommodation. Eye muscles and extraocular movement intact. Sclera is anicteric. Neck; supple no lymphadenopathy, no thyromegaly or bruit Lungs: Normal respiratory rate/effort. Breath sounds bilateral equal and clear Heart: Normal rate. s1s2 normal. No rub or gallop. Extremities: no edema. No varicose veins. s/p Rt TMA and left AKA Neurological: Patient is alert, awake and oriented to person, place and time. No focal deficit. Strength bilateral appropriate and equal Skin: Warm and dry. Normal turgor. No rash. Palpitation: Normal elasticity for age Abdomen: Abdomen is soft. Bowel sounds +. There is no abdominal tenderness, no guarding/rigidity no organomegaly Psych: normal insight and normal affect/mood MSK: Digits and nails normal, no deformity : [place] kidney or bladder not palpable Labs/imaging reviewed. Past medical history, past surgical history, family history, social history, allergy reviewed and noted as below Family hx: no hx of CKD. Rest non-contributory Past Patient History - Infectious Disease Hx of Infectious Diseases: None - Past Social History Smoking Status: Former Smoker - CARDIAC Hx Cardiac Disorders: Yes (s/p CABG) - PULMONARY Hx Respiratory Disorders: No Other/Comment: active smoker - NEUROLOGICAL HX Cerebrovascular Accident: Yes - HEENT Hx HEENT Problems: No - RENAL Hx Renal Failure: Yes (ESRD s/p kidney and pacreas transplant) - ENDOCRINE/METABOLIC Hx Diabetes Mellitus Type 1: Yes - HEMATOLOGICAL/ONCOLOGICAL Hx Blood Transfusions: Yes Hx Blood Transfusion Reaction: No - INTEGUMENTARY Hx Dermatological Problems: No - MUSCULOSKELETAL/RHEUMATOLOGICAL Hx Falls: No - GASTROINTESTINAL Hx Gastrointestinal Disorders: No - GENITOURINARY/GYNECOLOGICAL Hx Genitourinary Disorders: Yes Other/Comment: difficulty voiding at times--- uses urinary catheters prn at home - PSYCHIATRIC Hx Psychophysiologic Disorder: No - SURGICAL HISTORY Hx Surgeries: Yes - ANESTHESIA Hx Anesthesia Reactions: No Hx Malignant Hyperthermia: No Meds Allergies/Adverse Reactions: Allergies Allergy/AdvReac Type Severity Reaction Status Date / Time vancomycin Allergy ANAPHYLAXIS Verified 10/25/18 18:33 - Medications Medications: Current Medications Calcium/Vitamin D (Oscal-D 250 Mg-125 Units Tab) 2 tab PO BID [facility] Dextrose (Dextrose 50% Inj) 0 ml IV STAT PRN; Protocol PRN Reason: Hypoglycemia Protocol Ferrous Gluconate (Fergon) 324 mg PO TID [facility] Home Med (Home Med) 2 unit PO Q12 [facility] Last Admin: 10/30/18 11:03 Dose: 2 unit Home Med (Home Med) 2 unit PO Q12 [facility] Last Admin: 10/30/18 11:05 Dose: 2 unit Sodium Chloride (Sodium Chloride 0.9%) 1,000 mls @ 40 mls/hr IV .Q24H [facility] Stop: 10/30/18 15:44 Last Admin: 10/29/18 16:33 Dose: 40 mls/hr Dextrose (Dextrose 5% In Water 1000 Ml) 1,000 mls @ 0 mls/hr IV .Q0M PRN; Protocol PRN Reason: Hypoglycemia Protocol Metronidazole (Flagyl) 500 mg in 100 mls @ 100 mls/hr IVPB Q8 [facility]; Protocol Last Admin: 10/30/18 07:40 Dose: 100 mls/hr Iron Sucrose 200 mg/ Sodium (Chloride) 110 mls @ 110 mls/hr IVPB DAILY [facility] Stop: 11/04/18 10:01 Insulin Human Regular (Humulin R) 0 units SC ACHS [facility]; Protocol Last Admin: 10/30/18 07:30 Dose: Not Given Morphine Sulfate (Morphine) 2 mg IVP Q4H PRN PRN Reason: Pain, severe (8-10) Last Admin: 10/30/18 11:08 Dose: 2 mg Pantoprazole Sodium (Protonix Ec Tab) 40 mg PO 0600 [facility] Last Admin: 10/30/18 05:36 Dose: 40 mg Prednisone (Prednisone Tab) 5 mg PO DAILY [facility] Vitamin B Complex/Vit C/Folic Acid (Nephro-Pascual) 1 tab PO 0800 [facility] Results - Vital Signs Recent Vital Signs: Last Vital Signs Temp 98.5 F 10/29/18 22:30 Pulse 89 10/29/18 23:40 Resp 17 10/29/18 22:30 BP 106/65 10/29/18 23:40 Pulse Ox 97 10/29/18 22:30 - Labs Result Diagrams: 10/30/18 07:20 10/30/18 07:20 Labs: Laboratory Results - last 24 hr 10/29/18 10/29/18 10/29/18 11:42 16:10 17:51 WBC RBC Hgb Hct MCV MCH MCHC RDW Plt Count MPV Neut % (Auto) Lymph % (Auto) Nash % (Auto) Eos % (Auto) Baso % (Auto) Lymph # (Auto) Nash # (Auto) Eos # (Auto) Baso # (Auto) Absolute Neuts (auto) PT INR APTT Sodium Potassium Chloride Carbon Dioxide Anion Gap BUN Creatinine Est GFR ( Amer) Est GFR (Non-Af Amer) POC Glucose (mg/dL) 109 Random Glucose Calcium Phosphorus Magnesium Iron TIBC % Saturation Total Bilirubin AST ALT Alkaline Phosphatase Total Creatine Kinase 314 H CK-MB (CK-2) 6.7 H CK-MB (CK-2) % 2.1 L Total Protein Albumin Globulin Albumin/Globulin Ratio Blood Type O POSITIVE Antibody Screen Negative Crossmatch See Detail BBK History Checked Patient has bt 10/30/18 10/30/18 10/30/18 07:20 07:20 09:00 WBC 6.4 RBC 3.09 L Hgb 7.0 L Hct 24.1 L MCV 78.0 L MCH 22.7 L MCHC 29.0 L RDW 16.5 H Plt Count 356 MPV 8.3 Neut % (Auto) 79.6 H Lymph % (Auto) 10.4 L Nash % (Auto) 7.0 H Eos % (Auto) 2.8 Baso % (Auto) 0.2 Lymph # (Auto) 0.7 L Nash # (Auto) 0.5 Eos # (Auto) 0.2 Baso # (Auto) 0.01 Absolute Neuts (auto) 5.12 PT 15.1 H INR 1.34 APTT 34.3 Sodium 137 Potassium 4.4 Chloride 112 H Carbon Dioxide 21 Anion Gap 8 L BUN 29 H Creatinine 0.9 Est GFR ( Amer) > 60 Est GFR (Non-Af Amer) > 60 POC Glucose (mg/dL) Random Glucose 99 Calcium 9.0 Phosphorus 2.9 Magnesium 1.9 Iron TIBC % Saturation Total Bilirubin 0.4 AST 21 ALT 9 Alkaline Phosphatase 71 Total Creatine Kinase CK-MB (CK-2) CK-MB (CK-2) % Total Protein 5.8 Albumin 2.7 L Globulin 3.1 Albumin/Globulin Ratio 0.9 L Blood Type Antibody Screen Crossmatch BBK History Checked 10/30/18 12:13 WBC RBC Hgb Hct MCV MCH MCHC RDW Plt Count MPV Neut % (Auto) Lymph % (Auto) Nash % (Auto) Eos % (Auto) Baso % (Auto) Lymph # (Auto) Nash # (Auto) Eos # (Auto) Baso # (Auto) Absolute Neuts (auto) PT INR APTT Sodium Potassium Chloride Carbon Dioxide Anion Gap BUN Creatinine Est GFR ( Amer) Est GFR (Non-Af Amer) POC Glucose (mg/dL) Random Glucose Calcium Phosphorus Magnesium Iron 30 L TIBC 177 L % Saturation 17 L Total Bilirubin AST ALT Alkaline Phosphatase Total Creatine Kinase CK-MB (CK-2) CK-MB (CK-2) % Total Protein Albumin Globulin Albumin/Globulin Ratio Blood Type Antibody Screen Crossmatch BBK History Checked
--- NOTE | 2018-10-30 14:27 | CP.PCM.PN ---
<Surendra Cr - Last Filed: 10/30/18 14:22> Subjective - Date & Time of Evaluation Date of Evaluation: 10/30/18 Time of Evaluation: 07:30 - Subjective Subjective: Surendra Cr DO PGY1 Hospitalist Progress Note for Dr Lei Patient seen and examined at bedside. He c/o right LE pain above knee level. He denies fever, chills, CP abdominal pain. No acute overnight events. Objective - Vital Signs/Intake and Output Vital Signs (last 24 hours): Temp Pulse Resp BP Pulse Ox 98.5 F 89 17 106/65 97 10/29/18 22:30 10/29/18 23:40 10/29/18 22:30 10/29/18 23:40 10/29/18 22:30 Intake and Output: 10/30/18 10/30/18 06:59 18:59 Intake Total 180 180 Output Total 50 Balance 130 180 - Medications Medications: Current Medications Calcium/Vitamin D (Oscal-D 250 Mg-125 Units Tab) 2 tab PO BID [facility] Dextrose (Dextrose 50% Inj) 0 ml IV STAT PRN; Protocol PRN Reason: Hypoglycemia Protocol Ferrous Gluconate (Fergon) 324 mg PO TID [facility] Home Med (Home Med) 2 unit PO Q12 [facility] Last Admin: 10/30/18 11:03 Dose: 2 unit Home Med (Home Med) 2 unit PO Q12 [facility] Last Admin: 10/30/18 11:05 Dose: 2 unit Sodium Chloride (Sodium Chloride 0.9%) 1,000 mls @ 40 mls/hr IV .Q24H [facility] Stop: 10/30/18 15:44 Last Admin: 10/29/18 16:33 Dose: 40 mls/hr Dextrose (Dextrose 5% In Water 1000 Ml) 1,000 mls @ 0 mls/hr IV .Q0M PRN; Protocol PRN Reason: Hypoglycemia Protocol Metronidazole (Flagyl) 500 mg in 100 mls @ 100 mls/hr IVPB Q8 [facility]; Protocol Last Admin: 10/30/18 07:40 Dose: 100 mls/hr Iron Sucrose 200 mg/ Sodium (Chloride) 110 mls @ 110 mls/hr IVPB DAILY [facility] Stop: 11/04/18 10:01 Insulin Human Regular (Humulin R) 0 units SC ACHS [facility]; Protocol Last Admin: 10/30/18 07:30 Dose: Not Given Morphine Sulfate (Morphine) 2 mg IVP Q4H PRN PRN Reason: Pain, severe (8-10) Last Admin: 10/30/18 11:08 Dose: 2 mg Pantoprazole Sodium (Protonix Ec Tab) 40 mg PO 0600 [facility] Last Admin: 10/30/18 05:36 Dose: 40 mg Prednisone (Prednisone Tab) 5 mg PO DAILY [facility] Vitamin B Complex/Vit C/Folic Acid (Nephro-Pascual) 1 tab PO 0800 [facility] - Labs Labs: 10/30/18 07:20 10/30/18 07:20 PT 15.1 SECONDS (9.4-12.5) H 10/30/18 09:00 INR 1.34 10/30/18 09:00 APTT 34.3 Seconds (26.9-38.3) 10/30/18 09:00 - Additional Findings Additional findings: - Constitutional Appears: In Acute Distress, Unkempt, Chronically Ill - Head Exam Head Exam: ATRAUMATIC, NORMOCEPHALIC - Eye Exam Eye Exam: EOMI, Normal appearance - ENT Exam ENT Exam: Mucous Membranes Moist - Neck Exam Neck exam: Positive for: Normal Inspection - Respiratory Exam Respiratory Exam: Clear to Auscultation Bilateral, NORMAL BREATHING PATTERN. absent: Accessory Muscle Use - Cardiovascular Exam Cardiovascular Exam: RRR, +S1, +S2 - GI/Abdominal Exam GI & Abdominal Exam: Normal Bowel Sounds, Soft - Extremities Exam Additional comments: right lower leg swelling, edema, tenderness, above knee level with no open fracture; left BKA, right transmetatarsal resection - Neurological Exam Neurological exam: Alert, CN II-XII Intact, Oriented x3 - Psychiatric Exam Psychiatric exam: Normal Affect, Normal Mood - Skin Skin Exam: Dry, Intact, Normal Color, Warm Assessment and Plan - Assessment and Plan (Free Text) Assessment: 58 y/o with PMH of CHF, left BKA, right metatarsal resection, renal and pancreas transplant presents with 5 days of right leg pain s/p fall and was found to have right displaced distal femur fracture Plan: Right displaced femur distal fracture s/p mechanical fall: -right femur x-ray: acute oblique displaced fracture in the distal diaphysis femur with 1 shaft with lateral displacement, overlapping of fracture fragments and medial angulation -orthopedic surgeon consulted Dr Calderon, no surgical intervention at this time given patient co-morbidities -orthosis order placed with [place], will come tomorrow for assessment -morphine 2mg q4h prn for severe pain -LE duplex negative for DVT -second opinion requested per patient. Dr Roche CAD s/p CABG: -EF 22% -patient does not take any meds at home -Cardiology following, Dr. Romo Diarrhea: -C diff Ag positive, toxin negative -patient afebrile, no leukocytosis -continue cipro 500mg q8h -contact precautions -ID following, Dr Wilhelm Anemia: -H/H 01/10.1. continue to monitor -f/u iron studies, folate , vit B12 -patient refused to sigh a consent for blood transfusion -started IV iron 200mg daily -ferous gluconate 324mg po tid DM2: -accucheck -f/u HgA1C -ISS-low s/p renal/pancreatic transplant: -continue home med prednisone 5 mg/d, cellcept 1000 mg q 12 hr and prograf 2 mg q 12 hrs -IVF NS @50 cc/hr -nephrology following Dr Carlos Chronic urinary retention: -barriga in place -monitor I/O h/o PAD s/p left BKA and right metatarsal amputation: -patient is not taking any meds PPX: -GI: protonix -DVT: SCD Case reviewed and paln discussed with attending Dr Do Cr, DO <Mima Lei - Last Filed: 11/01/18 13:14> Objective - Vital Signs/Intake and Output Vital Signs (last 24 hours): Temp Pulse Resp BP Pulse Ox 98.3 F 77 20 111/75 100 11/01/18 06:00 11/01/18 06:00 11/01/18 06:00 11/01/18 06:00 11/01/18 06:00 Intake and Output: 11/01/18 11/01/18 06:59 18:59 Intake Total 747 Output Total 245 Balance 502 - Medications Medications: Current Medications Calcium Carbonate (Caltrate) 600 mg PO BID [facility] Last Admin: 11/01/18 10:36 Dose: 600 mg Dextrose (Dextrose 50% Inj) 0 ml IV STAT PRN; Protocol PRN Reason: Hypoglycemia Protocol Ergocalciferol (Drisdol 50,000 Intl Units Cap) 1 cap PO Q7D [facility] Last Admin: 10/31/18 11:19 Dose: 1 cap Ferrous Gluconate (Fergon) 324 mg PO TID [facility] Home Med (Home Med) 2 unit PO Q12 [facility] Last Admin: 11/01/18 10:38 Dose: 2 unit Home Med (Home Med) 2 unit PO Q12 [facility] Last Admin: 11/01/18 10:38 Dose: 2 unit Dextrose (Dextrose 5% In Water 1000 Ml) 1,000 mls @ 0 mls/hr IV .Q0M PRN; Protocol PRN Reason: Hypoglycemia Protocol Iron Sucrose 200 mg/ Sodium (Chloride) 110 mls @ 110 mls/hr IVPB DAILY [facility] Stop: 11/04/18 10:01 Last Admin: 11/01/18 10:36 Dose: 110 mls/hr Insulin Human Regular (Humulin R) 0 units SC ACHS [facility]; Protocol Last Admin: 11/01/18 07:39 Dose: Not Given Metronidazole (Flagyl) 500 mg PO Q8 [facility]; Protocol Last Admin: 11/01/18 06:33 Dose: 500 mg Morphine Sulfate (Morphine) 2 mg IVP Q4H PRN PRN Reason: Pain, severe (8-10) Last Admin: 11/01/18 10:37 Dose: 2 mg Nystatin (Nystop Topical Powder) 0 gm TOP BID [facility] Last Admin: 11/01/18 10:35 Dose: 1 appl Pantoprazole Sodium (Protonix Ec Tab) 40 mg PO 0600 [facility] Last Admin: 11/01/18 06:33 Dose: 40 mg Prednisone (Prednisone Tab) 5 mg PO DAILY [facility] Last Admin: 11/01/18 10:37 Dose: 5 mg Vitamin B Complex/Vit C/Folic Acid (Nephro-Pascual) 1 tab PO 0800 [facility] Last Admin: 11/01/18 10:37 Dose: 1 tab - Labs Labs: 11/01/18 07:10 11/01/18 07:10 PT 15.1 SECONDS (9.4-12.5) H 10/30/18 09:00 INR 1.34 10/30/18 09:00 APTT 34.3 Seconds (26.9-38.3) 10/30/18 09:00 Attending/Attestation - Attestation I have personally seen and examined this patient.: Yes I have fully participated in the care of the patient.: Yes I have reviewed all pertinent clinical information, including history, physical exam and plan: Yes Notes (Text): 11/01/18 13:04 Attending note; Patient seen and examined with resident. Patient is seen and examined with orthopedics Dr. Oneil. Currently patient is not in any acute distress. Complaining of right leg pain. Denies any chest pain, shortness of breath. Denies any abdominal pain. Patient is a 58-year-old male with past medical history significant for type 1 diabetes, CVA, coronary artery disease status post CABG, end-stage renal disease status post renal transplant, pancreas transplant, AICD, bedridden, and peripheral vascular disease status post left BKA that presented to the emergency room with right leg pain. 1. Right distal diaphysis femur fracture: Right femur x-ray shows acute oblique displaced fracture in the distal diaphysis femur with 1 shaft with lateral displacement, overlapping of fracture fragments and medial angulation. on Morphine for pain. Case discussed with cardiology in detail . Patient is moderate risk for surgical procedure. patient was seen and examined with . Patient's medical history reviewed. Agreed for conservative management with immobilization. We will get HKAFO. Second opinion with recommended. 2. CAD s/p CABG; AICD in place. Patient was evaluated by Dr. Bloom today. Echocardiogram pending. Patient is moderate risk for surgical procedure. 3. Diarrhea; C. difficile antigen is positive. On Flagyl. ID evaluation appreciated. 4. S/P renal and pancreatic transplant. continue home CellCept and Prograf. Nephrology evaluation appreciated. 5. History of PVD and left BKA. 6. Chronic anemia. Hemoglobin is 7.0. Secondary to acute blood loss anemia/ hematoma after femur fracture. Blood transfusion recommended. Patient refused. Started on IV iron and darbepoetin. 7. Urinary retention. Patient with chronic barriga. Time spent explaining the current medical issues and treatment options over 1 hour. Patient was seen multiple times with orthopedics and cardiology. Discharge the patient will follow-up with PMD of choice.
[2018-10-30] MEDS: Calcium-Vit D 250 mg-125 Units Tab UD PO SCH ×2 (15:32→19:06)
[2018-10-30 17:54] LABS: FOLATE 16.6 ng/mL
--- NOTE | 2018-10-30 18:14 | CARD ---
APPROVED REPORT Date of service: 10/30/2018 EXAM: Two-dimensional and M-mode echocardiogram with Doppler and color Doppler. INDICATION HISTORY OF CHF 2D DIMENSIONS Left Atrium (2D)5.2 (1.6-4.0cm)IVSd1.0 (0.7-1.1cm) LVDd6.7 (3.9-5.9cm)PWd1.0 (0.7-1.1cm) LVDs5.9 (2.5-4.0cm)FS (%) 12.3 % LVEF (%)26.0 (>50%) M-Mode DIMENSIONS Aortic Root3.20 (2.2-3.7cm)Aortic Cusp Exc.1.40 (1.5-2.0cm) Aortic Valve AoV Peak Fbtelchc772.0cm/Jesi Peak GR.8mmHg Mitral Valve E/A ratio0.0 TDI E/Lateral E'0.0E/Medial E'0.0 Pulmonary Valve PV Peak Bpbqltgv83.8cm/sPV Peak Grad.2mmHg Tricuspid Valve TR Peak [id number] [id number] Peak Gr.63mmHg [id number] LEFT VENTRICLE The Left Ventricle is moderately dilated. There is normal left ventricular wall thickness. The systolic function is severely impaired. Apical motion consistent with pacemaker activation. No left ventricle thrombus noted on this study. RIGHT VENTRICLE The right ventricle is normal size. There is normal right ventricular wall thickness. Systolic function is mildly reduced. ATRIA The left atrium is moderately dilated. The right atrium is moderately dilated. AORTIC VALVE The aortic valve is mildly thickened. No aortic regurgitation is present. There is no aortic valvular stenosis. MITRAL VALVE The mitral valve is mildly thickened. Mitral regurgitation is severe. There is no mitral valve stenosis. TRICUSPID VALVE There is severe tricuspid regurgitation. There is severe pulmonary hypertension. PULMONIC VALVE There is moderate pulmonic valvular regurgitation. GREAT VESSELS The aortic root is normal in size. The IVC is normal in size and collapses >50% with inspiration. PERICARDIAL EFFUSION There is no pericardial effusion. <Conclusion> The Left Ventricle is moderately dilated. There is normal left ventricular wall thickness. The systolic function is severely impaired. Apical motion consistent with pacemaker activation. No left ventricle thrombus noted on this study. Mitral regurgitation is severe. There is severe tricuspid regurgitation. There is severe pulmonary hypertension. There is moderate pulmonic valvular regurgitation.
[2018-10-30] MEDS: Nystatin 100,000 Units/gm Topical Pow(15 gm) TOP SCH (19:01)
[2018-10-31] MEDS: Morphine 2 mg/ml ISec IVP PRN ×3 (02:26→14:09)
[2018-10-31] MEDS: Pantoprazole 40 mg EC Tab PO SCH (05:12)
--- NOTE | 2018-10-31 05:49 | CON ---
DATE: 10/30/2018 REQUESTING PHYSICIAN: Dr. Lie. REASON FOR CONSULTATION: Possible preoperative evaluation. HISTORY OF PRESENT ILLNESS: This is a 58-year-old man with extremely complex past medical history, who suffered a fall at home and was found to have a distal femoral fracture. He is being considered for possible orthopedic surgery. Preoperative cardiac assessment was requested. He has a longstanding history of coronary artery disease and underwent prior bypass surgery at [facility] many years ago. He has severe left ventricular dysfunction by history. He has a history of diabetes and renal failure. He underwent renal and pancreas transplant in 2006. He has a history of peripheral vascular disease and has had left BKA as well as a right transmetatarsal amputation. He is seen lying in bed on 5R. He is unhappy with his care and he feels he is being misled regarding diagnostic workup and treatment options. He is threatening to leave the hospital. He has been advised transfusion, but he is refusing that. He denies any loss of consciousness. He states that he slid out of bed and then lost his balance as he was trying to climb back in and landed on the floor awkwardly. He has had no recent chest pain. He did not want to give an extended history. PAST MEDICAL HISTORY: As noted above. His past history is notable for prior gastric bypass surgery as well as a septic shock several years ago. CURRENT MEDICATIONS: Include ferrous gluconate, Flagyl, Prograf, CellCept, insulin coverage, morphine p.r.n., prednisone 5 mg daily, and Protonix. ALLERGIES: HE REPORTEDLY HAD A REACTION TO VANCOMYCIN IN THE PAST. SOCIAL HISTORY: He is a former smoker. He denies any alcohol use. He is , but is somewhat estranged from his . He is currently wheelchair bound. He does not follow up with physicians regularly. REVIEW OF SYSTEMS: He refused to discuss review of systems. The details of his last cardiac catheterization were unavailable at the time of this visit. PHYSICAL EXAMINATION: GENERAL: He is a chronically ill-appearing middle-aged man, lying in bed, in some discomfort secondary to his leg pain. VITAL SIGNS: His blood pressure is 106/66 with a pulse of 90, respirations are 16. He is afebrile. HEENT: Head normocephalic, atraumatic. NECK: Diminished carotid upstrokes. No JVD noted. CHEST: Few scattered rhonchi heard. No rales noted. HEART: PMI displaced laterally with soft tones present. A systolic murmur is present at the apex. ABDOMEN: Soft, nontender with normoactive bowel sounds. EXTREMITIES: There is left BKA present. His right thigh appears somewhat deformed. PSYCHIATRIC: Moderately agitated. NEUROLOGIC: Alert and oriented x3. No gross motor deficits noted. DIAGNOSTIC DATA: Potassium 4.4, BUN and creatinine 29 and 0.9. White count 6.4, hemoglobin and hematocrit 7.0 and 24.1 with a platelet count of 356,000. His electrocardiogram revealed sinus rhythm with a right bundle-branch block, prior lateral wall infarction appears to be present, nonspecific ST-T abnormalities are noted. Chest x-ray reveals increased cardiac silhouette with mild pulmonary vascular congestion. IMPRESSION: 1. Coronary artery disease, status post remote bypass surgery with no clear evidence of active angina. However, his activities appeared fairly limited at this time. 2. History of decompensated congestive heart failure, systolic, appears euvolemic. 3. Chronic renal failure, status post transplant and the patient is doing well. 4. Femur fracture with possible surgical intervention necessary. 5. Rest of problems as noted. RECOMMENDATIONS: Surgery is needed at this time. He appears to be at least moderately increased risk given his LV dysfunction and complexity of his medical problems. He is severely anemic and should undergo transfusion prior to surgery should it take place. There is no role for initiation of beta-blockers preoperatively at this time. An echocardiogram has been ordered and will be reviewed. Obviously, better attention to his medical issues on a chronic basis would be advisable. Thank you for this consultation. I will be happy to see as needed. Rudy Bloom MD
[2018-10-31 07:35] LABS: BASO # 0.01 K/mm3 (0.0-2.0); BASO % 0.2 % (0.0-3.0); EOS # 0.1 (0.0-0.7); EOS % 1.7 % (1.5-5.0); LYMPH # 0.6 (1.2-3.4); MEAN CELL VOLUME 78.3 fl (80.0-105.0); MEAN CORPUSCULAR HEMOGLOBIN 23.8 pg (25.0-35.0); MEAN CORPUSCULAR HGB CONC 30.4 g/dl (31.0-37.0); MEAN PLATELET VOLUME 8.7 fl (7.0-11.0); MONO # 0.4 (0.1-0.6); RED CELL DISTRIBUTION WIDTH 16.7 % (11.5-14.5); WHITE BLOOD COUNT 6.3 10^3/uL (4.5-11.0)
[2018-10-31 07:37] LABS: RBC 2.77 10^6/uL (3.5-6.1)
[2018-10-31 07:38] LABS: HEMOGLOBIN 6.6 g/dL (14.0-18.0)
[2018-10-31 07:51] LABS: ALB/GLOB RATIO 0.8 (1.1-1.8); ALBUMIN 2.6 g/dL (3.0-4.8); ALT/SGPT 9 U/L (7-56); AST/SGOT 12 U/L (17-59); BLOOD UREA NITROGEN 30 mg/dL (7-21); CALCIUM 9.5 mg/dL (8.4-10.5); GFR NON-AFRICAN AMERICAN > 60
[2018-10-31] MEDS: Insulin Regular 1 UNITS/0.01 ML ML SC SCH ×4 (08:31→22:15)
--- NOTE | 2018-10-31 10:04 | CP.PCM.PN ---
<Joe Molina - Last Filed: 10/31/18 12:24> Subjective - Date & Time of Evaluation Date of Evaluation: 10/31/18 Time of Evaluation: 09:35 - Subjective Subjective: Infectious disease progress note: Patient seen and examined at bedside. No acute events overnight. Patient complains of right lower extremity pain that he attributes to the fracture. Denies any further episodes of diarrhea. 12 point ROS performed negative other than stated above Objective - Vital Signs/Intake and Output Vital Signs (last 24 hours): Temp Pulse Resp BP Pulse Ox 98.3 F 67 17 88/53 L 94 L 10/31/18 06:00 10/31/18 06:00 10/31/18 06:00 10/31/18 06:00 10/31/18 06:00 - Medications Medications: Current Medications Calcium/Vitamin D (Oscal-D 250 Mg-125 Units Tab) 2 tab PO BID [facility] Last Admin: 10/30/18 19:06 Dose: 2 tab Dextrose (Dextrose 50% Inj) 0 ml IV STAT PRN; Protocol PRN Reason: Hypoglycemia Protocol Ferrous Gluconate (Fergon) 324 mg PO TID [facility] Home Med (Home Med) 2 unit PO Q12 [facility] Last Admin: 10/30/18 21:09 Dose: 2 unit Home Med (Home Med) 2 unit PO Q12 [facility] Last Admin: 10/30/18 21:10 Dose: 2 unit Dextrose (Dextrose 5% In Water 1000 Ml) 1,000 mls @ 0 mls/hr IV .Q0M PRN; Protocol PRN Reason: Hypoglycemia Protocol Iron Sucrose 200 mg/ Sodium (Chloride) 110 mls @ 110 mls/hr IVPB DAILY [facility] Stop: 11/04/18 10:01 Insulin Human Regular (Humulin R) 0 units SC ACHS [facility]; Protocol Last Admin: 10/31/18 08:31 Dose: Not Given Metronidazole (Flagyl) 500 mg PO Q8 [facility]; Protocol Last Admin: 10/31/18 05:12 Dose: 500 mg Morphine Sulfate (Morphine) 2 mg IVP Q4H PRN PRN Reason: Pain, severe (8-10) Last Admin: 10/31/18 08:31 Dose: 2 mg Nystatin (Nystop Topical Powder) 0 gm TOP BID [facility] Last Admin: 10/30/18 19:01 Dose: 1 appl Pantoprazole Sodium (Protonix Ec Tab) 40 mg PO 0600 [facility] Last Admin: 10/31/18 05:12 Dose: 40 mg Prednisone (Prednisone Tab) 5 mg PO DAILY [facility] Last Admin: 10/30/18 15:29 Dose: 5 mg Vitamin B Complex/Vit C/Folic Acid (Nephro-Pascual) 1 tab PO 0800 [facility] - Labs Labs: 10/31/18 07:10 10/31/18 07:10 PT 15.1 SECONDS (9.4-12.5) H 10/30/18 09:00 INR 1.34 10/30/18 09:00 APTT 34.3 Seconds (26.9-38.3) 10/30/18 09:00 - Constitutional Appears: No Acute Distress - Head Exam Head Exam: ATRAUMATIC, NORMOCEPHALIC - Eye Exam Eye Exam: EOMI, PERRL - ENT Exam ENT Exam: Mucous Membranes Moist - Respiratory Exam Respiratory Exam: Clear to Ausculation Bilateral. absent: Rales, Wheezes - Cardiovascular Exam Cardiovascular Exam: REGULAR RHYTHM, +S1, +S2 - GI/Abdominal Exam GI & Abdominal Exam: Soft. absent: Distended, Tenderness - Extremities Exam Additional comments: Left lower extremity below-knee amputation, right lower extremity transmetatarsal amputation - Neurological Exam Neurological Exam: Alert, Awake - Psychiatric Exam Psychiatric exam: Normal Mood - Skin Skin Exam: Dry, Warm Assessment and Plan - Assessment and Plan (Free Text) Assessment: C. difficile pseudomembranous colitis antigen positive Right distal femur fracture Renal and pancreas transplant CAD with CABG CVA Diabetes mellitus type 1 Continue with PO Flagyl Day 2 of 14 days Follow-up further septic work-up including urine and blood culture Follow-up orthopedic recommendations Continue to monitor for any changes Case and plan to be reviewed and discussed with Dr. Wilhelm <Eric Wilhelm - Last Filed: 10/31/18 12:25> Objective - Vital Signs/Intake and Output Vital Signs (last 24 hours): Temp Pulse Resp BP Pulse Ox 98.3 F 67 17 88/53 L 94 L 10/31/18 06:00 10/31/18 06:00 10/31/18 06:00 10/31/18 06:00 10/31/18 06:00 - Medications Medications: Current Medications Calcium Carbonate (Caltrate) 600 mg PO BID [facility] Dextrose (Dextrose 50% Inj) 0 ml IV STAT PRN; Protocol PRN Reason: Hypoglycemia Protocol Ergocalciferol (Drisdol 50,000 Intl Units Cap) 1 cap PO Q7D [facility] Last Admin: 10/31/18 11:19 Dose: 1 cap Ferrous Gluconate (Fergon) 324 mg PO TID [facility] Home Med (Home Med) 2 unit PO Q12 [facility] Last Admin: 10/31/18 11:20 Dose: 2 unit Home Med (Home Med) 2 unit PO Q12 [facility] Last Admin: 10/31/18 11:21 Dose: 2 unit Dextrose (Dextrose 5% In Water 1000 Ml) 1,000 mls @ 0 mls/hr IV .Q0M PRN; Protocol PRN Reason: Hypoglycemia Protocol Iron Sucrose 200 mg/ Sodium (Chloride) 110 mls @ 110 mls/hr IVPB DAILY [facility] Stop: 11/04/18 10:01 Last Admin: 10/31/18 11:19 Dose: 110 mls/hr Insulin Human Regular (Humulin R) 0 units SC ACHS [facility]; Protocol Last Admin: 10/31/18 12:01 Dose: Not Given Metronidazole (Flagyl) 500 mg PO Q8 [facility]; Protocol Last Admin: 10/31/18 05:12 Dose: 500 mg Morphine Sulfate (Morphine) 2 mg IVP Q4H PRN PRN Reason: Pain, severe (8-10) Last Admin: 10/31/18 08:31 Dose: 2 mg Nystatin (Nystop Topical Powder) 0 gm TOP BID [facility] Last Admin: 10/30/18 19:01 Dose: 1 appl Pantoprazole Sodium (Protonix Ec Tab) 40 mg PO 0600 [facility] Last Admin: 10/31/18 05:12 Dose: 40 mg Prednisone (Prednisone Tab) 5 mg PO DAILY [facility] Last Admin: 10/31/18 11:19 Dose: 5 mg Vitamin B Complex/Vit C/Folic Acid (Nephro-Pascual) 1 tab PO 0800 [facility] - Labs Labs: 10/31/18 07:10 10/31/18 07:10 PT 15.1 SECONDS (9.4-12.5) H 10/30/18 09:00 INR 1.34 10/30/18 09:00 APTT 34.3 Seconds (26.9-38.3) 10/30/18 09:00 Attending/Attestation - Attestation I have personally seen and examined this patient.: Yes I have fully participated in the care of the patient.: Yes I have reviewed all pertinent clinical information, including history, physical exam and plan: Yes
[2018-10-31] MEDS ORDERED: Ergocalciferol 50,000 Intl Units Cap PO SCH (10:30)
[2018-10-31] MEDS: PROGRAF 1 MG PO SCH ×2 (11:20→21:43)
[2018-10-31] MEDS: CELLCEPT 500 MG PO SCH ×2 (11:21→21:43)
[2018-10-31] MEDS: Nystatin 100,000 Units/gm Topical Pow(15 gm) TOP SCH ×2 (11:30→18:07)
--- NOTE | 2018-10-31 12:23 | CP.PCM.PN ---
Subjective - Date & Time of Evaluation Date of Evaluation: 10/31/18 Time of Evaluation: 12:20 - Subjective Subjective: Nephrology Consultation Note: Assessment: Stable Fall and Rt femur fracture ? anemia of acute blood loss CAD s/p CABG (2005) kidney and pancreas transplant (2006) @ [facility] chronic sys CHF vitamin d def Plan renal function stable Hypertension control with meds as ordered. Maintain hemodynamics stable. Avoid hypotension. Patient not on ACEI/ARB due to low BP. may consider if BP allows Monitor Input/Output, daily weights and renal function with basic metabolic panel started IV iron, nephrovite and DIANE dose. pt agreeable for blood transfusion started Ca/Vit D supplements. may consider bisphosphonates CHF optimization, cardiology following ortho following Re: kidney transplant---his home regimen as prednisone 5 mg/d, cellcept 1000 mg q 12 hr and prograf 2 mg q 12 hrs to be continued exactly same. Dose meds/antibiotics for GFR >60 regular diet ordered at pt request Further work up/management as per primary team ortho following Thanks for allowing me to participate in care of your patient. Will follow patient with you. Please call if any Qs. had d/w team Dr Ede Carlos Office: [phone] Chief Complaint; fall Reason for consult: transplant management HPI: Pt is a 58 M with hx of LEFT AKA and right transmetatarsal resection (wheel chair bound); CAD s/p CABG (2005), DDRT and pancreas transplant (2006) @ [facility], gastric bypass, chronic sys CHF presented with complaints of fall and found to have Rt femur fracture. renal consult for transplant management. pt say s he follow up at [facility] and doing well in term of transplant. though has many other medical issues listed as above. he denies CP/SOB or urine complaints Denies OTC/herbal meds or NSAIDs No recent iodinated contrast exposure. Noted obvious episodes of low BP. ROS: upset and wants regular food. Cardiovascular: No chest pain. Pulmonary: No shortness of breath Gastrointestinal: denies abdominal pain No nausea. No vomiting. Genitourinary: No pain while urinating. Denies blood in urine. All other negative except as mentioned in HPI Physical Examination: General Appearance: Comfortable, in no acute respiratory distress, co-operative . unkempt overall. appears chronically debilitated Vitals reviewed and noted as below Head; Atraumatic, normocephalic ENT: no ulcers no thrush. Tongue is midline. Oropharynx: no rash or ulcers. EYES: Pupils are equal, round and reactive to light accommodation. Eye muscles and extraocular movement intact. Sclera is anicteric. Neck; supple no lymphadenopathy, no thyromegaly or bruit Lungs: Normal respiratory rate/effort. Breath sounds bilateral equal and clear Heart: Normal rate. s1s2 normal. No rub or gallop. Extremities: no edema. No varicose veins. s/p Rt TMA and left AKA Neurological: Patient is alert, awake and oriented to person, place and time. No focal deficit. Strength bilateral appropriate and equal Skin: Warm and dry. Normal turgor. No rash. Palpitation: Normal elasticity for age Abdomen: Abdomen is soft. Bowel sounds +. There is no abdominal tenderness, no guarding/rigidity no organomegaly Psych: normal insight and irritable. upset MSK: Rt leg in splint : [place] kidney or bladder not palpable Labs/imaging reviewed. Past medical history, past surgical history, family history, social history, allergy reviewed and noted as below Family hx: no hx of CKD. Rest non-contributory Objective - Vital Signs/Intake and Output Vital Signs (last 24 hours): Temp Pulse Resp BP Pulse Ox 98.3 F 67 17 88/53 L 94 L 10/31/18 06:00 10/31/18 06:00 10/31/18 06:00 10/31/18 06:00 10/31/18 06:00 - Medications Medications: Current Medications Calcium Carbonate (Caltrate) 600 mg PO BID [facility] Dextrose (Dextrose 50% Inj) 0 ml IV STAT PRN; Protocol PRN Reason: Hypoglycemia Protocol Ergocalciferol (Drisdol 50,000 Intl Units Cap) 1 cap PO Q7D [facility] Last Admin: 10/31/18 11:19 Dose: 1 cap Ferrous Gluconate (Fergon) 324 mg PO TID [facility] Home Med (Home Med) 2 unit PO Q12 [facility] Last Admin: 10/31/18 11:20 Dose: 2 unit Home Med (Home Med) 2 unit PO Q12 [facility] Last Admin: 10/31/18 11:21 Dose: 2 unit Dextrose (Dextrose 5% In Water 1000 Ml) 1,000 mls @ 0 mls/hr IV .Q0M PRN; Protocol PRN Reason: Hypoglycemia Protocol Iron Sucrose 200 mg/ Sodium (Chloride) 110 mls @ 110 mls/hr IVPB DAILY [facility] Stop: 11/04/18 10:01 Last Admin: 10/31/18 11:19 Dose: 110 mls/hr Insulin Human Regular (Humulin R) 0 units SC ACHS [facility]; Protocol Last Admin: 10/31/18 12:01 Dose: Not Given Metronidazole (Flagyl) 500 mg PO Q8 [facility]; Protocol Last Admin: 10/31/18 05:12 Dose: 500 mg Morphine Sulfate (Morphine) 2 mg IVP Q4H PRN PRN Reason: Pain, severe (8-10) Last Admin: 10/31/18 08:31 Dose: 2 mg Nystatin (Nystop Topical Powder) 0 gm TOP BID [facility] Last Admin: 10/30/18 19:01 Dose: 1 appl Pantoprazole Sodium (Protonix Ec Tab) 40 mg PO 0600 [facility] Last Admin: 10/31/18 05:12 Dose: 40 mg Prednisone (Prednisone Tab) 5 mg PO DAILY [facility] Last Admin: 10/31/18 11:19 Dose: 5 mg Vitamin B Complex/Vit C/Folic Acid (Nephro-Pascual) 1 tab PO 0800 [facility] - Labs Labs: 10/31/18 07:10 10/31/18 07:10 PT 15.1 SECONDS (9.4-12.5) H 10/30/18 09:00 INR 1.34 10/30/18 09:00 APTT 34.3 Seconds (26.9-38.3) 10/30/18 09:00
--- NOTE | 2018-10-31 13:01 | CP.PCM.PN ---
<Surendra Cr - Last Filed: 10/31/18 16:40> Subjective - Date & Time of Evaluation Date of Evaluation: 10/31/18 Time of Evaluation: 07:40 - Subjective Subjective: Surendra Cr DO PGY1 Hospitalist Progress Note for Dr Lei Patient seen and examined at bedside. He c/o right LE pain above knee level tht is getting better today. He denies fever, chills, CP abdominal pain. No acute overnight events. Objective - Vital Signs/Intake and Output Vital Signs (last 24 hours): Temp Pulse Resp BP Pulse Ox 98.3 F 67 17 88/53 L 94 L 10/31/18 06:00 10/31/18 06:00 10/31/18 06:00 10/31/18 06:00 10/31/18 06:00 - Medications Medications: Current Medications Calcium Carbonate (Caltrate) 600 mg PO BID [facility] Dextrose (Dextrose 50% Inj) 0 ml IV STAT PRN; Protocol PRN Reason: Hypoglycemia Protocol Ergocalciferol (Drisdol 50,000 Intl Units Cap) 1 cap PO Q7D [facility] Last Admin: 10/31/18 11:19 Dose: 1 cap Ferrous Gluconate (Fergon) 324 mg PO TID [facility] Home Med (Home Med) 2 unit PO Q12 [facility] Last Admin: 10/31/18 11:20 Dose: 2 unit Home Med (Home Med) 2 unit PO Q12 [facility] Last Admin: 10/31/18 11:21 Dose: 2 unit Dextrose (Dextrose 5% In Water 1000 Ml) 1,000 mls @ 0 mls/hr IV .Q0M PRN; Protocol PRN Reason: Hypoglycemia Protocol Iron Sucrose 200 mg/ Sodium (Chloride) 110 mls @ 110 mls/hr IVPB DAILY [facility] Stop: 11/04/18 10:01 Last Admin: 10/31/18 11:19 Dose: 110 mls/hr Insulin Human Regular (Humulin R) 0 units SC ACHS [facility]; Protocol Last Admin: 10/31/18 12:01 Dose: Not Given Metronidazole (Flagyl) 500 mg PO Q8 [facility]; Protocol Last Admin: 10/31/18 05:12 Dose: 500 mg Morphine Sulfate (Morphine) 2 mg IVP Q4H PRN PRN Reason: Pain, severe (8-10) Last Admin: 10/31/18 08:31 Dose: 2 mg Nystatin (Nystop Topical Powder) 0 gm TOP BID [facility] Last Admin: 10/30/18 19:01 Dose: 1 appl Pantoprazole Sodium (Protonix Ec Tab) 40 mg PO 0600 [facility] Last Admin: 10/31/18 05:12 Dose: 40 mg Prednisone (Prednisone Tab) 5 mg PO DAILY [facility] Last Admin: 10/31/18 11:19 Dose: 5 mg Vitamin B Complex/Vit C/Folic Acid (Nephro-Pascual) 1 tab PO 0800 [facility] - Labs Labs: 10/31/18 07:10 10/31/18 07:10 PT 15.1 SECONDS (9.4-12.5) H 10/30/18 09:00 INR 1.34 10/30/18 09:00 APTT 34.3 Seconds (26.9-38.3) 10/30/18 09:00 - Additional Findings Additional findings: - Constitutional Appears: In Acute Distress, Unkempt, Chronically Ill - Head Exam Head Exam: ATRAUMATIC, NORMOCEPHALIC - Eye Exam Eye Exam: EOMI, Normal appearance - ENT Exam ENT Exam: Mucous Membranes Moist - Neck Exam Neck exam: Positive for: Normal Inspection - Respiratory Exam Respiratory Exam: Clear to Auscultation Bilateral, NORMAL BREATHING PATTERN. absent: Accessory Muscle Use - Cardiovascular Exam Cardiovascular Exam: RRR, +S1, +S2 - GI/Abdominal Exam GI & Abdominal Exam: Normal Bowel Sounds, Soft - Extremities Exam Additional comments: right lower leg swelling, edema, tenderness, above knee level with no open fracture; left BKA, right transmetatarsal resection - Neurological Exam Neurological exam: Alert, CN II-XII Intact, Oriented x3 - Psychiatric Exam Psychiatric exam: Normal Affect, Normal Mood - Skin Skin Exam: Dry, Intact, Normal Color, Warm Assessment and Plan - Assessment and Plan (Free Text) Assessment: 58 y/o with PMH of CHF, left BKA, right metatarsal resection, renal and pancreas transplant presents with 5 days of right leg pain s/p fall and was found to have right displaced distal femur fracture Plan: Right displaced femur distal fracture s/p mechanical fall: -right femur x-ray: acute oblique displaced fracture in the distal diaphysis femur with 1 shaft with lateral displacement, overlapping of fracture fragments and medial angulation -orthopedic surgeon consulted Dr Calderon, no surgical intervention at this time given patient co-morbidities -orthosis order placed with fintonic, for assessment -morphine 2mg q4h prn for severe pain -LE duplex negative for DVT -second opinion requested per patient. Dr Roche CAD s/p CABG: -EF 22% -patient does not take any meds at home -Cardiology following, Dr. Romo Diarrhea: -C diff Ag positive, toxin negative -patient afebrile, no leukocytosis -continue cipro 500mg q8h -contact precautions -ID following, Dr Wilhelm Anemia: -H/H dropped to 6.6/21.7 one unit of RBCs ordered -iron studies consistent with iron deficiency anemia, -folate , vit B12 wnl -patient refused to sigh a consent for blood transfusion -started IV iron 200mg daily -ferous gluconate 324mg po tid DM2: -accucheck -f/u HgA1C -ISS-low s/p renal/pancreatic transplant: -continue home med prednisone 5 mg/d, cellcept 1000 mg q 12 hr and prograf 2 mg q 12 hrs -IVF NS @50 cc/hr -nephrology following Dr Carlos Chronic urinary retention: -barriga in place -monitor I/O h/o PAD s/p left BKA and right metatarsal amputation: -patient is not taking any meds PPX: -GI: protonix -DVT: SCD -PT eval Case reviewed and paln discussed with attending Dr Do Cr, DO <Mima Lei - Last Filed: 11/01/18 13:22> Objective - Vital Signs/Intake and Output Vital Signs (last 24 hours): Temp Pulse Resp BP Pulse Ox 98.3 F 77 20 111/75 100 11/01/18 06:00 11/01/18 06:00 11/01/18 06:00 11/01/18 06:00 11/01/18 06:00 Intake and Output: 11/01/18 11/01/18 06:59 18:59 Intake Total 747 Output Total 245 Balance 502 - Medications Medications: Current Medications Calcium Carbonate (Caltrate) 600 mg PO BID [facility] Last Admin: 11/01/18 10:36 Dose: 600 mg Dextrose (Dextrose 50% Inj) 0 ml IV STAT PRN; Protocol PRN Reason: Hypoglycemia Protocol Ergocalciferol (Drisdol 50,000 Intl Units Cap) 1 cap PO Q7D [facility] Last Admin: 10/31/18 11:19 Dose: 1 cap Ferrous Gluconate (Fergon) 324 mg PO TID [facility] Home Med (Home Med) 2 unit PO Q12 [facility] Last Admin: 11/01/18 10:38 Dose: 2 unit Home Med (Home Med) 2 unit PO Q12 [facility] Last Admin: 11/01/18 10:38 Dose: 2 unit Dextrose (Dextrose 5% In Water 1000 Ml) 1,000 mls @ 0 mls/hr IV .Q0M PRN; Protocol PRN Reason: Hypoglycemia Protocol Iron Sucrose 200 mg/ Sodium (Chloride) 110 mls @ 110 mls/hr IVPB DAILY [facility] Stop: 11/04/18 10:01 Last Admin: 11/01/18 10:36 Dose: 110 mls/hr Insulin Human Regular (Humulin R) 0 units SC ACHS [facility]; Protocol Last Admin: 11/01/18 07:39 Dose: Not Given Metronidazole (Flagyl) 500 mg PO Q8 [facility]; Protocol Last Admin: 11/01/18 06:33 Dose: 500 mg Morphine Sulfate (Morphine) 2 mg IVP Q4H PRN PRN Reason: Pain, severe (8-10) Last Admin: 11/01/18 10:37 Dose: 2 mg Nystatin (Nystop Topical Powder) 0 gm TOP BID [facility] Last Admin: 11/01/18 10:35 Dose: 1 appl Pantoprazole Sodium (Protonix Ec Tab) 40 mg PO 0600 [facility] Last Admin: 11/01/18 06:33 Dose: 40 mg Prednisone (Prednisone Tab) 5 mg PO DAILY [facility] Last Admin: 11/01/18 10:37 Dose: 5 mg Vitamin B Complex/Vit C/Folic Acid (Nephro-Pascual) 1 tab PO 0800 [facility] Last Admin: 11/01/18 10:37 Dose: 1 tab - Labs Labs: 11/01/18 07:10 11/01/18 07:10 PT 15.1 SECONDS (9.4-12.5) H 10/30/18 09:00 INR 1.34 10/30/18 09:00 APTT 34.3 Seconds (26.9-38.3) 10/30/18 09:00 Attending/Attestation - Attestation I have personally seen and examined this patient.: Yes I have fully participated in the care of the patient.: Yes I have reviewed all pertinent clinical information, including history, physical exam and plan: Yes Notes (Text): 11/01/18 13:18 Attending note; Patient seen and examined with resident. Currently patient is not in any acute distress. Complaining of right leg pain. R leg in immobilizer. Denies any chest pain, shortness of breath. Denies any abdominal pain. Patient is a 58-year-old male with past medical history significant for type 1 diabetes, CVA, coronary artery disease status post CABG, end-stage renal disease status post renal transplant, pancreas transplant, AICD, bedridden, and peripheral vascular disease status post left BKA that presented to the emergency room with right leg pain. 1. Right distal diaphysis femur fracture: Right femur x-ray shows acute oblique displaced fracture in the distal diaphysis femur with 1 shaft with lateral displacement, overlapping of fracture fragments and medial angulation. on Morphine for pain. patient was seen and examined with . Patient's medical history reviewed. Agreed for conservative management with immobilization. We will get HKAFO. Second opinion with appreciated. Continue with the knee immobilizer. 2. CAD s/p CABG; AICD in place. Patient was evaluated by Dr. Bloom today. Echocardiogram showed dilated left atrium with severely impaired LV function ejection fraction of 26% no no LV thrombus noted. Severe tricuspid regurgitation and pulmonary hypertension. Patient is moderate risk for surgical procedure. 3. Diarrhea; C. difficile antigen is positive. On Flagyl. ID evaluation appreciated. 4. S/P renal and pancreatic transplant. continue home prednisone, CellCept and Prograf. Nephrology evaluation appreciated. 5. History of PVD and left BKA. 6. Chronic anemia. Hemoglobin is 6.7. Secondary to acute blood loss anemia/ hematoma after femur fracture. Patient agreed for blood transfusion today. 1 unit PRBC ordered . Started on IV iron and darbepoetin. 7. Urinary retention. Patient with chronic barriga. 8. Awaiting for brace. PT Evaluation requested. Follow up Closely with orthopedics.
[2018-10-31] MEDS: Multivitamin Vitamin B Complex (Nephro-Vite) Tab PO SCH (14:09)
--- NOTE | 2018-10-31 14:24 | CP.PCM.PN ---
Subjective - Date & Time of Evaluation Date of Evaluation: 10/31/18 Time of Evaluation: 14:21 - Subjective Subjective: Ortho f/u Dr. Jackson Patient states he has a lot of painin his right thigh. He is non ambulatory, is transferred into wheelchair with max assistance, does not put weight on right leg per patient. He denies numbness/tingling. Denies CP/SOB/dizziness. No new complaints. Objective - Vital Signs/Intake and Output Vital Signs (last 24 hours): Temp Pulse Resp BP Pulse Ox 98.3 F 67 17 88/53 L 94 L 10/31/18 06:00 10/31/18 06:00 10/31/18 06:00 10/31/18 06:00 10/31/18 06:00 Intake and Output: 10/31/18 10/31/18 06:59 18:59 Intake Total 600 Output Total 300 Balance 300 - Medications Medications: Current Medications Calcium Carbonate (Caltrate) 600 mg PO BID [facility] Dextrose (Dextrose 50% Inj) 0 ml IV STAT PRN; Protocol PRN Reason: Hypoglycemia Protocol Ergocalciferol (Drisdol 50,000 Intl Units Cap) 1 cap PO Q7D [facility] Last Admin: 10/31/18 11:19 Dose: 1 cap Ferrous Gluconate (Fergon) 324 mg PO TID [facility] Home Med (Home Med) 2 unit PO Q12 [facility] Last Admin: 10/31/18 11:20 Dose: 2 unit Home Med (Home Med) 2 unit PO Q12 [facility] Last Admin: 10/31/18 11:21 Dose: 2 unit Dextrose (Dextrose 5% In Water 1000 Ml) 1,000 mls @ 0 mls/hr IV .Q0M PRN; Protocol PRN Reason: Hypoglycemia Protocol Iron Sucrose 200 mg/ Sodium (Chloride) 110 mls @ 110 mls/hr IVPB DAILY [facility] Stop: 11/04/18 10:01 Last Admin: 10/31/18 11:19 Dose: 110 mls/hr Insulin Human Regular (Humulin R) 0 units SC ACHS [facility]; Protocol Last Admin: 10/31/18 12:01 Dose: Not Given Metronidazole (Flagyl) 500 mg PO Q8 [facility]; Protocol Last Admin: 10/31/18 05:12 Dose: 500 mg Morphine Sulfate (Morphine) 2 mg IVP Q4H PRN PRN Reason: Pain, severe (8-10) Last Admin: 10/31/18 14:09 Dose: 2 mg Nystatin (Nystop Topical Powder) 0 gm TOP BID [facility] Last Admin: 10/31/18 11:30 Dose: 1 appl Pantoprazole Sodium (Protonix Ec Tab) 40 mg PO 0600 [facility] Last Admin: 10/31/18 05:12 Dose: 40 mg Prednisone (Prednisone Tab) 5 mg PO DAILY [facility] Last Admin: 10/31/18 11:19 Dose: 5 mg Vitamin B Complex/Vit C/Folic Acid (Nephro-Pascual) 1 tab PO 0800 [facility] Last Admin: 10/31/18 14:09 Dose: 1 tab - Labs Labs: 10/31/18 07:10 10/31/18 07:10 PT 15.1 SECONDS (9.4-12.5) H 10/30/18 09:00 INR 1.34 10/30/18 09:00 APTT 34.3 Seconds (26.9-38.3) 10/30/18 09:00 - Constitutional Appears: No Acute Distress (pale, agreed to transfusion 1 unit per patient), Cachectic - Head Exam Head Exam: ATRAUMATIC - Neck Exam Neck Exam: Full ROM, Normal Inspection - Respiratory Exam Respiratory Exam: NORMAL BREATHING PATTERN - Cardiovascular Exam Additional comments: foot warm, no ROM of ankle per patient +cap refill - Extremities Exam Additional comments: thigh swelling knee immob intact skin intact, no erythema or skin tenting noted - Neurological Exam Neurological Exam: Alert, Awake, Oriented x3 Additional comments: sensation intact, at baseline per patient - Psychiatric Exam Psychiatric exam: Normal Affect, Normal Mood - Skin Skin Exam: Dry, Intact, Warm Assessment and Plan (1) Displaced fracture of shaft of right femur Assessment & Plan: per Dr. Jackson, will treat non operatively in knee immob, awaiting delivery of HKAFO brace, was fitted yesterday per RN NWB out of bed daily encouraged second opinion ordered VTE proph d/w Dr. Jackson, agrees with above Status: Acute (2) Vitamin D deficiency Assessment & Plan: supp Status: Acute (3) Acute blood loss anemia Assessment & Plan: due to femur fracture patient agreed to transfusion PRBCs Status: Acute
--- NOTE | 2018-10-31 19:30 | CON ---
DATE: 10/30/2018 ORTHOPEDIC CONSULTATION LOCATION: Room 574, bed 1. HISTORY OF PRESENT ILLNESS: I saw the patient for a fracture of the mid shaft of the right femur. He is very ill chronically. This is consistent with a pathologic fracture because the bone is extremely osteopenic and osteoporotic. He is in no medical or physical condition to undergo an ORIF or intramedullary rodding. He is restricted basically at 90% of the time to bed and to mobilize a bit for cleaning, but the patient himself does not want surgery. He is all contracted in the hips and the knees. So, I have recommended a pillow splint basically and let the fracture heal, which it will because the bones are approximated in a fairly decent position when held with a pillow splint. So I put down the soft splint and he understands he will have to wait until the fractures unites in about 6 weeks. The risks outweigh the benefits for the surgery of this pathologic fracture on extreme osteopenia. He will just need a protective splint and good nursing care. He will need a facility post discharge that will turn him to avoid bed sores. Darek Roche DO
[2018-11-01] MEDS: Morphine 2 mg/ml ISec IVP PRN ×4 (00:01→21:43)
[2018-11-01] MEDS: Pantoprazole 40 mg EC Tab PO SCH (06:33)
[2018-11-01 07:28] LABS: BASO # 0.01 K/mm3 (0.0-2.0); BASO % 0.1 % (0.0-3.0); EOS # 0.2 (0.0-0.7); EOS % 2.1 % (1.5-5.0); HEMOGLOBIN 7.6 g/dL (14.0-18.0); LYMPH # 1.1 (1.2-3.4); LYMPH % 13.7 % (22.0-35.0); MEAN CELL VOLUME 79.5 fl (80.0-105.0); MEAN CORPUSCULAR HEMOGLOBIN 23.6 pg (25.0-35.0); MEAN CORPUSCULAR HGB CONC 29.7 g/dl (31.0-37.0); MEAN PLATELET VOLUME 8.5 fl (7.0-11.0); MONO # 0.4 (0.1-0.6); MONO % 5.2 % (1.0-6.0); RBC 3.22 10^6/uL (3.5-6.1); RED CELL DISTRIBUTION WIDTH 16.6 % (11.5-14.5); WHITE BLOOD COUNT 7.7 10^3/uL (4.5-11.0)
[2018-11-01] MEDS: Insulin Regular 1 UNITS/0.01 ML ML SC SCH ×4 (07:39→21:38)
[2018-11-01 07:41] LABS: ALB/GLOB RATIO 0.9 (1.1-1.8); ALBUMIN 2.7 g/dL (3.0-4.8); ALT/SGPT 11 U/L (7-56); AST/SGOT 12 U/L (17-59); BLOOD UREA NITROGEN 31 mg/dL (7-21); CALCIUM 9.5 mg/dL (8.4-10.5); GFR NON-AFRICAN AMERICAN > 60
[2018-11-01] MEDS: Nystatin 100,000 Units/gm Topical Pow(15 gm) TOP SCH ×2 (10:35→18:18)
[2018-11-01] MEDS: Multivitamin Vitamin B Complex (Nephro-Vite) Tab PO SCH (10:37)
[2018-11-01] MEDS: CELLCEPT 500 MG PO SCH ×2 (10:38→21:44)
[2018-11-01] MEDS: PROGRAF 1 MG PO SCH ×2 (10:38→21:45)
--- NOTE | 2018-11-01 12:11 | PN ---
DATE: 11/01/2018 Room 574. Bed 1. He came into the hospital 10/29/2018 with a fracture of the femur, right side at the level of the middle and the distal one third. He is basically a non-ambulator with multiple medical issues, bedridden, gets bed to chair with maximum assistance of the caregiver. He is thinking about having the right femur fracture stabilized and he does not have to endure that pain when he rolls left to right. He has a flexion contracture of the right side at the site of the fracture at the knee and the hip. He is contemplating getting the femur stabilized with the intramedullary radha. I told him the pros and cons. He is going to decide whether he wants the surgery or not, so I will be in touch with him to check to see if he wants the surgery. If he has to have the surgery that would rather be in the orthopedic institute where there is a whole orthopedic team to take care of him and nobody to rely on if there is any other problems. So, he is going to decide what he wants to do. We got to transfer if he wants the surgery, I will bring him to [facility]. Darek Roche DO
--- NOTE | 2018-11-01 14:14 | CP.PCM.PN ---
<Joe Molina - Last Filed: 11/01/18 14:57> Subjective - Date & Time of Evaluation Date of Evaluation: 11/01/18 Time of Evaluation: 10:45 - Subjective Subjective: Infectious disease progress note: Patient seen and examined at bedside. No acute events overnight. Patient c/o RLE pain related to the fracture. No other complaints. 12 point ROS performed and negative unless stated above. Objective - Vital Signs/Intake and Output Vital Signs (last 24 hours): Temp Pulse Resp BP Pulse Ox 98.3 F 77 20 111/75 100 11/01/18 06:00 11/01/18 06:00 11/01/18 06:00 11/01/18 06:00 11/01/18 06:00 Intake and Output: 11/01/18 11/01/18 06:59 18:59 Intake Total 747 Output Total 245 Balance 502 - Medications Medications: Current Medications Calcium Carbonate (Caltrate) 600 mg PO BID [facility] Last Admin: 11/01/18 10:36 Dose: 600 mg Dextrose (Dextrose 50% Inj) 0 ml IV STAT PRN; Protocol PRN Reason: Hypoglycemia Protocol Ergocalciferol (Drisdol 50,000 Intl Units Cap) 1 cap PO Q7D [facility] Last Admin: 10/31/18 11:19 Dose: 1 cap Ferrous Gluconate (Fergon) 324 mg PO TID [facility] Home Med (Home Med) 2 unit PO Q12 [facility] Last Admin: 11/01/18 10:38 Dose: 2 unit Home Med (Home Med) 2 unit PO Q12 [facility] Last Admin: 11/01/18 10:38 Dose: 2 unit Dextrose (Dextrose 5% In Water 1000 Ml) 1,000 mls @ 0 mls/hr IV .Q0M PRN; Protocol PRN Reason: Hypoglycemia Protocol Iron Sucrose 200 mg/ Sodium (Chloride) 110 mls @ 110 mls/hr IVPB DAILY [facility] Stop: 11/04/18 10:01 Last Admin: 11/01/18 10:36 Dose: 110 mls/hr Insulin Human Regular (Humulin R) 0 units SC ACHS [facility]; Protocol Last Admin: 11/01/18 07:39 Dose: Not Given Metronidazole (Flagyl) 500 mg PO Q8 [facility]; Protocol Last Admin: 11/01/18 06:33 Dose: 500 mg Morphine Sulfate (Morphine) 2 mg IVP Q4H PRN PRN Reason: Pain, severe (8-10) Last Admin: 11/01/18 10:37 Dose: 2 mg Nystatin (Nystop Topical Powder) 0 gm TOP BID [facility] Last Admin: 11/01/18 10:35 Dose: 1 appl Pantoprazole Sodium (Protonix Ec Tab) 40 mg PO 0600 [facility] Last Admin: 11/01/18 06:33 Dose: 40 mg Prednisone (Prednisone Tab) 5 mg PO DAILY [facility] Last Admin: 11/01/18 10:37 Dose: 5 mg Vitamin B Complex/Vit C/Folic Acid (Nephro-Pascual) 1 tab PO 0800 [facility] Last Admin: 11/01/18 10:37 Dose: 1 tab - Labs Labs: 11/01/18 07:10 11/01/18 07:10 PT 15.1 SECONDS (9.4-12.5) H 10/30/18 09:00 INR 1.34 10/30/18 09:00 APTT 34.3 Seconds (26.9-38.3) 10/30/18 09:00 - Constitutional Appears: No Acute Distress - Head Exam Head Exam: ATRAUMATIC, NORMOCEPHALIC - Eye Exam Eye Exam: EOMI, PERRL - ENT Exam ENT Exam: Mucous Membranes Moist - Respiratory Exam Respiratory Exam: Clear to Ausculation Bilateral. absent: Rales, Wheezes - Cardiovascular Exam Cardiovascular Exam: REGULAR RHYTHM, +S1, +S2 - GI/Abdominal Exam GI & Abdominal Exam: Soft. absent: Tenderness - Extremities Exam Additional comments: RLE TMA, LLE BKA - Neurological Exam Neurological Exam: Alert, Awake, Oriented x3 - Psychiatric Exam Psychiatric exam: Normal Mood - Skin Skin Exam: Dry, Warm Assessment and Plan - Assessment and Plan (Free Text) Assessment: C. difficile pseudomembranous colitis antigen positive Right distal femur fracture Renal and pancreas transplant CAD with CABG CVA Diabetes mellitus type 1 Continue with PO Flagyl Day 3 of 14 days Follow-up further septic work-up including urine and blood culture - neg thus far Follow-up orthopedic recommendations - possible transfer to [facility] for ORIF Continue to monitor for any changes Case and plan to be reviewed and discussed with Dr. Wilhelm <Eric Wilhelm - Last Filed: 11/01/18 15:01> Objective - Vital Signs/Intake and Output Vital Signs (last 24 hours): Temp Pulse Resp BP Pulse Ox 98.3 F 77 20 111/75 100 11/01/18 06:00 11/01/18 06:00 11/01/18 06:00 11/01/18 06:00 11/01/18 06:00 Intake and Output: 11/01/18 11/01/18 06:59 18:59 Intake Total 747 480 Output Total 245 300 Balance 502 180 - Medications Medications: Current Medications Calcium Carbonate (Caltrate) 600 mg PO BID [facility] Last Admin: 11/01/18 10:36 Dose: 600 mg Dextrose (Dextrose 50% Inj) 0 ml IV STAT PRN; Protocol PRN Reason: Hypoglycemia Protocol Ergocalciferol (Drisdol 50,000 Intl Units Cap) 1 cap PO Q7D [facility] Last Admin: 10/31/18 11:19 Dose: 1 cap Ferrous Gluconate (Fergon) 324 mg PO TID [facility] Home Med (Home Med) 2 unit PO Q12 [facility] Last Admin: 11/01/18 10:38 Dose: 2 unit Home Med (Home Med) 2 unit PO Q12 [facility] Last Admin: 11/01/18 10:38 Dose: 2 unit Dextrose (Dextrose 5% In Water 1000 Ml) 1,000 mls @ 0 mls/hr IV .Q0M PRN; Protocol PRN Reason: Hypoglycemia Protocol Iron Sucrose 200 mg/ Sodium (Chloride) 110 mls @ 110 mls/hr IVPB DAILY [facility] Stop: 11/04/18 10:01 Last Admin: 11/01/18 10:36 Dose: 110 mls/hr Insulin Human Regular (Humulin R) 0 units SC ACHS [facility]; Protocol Last Admin: 11/01/18 12:14 Dose: Not Given Metronidazole (Flagyl) 500 mg PO Q8 [facility]; Protocol Last Admin: 11/01/18 14:57 Dose: 500 mg Morphine Sulfate (Morphine) 2 mg IVP Q4H PRN PRN Reason: Pain, severe (8-10) Last Admin: 11/01/18 14:57 Dose: 2 mg Nystatin (Nystop Topical Powder) 0 gm TOP BID [facility] Last Admin: 11/01/18 10:35 Dose: 1 appl Pantoprazole Sodium (Protonix Ec Tab) 40 mg PO 0600 [facility] Last Admin: 11/01/18 06:33 Dose: 40 mg Prednisone (Prednisone Tab) 5 mg PO DAILY [facility] Last Admin: 11/01/18 10:37 Dose: 5 mg Vitamin B Complex/Vit C/Folic Acid (Nephro-Pascual) 1 tab PO 0800 [facility] Last Admin: 11/01/18 10:37 Dose: 1 tab - Labs Labs: 11/01/18 07:10 11/01/18 07:10 PT 15.1 SECONDS (9.4-12.5) H 10/30/18 09:00 INR 1.34 10/30/18 09:00 APTT 34.3 Seconds (26.9-38.3) 10/30/18 09:00 Attending/Attestation - Attestation I have personally seen and examined this patient.: Yes I have fully participated in the care of the patient.: Yes I have reviewed all pertinent clinical information, including history, physical exam and plan: Yes
--- NOTE | 2018-11-01 16:03 | CP.PCM.PN ---
Subjective - Date & Time of Evaluation Date of Evaluation: 11/01/18 Time of Evaluation: 16:01 - Subjective Subjective: Nephrology Consultation Note: Assessment: Stable Fall and Rt femur fracture Anemia of acute blood loss CAD s/p CABG (2005) kidney and pancreas transplant (2006) @ [facility] chronic sys CHF vitamin d def C diff + Plan renal function stable Hypertension control with meds as ordered. Maintain hemodynamics stable. Avoid hypotension. Patient not on ACEI/ARB due to low BP. may consider if BP allows Monitor Input/Output, daily weights and renal function with basic metabolic panel started IV iron, nephrovite and DIANE dose. PRBC as needed started Ca/Vit D supplements. may consider bisphosphonates CHF optimization, cardiology following ortho following Re: kidney transplant---his home regimen as prednisone 5 mg/d, cellcept 1000 mg q 12 hr and prograf 2 mg q 12 hrs to be continued exactly same (please do NOT hold any of these meds) Dose meds/antibiotics for GFR >60 regular diet ordered at pt request Further work up/management as per primary team Thanks for allowing me to participate in care of your patient. Will follow cynthia ent with you. Please call if any Qs. had d/w team Dr Ede Carlos Office: [phone] Chief Complaint; fall Reason for consult: transplant management HPI: Pt is a 58 M with hx of LEFT AKA and right transmetatarsal resection (wheel chair bound); CAD s/p CABG (2005), DDRT and pancreas transplant (2006) @ [facility], gastric bypass, chronic sys CHF presented with complaints of fall and found to have Rt femur fracture. renal consult for transplant management. pt says he follow up at [facility] and doing well in term of transplant. though has many other medical issues listed as above. he denies CP/SOB or urine complaints Denies OTC/herbal meds or NSAIDs No recent iodinated contrast exposure. Noted obvious episodes of low BP. ROS: feels constipated now. c/o pain Rt leg Cardiovascular: No chest pain. Pulmonary: No shortness of breath Gastrointestinal: denies abdominal pain No nausea. No vomiting. Genitourinary: No pain while urinating. Denies blood in urine. All other negative except as mentioned in HPI Physical Examination: General Appearance: Comfortable, in no acute respiratory distress, co-operative . unkempt overall. appears chronically debilitated Vitals reviewed and noted as below Head; Atraumatic, normocephalic ENT: no ulcers no thrush. Tongue is midline. Oropharynx: no rash or ulcers. EYES: Pupils are equal, round and reactive to light accommodation. Eye muscles and extraocular movement intact. Sclera is anicteric. Neck; supple no lymphadenopathy, no thyromegaly or bruit Lungs: Normal respiratory rate/effort. Breath sounds bilateral equal and clear Heart: Normal rate. s1s2 normal. No rub or gallop. Extremities: no edema. No varicose veins. s/p Rt TMA and left AKA Neurological: Patient is alert, awake and oriented to person, place and time. No focal deficit. Strength bilateral appropriate and equal Skin: Warm and dry. Normal turgor. No rash. Palpitation: Normal elasticity for age Abdomen: Abdomen is soft. Bowel sounds +. There is no abdominal tenderness, no guarding/rigidity no organomegaly Psych: normal insight and irritable. upset MSK: Rt leg in splint : [place] kidney or bladder not palpable Labs/imaging reviewed. Past medical history, past surgical history, family history, social history, allergy reviewed and noted as below Family hx: no hx of CKD. Rest non-contributory Objective - Vital Signs/Intake and Output Vital Signs (last 24 hours): Temp Pulse Resp BP Pulse Ox 98.1 F 71 20 117/66 94 L 11/01/18 14:00 11/01/18 14:00 11/01/18 14:00 11/01/18 14:00 11/01/18 14:00 Intake and Output: 11/01/18 11/01/18 06:59 18:59 Intake Total 747 480 Output Total 245 300 Balance 502 180 - Medications Medications: Current Medications Calcium Carbonate (Caltrate) 600 mg PO BID [facility] Last Admin: 11/01/18 10:36 Dose: 600 mg Dextrose (Dextrose 50% Inj) 0 ml IV STAT PRN; Protocol PRN Reason: Hypoglycemia Protocol Ergocalciferol (Drisdol 50,000 Intl Units Cap) 1 cap PO Q7D [facility] Last Admin: 10/31/18 11:19 Dose: 1 cap Ferrous Gluconate (Fergon) 324 mg PO TID [facility] Home Med (Home Med) 2 unit PO Q12 [facility] Last Admin: 11/01/18 10:38 Dose: 2 unit Home Med (Home Med) 2 unit PO Q12 [facility] Last Admin: 11/01/18 10:38 Dose: 2 unit Dextrose (Dextrose 5% In Water 1000 Ml) 1,000 mls @ 0 mls/hr IV .Q0M PRN; Protocol PRN Reason: Hypoglycemia Protocol Iron Sucrose 200 mg/ Sodium (Chloride) 110 mls @ 110 mls/hr IVPB DAILY [facility] Stop: 11/04/18 10:01 Last Admin: 11/01/18 10:36 Dose: 110 mls/hr Insulin Human Regular (Humulin R) 0 units SC ACHS [facility]; Protocol Last Admin: 11/01/18 12:14 Dose: Not Given Metronidazole (Flagyl) 500 mg PO Q8 [facility]; Protocol Last Admin: 11/01/18 14:57 Dose: 500 mg Morphine Sulfate (Morphine) 2 mg IVP Q4H PRN PRN Reason: Pain, severe (8-10) Last Admin: 11/01/18 14:57 Dose: 2 mg Nystatin (Nystop Topical Powder) 0 gm TOP BID [facility] Last Admin: 11/01/18 10:35 Dose: 1 appl Pantoprazole Sodium (Protonix Ec Tab) 40 mg PO 0600 [facility] Last Admin: 11/01/18 06:33 Dose: 40 mg Prednisone (Prednisone Tab) 5 mg PO DAILY [facility] Last Admin: 11/01/18 10:37 Dose: 5 mg Vitamin B Complex/Vit C/Folic Acid (Nephro-Pascual) 1 tab PO 0800 [facility] Last Admin: 11/01/18 10:37 Dose: 1 tab - Labs Labs: 11/01/18 07:10 11/01/18 07:10 PT 15.1 SECONDS (9.4-12.5) H 10/30/18 09:00 INR 1.34 10/30/18 09:00 APTT 34.3 Seconds (26.9-38.3) 10/30/18 09:00
--- NOTE | 2018-11-01 16:27 | CP.PCM.PN ---
<Surendra Cr - Last Filed: 11/01/18 16:18> Subjective - Date & Time of Evaluation Date of Evaluation: 11/01/18 Time of Evaluation: 06:50 - Subjective Subjective: Surendra Cr DO PGY1 Hospitalist Progress Note for Dr Lei Patient seen and examined at bedside. He reports improvement of energy level s/p 1 unit of blood transfusion. Right leg pain is getting better. Denies diarrhea, no bowel movement last night. He denies fever, chills, CP, abdominal pain. No acute overnight events. Objective - Vital Signs/Intake and Output Vital Signs (last 24 hours): Temp Pulse Resp BP Pulse Ox 98.1 F 71 20 117/66 71 L 11/01/18 14:00 11/01/18 14:00 11/01/18 14:00 11/01/18 14:00 11/01/18 14:00 Intake and Output: 11/01/18 11/01/18 06:59 18:59 Intake Total 747 480 Output Total 245 300 Balance 502 180 - Medications Medications: Current Medications Calcium Carbonate (Caltrate) 600 mg PO BID [facility] Last Admin: 11/01/18 10:36 Dose: 600 mg Dextrose (Dextrose 50% Inj) 0 ml IV STAT PRN; Protocol PRN Reason: Hypoglycemia Protocol Ergocalciferol (Drisdol 50,000 Intl Units Cap) 1 cap PO Q7D [facility] Last Admin: 10/31/18 11:19 Dose: 1 cap Ferrous Gluconate (Fergon) 324 mg PO TID [facility] Home Med (Home Med) 2 unit PO Q12 [facility] Last Admin: 11/01/18 10:38 Dose: 2 unit Home Med (Home Med) 2 unit PO Q12 [facility] Last Admin: 11/01/18 10:38 Dose: 2 unit Dextrose (Dextrose 5% In Water 1000 Ml) 1,000 mls @ 0 mls/hr IV .Q0M PRN; Protocol PRN Reason: Hypoglycemia Protocol Iron Sucrose 200 mg/ Sodium (Chloride) 110 mls @ 110 mls/hr IVPB DAILY [facility] Stop: 11/04/18 10:01 Last Admin: 11/01/18 10:36 Dose: 110 mls/hr Insulin Human Regular (Humulin R) 0 units SC ACHS [facility]; Protocol Last Admin: 11/01/18 12:14 Dose: Not Given Metronidazole (Flagyl) 500 mg PO Q8 [facility]; Protocol Last Admin: 11/01/18 14:57 Dose: 500 mg Morphine Sulfate (Morphine) 2 mg IVP Q4H PRN PRN Reason: Pain, severe (8-10) Last Admin: 11/01/18 14:57 Dose: 2 mg Nystatin (Nystop Topical Powder) 0 gm TOP BID [facility] Last Admin: 11/01/18 10:35 Dose: 1 appl Pantoprazole Sodium (Protonix Ec Tab) 40 mg PO 0600 [facility] Last Admin: 11/01/18 06:33 Dose: 40 mg Prednisone (Prednisone Tab) 5 mg PO DAILY [facility] Last Admin: 11/01/18 10:37 Dose: 5 mg Vitamin B Complex/Vit C/Folic Acid (Nephro-Pascual) 1 tab PO 0800 [facility] Last Admin: 11/01/18 10:37 Dose: 1 tab - Labs Labs: 11/01/18 07:10 11/01/18 07:10 PT 15.1 SECONDS (9.4-12.5) H 10/30/18 09:00 INR 1.34 10/30/18 09:00 APTT 34.3 Seconds (26.9-38.3) 10/30/18 09:00 - Additional Findings Additional findings: - Constitutional Appears: In Acute Distress, Unkempt, Chronically Ill - Head Exam Head Exam: ATRAUMATIC, NORMOCEPHALIC - Eye Exam Eye Exam: EOMI, Normal appearance - ENT Exam ENT Exam: Mucous Membranes Moist - Neck Exam Neck exam: Positive for: Normal Inspection - Respiratory Exam Respiratory Exam: Clear to Auscultation Bilateral, NORMAL BREATHING PATTERN. absent: Accessory Muscle Use - Cardiovascular Exam Cardiovascular Exam: RRR, +S1, +S2 - GI/Abdominal Exam GI & Abdominal Exam: Normal Bowel Sounds, Soft - Extremities Exam Additional comments: right lower leg swelling, edema, tenderness, above knee level with no open fracture. Leg wrapped in foam for immobilization left BKA, right transmetatarsal resection - Neurological Exam Neurological exam: Alert, CN II-XII Intact, Oriented x3 - Psychiatric Exam Psychiatric exam: Normal Affect, Normal Mood - Skin Skin Exam: Dry, Intact, Normal Color, Warm Assessment and Plan - Assessment and Plan (Free Text) Assessment: 58 y/o with PMH of CHF, left BKA, right metatarsal resection, renal and pancreas transplant presents with 5 days of right leg pain s/p fall and was found to have right displaced distal femur fracture Plan: Right displaced femur distal fracture s/p mechanical fall: -right femur x-ray: acute oblique displaced fracture in the distal diaphysis femur with 1 shaft with lateral displacement, overlapping of fracture fragments and medial angulation -orthopedic surgeon consulted Dr Calderon, no surgical intervention at this time given patient co-morbidities -Dr Roche consulted for second opinion per patient request. Surgical options discussed with patient, patient needs time to decide. -PT recommended [facility], working on placement -morphine 2mg q4h prn for severe pain -LE duplex negative for DVT CAD s/p CABG: -EF 22% -patient does not take any meds at home -Cardiology following, Dr. Romo Diarrhea: -C diff Ag positive, toxin negative -patient afebrile, no leukocytosis -continue flagyl 500mg po q8h -contact precautions -ID following, Dr Wilhelm Anemia: -H/H improved from 6.6/21.7 to 7.6/25.6 s/p one unit of RBCs yesterday. Patient reported improvement in his energy level -iron studies consistent with iron deficiency anemia, -folate and vit B12 wnl -continue IV iron 200mg daily -ferous gluconate 324mg po tid -continue to monitor H/H. transfuse as needed DM2: -accucheck -f/u HgA1C -ISS-low s/p renal/pancreatic transplant: -continue home med prednisone 5 mg/d, cellcept 1000 mg q 12 hr and prograf 2 mg q 12 hrs -continue Ca carbonate, vit B complex daily, ergocalciferol q7d -IVF NS @50 cc/hr -nephrology following Dr Carlos Chronic urinary retention: -barriga in place -monitor I/O Chronic decubitus ulcer: -stage 2, due to immobilization, patient is bedridden -continue wound care -reposition q2h -continue nystatin topical bid h/o PAD s/p left BKA and right metatarsal amputation: -patient is not taking any meds PPX: -GI: protonix -DVT: SCD -continue PT -regular diet Case reviewed and paln discussed with attending Dr Do Cr, DO <Mima Lei - Last Filed: 11/02/18 17:42> Objective - Vital Signs/Intake and Output Vital Signs (last 24 hours): Temp Pulse Resp BP Pulse Ox 98.6 F 75 18 109/68 95 11/02/18 14:00 11/02/18 14:00 11/02/18 14:00 11/02/18 14:00 11/02/18 14:00 Intake and Output: 11/02/18 11/02/18 06:59 18:59 Intake Total 480 Output Total 300 Balance 180 - Medications Medications: Current Medications Calcium Carbonate (Caltrate) 600 mg PO BID [facility] Last Admin: 11/02/18 09:33 Dose: 600 mg Dextrose (Dextrose 50% Inj) 0 ml IV STAT PRN; Protocol PRN Reason: Hypoglycemia Protocol Docusate Sodium (Colace) 100 mg PO TID [facility] Last Admin: 11/02/18 15:10 Dose: 100 mg Ergocalciferol (Drisdol 50,000 Intl Units Cap) 1 cap PO Q7D [facility] Last Admin: 10/31/18 11:19 Dose: 1 cap Ferrous Gluconate (Fergon) 324 mg PO TID [facility] Home Med (Home Med) 2 unit PO Q12 [facility] Last Admin: 11/02/18 10:36 Dose: 2 unit Home Med (Home Med) 2 unit PO Q12 [facility] Last Admin: 11/02/18 10:37 Dose: 2 unit Dextrose (Dextrose 5% In Water 1000 Ml) 1,000 mls @ 0 mls/hr IV .Q0M PRN; Protocol PRN Reason: Hypoglycemia Protocol Iron Sucrose 200 mg/ Sodium (Chloride) 110 mls @ 110 mls/hr IVPB DAILY [facility] Stop: 11/04/18 10:01 Last Admin: 11/02/18 09:33 Dose: 110 mls/hr Insulin Human Regular (Humulin R) 0 units SC ACHS [facility]; Protocol Last Admin: 11/02/18 12:08 Dose: Not Given Metronidazole (Flagyl) 500 mg PO Q8 [facility]; Protocol Last Admin: 11/02/18 15:09 Dose: 500 mg Morphine Sulfate (Morphine) 1 mg IVP Q6 PRN PRN Reason: Pain, severe (8-10) Nystatin (Nystop Topical Powder) 0 gm TOP BID [facility] Last Admin: 05/16/19 10:08 Dose: 1 appl Oxycodone HCl (Oxycodone Immediate Release Tab) 10 mg PO TID [facility] Last Admin: 11/02/18 15:27 Dose: 10 mg Pantoprazole Sodium (Protonix Ec Tab) 40 mg PO 0600 [facility] Last Admin: 11/02/18 05:30 Dose: 40 mg Polyethylene Glycol (Miralax) 17 gm PO BID PRN PRN Reason: Constipation Last Admin: 11/02/18 15:07 Dose: 17 gm Prednisone (Prednisone Tab) 5 mg PO DAILY [facility] Last Admin: 11/02/18 09:33 Dose: 5 mg Vitamin B Complex/Vit C/Folic Acid (Nephro-Pascual) 1 tab PO 0800 [facility] Last Admin: 11/02/18 15:08 Dose: 1 tab - Labs Labs: 11/02/18 07:30 11/02/18 07:30 PT 15.1 SECONDS (9.4-12.5) H 10/30/18 09:00 INR 1.34 10/30/18 09:00 APTT 34.3 Seconds (26.9-38.3) 10/30/18 09:00 Attending/Attestation - Attestation I have personally seen and examined this patient.: Yes I have fully participated in the care of the patient.: Yes I have reviewed all pertinent clinical information, including history, physical exam and plan: Yes Notes (Text): 11/02/18 17:39 Attending note; Patient seen and examined with resident. Currently patient is not in any acute distress. Complaining of right leg pain. R leg in immobilizer. Denies any chest pain, shortness of breath. Denies any abdominal pain. Patient is a 58-year-old male with past medical history significant for type 1 diabetes, CVA, coronary artery disease status post CABG, end-stage renal disease status post renal transplant, pancreas transplant, AICD, bedridden, and peripheral vascular disease status post left BKA that presented to the emergency room with right leg pain. 1. Right distal diaphysis femur fracture: Right femur x-ray shows acute oblique displaced fracture in the distal diaphysis femur with 1 shaft with lateral displacement, overlapping of fracture fragments and medial angulation. on Morphine for pain. Orthopedics evaluation with appreciated. Agreed for conservative management with immobilization. We will get HKAFO. Second opinion with appreciated. Continue with the knee immobilizer. Getting for orthotics. 2. CAD s/p CABG; AICD in place. Patient was evaluated by Dr. Bloom today. Echocardiogram showed dilated left atrium with severely impaired LV function ejection fraction of 26% no no LV thrombus noted. Severe tricuspid regurgitation and pulmonary hypertension. Patient is moderate risk for surgical procedure. 3. Diarrhea; C. difficile antigen is positive. On Flagyl. ID evaluation appreciated. Currently patient does not have any diarrhea. 4. S/P renal and pancreatic transplant. continue home prednisone, CellCept and Prograf. Nephrology evaluation appreciated. 5. History of PVD and left BKA. 6. Chronic anemia. Status post 1 unit PRBC transfusion. Hemoglobin was 7.6. on IV iron and darbepoetin. 7. Urinary retention. Patient with chronic barriga. 8. Awaiting for brace. PT Evaluation appreciated. Subacute rehab recommended. We will follow-up with licensed master social worker. Follow up Closely with orthopedics.
[2018-11-01] MEDS ORDERED: oxyCODONE 10 mg Immediate Release Tab PO STA (18:53)
[2018-11-02] MEDS: Pantoprazole 40 mg EC Tab PO SCH (05:30)
[2018-11-02] MEDS: Insulin Regular 1 UNITS/0.01 ML ML SC SCH ×3 (07:34→16:52)
[2018-11-02 07:55] LABS: EOS # 0.2 (0.0-0.7); EOS % 2.5 % (1.5-5.0); HEMOGLOBIN 7.7 g/dL (14.0-18.0); LYMPH % 13.3 % (22.0-35.0); MEAN CELL VOLUME 79.5 fl (80.0-105.0); MEAN CORPUSCULAR HEMOGLOBIN 23.5 pg (25.0-35.0); MEAN CORPUSCULAR HGB CONC 29.6 g/dl (31.0-37.0); MEAN PLATELET VOLUME 8.8 fl (7.0-11.0); MONO # 0.5 (0.1-0.6); MONO % 6.3 % (1.0-6.0); RBC 3.27 10^6/uL (3.5-6.1); WHITE BLOOD COUNT 7.6 10^3/uL (4.5-11.0)
[2018-11-02 08:15] LABS: ALB/GLOB RATIO 0.9 (1.1-1.8); ALBUMIN 2.6 g/dL (3.0-4.8); ALT/SGPT 21 U/L (7-56); AST/SGOT 12 U/L (17-59); BLOOD UREA NITROGEN 30 mg/dL (7-21); CALCIUM 9.6 mg/dL (8.4-10.5); GFR NON-AFRICAN AMERICAN > 60
[2018-11-02] MEDS: Morphine 2 mg/ml ISec IVP PRN (09:33)
[2018-11-02] MEDS: Nystatin 100,000 Units/gm Topical Pow(15 gm) TOP SCH ×2 (10:08→19:17)
[2018-11-02] MEDS: PROGRAF 1 MG PO SCH ×2 (10:36→22:05)
[2018-11-02] MEDS: CELLCEPT 500 MG PO SCH ×2 (10:37→22:05)
[2018-11-02] MEDS ORDERED: Morphine 2 mg/ml ISec IVP PRN (11:43)
[2018-11-02] MEDS ORDERED: oxyCODONE 10 mg Immediate Release Tab PO SCH (11:45)
[2018-11-02] MEDS: oxyCODONE 10 mg Immediate Release Tab PO SCH ×3 (12:06→22:11)
--- NOTE | 2018-11-02 12:40 | CP.PCM.PN ---
Subjective - Date & Time of Evaluation Date of Evaluation: 11/02/18 Time of Evaluation: 12:38 - Subjective Subjective: Nephrology Consultation Note: Assessment: Stable Fall and Rt femur fracture Anemia of acute blood loss CAD s/p CABG (2005) kidney and pancreas transplant (2006) @ [facility] chronic sys CHF vitamin d def C diff + Plan renal function stable Hypertension control with meds as ordered. Maintain hemodynamics stable. Avoid hypotension. Patient not on ACEI/ARB due to low BP. may consider if BP allows Monitor Input/Output, daily weights and renal function with basic metabolic panel started IV iron (1000 mg loading dose), nephrovite and weekly DIANE dose. PRBC as needed started Ca/Vit D supplements. CHF optimization, cardiology following ortho following Re: kidney transplant---his home regimen as prednisone 5 mg/d, cellcept 1000 mg q 12 hr and prograf 2 mg q 12 hrs to be continued exactly same (please do NOT hold any of these meds) Dose meds/antibiotics for GFR >60 regular diet ordered at pt request Further work up/management as per primary team Thanks for allowing me to participate in care of your patient. Will follow cynthia ent with you. Please call if any Qs. had d/w team Dr Ede Carlos Office: [phone] Chief Complaint; fall Reason for consult: transplant management HPI: Pt is a 58 M with hx of LEFT AKA and right transmetatarsal resection (wheel chair bound); CAD s/p CABG (2005), DDRT and pancreas transplant (2006) @ [facility], gastric bypass, chronic sys CHF presented with complaints of fall and found to have Rt femur fracture. renal consult for transplant management. pt says he follow up at [facility] and doing well in term of transplant. though has many other medical issues listed as above. he denies CP/SOB or urine complaints Denies OTC/herbal meds or NSAIDs No recent iodinated contrast exposure. Noted obvious episodes of low BP. ROS: c/o pain Rt leg and gen body aches. frustrated, says will sign himself out soon Cardiovascular: No chest pain. Pulmonary: No shortness of breath Gastrointestinal: denies abdominal pain No nausea. No vomiting. Genitourinary: No pain while urinating. Denies blood in urine. has chronic barriga All other negative except as mentioned in HPI Physical Examination: General Appearance: in no acute respiratory distress, co-operative . unkempt overall. appears chronically debilitated Vitals reviewed and noted as below Head; Atraumatic, normocephalic ENT: no ulcers no thrush. Tongue is midline. Oropharynx: no rash or ulcers. EYES: Pupils are equal, round and reactive to light accommodation. Eye muscles and extraocular movement intact. Sclera is anicteric. Neck; supple no lymphadenopathy, no thyromegaly or bruit Lungs: Normal respiratory rate/effort. Breath sounds bilateral equal and clear Heart: Normal rate. s1s2 normal. No rub or gallop. Extremities: no edema. No varicose veins. s/p Rt TMA and left AKA Neurological: Patient is alert, awake and oriented to person, place and time. No focal deficit. Strength bilateral appropriate and equal Skin: Warm and dry. Normal turgor. No rash. Palpitation: Normal elasticity for age Abdomen: Abdomen is soft. Bowel sounds +. There is no abdominal tenderness, no guarding/rigidity no organomegaly Psych: normal insight and irritable. upset/frustrated MSK: Rt leg in splint : chilkoot kidney or bladder not palpable. has chronic indwelling barriga Labs/imaging reviewed. Past medical history, past surgical history, family history, social history, allergy reviewed and noted as below Family hx: no hx of CKD. Rest non-contributory Objective - Vital Signs/Intake and Output Vital Signs (last 24 hours): Temp Pulse Resp BP Pulse Ox 98.2 F 75 16 95/59 L 98 11/02/18 06:00 11/02/18 06:00 11/02/18 06:00 11/02/18 06:00 11/02/18 06:00 - Medications Medications: Current Medications Calcium Carbonate (Caltrate) 600 mg PO BID [facility] Last Admin: 11/02/18 09:33 Dose: 600 mg Dextrose (Dextrose 50% Inj) 0 ml IV STAT PRN; Protocol PRN Reason: Hypoglycemia Protocol Ergocalciferol (Drisdol 50,000 Intl Units Cap) 1 cap PO Q7D [facility] Last Admin: 10/31/18 11:19 Dose: 1 cap Ferrous Gluconate (Fergon) 324 mg PO TID [facility] Home Med (Home Med) 2 unit PO Q12 [facility] Last Admin: 11/02/18 10:36 Dose: 2 unit Home Med (Home Med) 2 unit PO Q12 [facility] Last Admin: 11/02/18 10:37 Dose: 2 unit Dextrose (Dextrose 5% In Water 1000 Ml) 1,000 mls @ 0 mls/hr IV .Q0M PRN; Protocol PRN Reason: Hypoglycemia Protocol Iron Sucrose 200 mg/ Sodium (Chloride) 110 mls @ 110 mls/hr IVPB DAILY [facility] Stop: 11/04/18 10:01 Last Admin: 11/02/18 09:33 Dose: 110 mls/hr Insulin Human Regular (Humulin R) 0 units SC ACHS [facility]; Protocol Last Admin: 11/02/18 07:34 Dose: Not Given Metronidazole (Flagyl) 500 mg PO Q8 [facility]; Protocol Last Admin: 11/02/18 05:29 Dose: 500 mg Morphine Sulfate (Morphine) 1 mg IVP Q6 PRN PRN Reason: Pain, severe (8-10) Nystatin (Nystop Topical Powder) 0 gm TOP BID [facility] Last Admin: 11/02/18 10:08 Dose: 1 appl Oxycodone HCl (Oxycodone Immediate Release Tab) 10 mg PO TID [facility] Last Admin: 11/02/18 12:06 Dose: 10 mg Pantoprazole Sodium (Protonix Ec Tab) 40 mg PO 0600 [facility] Last Admin: 11/02/18 05:30 Dose: 40 mg Prednisone (Prednisone Tab) 5 mg PO DAILY [facility] Last Admin: 11/02/18 09:33 Dose: 5 mg Vitamin B Complex/Vit C/Folic Acid (Nephro-Pascual) 1 tab PO 0800 [facility] Last Admin: 11/01/18 10:37 Dose: 1 tab - Labs Labs: 11/02/18 07:30 11/02/18 07:30 PT 15.1 SECONDS (9.4-12.5) H 10/30/18 09:00 INR 1.34 10/30/18 09:00 APTT 34.3 Seconds (26.9-38.3) 10/30/18 09:00
[2018-11-02] MEDS ORDERED: POLYETHYLENE GLYCOL 3350 17 GM/Dose PACKET PO SCH (13:30)
--- NOTE | 2018-11-02 13:58 | CP.PCM.PN ---
<Surendra Cr - Last Filed: 11/02/18 13:54> Subjective - Date & Time of Evaluation Date of Evaluation: 11/02/18 Time of Evaluation: 07:10 - Subjective Subjective: Surendra Cr DO PGY1 Hospitalist Progress Note for Dr Lei Patient seen and examined at bedside. He reports back pain for which he was give one dose of oxycodone. Right leg pain is getting better. Denies diarrhea, no bowel movement last night. He denies fever, chills, CP, abdominal pain. No acute overnight events. Objective - Vital Signs/Intake and Output Vital Signs (last 24 hours): Temp Pulse Resp BP Pulse Ox 98.2 F 75 16 95/59 L 98 11/02/18 06:00 11/02/18 06:00 11/02/18 06:00 11/02/18 06:00 11/02/18 06:00 - Medications Medications: Current Medications Calcium Carbonate (Caltrate) 600 mg PO BID [facility] Last Admin: 11/02/18 09:33 Dose: 600 mg Dextrose (Dextrose 50% Inj) 0 ml IV STAT PRN; Protocol PRN Reason: Hypoglycemia Protocol Docusate Sodium (Colace Liquid) 100 mg PO TID [facility] Ergocalciferol (Drisdol 50,000 Intl Units Cap) 1 cap PO Q7D [facility] Last Admin: 10/31/18 11:19 Dose: 1 cap Ferrous Gluconate (Fergon) 324 mg PO TID [facility] Home Med (Home Med) 2 unit PO Q12 [facility] Last Admin: 11/02/18 10:36 Dose: 2 unit Home Med (Home Med) 2 unit PO Q12 [facility] Last Admin: 11/02/18 10:37 Dose: 2 unit Dextrose (Dextrose 5% In Water 1000 Ml) 1,000 mls @ 0 mls/hr IV .Q0M PRN; Protocol PRN Reason: Hypoglycemia Protocol Iron Sucrose 200 mg/ Sodium (Chloride) 110 mls @ 110 mls/hr IVPB DAILY [facility] Stop: 11/04/18 10:01 Last Admin: 11/02/18 09:33 Dose: 110 mls/hr Insulin Human Regular (Humulin R) 0 units SC ACHS [facility]; Protocol Last Admin: 11/02/18 07:34 Dose: Not Given Metronidazole (Flagyl) 500 mg PO Q8 [facility]; Protocol Last Admin: 11/02/18 05:29 Dose: 500 mg Morphine Sulfate (Morphine) 1 mg IVP Q6 PRN PRN Reason: Pain, severe (8-10) Nystatin (Nystop Topical Powder) 0 gm TOP BID [facility] Last Admin: 11/02/18 10:08 Dose: 1 appl Oxycodone HCl (Oxycodone Immediate Release Tab) 10 mg PO TID [facility] Last Admin: 11/02/18 12:06 Dose: 10 mg Pantoprazole Sodium (Protonix Ec Tab) 40 mg PO 0600 [facility] Last Admin: 11/02/18 05:30 Dose: 40 mg Polyethylene Glycol (Miralax) 17 gm PO DAILY [facility] Prednisone (Prednisone Tab) 5 mg PO DAILY [facility] Last Admin: 11/02/18 09:33 Dose: 5 mg Vitamin B Complex/Vit C/Folic Acid (Nephro-Pascual) 1 tab PO 0800 [facility] Last Admin: 11/01/18 10:37 Dose: 1 tab - Labs Labs: 11/02/18 07:30 11/02/18 07:30 PT 15.1 SECONDS (9.4-12.5) H 10/30/18 09:00 INR 1.34 10/30/18 09:00 APTT 34.3 Seconds (26.9-38.3) 10/30/18 09:00 - Additional Findings Additional findings: - Constitutional Appears: In no Acute Distress, Unkempt, Chronically Ill - Head Exam Head Exam: ATRAUMATIC, NORMOCEPHALIC - Eye Exam Eye Exam: EOMI, Normal appearance - ENT Exam ENT Exam: Mucous Membranes Moist - Neck Exam Neck exam: Positive for: Normal Inspection - Respiratory Exam Respiratory Exam: Clear to Auscultation Bilateral, NORMAL BREATHING PATTERN. absent: Accessory Muscle Use - Cardiovascular Exam Cardiovascular Exam: RRR, +S1, +S2 - GI/Abdominal Exam GI & Abdominal Exam: Normal Bowel Sounds, Soft - Extremities Exam Additional comments: right lower leg swelling, edema, tenderness, above knee level with no open fracture. Leg wrapped in foam for immobilization left BKA, right transmetatarsal resection - Neurological Exam Neurological exam: Alert, CN II-XII Intact, Oriented x3 - Psychiatric Exam Psychiatric exam: Normal Affect, Normal Mood - Skin Skin Exam: Dry, Intact, Normal Color, Warm Assessment and Plan - Assessment and Plan (Free Text) Assessment: 58 y/o with PMH of CHF, left BKA, right metatarsal resection, renal and pancreas transplant presents with 5 days of right leg pain s/p fall and was found to have right displaced distal femur fracture Plan: Right displaced femur distal fracture s/p mechanical fall: -right femur x-ray: acute oblique displaced fracture in the distal diaphysis femur with 1 shaft with lateral displacement, overlapping of fracture fragments and medial angulation -orthopedic surgeon consulted Dr Calderon, no surgical intervention at this time given patient co-morbidities -Dr Roche consulted for second opinion per patient request. Continue current management. No surgical intervention -PT recommended [facility], working on placement -morphine 2mg q4h prn for severe pain -continue home med oxycodone 10mg tid -LE duplex negative for DVT CAD s/p CABG: -EF 22% -patient does not take any meds at home -Cardiology following, Dr. Romo Constipation: -patient did not have bowel movement for 4 days -patient is on opiates -started colace 100mg tid and miralax qd C diff Ag positive and toxin negative: -patient reports no diarrhea, confirmed with nurse staff. likely colonized -patient afebrile, no leukocytosis -continue flagyl 500mg po q8h -continue contact precautions -ID following, Dr Wilhelm Anemia: -H/H improved from 6.6/21.7 to 7.6/25.6 s/p one unit of RBCs. Patient reported improvement in his energy level -iron studies consistent with iron deficiency anemia, -folate and vit B12 wnl -continue IV iron 200mg daily -ferous gluconate 324mg po tid -continue to monitor H/H. transfuse as needed DM2: -accucheck -f/u HgA1C -ISS-low s/p renal/pancreatic transplant: -continue home med prednisone 5 mg/d, cellcept 1000 mg q 12 hr and prograf 2 mg q 12 hrs -continue Ca carbonate, vit B complex daily, ergocalciferol q7d -nephrology following Dr Carlos Chronic urinary retention: -barriga in place -monitor I/O Chronic decubitus ulcer: -stage 2, due to immobilization, patient is bedridden -continue wound care -reposition q2h -continue nystatin topical bid h/o PAD s/p left BKA and right metatarsal amputation: -patient is not taking any meds PPX: -GI: protonix -DVT: SCD -continue PT -regular diet Case reviewed and paln discussed with attending Dr Do Cr, DO <Mima Lei - Last Filed: 11/02/18 17:45> Objective - Vital Signs/Intake and Output Vital Signs (last 24 hours): Temp Pulse Resp BP Pulse Ox 98.6 F 75 18 109/68 95 11/02/18 14:00 11/02/18 14:00 11/02/18 14:00 11/02/18 14:00 11/02/18 14:00 Intake and Output: 11/02/18 11/02/18 06:59 18:59 Intake Total 480 Output Total 300 Balance 180 - Medications Medications: Current Medications Calcium Carbonate (Caltrate) 600 mg PO BID [facility] Last Admin: 11/02/18 09:33 Dose: 600 mg Dextrose (Dextrose 50% Inj) 0 ml IV STAT PRN; Protocol PRN Reason: Hypoglycemia Protocol Docusate Sodium (Colace) 100 mg PO TID [facility] Last Admin: 11/02/18 15:10 Dose: 100 mg Ergocalciferol (Drisdol 50,000 Intl Units Cap) 1 cap PO Q7D [facility] Last Admin: 10/31/18 11:19 Dose: 1 cap Ferrous Gluconate (Fergon) 324 mg PO TID [facility] Home Med (Home Med) 2 unit PO Q12 [facility] Last Admin: 11/02/18 10:36 Dose: 2 unit Home Med (Home Med) 2 unit PO Q12 [facility] Last Admin: 11/02/18 10:37 Dose: 2 unit Dextrose (Dextrose 5% In Water 1000 Ml) 1,000 mls @ 0 mls/hr IV .Q0M PRN; Protocol PRN Reason: Hypoglycemia Protocol Iron Sucrose 200 mg/ Sodium (Chloride) 110 mls @ 110 mls/hr IVPB DAILY [facility] Stop: 11/04/18 10:01 Last Admin: 11/02/18 09:33 Dose: 110 mls/hr Insulin Human Regular (Humulin R) 0 units SC ACHS [facility]; Protocol Last Admin: 11/02/18 12:08 Dose: Not Given Metronidazole (Flagyl) 500 mg PO Q8 [facility]; Protocol Last Admin: 11/02/18 15:09 Dose: 500 mg Morphine Sulfate (Morphine) 1 mg IVP Q6 PRN PRN Reason: Pain, severe (8-10) Nystatin (Nystop Topical Powder) 0 gm TOP BID [facility] Last Admin: 11/02/18 10:08 Dose: 1 appl Oxycodone HCl (Oxycodone Immediate Release Tab) 10 mg PO TID [facility] Last Admin: 11/02/18 15:27 Dose: 10 mg Pantoprazole Sodium (Protonix Ec Tab) 40 mg PO 0600 [facility] Last Admin: 11/02/18 05:30 Dose: 40 mg Polyethylene Glycol (Miralax) 17 gm PO BID PRN PRN Reason: Constipation Last Admin: 11/02/18 15:07 Dose: 17 gm Prednisone (Prednisone Tab) 5 mg PO DAILY [facility] Last Admin: 11/02/18 09:33 Dose: 5 mg Vitamin B Complex/Vit C/Folic Acid (Nephro-Pascual) 1 tab PO 0800 [facility] Last Admin: 11/02/18 15:08 Dose: 1 tab - Labs Labs: 11/02/18 07:30 11/02/18 07:30 PT 15.1 SECONDS (9.4-12.5) H 10/30/18 09:00 INR 1.34 10/30/18 09:00 APTT 34.3 Seconds (26.9-38.3) 10/30/18 09:00 Attending/Attestation - Attestation I have personally seen and examined this patient.: Yes I have fully participated in the care of the patient.: Yes I have reviewed all pertinent clinical information, including history, physical exam and plan: Yes Notes (Text): 11/02/18 17:42 Attending note; Patient seen and examined with resident. Currently patient is not in any acute distress. Complaining of right leg pain. Patient is requesting oxycodone . Does not want IV morphine . R leg in immobilizer. Denies any chest pain, shortness of breath. Denies any abdominal pain. No bowel movement for the past 3 days. Patient is a 58-year-old male with past medical history significant for type 1 diabetes, CVA, coronary artery disease status post CABG, end-stage renal disease status post renal transplant, pancreas transplant, AICD, bedridden, and peripheral vascular disease status post left BKA that presented to the emergency room with right leg pain. 1. Right distal diaphysis femur fracture: Right femur x-ray shows acute oblique displaced fracture in the distal diaphysis femur with 1 shaft with lateral displacement, overlapping of fracture fragments and medial angulation. Patient refused morphine. Started on oxycodone. orthopedics evaluation with appreciated. Agreed for conservative management with immobilization. We will get HKAFO. Second opinion with appreciated. Continue with the knee immobilizer. Waiting for orthotics. 2. CAD s/p CABG; AICD in place. Patient was evaluated by Dr. Bloom today. Echocardiogram showed dilated left atrium with severely impaired LV function ejection fraction of 26% no no LV thrombus noted. Severe tricuspid regurgitation and pulmonary hypertension. 3. Diarrhea; C. difficile antigen is positive. On Flagyl. ID evaluation appreciated. Patient currently has constipation. Started on Colace and MiraLAX. 4. S/P renal and pancreatic transplant. continue home prednisone, CellCept and Prograf. Nephrology evaluation appreciated. 5. History of PVD and left BKA. 6. Chronic anemia. Status post 1 unit PRBC transfusion. Hemoglobin was 7.7. on IV iron and darbepoetin. 7. Urinary retention. Patient with chronic barriga. 8. Awaiting for brace. PT Evaluation appreciated. Subacute rehab recommended. We will follow-up with social service assistant. Patient is refusing subacute rehab placement. Waiting for orthotics. Possible discharge home after orthotics placement. 11/02/18 17:44 11/02/18 17:44
[2018-11-02] MEDS ORDERED: POLYETHYLENE GLYCOL 3350 17 GM/Dose PACKET PO PRN (14:55)
[2018-11-02] MEDS: Multivitamin Vitamin B Complex (Nephro-Vite) Tab PO SCH (15:08)
--- NOTE | 2018-11-02 16:16 | CP.PCM.PN ---
<Joe Molina - Last Filed: 11/02/18 16:13> Subjective - Date & Time of Evaluation Date of Evaluation: 11/02/18 Time of Evaluation: 07:15 - Subjective Subjective: Infectious disease progress note: Patient seen and examined at bedside. No acute events overnight. Pt c/o RLE pain due to fracture, no other complaints. No diarrhea. 12 point ROS performed and negative unless stated above. Objective - Vital Signs/Intake and Output Vital Signs (last 24 hours): Temp Pulse Resp BP Pulse Ox 98.6 F 75 18 109/68 95 11/02/18 14:00 11/02/18 14:00 11/02/18 14:00 11/02/18 14:00 11/02/18 14:00 Intake and Output: 11/02/18 11/02/18 06:59 18:59 Intake Total 480 Output Total 300 Balance 180 - Medications Medications: Current Medications Calcium Carbonate (Caltrate) 600 mg PO BID [facility] Last Admin: 11/02/18 09:33 Dose: 600 mg Dextrose (Dextrose 50% Inj) 0 ml IV STAT PRN; Protocol PRN Reason: Hypoglycemia Protocol Docusate Sodium (Colace) 100 mg PO TID [facility] Last Admin: 11/02/18 15:10 Dose: 100 mg Ergocalciferol (Drisdol 50,000 Intl Units Cap) 1 cap PO Q7D [facility] Last Admin: 10/31/18 11:19 Dose: 1 cap Ferrous Gluconate (Fergon) 324 mg PO TID [facility] Home Med (Home Med) 2 unit PO Q12 [facility] Last Admin: 11/02/18 10:36 Dose: 2 unit Home Med (Home Med) 2 unit PO Q12 [facility] Last Admin: 11/02/18 10:37 Dose: 2 unit Dextrose (Dextrose 5% In Water 1000 Ml) 1,000 mls @ 0 mls/hr IV .Q0M PRN; Protocol PRN Reason: Hypoglycemia Protocol Iron Sucrose 200 mg/ Sodium (Chloride) 110 mls @ 110 mls/hr IVPB DAILY [facility] Stop: 11/04/18 10:01 Last Admin: 11/02/18 09:33 Dose: 110 mls/hr Insulin Human Regular (Humulin R) 0 units SC ACHS [facility]; Protocol Last Admin: 11/02/18 12:08 Dose: Not Given Metronidazole (Flagyl) 500 mg PO Q8 [facility]; Protocol Last Admin: 11/02/18 15:09 Dose: 500 mg Morphine Sulfate (Morphine) 1 mg IVP Q6 PRN PRN Reason: Pain, severe (8-10) Nystatin (Nystop Topical Powder) 0 gm TOP BID [facility] Last Admin: 11/02/18 10:08 Dose: 1 appl Oxycodone HCl (Oxycodone Immediate Release Tab) 10 mg PO TID [facility] Last Admin: 11/02/18 15:27 Dose: 10 mg Pantoprazole Sodium (Protonix Ec Tab) 40 mg PO 0600 [facility] Last Admin: 11/02/18 05:30 Dose: 40 mg Polyethylene Glycol (Miralax) 17 gm PO BID PRN PRN Reason: Constipation Last Admin: 11/02/18 15:07 Dose: 17 gm Prednisone (Prednisone Tab) 5 mg PO DAILY [facility] Last Admin: 11/02/18 09:33 Dose: 5 mg Vitamin B Complex/Vit C/Folic Acid (Nephro-Pascual) 1 tab PO 0800 [facility] Last Admin: 11/02/18 15:08 Dose: 1 tab - Labs Labs: 11/02/18 07:30 11/02/18 07:30 PT 15.1 SECONDS (9.4-12.5) H 10/30/18 09:00 INR 1.34 10/30/18 09:00 APTT 34.3 Seconds (26.9-38.3) 10/30/18 09:00 - Constitutional Appears: No Acute Distress - Head Exam Head Exam: ATRAUMATIC, NORMOCEPHALIC - Eye Exam Eye Exam: EOMI - ENT Exam ENT Exam: Mucous Membranes Moist - Respiratory Exam Respiratory Exam: Clear to Ausculation Bilateral. absent: Wheezes - Cardiovascular Exam Cardiovascular Exam: REGULAR RHYTHM, +S1, +S2 - GI/Abdominal Exam GI & Abdominal Exam: Soft. absent: Tenderness - Extremities Exam Additional comments: Left BKA RLE tenderness due to fracture - Neurological Exam Neurological Exam: Alert, Awake - Psychiatric Exam Psychiatric exam: Normal Mood - Skin Skin Exam: Dry, Warm Assessment and Plan - Assessment and Plan (Free Text) Assessment: C. difficile pseudomembranous colitis antigen positive Right distal femur fracture Renal and pancreas transplant CAD with CABG CVA Diabetes mellitus type 1 Continue with PO Flagyl Day 4 of 14 days Follow-up further septic work-up - neg thus far Follow-up ortho recs - awaiting possible transfer to [facility] [place] for ORIF Continue to monitor for any changes Case and plan to be reviewed and discussed with Dr. Wilhelm <Eric Wilhelm - Last Filed: 11/02/18 16:21> Objective - Vital Signs/Intake and Output Vital Signs (last 24 hours): Temp Pulse Resp BP Pulse Ox 98.6 F 75 18 109/68 95 11/02/18 14:00 11/02/18 14:00 11/02/18 14:00 11/02/18 14:00 11/02/18 14:00 Intake and Output: 11/02/18 11/02/18 06:59 18:59 Intake Total 480 Output Total 300 Balance 180 - Medications Medications: Current Medications Calcium Carbonate (Caltrate) 600 mg PO BID [facility] Last Admin: 11/02/18 09:33 Dose: 600 mg Dextrose (Dextrose 50% Inj) 0 ml IV STAT PRN; Protocol PRN Reason: Hypoglycemia Protocol Docusate Sodium (Colace) 100 mg PO TID [facility] Last Admin: 11/02/18 15:10 Dose: 100 mg Ergocalciferol (Drisdol 50,000 Intl Units Cap) 1 cap PO Q7D [facility] Last Admin: 10/31/18 11:19 Dose: 1 cap Ferrous Gluconate (Fergon) 324 mg PO TID [facility] Home Med (Home Med) 2 unit PO Q12 [facility] Last Admin: 11/02/18 10:36 Dose: 2 unit Home Med (Home Med) 2 unit PO Q12 [facility] Last Admin: 11/02/18 10:37 Dose: 2 unit Dextrose (Dextrose 5% In Water 1000 Ml) 1,000 mls @ 0 mls/hr IV .Q0M PRN; Protocol PRN Reason: Hypoglycemia Protocol Iron Sucrose 200 mg/ Sodium (Chloride) 110 mls @ 110 mls/hr IVPB DAILY [facility] Stop: 11/04/18 10:01 Last Admin: 11/02/18 09:33 Dose: 110 mls/hr Insulin Human Regular (Humulin R) 0 units SC ACHS [facility]; Protocol Last Admin: 11/02/18 12:08 Dose: Not Given Metronidazole (Flagyl) 500 mg PO Q8 [facility]; Protocol Last Admin: 11/02/18 15:09 Dose: 500 mg Morphine Sulfate (Morphine) 1 mg IVP Q6 PRN PRN Reason: Pain, severe (8-10) Nystatin (Nystop Topical Powder) 0 gm TOP BID [facility] Last Admin: 11/02/18 10:08 Dose: 1 appl Oxycodone HCl (Oxycodone Immediate Release Tab) 10 mg PO TID [facility] Last Admin: 11/02/18 15:27 Dose: 10 mg Pantoprazole Sodium (Protonix Ec Tab) 40 mg PO 0600 [facility] Last Admin: 11/02/18 05:30 Dose: 40 mg Polyethylene Glycol (Miralax) 17 gm PO BID PRN PRN Reason: Constipation Last Admin: 11/02/18 15:07 Dose: 17 gm Prednisone (Prednisone Tab) 5 mg PO DAILY [facility] Last Admin: 11/02/18 09:33 Dose: 5 mg Vitamin B Complex/Vit C/Folic Acid (Nephro-Pascual) 1 tab PO 0800 [facility] Last Admin: 11/02/18 15:08 Dose: 1 tab - Labs Labs: 11/02/18 07:30 11/02/18 07:30 PT 15.1 SECONDS (9.4-12.5) H 10/30/18 09:00 INR 1.34 10/30/18 09:00 APTT 34.3 Seconds (26.9-38.3) 10/30/18 09:00 Attending/Attestation - Attestation I have personally seen and examined this patient.: Yes I have fully participated in the care of the patient.: Yes I have reviewed all pertinent clinical information, including history, physical exam and plan: Yes
[2018-11-03] MEDS: Pantoprazole 40 mg EC Tab PO SCH (06:30)
[2018-11-03] MEDS: Insulin Regular 1 UNITS/0.01 ML ML SC SCH ×3 (08:08→17:00)
[2018-11-03 09:31] LABS: BASO # 0.02 K/mm3 (0.0-2.0); BASO % 0.3 % (0.0-3.0); EOS # 0.2 (0.0-0.7); EOS % 2.7 % (1.5-5.0); HEMOGLOBIN 7.7 g/dL (14.0-18.0); LYMPH % 12.5 % (22.0-35.0); MEAN CELL VOLUME 80.9 fl (80.0-105.0); MEAN CORPUSCULAR HEMOGLOBIN 24.1 pg (25.0-35.0); MEAN CORPUSCULAR HGB CONC 29.8 g/dl (31.0-37.0); MEAN PLATELET VOLUME 8.8 fl (7.0-11.0); MONO # 0.7 (0.1-0.6); MONO % 9.1 % (1.0-6.0); RBC 3.19 10^6/uL (3.5-6.1); RED CELL DISTRIBUTION WIDTH 17.8 % (11.5-14.5); WHITE BLOOD COUNT 7.7 10^3/uL (4.5-11.0)
[2018-11-03 09:37] LABS: ALB/GLOB RATIO 0.9 (1.1-1.8); ALBUMIN 2.7 g/dL (3.0-4.8); ALT/SGPT 17 U/L (7-56); AST/SGOT 14 U/L (17-59); BLOOD UREA NITROGEN 31 mg/dL (7-21); CALCIUM 9.6 mg/dL (8.4-10.5); GFR NON-AFRICAN AMERICAN > 60
[2018-11-03] MEDS: Multivitamin Vitamin B Complex (Nephro-Vite) Tab PO SCH ×2 (10:15→13:26)
[2018-11-03] MEDS: oxyCODONE 10 mg Immediate Release Tab PO SCH ×3 (10:16→18:31)
[2018-11-03] MEDS: CELLCEPT 500 MG PO SCH ×2 (10:22→21:17)
[2018-11-03] MEDS: PROGRAF 1 MG PO SCH ×2 (10:22→21:18)
[2018-11-03] MEDS: Nystatin 100,000 Units/gm Topical Pow(15 gm) TOP SCH ×2 (10:23→20:15)
[2018-11-03 15:08] VITALS: BP 90/51; PULSE 73; RESP 20; TEMP 98.4; O2SAT 96
--- NOTE | 2018-11-03 15:24 | CP.PCM.PN ---
Subjective - Date & Time of Evaluation Date of Evaluation: 11/03/18 Time of Evaluation: 15:23 - Subjective Subjective: Nephrology Consultation Note: Assessment: Stable Fall and Rt femur fracture Anemia of acute blood loss CAD s/p CABG (2005) kidney and pancreas transplant (2006) @ [facility] chronic sys CHF vitamin d def C diff + Plan renal function stable Hypertension control with meds as ordered. Maintain hemodynamics stable. Avoid hypotension. Patient not on ACEI/ARB due to low BP. may consider if BP allows Monitor Input/Output, daily weights and renal function with basic metabolic panel started IV iron (1000 mg loading dose), nephrovite and weekly DIANE dose. PRBC as needed started Ca/Vit D supplements. CHF optimization, cardiology following ortho following Re: kidney transplant---his home regimen as prednisone 5 mg/d, cellcept 1000 mg q 12 hr and prograf 2 mg q 12 hrs to be continued exactly same (please do NOT hold any of these meds) Dose meds/antibiotics for GFR >60 regular diet ordered at pt request Further work up/management as per primary team Thanks for allowing me to participate in care of your patient. Will follow cynthia ent with you. Please call if any Qs. had d/w team Dr Ede Carlos Office: [phone] Chief Complaint; fall Reason for consult: transplant management HPI: Pt is a 58 M with hx of LEFT AKA and right transmetatarsal resection (wheel chair bound); CAD s/p CABG (2005), DDRT and pancreas transplant (2006) @ [facility], gastric bypass, chronic sys CHF presented with complaints of fall and found to have Rt femur fracture. renal consult for transplant management. pt says he follow up at [facility] and doing well in term of transplant. though has many other medical issues listed as above. he denies CP/SOB or urine complaints Denies OTC/herbal meds or NSAIDs No recent iodinated contrast exposure. Noted obvious episodes of low BP. ROS: noted overnight events. upset about d/c planning Cardiovascular: No chest pain. Pulmonary: No shortness of breath Gastrointestinal: denies abdominal pain No nausea. No vomiting. Genitourinary: No pain while urinating. Denies blood in urine. has chronic barriga All other negative except as mentioned in HPI Physical Examination: General Appearance: in no acute respiratory distress, co-operative . unkempt overall. appears chronically debilitated Vitals reviewed and noted as below Head; Atraumatic, normocephalic ENT: no ulcers no thrush. Tongue is midline. Oropharynx: no rash or ulcers. EYES: Pupils are equal, round and reactive to light accommodation. Eye muscles and extraocular movement intact. Sclera is anicteric. Neck; supple no lymphadenopathy, no thyromegaly or bruit Lungs: Normal respiratory rate/effort. Breath sounds bilateral equal and clear Heart: Normal rate. s1s2 normal. No rub or gallop. Extremities: no edema. No varicose veins. s/p Rt TMA and left AKA Neurological: Patient is alert, awake and oriented to person, place and time. No focal deficit. Strength bilateral appropriate and equal Skin: Warm and dry. Normal turgor. No rash. Palpitation: Normal elasticity for age Abdomen: Abdomen is soft. Bowel sounds +. There is no abdominal tenderness, no guarding/rigidity no organomegaly Psych: normal insight and irritable. upset/frustrated MSK: Rt leg in splint : lo[place] kidney or bladder not palpable. has chronic indwelling barriga Labs/imaging reviewed. Past medical history, past surgical history, family history, social history, allergy reviewed and noted as below Family hx: no hx of CKD. Rest non-contributory Objective - Vital Signs/Intake and Output Vital Signs (last 24 hours): Temp Pulse Resp BP Pulse Ox 98.4 F 73 20 90/51 L 96 11/03/18 14:00 11/03/18 14:00 11/03/18 14:00 11/03/18 14:00 11/03/18 14:00 Intake and Output: 11/03/18 11/03/18 06:59 18:59 Intake Total 360 480 Output Total 700 350 Balance -340 130 - Medications Medications: Current Medications Calcium Carbonate (Caltrate) 600 mg PO BID [facility] Last Admin: 11/03/18 10:00 Dose: Not Given Dextrose (Dextrose 50% Inj) 0 ml IV STAT PRN; Protocol PRN Reason: Hypoglycemia Protocol Docusate Sodium (Colace) 100 mg PO TID [facility] Last Admin: 11/03/18 14:14 Dose: Not Given Ergocalciferol (Drisdol 50,000 Intl Units Cap) 1 cap PO Q7D [facility] Last Admin: 10/31/18 11:19 Dose: 1 cap Ferrous Gluconate (Fergon) 324 mg PO TID [facility] Home Med (Home Med) 2 unit PO Q12 [facility] Last Admin: 11/03/18 10:22 Dose: 2 unit Home Med (Home Med) 2 unit PO Q12 [facility] Last Admin: 11/03/18 10:22 Dose: 2 unit Dextrose (Dextrose 5% In Water 1000 Ml) 1,000 mls @ 0 mls/hr IV .Q0M PRN; Protocol PRN Reason: Hypoglycemia Protocol Iron Sucrose 200 mg/ Sodium (Chloride) 110 mls @ 110 mls/hr IVPB DAILY [facility] Stop: 11/04/18 10:01 Last Admin: 11/03/18 10:16 Dose: 110 mls/hr Insulin Human Regular (Humulin R) 0 units SC ACHS [facility]; Protocol Last Admin: 11/03/18 11:30 Dose: Not Given Metronidazole (Flagyl) 500 mg PO Q8 [facility]; Protocol Last Admin: 11/03/18 14:28 Dose: 500 mg Morphine Sulfate (Morphine) 1 mg IVP Q6 PRN PRN Reason: Pain, severe (8-10) Nystatin (Nystop Topical Powder) 0 gm TOP BID [facility] Last Admin: 11/03/18 10:23 Dose: Not Given Oxycodone HCl (Oxycodone Immediate Release Tab) 10 mg PO TID [facility] Last Admin: 11/03/18 14:28 Dose: 10 mg Pantoprazole Sodium (Protonix Ec Tab) 40 mg PO 0600 [facility] Last Admin: 11/03/18 06:30 Dose: 40 mg Polyethylene Glycol (Miralax) 17 gm PO BID PRN PRN Reason: Constipation Last Admin: 11/02/18 15:07 Dose: 17 gm Prednisone (Prednisone Tab) 5 mg PO DAILY [facility] Last Admin: 11/03/18 10:15 Dose: 5 mg Vitamin B Complex/Vit C/Folic Acid (Nephro-Pascual) 1 tab PO 0800 [facility] Last Admin: 11/03/18 13:26 Dose: Not Given - Labs Labs: 11/03/18 07:00 11/03/18 07:00 PT 15.1 SECONDS (9.4-12.5) H 10/30/18 09:00 INR 1.34 10/30/18 09:00 APTT 34.3 Seconds (26.9-38.3) 10/30/18 09:00
--- NOTE | 2018-11-03 15:46 | CP.PCM.PN ---
<Joe Molina - Last Filed: 11/03/18 16:55> Subjective - Date & Time of Evaluation Date of Evaluation: 11/03/18 Time of Evaluation: 07:00 - Subjective Subjective: Infectious disease progress note: Patient seen and examined at bedside. No acute events overnight. R lower ext pain. No diarrhea. 12 point ROS performed and negative unless stated above. Objective - Vital Signs/Intake and Output Vital Signs (last 24 hours): Temp Pulse Resp BP Pulse Ox 98.4 F 73 20 90/51 L 96 11/03/18 14:00 11/03/18 14:00 11/03/18 14:00 11/03/18 14:00 11/03/18 14:00 Intake and Output: 11/03/18 11/03/18 06:59 18:59 Intake Total 360 480 Output Total 700 350 Balance -340 130 - Medications Medications: Current Medications Calcium Carbonate (Caltrate) 600 mg PO BID [facility] Last Admin: 11/03/18 10:00 Dose: Not Given Dextrose (Dextrose 50% Inj) 0 ml IV STAT PRN; Protocol PRN Reason: Hypoglycemia Protocol Docusate Sodium (Colace) 100 mg PO TID [facility] Last Admin: 11/03/18 14:14 Dose: Not Given Ergocalciferol (Drisdol 50,000 Intl Units Cap) 1 cap PO Q7D [facility] Last Admin: 10/31/18 11:19 Dose: 1 cap Ferrous Gluconate (Fergon) 324 mg PO TID [facility] Home Med (Home Med) 2 unit PO Q12 [facility] Last Admin: 11/03/18 10:22 Dose: 2 unit Home Med (Home Med) 2 unit PO Q12 [facility] Last Admin: 11/03/18 10:22 Dose: 2 unit Dextrose (Dextrose 5% In Water 1000 Ml) 1,000 mls @ 0 mls/hr IV .Q0M PRN; Protocol PRN Reason: Hypoglycemia Protocol Iron Sucrose 200 mg/ Sodium (Chloride) 110 mls @ 110 mls/hr IVPB DAILY [facility] Stop: 11/04/18 10:01 Last Admin: 11/03/18 10:16 Dose: 110 mls/hr Insulin Human Regular (Humulin R) 0 units SC ACHS [facility]; Protocol Last Admin: 11/03/18 11:30 Dose: Not Given Metronidazole (Flagyl) 500 mg PO Q8 [facility]; Protocol Last Admin: 11/03/18 14:28 Dose: 500 mg Morphine Sulfate (Morphine) 1 mg IVP Q6 PRN PRN Reason: Pain, severe (8-10) Nystatin (Nystop Topical Powder) 0 gm TOP BID [facility] Last Admin: 11/03/18 10:23 Dose: Not Given Oxycodone HCl (Oxycodone Immediate Release Tab) 10 mg PO TID [facility] Last Admin: 11/03/18 14:28 Dose: 10 mg Pantoprazole Sodium (Protonix Ec Tab) 40 mg PO 0600 [facility] Last Admin: 11/03/18 06:30 Dose: 40 mg Polyethylene Glycol (Miralax) 17 gm PO BID PRN PRN Reason: Constipation Last Admin: 11/02/18 15:07 Dose: 17 gm Prednisone (Prednisone Tab) 5 mg PO DAILY [facility] Last Admin: 11/03/18 10:15 Dose: 5 mg Vitamin B Complex/Vit C/Folic Acid (Nephro-Pascual) 1 tab PO 0800 [facility] Last Admin: 11/03/18 13:26 Dose: Not Given - Labs Labs: 11/03/18 07:00 11/03/18 07:00 PT 15.1 SECONDS (9.4-12.5) H 10/30/18 09:00 INR 1.34 10/30/18 09:00 APTT 34.3 Seconds (26.9-38.3) 10/30/18 09:00 - Constitutional Appears: No Acute Distress - Head Exam Head Exam: ATRAUMATIC, NORMOCEPHALIC - Eye Exam Eye Exam: EOMI - ENT Exam ENT Exam: Mucous Membranes Moist - Respiratory Exam Respiratory Exam: Clear to Ausculation Bilateral. absent: Wheezes - Cardiovascular Exam Cardiovascular Exam: RRR, +S1, +S2 - GI/Abdominal Exam GI & Abdominal Exam: Soft. absent: Distended, Tenderness - Extremities Exam Extremities Exam: absent: Calf Tenderness, Pedal Edema - Neurological Exam Neurological Exam: Alert, Awake, Oriented x3 - Psychiatric Exam Psychiatric exam: Normal Mood - Skin Skin Exam: Dry, Warm Assessment and Plan - Assessment and Plan (Free Text) Assessment: C. difficile pseudomembranous colitis antigen positive Right distal femur fracture Renal and pancreas transplant CAD with CABG CVA Diabetes mellitus type 1 Continue with PO Flagyl Day 5 of 14 days Follow-up further septic work-up - neg thus far Follow-up ortho recs - awaiting brace- poor surgical candidate Continue to monitor for any changes Case and plan to be reviewed and discussed with Dr. Wilhelm <Eric Wilhelm - Last Filed: 11/03/18 18:04> Objective - Vital Signs/Intake and Output Vital Signs (last 24 hours): Temp Pulse Resp BP Pulse Ox 98.4 F 73 20 90/51 L 96 11/03/18 14:00 11/03/18 14:00 11/03/18 14:00 11/03/18 14:00 11/03/18 14:00 Intake and Output: 11/03/18 11/03/18 06:59 18:59 Intake Total 360 480 Output Total 700 350 Balance -340 130 - Medications Medications: Current Medications Calcium Carbonate (Caltrate) 600 mg PO BID [facility] Last Admin: 11/03/18 10:00 Dose: Not Given Dextrose (Dextrose 50% Inj) 0 ml IV STAT PRN; Protocol PRN Reason: Hypoglycemia Protocol Docusate Sodium (Colace) 100 mg PO TID [facility] Last Admin: 11/03/18 14:14 Dose: Not Given Ergocalciferol (Drisdol 50,000 Intl Units Cap) 1 cap PO Q7D [facility] Last Admin: 10/31/18 11:19 Dose: 1 cap Ferrous Gluconate (Fergon) 324 mg PO TID [facility] Home Med (Home Med) 2 unit PO Q12 [facility] Last Admin: 11/03/18 10:22 Dose: 2 unit Home Med (Home Med) 2 unit PO Q12 [facility] Last Admin: 11/03/18 10:22 Dose: 2 unit Dextrose (Dextrose 5% In Water 1000 Ml) 1,000 mls @ 0 mls/hr IV .Q0M PRN; Protocol PRN Reason: Hypoglycemia Protocol Iron Sucrose 200 mg/ Sodium (Chloride) 110 mls @ 110 mls/hr IVPB DAILY [facility] Stop: 11/04/18 10:01 Last Admin: 11/03/18 10:16 Dose: 110 mls/hr Insulin Human Regular (Humulin R) 0 units SC ACHS [facility]; Protocol Last Admin: 11/03/18 11:30 Dose: Not Given Metronidazole (Flagyl) 500 mg PO Q8 [facility]; Protocol Last Admin: 11/03/18 14:28 Dose: 500 mg Morphine Sulfate (Morphine) 1 mg IVP Q6 PRN PRN Reason: Pain, severe (8-10) Nystatin (Nystop Topical Powder) 0 gm TOP BID [facility] Last Admin: 11/03/18 10:23 Dose: Not Given Oxycodone HCl (Oxycodone Immediate Release Tab) 10 mg PO TID [facility] Last Admin: 11/03/18 14:28 Dose: 10 mg Pantoprazole Sodium (Protonix Ec Tab) 40 mg PO 0600 [facility] Last Admin: 11/03/18 06:30 Dose: 40 mg Polyethylene Glycol (Miralax) 17 gm PO BID PRN PRN Reason: Constipation Last Admin: 11/02/18 15:07 Dose: 17 gm Prednisone (Prednisone Tab) 5 mg PO DAILY [facility] Last Admin: 11/03/18 10:15 Dose: 5 mg Vitamin B Complex/Vit C/Folic Acid (Nephro-Pascual) 1 tab PO 0800 [facility] Last Admin: 11/03/18 13:26 Dose: Not Given - Labs Labs: 11/03/18 07:00 11/03/18 07:00 PT 15.1 SECONDS (9.4-12.5) H 10/30/18 09:00 INR 1.34 10/30/18 09:00 APTT 34.3 Seconds (26.9-38.3) 10/30/18 09:00 Attending/Attestation - Attestation I have personally seen and examined this patient.: Yes I have fully participated in the care of the patient.: Yes I have reviewed all pertinent clinical information, including history, physical exam and plan: Yes
--- NOTE | 2018-11-03 17:27 | CP.PCM.DIS ---
<AsaelSurendra mistry - Last Filed: 11/03/18 17:09> Provider - Provider Date of Admission: 10/29/18 15:12 Attending physician: Mima Lei MD Consults: 10/29/18 15:13 Orthopedic Consult Routine Comment: Consulting Provider: Gi Calderon Consulting Physician: Gi Calderon Reason for Consult: distal femur fracture 10/29/18 15:41 Physician Consult Routine Comment: Consulting Provider: Rudy Bloom Consulting Physician: Rudy Bloom Reason for Consult: clearance, CHF w EF 22%, femur fracture 10/29/18 18:04 Infectious Disease Consult Routine Comment: Consulting Provider: Eric Wilhelm Consulting Physician: Eric Wilhelm Reason for Consult: c-diff antigen positive 10/30/18 07:58 Consult [Physician Consult] Routine Comment: Consulting Provider: Ramos Serrano Consulting Physician: Ramos Serrano Reason for Consult: hx of kidney transplant; femur fx, clearance for OR 10/30/18 09:42 Physician Consult Routine Comment: Consulting Provider: Darek Roche Consulting Physician: Darek Roche Reason for Consult: second opinion for femur fracture Time Spent in preparation of Discharge (in minutes): 50 Hospital Course - Lab Results Lab Results: Micro Results 10/29/18 16:00 Stool C. difficile Antigen & Toxins A,B - Final Most Recent Lab Values WBC 7.7 10^3/uL (4.5-11.0) 11/03/18 07:00 RBC 3.19 10^6/uL (3.5-6.1) L 11/03/18 07:00 Hgb 7.7 g/dL (14.0-18.0) L 11/03/18 07:00 Hct 25.8 % (42.0-52.0) L 11/03/18 07:00 MCV 80.9 fl (80.0-105.0) 11/03/18 07:00 MCH 24.1 pg (25.0-35.0) L 11/03/18 07:00 MCHC 29.8 g/dl (31.0-37.0) L 11/03/18 07:00 RDW 17.8 % (11.5-14.5) H 11/03/18 07:00 Plt Count 435 10^3/uL (120.0-450.0) 11/03/18 07:00 MPV 8.8 fl (7.0-11.0) 11/03/18 07:00 Neut % (Auto) 75.4 % (50.0-68.0) H 11/03/18 07:00 Lymph % (Auto) 12.5 % (22.0-35.0) L 11/03/18 07:00 [place] % (Auto) 9.1 % (1.0-6.0) H 11/03/18 07:00 Eos % (Auto) 2.7 % (1.5-5.0) 11/03/18 07:00 Baso % (Auto) 0.3 % (0.0-3.0) 11/03/18 07:00 Lymph # (Auto) 1.0 (1.2-3.4) L 11/03/18 07:00 [place] # (Auto) 0.7 (0.1-0.6) H 11/03/18 07:00 Eos # (Auto) 0.2 (0.0-0.7) 11/03/18 07:00 Baso # (Auto) 0.02 K/mm3 (0.0-2.0) 11/03/18 07:00 Absolute Neuts (auto) 5.78 (1.4-6.5) 11/03/18 07:00 PT 15.1 SECONDS (9.4-12.5) H 10/30/18 09:00 INR 1.34 10/30/18 09:00 APTT 34.3 Seconds (26.9-38.3) 10/30/18 09:00 Sodium 139 mmol/L (132-148) 11/03/18 07:00 Potassium 5.0 mmol/L (3.6-5.0) 11/03/18 07:00 Chloride 110 mmol/L (98-107) H 11/03/18 07:00 Carbon Dioxide 23 mmol/L (21-33) 11/03/18 07:00 Anion Gap 11 (10-20) 11/03/18 07:00 BUN 31 mg/dL (7-21) H 11/03/18 07:00 Creatinine 1.1 mg/dl (0.8-1.5) 11/03/18 07:00 Est GFR ( Amer) > 60 11/03/18 07:00 Est GFR (Non-Af Amer) > 60 11/03/18 07:00 POC Glucose (mg/dL) 132 mg/dL (65-110) H 11/03/18 16:30 Random Glucose 88 mg/dL (70-110) 11/03/18 07:00 Hemoglobin A1c 5.7 % (4.2-6.5) 11/03/18 07:00 Calcium 9.6 mg/dL (8.4-10.5) 11/03/18 07:00 Phosphorus 2.6 mg/dL (2.5-4.5) 11/02/18 07:30 Magnesium 1.7 mg/dL (1.7-2.2) 11/02/18 07:30 Iron 30 ug/dL (45-180) L 10/30/18 12:13 TIBC 177 ug/dL (261-462) L 10/30/18 12:13 % Saturation 17 % (20-55) L 10/30/18 12:13 Ferritin 171.0 ng/mL 10/30/18 12:13 Total Bilirubin 0.2 mg/dL (0.2-1.3) 11/03/18 07:00 AST 14 U/L (17-59) L 11/03/18 07:00 ALT 17 U/L (7-56) 11/03/18 07:00 Alkaline Phosphatase 72 U/L (38-126) 11/03/18 07:00 Total Creatine Kinase 314 U/L (35-230) H 10/29/18 11:42 CK-MB (CK-2) 6.7 ng/mL (0.0-3.6) H 10/29/18 11:42 CK-MB (CK-2) % 2.1 % (2.5-3.0) L 10/29/18 11:42 Troponin I 0.05 ng/mL D 10/29/18 11:15 Total Protein 5.6 g/dL (5.8-8.3) L 11/03/18 07:00 Albumin 2.7 g/dL (3.0-4.8) L 11/03/18 07:00 Globulin 3.0 gm/dL 11/03/18 07:00 Albumin/Globulin Ratio 0.9 (1.1-1.8) L 11/03/18 07:00 Vitamin B12 394 pg/mL (239-931) 10/30/18 12:13 25-OH Vitamin D Total 13.4 NG/ML (30.0-100.0) L 10/30/18 12:13 Folate 16.6 ng/mL 10/30/18 12:13 Blood Type O POSITIVE 10/29/18 16:10 Antibody Screen Negative 10/29/18 16:10 Crossmatch See Detail 10/29/18 16:10 BBK History Checked Patient has bt 10/29/18 16:10 - Hospital Course Hospital Course: 58 y/o with PMH of CHF, left BKA, right metatarsal resection, renal and pancreas transplant presents with 5 days of right leg pain s/p fall. Lower extremity XR showed right displaced distal femur fracture in the distal diaphysis femur with 1 shaft with lateral displacement, overlapping of fracture fragments and medial angulation. LE duplex negative for DVT. Orthopedic surgeon consulted Dr Calderon who recommended no surgical intervention at this time given patient co- morbidities. Dr Roche consulted for second opinion per patient request, recommended continue current management. No surgical intervention. Pain controlled with morphine and home med oxycodone. Patient has CAD s/p CABG with EF 22% Patient was followed by bilingual sales consultant, Dr. Romo. Patient had chronic constipation, was refusing any laxatives initially then agreed for colace miralax. He was found to be C diff Ag positive and toxin negative, likely colonized. Flagyl 500mg po q8h started but reported no diarrhea during admission. Hb was low at 6.6 and was given 1 unit of RBC, BH increased to 7.6. Iron studies consistent with iron deficiency anemia, iron IV and po given. Patient is s/p renal/pancreatic transplant home med prednisone 5 mg/d, cellcept 1000 mg q 12 hr and prograf 2 mg q 12 hrs resumed. Patient was followed by proposal analyst, Dr Carlos. On admission, patient had chronic decubitus ulcer ,stage 2, due to immobilization, patient is bedridden. Wound care followed with topical nystatin applied. Patient is has PAD s/p left BKA and right metatarsal amputation. Patient was followed by physical therapist during his hospital stay. Patient was hemodynamically stable, afebrile, clinically improved and was ready for transfer to Rehab today. Discharge Exam - Head Exam Head Exam: ATRAUMATIC, NORMOCEPHALIC - Additional Findings Additional findings: - Constitutional Appears: In no Acute Distress, Unkempt, Chronically Ill - Head Exam Head Exam: ATRAUMATIC, NORMOCEPHALIC - Eye Exam Eye Exam: EOMI, Normal appearance - ENT Exam ENT Exam: Mucous Membranes Moist - Neck Exam Neck exam: Positive for: Normal Inspection - Respiratory Exam Respiratory Exam: Clear to Auscultation Bilateral, NORMAL BREATHING PATTERN. absent: Accessory Muscle Use - Cardiovascular Exam Cardiovascular Exam: RRR, +S1, +S2 - GI/Abdominal Exam GI & Abdominal Exam: Normal Bowel Sounds, Soft - Extremities Exam Additional comments: right lower leg swelling, edema, above knee level with no open fracture. Leg wrapped in foam for immobilization left BKA, right transmetatarsal resection - Neurological Exam Neurological exam: Alert, CN II-XII Intact, Oriented x3 - Psychiatric Exam Psychiatric exam: Normal Affect, Normal Mood - Skin Skin Exam: decubitus ulcer, stage 2, clean, no pus, no drainage, no erythema Discharge Plan - Discharge Medications Prescriptions: Calcium Carbonate [Caltrate] 600 mg PO BID #60 tab Docusate [Colace] 100 mg PO TID #15 cap Ergocalciferol [Drisdol 50,000 Intl Units Cap] 1 cap PO Q7D #30 cap Ferrous Gluconate [Fergon] 324 mg PO TID #90 tab metroNIDAZOLE [Flagyl] 500 mg PO Q8 #30 tab Nystatin [Nystop Topical Powder] 1 gm TOP BID #1 bottle oxyCODONE [oxyCODONE Immediate Release Tab] 10 mg PO TID #15 tab predniSONE [predniSONE Tab] 5 mg PO DAILY #30 tab Vitamin B Complex/Vit C/Folic [Nephro-Pascual] 1 tab PO 0800 #30 tab - Follow Up Plan Condition: FAIR Disposition: REHAB FACILITY/REHAB UNIT Instructions: Clostridium difficile, Femur Fracture (DC), Preventing Falls, Oxycodone, Pneumococcal Polysaccharide Vaccine (23-Valent) Additional Instructions: Transfer to Rehab today. 1. Follow up with Dr. Roche in 2 weeks. 2. Wear the orthotics. 3. Complete flagyl therapy. 4. Continue PT. follow up with PMD after discharge. Referrals: Darek Roche DO [Staff Provider] - <Mima Lei - Last Filed: 11/04/18 13:19> Provider - Provider Date of Admission: 10/29/18 15:12 Attending physician: Mima Lei MD Consults: 10/29/18 15:13 Orthopedic Consult Routine Comment: Consulting Provider: Gi Calderon Consulting Physician: Gi Calderon Reason for Consult: distal femur fracture 10/29/18 15:41 Physician Consult Routine Comment: Consulting Provider: Rudy Bloom Consulting Physician: Rudy Bloom Reason for Consult: clearance, CHF w EF 22%, femur fracture 10/29/18 18:04 Infectious Disease Consult Routine Comment: Consulting Provider: Eric Wilhelm Consulting Physician: Eric Wilhelm Reason for Consult: c-diff antigen positive 10/30/18 07:58 Consult [Physician Consult] Routine Comment: Consulting Provider: Ramos Serrano Consulting Physician: Ramos Serrano Reason for Consult: hx of kidney transplant; femur fx, clearance for OR 10/30/18 09:42 Physician Consult Routine Comment: Consulting Provider: Darek Roche Consulting Physician: Darek Roche Reason for Consult: second opinion for femur fracture Hospital Course - Lab Results Lab Results: Micro Results 10/29/18 16:00 Stool C. difficile Antigen & Toxins A,B - Final Most Recent Lab Values WBC 7.7 10^3/uL (4.5-11.0) 11/03/18 07:00 RBC 3.19 10^6/uL (3.5-6.1) L 11/03/18 07:00 Hgb 7.7 g/dL (14.0-18.0) L 11/03/18 07:00 Hct 25.8 % (42.0-52.0) L 11/03/18 07:00 MCV 80.9 fl (80.0-105.0) 11/03/18 07:00 MCH 24.1 pg (25.0-35.0) L 11/03/18 07:00 MCHC 29.8 g/dl (31.0-37.0) L 11/03/18 07:00 RDW 17.8 % (11.5-14.5) H 11/03/18 07:00 Plt Count 435 10^3/uL (120.0-450.0) 11/03/18 07:00 MPV 8.8 fl (7.0-11.0) 11/03/18 07:00 Neut % (Auto) 75.4 % (50.0-68.0) H 11/03/18 07:00 Lymph % (Auto) 12.5 % (22.0-35.0) L 11/03/18 07:00 [place] % (Auto) 9.1 % (1.0-6.0) H 11/03/18 07:00 Eos % (Auto) 2.7 % (1.5-5.0) 11/03/18 07:00 Baso % (Auto) 0.3 % (0.0-3.0) 11/03/18 07:00 Lymph # (Auto) 1.0 (1.2-3.4) L 11/03/18 07:00 [place] # (Auto) 0.7 (0.1-0.6) H 11/03/18 07:00 Eos # (Auto) 0.2 (0.0-0.7) 11/03/18 07:00 Baso # (Auto) 0.02 K/mm3 (0.0-2.0) 11/03/18 07:00 Absolute Neuts (auto) 5.78 (1.4-6.5) 11/03/18 07:00 PT 15.1 SECONDS (9.4-12.5) H 10/30/18 09:00 INR 1.34 10/30/18 09:00 APTT 34.3 Seconds (26.9-38.3) 10/30/18 09:00 Sodium 139 mmol/L (132-148) 11/03/18 07:00 Potassium 5.0 mmol/L (3.6-5.0) 11/03/18 07:00 Chloride 110 mmol/L (98-107) H 11/03/18 07:00 Carbon Dioxide 23 mmol/L (21-33) 11/03/18 07:00 Anion Gap 11 (10-20) 11/03/18 07:00 BUN 31 mg/dL (7-21) H 11/03/18 07:00 Creatinine 1.1 mg/dl (0.8-1.5) 11/03/18 07:00 Est GFR ( Amer) > 60 11/03/18 07:00 Est GFR (Non-Af Amer) > 60 11/03/18 07:00 POC Glucose (mg/dL) 195 mg/dL (65-110) H 11/03/18 21:34 Random Glucose 88 mg/dL (70-110) 11/03/18 07:00 Hemoglobin A1c 5.7 % (4.2-6.5) 11/03/18 07:00 Calcium 9.6 mg/dL (8.4-10.5) 11/03/18 07:00 Phosphorus 2.6 mg/dL (2.5-4.5) 11/02/18 07:30 Magnesium 1.7 mg/dL (1.7-2.2) 11/02/18 07:30 Iron 30 ug/dL (45-180) L 10/30/18 12:13 TIBC 177 ug/dL (261-462) L 10/30/18 12:13 % Saturation 17 % (20-55) L 10/30/18 12:13 Ferritin 171.0 ng/mL 10/30/18 12:13 Total Bilirubin 0.2 mg/dL (0.2-1.3) 11/03/18 07:00 AST 14 U/L (17-59) L 11/03/18 07:00 ALT 17 U/L (7-56) 11/03/18 07:00 Alkaline Phosphatase 72 U/L (38-126) 11/03/18 07:00 Total Creatine Kinase 314 U/L (35-230) H 10/29/18 11:42 CK-MB (CK-2) 6.7 ng/mL (0.0-3.6) H 10/29/18 11:42 CK-MB (CK-2) % 2.1 % (2.5-3.0) L 10/29/18 11:42 Troponin I 0.05 ng/mL D 10/29/18 11:15 Total Protein 5.6 g/dL (5.8-8.3) L 11/03/18 07:00 Albumin 2.7 g/dL (3.0-4.8) L 11/03/18 07:00 Globulin 3.0 gm/dL 11/03/18 07:00 Albumin/Globulin Ratio 0.9 (1.1-1.8) L 11/03/18 07:00 Vitamin B12 394 pg/mL (239-931) 10/30/18 12:13 25-OH Vitamin D Total 13.4 NG/ML (30.0-100.0) L 10/30/18 12:13 Folate 16.6 ng/mL 10/30/18 12:13 Blood Type O POSITIVE 10/29/18 16:10 Antibody Screen Negative 10/29/18 16:10 Crossmatch See Detail 10/29/18 16:10 BBK History Checked Patient has bt 10/29/18 16:10 Attending/Attestation - Attestation I have personally seen and examined this patient.: Yes I have fully participated in the care of the patient.: Yes I have reviewed all pertinent clinical information, including history, physical exam and plan: Yes Notes (Text): 11/04/18 13:14 Attending note; Patient seen and examined with resident. Currently patient is not in any acute distress. Complaining of right leg pain. R leg in immobilizer earlier. placed on orthotics later today. Patient is a 58-year-old male with past medical history significant for type 1 diabetes, CVA, coronary artery disease status post CABG, end-stage renal disease status post renal transplant, pancreas transplant, AICD, bedridden, and peripheral vascular disease status post left BKA that presented to the emergency room with right leg pain. 1. Right distal diaphysis femur fracture: Right femur x-ray shows acute oblique displaced fracture in the distal diaphysis femur with 1 shaft with lateral displacement, overlapping of fracture fragments and medial angulation. on oxycodone for pain control . orthopedics evaluation with appreciated. Agreed for conservative management with immobilization. Second opinion with appreciated. Status post orthotic placement. 2. CAD s/p CABG; AICD in place. Patient was evaluated by Dr. Bloom. Echocardiogram showed dilated left atrium with severely impaired LV function ejection fraction of 26% no no LV thrombus noted. Severe tricuspid regurgitation and pulmonary hypertension. 3. Diarrhea; resolved. C. difficile antigen is positive. On Flagyl. ID evaluation appreciated. Patient will complete 14 days of therapy with p.o. Flagyl. Patient is allergic to vancomycin . Patient currently has constipation. on Colace and MiraLAX prn. 4. S/P renal and pancreatic transplant. continue home prednisone, CellCept and Prograf. Nephrology evaluation appreciated. 5. History of PVD and left BKA. 6. Chronic anemia. Status post 1 unit PRBC transfusion. Hemoglobin was 7.6. on IV iron and darbepoetin. 7. Urinary retention. Patient with chronic barriga. 8. PT Evaluation appreciated. Subacute rehab recommended. Case discussed with sr. social media & mobile manager and caseworker intake in detail by the bedside. Patient initially refused to go to subacute rehab. Patient's daughter does not think the patient should go home. Patient does not help him at home. After a long conversation Patient decided to go to subacute rehab today. Patient will be transferred to subacute rehab today. Patient will follow up with PMD Dr. Tompkins upon discharge. 11/04/18 13:17 11/04/18 13:18
[2018-11-03] MEDS ORDERED: TraMADol/Apap 37.5/325 mg Tab PO STA (21:01)
== END 2018-11-03 22:42 | disposition home or self-care (01) | DRG 534 ==
LOC: ED 08:27 → ERH 15:12 → 5RSO 22:30
PROVIDERS: ADMIT Hospitalist; ATTEND Internal Medicine
PROC: 30233N1 Transfusion of Nonautologous Red Blood Cells into Peripheral Vein, Percutaneous Approach (ICD-10-PCS; principal; 2018-10-31)
DX: S72.401A Unspecified fracture of lower end of right femur, initial encounter for closed fracture (principal); A04.72 Enterocolitis due to Clostridium difficile, not specified as recurrent; I50.22 Chronic systolic (congestive) heart failure; D62 Acute posthemorrhagic anemia; Z94.0 Kidney transplant status; Z94.83 Pancreas transplant status; I25.10 Atherosclerotic heart disease of native coronary artery without angina pectoris; R62.7 Adult failure to thrive; L89.152 Pressure ulcer of sacral region, stage 2; E55.9 Vitamin D deficiency, unspecified; I27.20 Pulmonary hypertension, unspecified; E11.51 Type 2 diabetes mellitus with diabetic peripheral angiopathy without gangrene; I07.1 Rheumatic tricuspid insufficiency; K59.09 Other constipation; R33.9 Retention of urine, unspecified; M81.0 Age-related osteoporosis without current pathological fracture; W01.0XXA Fall on same level from slipping, tripping and stumbling without subsequent striking against object, initial encounter; Y92.009 Unspecified place in unspecified non-institutional (private) residence as the place of occurrence of the external cause; Z89.512 Acquired absence of left leg below knee; Z87.891 Personal history of nicotine dependence; Z95.1 Presence of aortocoronary bypass graft; Z86.73 Personal history of transient ischemic attack (TIA), and cerebral infarction without residual deficits; Z95.810 Presence of automatic (implantable) cardiac defibrillator; Z95.5 Presence of coronary angioplasty implant and graft; Z79.899 Other long term (current) drug therapy; Z99.3 Dependence on wheelchair; Z98.84 Bariatric surgery status; Z74.01 Bed confinement status; Z88.1 Allergy status to other antibiotic agents